=== PATIENT | male | born 1945 | race Caucasian/White ===

== ENCOUNTER 2018-11-26 12:03 | Emergency (ER) | payer MEDICARE, OTHER ==
[2018-11-26] MEDS ORDERED: Albuterol 0.083% 2.5 MG/3 ML Neb Soln NEB ONE (12:12)
[2018-11-26] MEDS ORDERED: Lactated Ringers 1,000 ML IV ONE (12:12)
[2018-11-26] MEDS ORDERED: Sodium Chloride 0.9% 10 ML Syringe FLUSH PRN (12:19)
--- NOTE | 2018-11-26 12:23 | EDM.PDOC ---
ED HPI GENERAL MEDICAL PROBLEM - General Chief Complaint: Fever Stated Complaint: AMBULANCE Time Seen by Provider: 11/26/18 12:05 Source of Information: Reports: Patient History Limitations: Reports: No Limitations - History of Present Illness INITIAL COMMENTS - FREE TEXT/NARRATIVE: 72-year-old male is brought in from [place] by EMS for evaluation treatment of hypoxia and shortness of breath. EMS reports upon arrival he was found to be in the upper 80s on room air and slightly tachycardic with heart rate in the low 100s. Reportedly was incontinent of stool and urine during ambulance transport. Patient is currently combining shortness of breath and is appreciated this for the last few days. Also reporting generalized weakness. No chest pain, abdominal pain, nausea or vomiting. Patient was discharged from [facility] in [place] end of September. He was admitted September 17 to the for cellulitis of the right leg. He had an extensive workup done. Discharge to [facility], unclear exactly when he left the care home and return to his own home. legs Pain Score (Numeric/FACES): 5 - Related Data Allergies Allergy/AdvReac Type Severity Reaction Status Date / Time No Known Allergies Allergy Verified 11/26/18 12:25 Home Meds: Home Meds Aspirin 1 tab PO DAILY 11/26/18 [History] Furosemide [Lasix] 40 mg PO DAILY 11/26/18 [History] Losartan [Cozaar] 100 mg PO DAILY 11/26/18 [History] Metoprolol Tartrate [Lopressor] 12.5 mg PO Q12HR 11/26/18 [History] Potassium Chloride 20 meq PO DAILY 11/26/18 [History] Terbinafine [LamISIL] 250 mg PO DAILY 11/26/18 [History] Triamcinolone Acetonide [Triamcinolone Acetonide 0.1% Crm] 1 applic TOP ASDIRECTED 11/26/18 [History] amLODIPine Besylate [Norvasc] 10 mg PO DAILY 11/26/18 [History] hydroCHLOROthiazide [Hydrochlorothiazide] 25 mg PO DAILY 11/26/18 [History] ED ROS GENERAL - Review of Systems Review Of Systems: See Below Constitutional: Reports: Weakness Respiratory: Reports: Shortness of Breath. Denies: Cough Cardiovascular: Denies: Chest Pain GI/Abdominal: Reports: Stool Incontinence. Denies: Abdominal Pain, Nausea, Vomiting : Reports: Incontinence Musculoskeletal: Reports: Leg Pain (bilateral lower legs) Skin: Reports: Erythema ED EXAM, GENERAL - Physical Exam Exam: See Below Exam Limited By: No Limitations General Appearance: Alert, WD/WN, Mild Distress, Obese Nose: Normal Inspection Throat/Mouth: Normal Inspection, Normal Voice, No Airway Compromise Respiratory/Chest: Respiratory Distress (tachypnea), Decreased Breath Sounds Cardiovascular: Normal Peripheral Pulses, No Murmur, Tachycardia Peripheral Pulses: 2+: Radial (L), Radial (R), Dorsalis Pedis (L), Dorsalis Pedis (R) GI/Abdominal: Normal Bowel Sounds, Soft, Non-Tender Extremities: Other (4+ pitting edema to the bilateral lower legs with erythema ulcerative weeping lesions to the right lower leg) Neurological: Alert, Oriented, Confused Skin Exam: Erythema (bilateral lower legs), Increased Warmth (bilateral lower legs) EKG INTERPRETATION EKG Date: 11/26/18 Time: 12:22 Rhythm: NSR Rate (Beats/Min): 96 Randolph: Normal P-Wave: Present QRS: Normal ST-T: Depressed (minimal in the anteriorlateral leads) EKG Interpretation Comments: NSR at [address] depression in the anteriolateral leads. QTc 421. Reviewed by myself and Dr. Galvin. Course - Vital Signs Last Recorded V/S: Last Vital Signs Temp 99.1 F 11/26/18 12:51 Pulse 100 11/26/18 12:51 Resp 33 H 11/26/18 12:51 BP 138/82 11/26/18 12:51 Pulse Ox 94 L 11/26/18 12:51 - Orders/Labs/Meds Orders: Active Orders 24 hr Category Date Time Status Cardiac Monitoring [RC] . DIRECTED Care 11/26/18 12:12 Active EKG Documentation Completion [RC] ASDIRECTED Care 11/26/18 12:13 Active Oxygen Therapy [RC] ASDIRECTED Care 11/26/18 12:12 Active Peripheral IV Care [RC] . DIRECTED Care 11/26/18 12:19 Active RT Aerosol Therapy [RC] ASDIRECTED Care 11/26/18 12:13 Active Chest 1V Frontal [CR] Stat Exams 11/26/18 12:12 Taken CULTURE BLOOD [BC] Stat Lab 11/26/18 13:00 Received CULTURE BLOOD [BC] Stat Lab 11/26/18 13:21 Received CULTURE URINE [RM] Stat Lab 11/26/18 12:15 Ordered CULTURE WOUND [RM] Stat Lab 11/26/18 13:05 Received INR,PT,PROTHROMBIN TIME [COAG] Stat Lab 11/26/18 13:52 Ordered METH-RESIST S.AUR,MRSA BY PCR [MOLEC] Stat Lab 11/26/18 13:05 Received PTT,PARTIAL THROMBOPLSTIN TIME [COAG] Stat Lab 11/26/18 13:52 Ordered Heparin Sodium/D5W [Heparin 25,000 Units in D5W 500 ML] Med 11/26/18 14:15 Ordered 25,000 units in 500 ml IV TITRATE Lactated Ringers @ 150 MLS/HR(1000ml Bag) Med 11/26/18 15:00 Ordered Lactated Ringers [Ringers, Lactated] 1,000 ml IV ASDIRECTED Sodium Chloride 0.9% [Saline Flush] Med 11/26/18 12:19 Active 10 ml FLUSH ASDIRECTED PRN Vancomycin [Vancocin] 1 gm Med 11/26/18 14:44 Ordered Sodium Chloride 0.9% [Normal Saline] 250 ml IV ONETIME Vancomycin [Vancocin] 1 gm Med 11/26/18 14:44 Ordered Sodium Chloride 0.9% [Normal Saline] 250 ml IV ONETIME Blood Culture x2 Reflex Set [OM.PC] Stat Oth 11/26/18 12:12 Ordered Peripheral IV Insertion Adult [OM.PC] Routine Oth 11/26/18 12:19 Ordered EKG 12 Lead [EK] Stat Ther 11/26/18 12:12 Ordered Medication Orders Heparin Sodium/Dextrose (Heparin 25,000 Units In D5w 500 Ml) 25,000 units in 500 mls @ 20 mls/hr IV TITRATE GLENN; Protocol Vancomycin HCl 1 gm/ Sodium (Chloride) 250 mls @ 250 mls/hr IV ONETIME ONE Stop: 11/26/18 15:43 Vancomycin HCl 1 gm/ Sodium (Chloride) 250 mls @ 250 mls/hr IV ONETIME ONE Stop: 11/26/18 15:43 Lactated Ringer's (Ringers, Lactated) 1,000 mls @ 150 mls/hr IV ASDIRECTED GLENN Sodium Chloride (Saline Flush) 10 ml FLUSH ASDIRECTED PRN PRN Reason: Keep Vein Open Last Admin: 11/26/18 13:06 Dose: 10 ml Labs: Laboratory Tests 11/26/18 11/26/18 11/26/18 Range/Units 13:00 13:00 13:00 WBC (4.23-9.07) K/mm3 RBC (4.63-6.08) M/mm3 Hgb (13.7-17.5) gm/L Hct (40.1-51.0) % MCV (79.0-92.2) fl MCH (25.7-32.2) pg MCHC (32.2-35.5) g/dl RDW Std Deviation (35.1-43.9) fL Plt Count (163-337) K/mm3 MPV (9.4-12.3) fl Neutrophils % (Manual) (40-60) % Band Neutrophils % (0-10) % Lymphocytes % (Manual) (20-40) % Atypical Lymphs % % Monocytes % (Manual) (2-10) % Eosinophils % (Manual) (0.8-7.0) % Basophils % (Manual) (0.2-1.2) Platelet Estimate Anisocytosis Macrocytosis RBC Morph Comment Sodium 141 (136-145) mEq/L Potassium 3.3 L (3.5-5.1) mEq/L Chloride 102 (98-107) mEq/L Carbon Dioxide 27 (21-32) mEq/L Anion Gap 15.3 H (5-15) BUN 23 H (7-18) mg/dL Creatinine 1.1 (0.7-1.3) mg/dL Est Cr Clr Drug Dosing 75.62 mL/min Estimated GFR (MDRD) > 60 (>60) mL/min BUN/Creatinine Ratio 20.9 H (14-18) Glucose 113 (83-115) mg/dL Lactic Acid 3.5 H (0.4-2.0) mmol/L Calcium 8.5 (8.5-10.1) mg/dL Magnesium (1.8-2.4) mg/dl Total Bilirubin 0.5 (0.2-1.0) mg/dL AST 104 H (15-37) U/L ALT 25 (16-63) U/L Alkaline Phosphatase 98 (46-116) U/L CK-MB (CK-2) (0-3.6) ng/ml Troponin I 20.658 H* (0.00-0.056) ng/mL C-Reactive Protein 9.7 H* (<1.0) mg/dL Total Protein 8.4 H (6.4-8.2) g/dl Albumin 3.2 L (3.4-5.0) g/dl Globulin 5.2 gm/dL Albumin/Globulin Ratio 0.6 L (1-2) Urine Color (Yellow) Urine Appearance (Clear) Urine pH (5.0-8.0) Ur Specific Himrod (1.005-1.030) Urine Protein (Negative) Urine Glucose (UA) (Negative) Urine Ketones (Negative) Urine Occult Blood (Negative) Urine Nitrite (Negative) Urine Bilirubin (Negative) Urine Urobilinogen (0.2-1.0) Ur Leukocyte Esterase (Negative) Urine RBC (0-5) /hpf Urine WBC (0-5) /hpf Ur Epithelial Cells (0-5) /hpf Urine Bacteria (FEW) /hpf Urine Mucus (FEW) /hpf Mycoplasma pneumon IgM Negative (NEGATIVE) 11/26/18 11/26/18 11/26/18 Range/Units 13:00 13:00 13:15 WBC 22.64 H (4.23-9.07) K/mm3 RBC 3.96 L (4.63-6.08) M/mm3 Hgb 13.1 L (13.7-17.5) gm/L Hct 40.9 (40.1-51.0) % MCV 103.3 H (79.0-92.2) fl MCH 33.1 H (25.7-32.2) pg MCHC 32.0 L (32.2-35.5) g/dl RDW Std Deviation 59.1 H (35.1-43.9) fL Plt Count 249 (163-337) K/mm3 MPV 9.0 L (9.4-12.3) fl Neutrophils % (Manual) 87 H (40-60) % Band Neutrophils % 5 (0-10) % Lymphocytes % (Manual) 6 L (20-40) % Atypical Lymphs % 0 % Monocytes % (Manual) 2 (2-10) % Eosinophils % (Manual) 0 L (0.8-7.0) % Basophils % (Manual) 0 L (0.2-1.2) Platelet Estimate Adequate Anisocytosis 1+ slight Macrocytosis 1+ slight RBC Morph Comment Not Reportable Sodium (136-145) mEq/L Potassium (3.5-5.1) mEq/L Chloride (98-107) mEq/L Carbon Dioxide (21-32) mEq/L Anion Gap (5-15) BUN (7-18) mg/dL Creatinine (0.7-1.3) mg/dL Est Cr Clr Drug Dosing mL/min Estimated GFR (MDRD) (>60) mL/min BUN/Creatinine Ratio (14-18) Glucose (83-115) mg/dL Lactic Acid (0.4-2.0) mmol/L Calcium (8.5-10.1) mg/dL Magnesium 2.0 (1.8-2.4) mg/dl Total Bilirubin (0.2-1.0) mg/dL AST (15-37) U/L ALT (16-63) U/L Alkaline Phosphatase (46-116) U/L CK-MB (CK-2) 97.6 H (0-3.6) ng/ml Troponin I (0.00-0.056) ng/mL C-Reactive Protein (<1.0) mg/dL Total Protein (6.4-8.2) g/dl Albumin (3.4-5.0) g/dl Globulin gm/dL Albumin/Globulin Ratio (1-2) Urine Color (Yellow) Urine Appearance (Clear) Urine pH (5.0-8.0) Ur Specific Himrod (1.005-1.030) Urine Protein (Negative) Urine Glucose (UA) (Negative) Urine Ketones (Negative) Urine Occult Blood (Negative) Urine Nitrite (Negative) Urine Bilirubin (Negative) Urine Urobilinogen (0.2-1.0) Ur Leukocyte Esterase (Negative) Urine RBC (0-5) /hpf Urine WBC (0-5) /hpf Ur Epithelial Cells (0-5) /hpf Urine Bacteria (FEW) /hpf Urine Mucus (FEW) /hpf Mycoplasma pneumon IgM (NEGATIVE) 11/26/18 Range/Units 13:55 WBC (4.23-9.07) K/mm3 RBC (4.63-6.08) M/mm3 Hgb (13.7-17.5) gm/L Hct (40.1-51.0) % MCV (79.0-92.2) fl MCH (25.7-32.2) pg MCHC (32.2-35.5) g/dl RDW Std Deviation (35.1-43.9) fL Plt Count (163-337) K/mm3 MPV (9.4-12.3) fl Neutrophils % (Manual) (40-60) % Band Neutrophils % (0-10) % Lymphocytes % (Manual) (20-40) % Atypical Lymphs % % Monocytes % (Manual) (2-10) % Eosinophils % (Manual) (0.8-7.0) % Basophils % (Manual) (0.2-1.2) Platelet Estimate Anisocytosis Macrocytosis RBC Morph Comment Sodium (136-145) mEq/L Potassium (3.5-5.1) mEq/L Chloride (98-107) mEq/L Carbon Dioxide (21-32) mEq/L Anion Gap (5-15) BUN (7-18) mg/dL Creatinine (0.7-1.3) mg/dL Est Cr Clr Drug Dosing mL/min Estimated GFR (MDRD) (>60) mL/min BUN/Creatinine Ratio (14-18) Glucose (83-115) mg/dL Lactic Acid (0.4-2.0) mmol/L Calcium (8.5-10.1) mg/dL Magnesium (1.8-2.4) mg/dl Total Bilirubin (0.2-1.0) mg/dL AST (15-37) U/L ALT (16-63) U/L Alkaline Phosphatase (46-116) U/L CK-MB (CK-2) (0-3.6) ng/ml Troponin I (0.00-0.056) ng/mL C-Reactive Protein (<1.0) mg/dL Total Protein (6.4-8.2) g/dl Albumin (3.4-5.0) g/dl Globulin gm/dL Albumin/Globulin Ratio (1-2) Urine Color Yellow (Yellow) Urine Appearance Slt cloudy H (Clear) Urine pH 6.0 (5.0-8.0) Ur Specific Himrod 1.025 (1.005-1.030) Urine Protein 2+ H (Negative) Urine Glucose (UA) Negative (Negative) Urine Ketones Trace H (Negative) Urine Occult Blood Trace-lysed H (Negative) Urine Nitrite Negative (Negative) Urine Bilirubin 1+ H (Negative) Urine Urobilinogen 0.2 (0.2-1.0) Ur Leukocyte Esterase Negative (Negative) Urine RBC 0-5 (0-5) /hpf Urine WBC 0-5 (0-5) /hpf Ur Epithelial Cells 0-5 (0-5) /hpf Urine Bacteria Moderate H (FEW) /hpf Urine Mucus Many H (FEW) /hpf Mycoplasma pneumon IgM (NEGATIVE) Meds: Medications Generic Name Dose Route Start Last Admin Trade Name Billy PRN Reason Stop Dose Admin Heparin Sodium/Dextrose 25,000 units in 500 mls @ 20 mls/hr 11/26/18 14:15 Heparin 25,000 Units In D5w 500 Ml IV TITRATE GLENN Protocol 1,000 UNITS/HR Vancomycin HCl 1 gm/ Sodium 250 mls @ 250 mls/hr 11/26/18 14:44 Chloride IV 11/26/18 15:43 ONETIME ONE Vancomycin HCl 1 gm/ Sodium 250 mls @ 250 mls/hr 11/26/18 14:44 Chloride IV 11/26/18 15:43 ONETIME ONE Lactated Ringer's 1,000 mls @ 150 mls/hr 11/26/18 15:00 Ringers, Lactated IV ASDIRECTED GLENN Sodium Chloride 10 ml 11/26/18 12:19 11/26/18 13:06 Saline Flush FLUSH 10 ml ASDIRECTED PRN Administration Keep Vein Open Discontinued Medications Generic Name Dose Route Start Last Admin Trade Name Billy PRN Reason Stop Dose Admin Albuterol 2.5 mg 11/26/18 12:12 Proventil Neb Soln NEB 11/26/18 12:13 ONETIME ONE Aspirin 325 mg 11/26/18 13:52 Ecotrin PO 11/26/18 13:53 ONETIME ONE Heparin Sodium (Porcine) 4,000 units 11/26/18 14:02 Heparin Sodium IVPUSH 11/26/18 14:03 ONETIME ONE Lactated Ringer's 1,000 mls @ 999 mls/hr 11/26/18 12:12 11/26/18 13:03 Ringers, Lactated IV 11/26/18 13:12 999 mls/hr .BOLUS ONE Administration Piperacillin Sod/Tazobactam 100 mls @ 200 mls/hr 11/26/18 12:52 11/26/18 13: 04 Sod 4.5 gm/ Sodium Chloride IV 11/26/18 13:21 200 mls/hr ONETIME ONE Administration - Radiology Interpretation Free Text/Narrative:: 1 view chest xray shows congestion, no obvious infiltrate. Formal radiology read pending. Chest: Portable view of the chest was obtained. Comparison: No previous chest x-ray. Heart size is slightly enlarged. Tortuous thoracic aorta is noted. Incidental note of azygous lobe. Pulmonary vessels are congested. Lungs otherwise are clear. Bony structures are grossly intact. Impression: 1. Findings suspicious for CHF. - Re-Assessments/Exams Free Text/Narrative Re-Assessment/Exam: 11/26/18 15:05 Patient requires admission for likely sepsis as well as an elevated troponin. Patient was like to go to [facility] in [place]. Aspirin and heparin ordered. He has received IV Zosyn. Will add on IV vancomycin. He has received a liter of LR. Chest x-ray does show congestion and his BP is maintained will continue to hydrate but at a lower rate than the recommended 30 mils per kilo. Discussed with Dr. Steiner hostel manager in [place]. Recommended treating with heparin and aspirin but felt this was more likely from sepsis. Case discussed with Dr. Lawson, hospitalist who agreed to the admission. He will be transferred by ground ambulance to [facility] in [place]. Departure - Departure Time of Disposition: 15:14 Disposition: DC/Tfer to Acute Hospital 02 Condition: Serious Clinical Impression: Sepsis, Elevated troponin, Hypoxia, Cellulitis - Discharge Information *PRESCRIPTION DRUG MONITORING PROGRAM REVIEWED*: No *COPY OF PRESCRIPTION DRUG MONITORING REPORT IN PATIENT AMARILIS: No Forms: ED Department Discharge Additional Instructions: Patient to go by ground ambulance to [facility] in [place]. Direct admission to Dr. Lawson. - My Orders Last 24 Hours: My Active Orders 11/26/18 12:12 Cardiac Monitoring [RC] . DIRECTED Oxygen Therapy [RC] ASDIRECTED Chest 1V Frontal [CR] Stat Blood Culture x2 Reflex Set [OM.PC] Stat EKG 12 Lead [EK] Stat 11/26/18 12:13 EKG Documentation Completion [RC] ASDIRECTED RT Aerosol Therapy [RC] ASDIRECTED 11/26/18 12:15 CULTURE URINE [RM] Stat 11/26/18 12:19 Peripheral IV Care [RC] . DIRECTED Sodium Chloride 0.9% [Saline Flush] 10 ml FLUSH ASDIRECTED PRN Peripheral IV Insertion Adult [OM.PC] Routine 11/26/18 13:00 CULTURE BLOOD [BC] Stat 11/26/18 13:05 CULTURE WOUND [RM] Stat METH-RESIST S.AUR,MRSA BY PCR [MOLEC] Stat 11/26/18 13:21 CULTURE BLOOD [BC] Stat 11/26/18 13:52 INR,PT,PROTHROMBIN TIME [COAG] Stat PTT,PARTIAL THROMBOPLSTIN TIME [COAG] Stat 11/26/18 14:15 Heparin Sodium/D5W [Heparin 25,000 Units in D5W 500 ML] 25,000 units in 500 ml IV TITRATE 11/26/18 14:44 Vancomycin [Vancocin] 1 gm Sodium Chloride 0.9% [Normal Saline] 250 ml IV ONETIME Vancomycin [Vancocin] 1 gm Sodium Chloride 0.9% [Normal Saline] 250 ml IV ONETIME 11/26/18 15:00 Lactated Ringers @ 150 MLS/HR(1000ml Bag) Lactated Ringers [Ringers, Lactated] 1 ,000 ml IV ASDIRECTED - Assessment/Plan Last 24 Hours: My Active Orders 11/26/18 12:12 Cardiac Monitoring [RC] . DIRECTED Oxygen Therapy [RC] ASDIRECTED Chest 1V Frontal [CR] Stat Blood Culture x2 Reflex Set [OM.PC] Stat EKG 12 Lead [EK] Stat 11/26/18 12:13 EKG Documentation Completion [RC] ASDIRECTED RT Aerosol Therapy [RC] ASDIRECTED 11/26/18 12:15 CULTURE URINE [RM] Stat 11/26/18 12:19 Peripheral IV Care [RC] . DIRECTED Sodium Chloride 0.9% [Saline Flush] 10 ml FLUSH ASDIRECTED PRN Peripheral IV Insertion Adult [OM.PC] Routine 11/26/18 13:00 CULTURE BLOOD [BC] Stat 11/26/18 13:05 CULTURE WOUND [RM] Stat METH-RESIST S.AUR,MRSA BY PCR [MOLEC] Stat 11/26/18 13:21 CULTURE BLOOD [BC] Stat 11/26/18 13:52 INR,PT,PROTHROMBIN TIME [COAG] Stat PTT,PARTIAL THROMBOPLSTIN TIME [COAG] Stat 11/26/18 14:15 Heparin Sodium/D5W [Heparin 25,000 Units in D5W 500 ML] 25,000 units in 500 ml IV TITRATE 11/26/18 14:44 Vancomycin [Vancocin] 1 gm Sodium Chloride 0.9% [Normal Saline] 250 ml IV ONETIME Vancomycin [Vancocin] 1 gm Sodium Chloride 0.9% [Normal Saline] 250 ml IV ONETIME 11/26/18 15:00 Lactated Ringers @ 150 MLS/HR(1000ml Bag) Lactated Ringers [Ringers, Lactated] 1 ,000 ml IV ASDIRECTED
[2018-11-26] MEDS ORDERED: Piperacillin/Tazobactam 4.5 GM in Sodium Chloride 0.9% 100 ML IV ONE (12:52)
[2018-11-26] MEDS ORDERED: Aspirin 325 MG Tab.EC PO ONE (13:52)
[2018-11-26] MEDS ORDERED: Heparin Sodium 5,000 Units/ML Vial IVPUSH ONE (14:02)
[2018-11-26] MEDS ORDERED: Heparin Sodium/D5W 25,000 UNITS/500 ML BAG IV SCH (14:15)
[2018-11-26] MEDS ORDERED: Lactated Ringers 1,000 ML IV SCH (15:00)
--- NOTE | 2018-11-26 16:59 | CR ---
Chest: Portable view of the chest was obtained. Comparison: No previous chest x-ray. Heart size is slightly enlarged. Tortuous thoracic aorta is noted. Incidental note of azygous lobe. Pulmonary vessels are congested. Lungs otherwise are clear. Bony structures are grossly intact. Impression: 1. Findings suspicious for CHF. Diagnostic code #3
== END 2018-11-26 18:25 ==
LOC: JD.ED 12:03
DX: A41.89 Other specified sepsis (principal); R09.02 Hypoxemia; L03.116 Cellulitis of left lower limb; L03.115 Cellulitis of right lower limb; R79.89 Other specified abnormal findings of blood chemistry; Z79.82 Long term (current) use of aspirin; Z79.899 Other long term (current) drug therapy
CPT/HCPCS: 36415; 71045; 80053; 81001; 82553; 83605; 83735; 84484; 85007; 85027; 86140; 86738; 87040; 87070; 87077; 87086; 87184; 87186; 87641; 87804; 93005; 94640; 96361; 96365; 96366; 96367; 96368; 96376; 99285; A9270; J1644; J2543; J3370; J7030; J7050; J7120; 93010; 99284

== ENCOUNTER 2020-04-24 11:50 | Emergency (ER) | payer MEDICARE, OTHER ==
[2020-04-24] MEDS ORDERED: Sodium Chloride 0.9% 10 ML Syringe FLUSH PRN (12:03)
--- NOTE | 2020-04-24 12:24 | CR ---
Chest: Portable view of the chest was obtained. Comparison: Prior chest x-ray of 11/26/18. Heart is mildly enlarged. Incidental azygos lobe is noted. Slight scarring is noted within the left base. Lungs otherwise are clear with no acute parenchymal change. Degenerative change is noted within both acromioclavicular joints. No acute osseous finding is appreciated. Impression: 1. Findings as noted above. 2. Nothing acute is appreciated. Diagnostic code #2 This report was dictated in [facility]
--- NOTE | 2020-04-24 12:56 | EDM.PDOC ---
ED HPI GENERAL MEDICAL PROBLEM - General Chief Complaint: General Stated Complaint: [facility] Time Seen by Provider: 04/24/20 11:56 Source of Information: Reports: Patient, EMS, Correction Records History Limitations: Reports: No Limitations - History of Present Illness INITIAL COMMENTS - FREE TEXT/NARRATIVE: The patient presents by [facility] from [facility] for low oxygen saturations and possible infection. The patient said he has chills and a cough. He did not know if he had a fever. His oxygen saturations were low in [place] but EMS says on the way here they were good. He has no chest pain, shortness of breath, abdominal pain, nausea or vomiting. He has chronic edema in his legs with weeping at times and they think this may be the source. He has no dysuria. They also thought he was in a new onset A-fib. His heart rate has been in the low 100s. Onset: Gradual Duration: Day(s): Severity: Moderate Improves with: Reports: None Worsens with: Reports: None Associated Symptoms: Reports: Cough, Fever/Chills. Denies: Chest Pain, Headaches, Nausea/Vomiting, Shortness of Breath - Related Data Allergies Allergy/AdvReac Type Severity Reaction Status Date / Time No Known Allergies Allergy Verified 04/24/20 12:00 Home Meds: Home Meds Aspirin 1 tab PO DAILY 11/26/18 [History] Losartan [Cozaar] 100 mg PO DAILY 11/26/18 [History] Potassium Chloride 20 meq PO DAILY 11/26/18 [History] Acetaminophen 650 mg PO TID PRN 04/24/20 [History] Alum Hydrox/Mag Hydrox/Simeth [Maalox Advanced] 30 ml PO DAILY PRN 04/24/20 [ History] Bumetanide 3 mg PO DAILY 04/24/20 [History] Calcium Carbonate [Tums] 200 mg PO QID 04/24/20 [History] Clopidogrel [Plavix] 75 mg PO DAILY 04/24/20 [History] Diclofenac Sodium [Voltaren 1% Gel] 2 gm TOP QID PRN 04/24/20 [History] Docusate Sodium [Colace] 100 mg PO DAILY PRN 04/24/20 [History] Loperamide [Imodium] 4 mg PO ASDIRECTED PRN 04/24/20 [History] Metoprolol Succinate 50 mg PO DAILY 04/24/20 [History] Mirtazapine 15 mg PO BEDTIME 04/24/20 [History] Nitroglycerin [Nitrostat] 0.4 mg SL ASDIRECTED PRN 04/24/20 [History] Sennosides/Docusate Sodium [Senna Plus Tablet] 1 each PO DAILY PRN 04/24/20 [ History] hydrALAZINE [Apresoline] 25 mg PO Q12HR 04/24/20 [History] polyethylene glycoL 3350 [MiraLAX] 17 gm PO DAILY 04/24/20 [History] Past Medical History HEENT History: Reports: Impaired Vision Cardiovascular History: Reports: Hypertension, SD, PVD, SOB on Exertion Respiratory History: Reports: SOB Gastrointestinal History: Reports: GI Bleed, Other (See Below) Other Gastrointestinal History: incontinence Genitourinary History: Reports: Urinary Incontinence Musculoskeletal History: Reports: Arthritis, Osteoarthritis Other Musculoskeletal History: uses walker Neurological History: Reports: None Psychiatric History: Reports: Other (See Below) Other Psychiatric History: Insomnia Endocrine/Metabolic History: Reports: Diabetes, Type II, Hypokalemia, Obesity/ BMI 30+ Hematologic History: Reports: Anemia Other Hematologic History: sees oncologist for "possible cancer in blood" Immunologic History: Reports: None Oncologic (Cancer) History: Reports: Other (See Below) Other Oncologic History: "blood cancer," multiple myeloma Dermatologic History: Reports: Cellulitis, Other (See Below) Other Dermatologic History: 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 - Infectious Disease History Infectious Disease History: Reports: None - Past Surgical History GI Surgical History: Reports: Appendectomy Social & Family History - Family History Family Medical History: Noncontributory - Tobacco Use Smoking Status *Q: Never Smoker - Caffeine Use Caffeine Use: Reports: None - Recreational Drug Use Recreational Drug Use: No ED ROS GENERAL - Review of Systems Review Of Systems: See Below Constitutional: Reports: Chills HEENT: Reports: No Symptoms Respiratory: Reports: No Symptoms Cardiovascular: Reports: No Symptoms Endocrine: Reports: No Symptoms GI/Abdominal: Reports: No Symptoms : Reports: No Symptoms Musculoskeletal: Reports: No Symptoms ED EXAM, GENERAL - Physical Exam Exam: See Below Exam Limited By: No Limitations General Appearance: Alert, No Apparent Distress Ears: Normal External Exam Nose: Normal Inspection Head: Atraumatic, Normocephalic Neck: Normal Inspection Respiratory/Chest: No Respiratory Distress, Lungs Clear, Normal Breath Sounds Cardiovascular: Regular Rate, Rhythm, No Murmur, Other (Edema in both legs) GI/Abdominal: Soft, Non-Tender, No Organomegaly, No Mass Back Exam: Normal Inspection Extremities: Other (Edema to both legs withe erythema) EKG INTERPRETATION EKG Date: 04/24/20 Time: 12:48 Rhythm: Other (Junctional tachycardia) Rate (Beats/Min): 107 Dema: Normal P-Wave: Absent QRS: Normal ST-T: Normal QT: Normal Course - Vital Signs Last Recorded V/S: Last Vital Signs Temp 97.3 F 04/24/20 11:53 Pulse 100 04/24/20 11:53 Resp 18 04/24/20 11:53 BP 120/74 04/24/20 11:53 Pulse Ox 100 04/24/20 11:53 - Orders/Labs/Meds Orders: Active Orders 24 hr Category Date Time Status EKG Documentation Completion [RC] ASDIRECTED Care 04/24/20 12:31 Active Peripheral IV Care [RC] . DIRECTED Care 04/24/20 12:04 Active CORONAVIRUS COVID-19 PCR PHL Stat Lab 04/24/20 12:06 Ordered CULTURE BLOOD [BC] Stat Lab 04/24/20 12:20 Received CULTURE BLOOD [BC] Stat Lab 04/24/20 12:35 Received LACTIC ACID [CHEM] Stat Lab 04/24/20 15:30 Ordered Lactated Ringers [Ringers, Lactated] 1,000 ml Med 04/24/20 14:30 Active IV ASDIRECTED Sodium Chloride 0.9% [Saline Flush] Med 04/24/20 12:03 Active 10 ml FLUSH ASDIRECTED PRN Vancomycin 2 gm Med 04/24/20 14:15 Active Sodium Chloride 0.9% [Normal Saline] 500 ml IV ONETIME Blood Culture x2 Reflex Set [OM.PC] Stat Oth 04/24/20 12:05 Ordered Peripheral IV Insertion Adult [OM.PC] Stat Oth 04/24/20 12:03 Ordered EKG 12 Lead [EK] Stat Ther 04/24/20 12:31 Ordered Medication Orders Vancomycin HCl 2 gm/ Sodium (Chloride) 500 mls @ 250 mls/hr IV ONETIME ONE Stop: 04/24/20 16:14 Lactated Ringer's (Ringers, Lactated) 1,000 mls @ 999 mls/hr IV ASDIRECTED GLENN Stop: 04/26/20 15:31 Sodium Chloride (Saline Flush) 10 ml FLUSH ASDIRECTED PRN PRN Reason: Keep Vein Open Labs: Laboratory Tests 04/24/20 04/24/20 04/24/20 Range/Units 12:05 12:20 12:35 WBC 17.49 H (4.23-9.07) K/mm3 RBC 2.66 L (4.63-6.08) M/mm3 Hgb 9.0 L D (13.7-17.5) gm/dl Hct 28.8 L (40.1-51.0) % MCV 108.3 H D (79.0-92.2) fl MCH 33.8 H (25.7-32.2) pg MCHC 31.3 L (32.2-35.5) g/dl RDW Std Deviation 56.2 H (35.1-43.9) fL Plt Count 296 (163-337) K/mm3 MPV 8.4 L (9.4-12.3) fl Neut % (Auto) 68.3 H (34.0-67.9) % Lymph % (Auto) 26.8 (21.8-53.1) % Cowley % (Auto) 4.4 L (5.3-12.2) % Eos % (Auto) 0.2 L (0.8-7.0) Baso % (Auto) 0.1 (0.1-1.2) % Neut # (Auto) 11.97 H (1.78-5.38) K/mm3 Lymph # (Auto) 4.68 H (1.32-3.57) K/mm3 Cowley # (Auto) 0.77 (0.30-0.82) K/mm3 Eos # (Auto) 0.03 L (0.04-0.54) K/mm3 Baso # (Auto) 0.01 (0.01-0.08) K/mm3 Manual Slide Review Abnormal smear PT (9.7-12.0) SECONDS INR APTT (22-31) SECONDS Sodium (136-145) mEq/L Potassium (3.5-5.1) mEq/L Chloride (98-107) mEq/L Carbon Dioxide (21-32) mEq/L Anion Gap (5-15) BUN (7-18) mg/dL Creatinine (0.7-1.3) mg/dL Est Cr Clr Drug Dosing mL/min Estimated GFR (MDRD) (>60) mL/min BUN/Creatinine Ratio (14-18) Glucose (83-115) mg/dL Lactic Acid 2.0 (0.4-2.0) mmol/L Calcium (8.5-10.1) mg/dL Total Bilirubin (0.2-1.0) mg/dL AST (15-37) U/L ALT (16-63) U/L Alkaline Phosphatase (46-116) U/L Total Protein (6.4-8.2) g/dl Albumin (3.4-5.0) g/dl Globulin gm/dL Albumin/Globulin Ratio (1-2) Urine Color Yellow (Yellow) Urine Appearance Clear (Clear) Urine pH 5.5 (5.0-8.0) Ur Specific Lowell 1.020 (1.005-1.030) Urine Protein 2+ H (Negative) Urine Glucose (UA) Negative (Negative) Urine Ketones Negative (Negative) Urine Occult Blood Negative (Negative) Urine Nitrite Negative (Negative) Urine Bilirubin Negative (Negative) Urine Urobilinogen 0.2 (0.2-1.0) Ur Leukocyte Esterase Trace H (Negative) U Hyaline Cast (Auto) 0-5 (0-5) /lpf Urine RBC Not seen (0-5) /hpf Urine WBC 0-5 (0-5) /hpf Ur Squamous Epith Cells Not seen (0-5) /hpf Urine Bacteria Not seen (FEW) /hpf Urine Mucus Few (FEW) /hpf 04/24/20 04/24/20 04/24/20 Range/Units 12:35 12:35 12:35 WBC (4.23-9.07) K/mm3 RBC (4.63-6.08) M/mm3 Hgb (13.7-17.5) gm/dl Hct (40.1-51.0) % MCV (79.0-92.2) fl MCH (25.7-32.2) pg MCHC (32.2-35.5) g/dl RDW Std Deviation (35.1-43.9) fL Plt Count (163-337) K/mm3 MPV (9.4-12.3) fl Neut % (Auto) (34.0-67.9) % Lymph % (Auto) (21.8-53.1) % Cowley % (Auto) (5.3-12.2) % Eos % (Auto) (0.8-7.0) Baso % (Auto) (0.1-1.2) % Neut # (Auto) (1.78-5.38) K/mm3 Lymph # (Auto) (1.32-3.57) K/mm3 Cowley # (Auto) (0.30-0.82) K/mm3 Eos # (Auto) (0.04-0.54) K/mm3 Baso # (Auto) (0.01-0.08) K/mm3 Manual Slide Review PT 11.4 (9.7-12.0) SECONDS INR 1.05 APTT 26 (22-31) SECONDS Sodium 137 (136-145) mEq/L Potassium 3.9 (3.5-5.1) mEq/L Chloride 99 (98-107) mEq/L Carbon Dioxide 25 (21-32) mEq/L Anion Gap 16.9 H (5-15) BUN 43 H (7-18) mg/dL Creatinine 2.2 H (0.7-1.3) mg/dL Est Cr Clr Drug Dosing 35.74 mL/min Estimated GFR (MDRD) 29 (>60) mL/min BUN/Creatinine Ratio 19.5 H (14-18) Glucose 97 (83-115) mg/dL Lactic Acid (0.4-2.0) mmol/L Calcium 9.3 (8.5-10.1) mg/dL Total Bilirubin 0.4 (0.2-1.0) mg/dL AST 11 L (15-37) U/L ALT 14 L (16-63) U/L Alkaline Phosphatase 117 H (46-116) U/L Total Protein 9.2 H (6.4-8.2) g/dl Albumin 2.8 L (3.4-5.0) g/dl Globulin 6.4 gm/dL Albumin/Globulin Ratio 0.4 L (1-2) Urine Color (Yellow) Urine Appearance (Clear) Urine pH (5.0-8.0) Ur Specific Lowell (1.005-1.030) Urine Protein (Negative) Urine Glucose (UA) (Negative) Urine Ketones (Negative) Urine Occult Blood (Negative) Urine Nitrite (Negative) Urine Bilirubin (Negative) Urine Urobilinogen (0.2-1.0) Ur Leukocyte Esterase (Negative) U Hyaline Cast (Auto) (0-5) /lpf Urine RBC (0-5) /hpf Urine WBC (0-5) /hpf Ur Squamous Epith Cells (0-5) /hpf Urine Bacteria (FEW) /hpf Urine Mucus (FEW) /hpf Meds: Medications Generic Name Dose Route Start Last Admin Trade Name Freq PRN Reason Stop Dose Admin Vancomycin HCl 2 gm/ Sodium 500 mls @ 250 mls/hr 04/24/20 14:15 Chloride IV 04/24/20 16:14 ONETIME ONE Lactated Ringer's 1,000 mls @ 999 mls/hr 04/24/20 14:30 Ringers, Lactated IV 04/26/20 15:31 ASDIRECTED GLENN Sodium Chloride 10 ml 04/24/20 12:03 Saline Flush FLUSH ASDIRECTED PRN Keep Vein Open Discontinued Medications Generic Name Dose Route Start Last Admin Trade Name Freq PRN Reason Stop Dose Admin Vancomycin HCl 2 gm/ Sodium 250 mls @ 250 mls/hr 04/24/20 13:10 04/24/20 14: 30 Chloride IV 04/24/20 14:09 Not Given ONETIME ONE Lidocaine HCl Confirm 04/24/20 13:39 Xylocaine-Mpf 1% Administered 04/24/20 13:40 Dose 2 mls @ as directed .ROUTE .STK-MED ONE - Re-Assessments/Exams Free Text/Narrative Re-Assessment/Exam: 04/24/20 12:59 I ordered an IV saline lock, EKG, CXR, labs, lactic acid and blood cultures. 04/24/20 14:35 His CXR shows cardiomegaly but no acute changes. His WBC was elevated at 17.49. his Hgb was low at 9. His platelets were normal. His PT and PTT were normal. His creatinine was elevated at 2.2. He has no history of renal disease that I know of. His UA shows no UTI. It appears he is septic. A septic alert was called. His lactic acid is 2. I called Dr Hargrove and she agreed to the admission. She wanted him to have a 30ml/kg bolus. I also gave him vancomycin IV. Departure - Departure Time of Disposition: 14:45 Disposition: Admitted As Inpatient 67 Clinical Impression: Cellulitis of right leg, Renal insufficiency Sepsis Qualifiers: Sepsis type: sepsis due to unspecified organism Sepsis acute organ dysfunction status: unspecified Qualified Code(s): A41.9 - Sepsis, unspecified organism - Discharge Information Referrals: Yanick Plunkett MD [Primary Care Provider] - Forms: ED Department Discharge Sepsis Event Note (ED) - Evaluation Sepsis Screening Result: No Definite Risk - Focused Exam Vital Signs: Vital Signs Temp Pulse Resp BP Pulse Ox 04/24/20 11:53 97.3 F 100 18 120/74 100 - My Orders Last 24 Hours: My Active Orders 04/24/20 12:03 Sodium Chloride 0.9% [Saline Flush] 10 ml FLUSH ASDIRECTED PRN Peripheral IV Insertion Adult [OM.PC] Stat 04/24/20 12:04 Peripheral IV Care [RC] . DIRECTED 04/24/20 12:05 Blood Culture x2 Reflex Set [OM.PC] Stat 04/24/20 12:06 CORONAVIRUS COVID-19 PCR PHL Stat 04/24/20 12:20 CULTURE BLOOD [BC] Stat 04/24/20 12:31 EKG Documentation Completion [RC] ASDIRECTED EKG 12 Lead [EK] Stat 04/24/20 12:35 CULTURE BLOOD [BC] Stat 04/24/20 14:15 Vancomycin 2 gm Sodium Chloride 0.9% [Normal Saline] 500 ml IV ONETIME 04/24/20 14:30 Lactated Ringers [Ringers, Lactated] 1,000 ml IV ASDIRECTED 04/24/20 15:30 LACTIC ACID [CHEM] Stat - Assessment/Plan Last 24 Hours: My Active Orders 04/24/20 12:03 Sodium Chloride 0.9% [Saline Flush] 10 ml FLUSH ASDIRECTED PRN Peripheral IV Insertion Adult [OM.PC] Stat 04/24/20 12:04 Peripheral IV Care [RC] . DIRECTED 04/24/20 12:05 Blood Culture x2 Reflex Set [OM.PC] Stat 04/24/20 12:06 CORONAVIRUS COVID-19 PCR PHL Stat 04/24/20 12:20 CULTURE BLOOD [BC] Stat 04/24/20 12:31 EKG Documentation Completion [RC] ASDIRECTED EKG 12 Lead [EK] Stat 04/24/20 12:35 CULTURE BLOOD [BC] Stat 04/24/20 14:15 Vancomycin 2 gm Sodium Chloride 0.9% [Normal Saline] 500 ml IV ONETIME 04/24/20 14:30 Lactated Ringers [Ringers, Lactated] 1,000 ml IV ASDIRECTED 04/24/20 15:30 LACTIC ACID [CHEM] Stat
[2020-04-24] MEDS ORDERED: Lidocaine 1% 2 ML ONE (13:39)
--- NOTE | 2020-04-24 14:03 | PCM.SN.2 ---
- Free Text/Narrative Note: 04/24/20 [id number] IV started 22 g right upper arm. Secured and flushed. Jeimy
[2020-04-24] MEDS ORDERED: Vancomycin 2 GM in Sodium Chloride 0.9% 500 ML IV ONE (14:15)
[2020-04-24] MEDS ORDERED: Lactated Ringers 1,000 ML IV SCH (14:30)
[2020-04-24] MEDS ORDERED: Piperacillin/Tazobactam 4.5 GM in Sodium Chloride 0.9% 100 ML IV ONE (14:40)
--- NOTE | 2020-04-25 11:40 | MR ---
MRI right foot (without contrast) Technique: T1 and fat suppressed inversion recovery sagittal; T2 fat suppressed , T2 weighted and proton weighted coronal; T2 fat suppressed and T1 weighted axial Comparison: No previous foot imaging is available. Findings: Motion artifact is noted which diminishes some details. Tendons along the medial and lateral ankle show no discrete abnormality. Diffuse soft tissue edema is noted within the foot. Scattered joint space narrowing is noted within the midfoot and tarsometatarsal joints as well as within the 1st MTP joint. Focal edema noted within the skin and subcutaneous tissues within the lateral aspect of the heel. There is minimal edema within the adjacent calcaneus at this level and difficult to exclude very early and minimal osteomyelitis. No other areas of bone marrow edema are seen. Impression: 1. Findings compatible with cellulitis. 2. Probable soft tissue ulceration within the lateral heel. 3. Possible minimal osteomyelitis in the area of soft tissue ulceration within the lateral calcaneus. 4. Study is very suboptimal due to motion as well as inability to give contrast. Diagnostic code #3 This report was dictated in MDT I agree with preliminary report from López, finalized on 04/24/20, 6:30 PM Central Daylight Time [facility]
== END 2020-04-24 20:39 ==
LOC: JD.ED 11:50
DX: A41.9 Sepsis, unspecified organism (principal); L03.115 Cellulitis of right lower limb; I10 Essential (primary) hypertension; I25.2 Old myocardial infarction; N28.9 Disorder of kidney and ureter, unspecified; M19.90 Unspecified osteoarthritis, unspecified site; E11.9 Type 2 diabetes mellitus without complications; E66.9 Obesity, unspecified; Z68.42 Body mass index [BMI] 45.0-49.9, adult; Z79.82 Long term (current) use of aspirin; Z79.02 Long term (current) use of antithrombotics/antiplatelets; Z79.899 Other long term (current) drug therapy; Z20.828 Contact with and (suspected) exposure to other viral communicable diseases
CPT/HCPCS: 36415; 71045; 73718; 80053; 81001; 83605; 85025; 85610; 85652; 85730; 87040; 96365; 96366; 96367; 99285; J2001; J2543; J3370; J7040; J7050; J7120; U0002; 93010

== ENCOUNTER 2020-07-15 17:05 | Inpatient (IN) | payer MEDICARE, OTHER ==
[2020-07-15] MEDS ORDERED: Sodium Chloride 0.9% 10 ML Syringe FLUSH PRN (18:02)
--- NOTE | 2020-07-15 18:43 | CR ---
Chest: Portable view of the chest was obtained. Comparison: Prior chest x-ray of 04/24/20 and 11/26/18. Heart is slightly enlarged. Upper mediastinum is normal. Lungs are clear with no acute parenchymal change. Azygous lobe is incidentally noted. Bony structures are grossly intact. Impression: 1. Findings as noted above. 2. Nothing acute is appreciated. Diagnostic code #2 Study was dictated in MDT
[2020-07-15] MEDS ORDERED: Acetaminophen 325 MG Tab PO ONE (18:59)
[2020-07-15] MEDS ORDERED: cefTRIAXone 2 GM in Sodium Chloride 0.9% 100 ML IV ONE ×2 (19:26→19:44)
[2020-07-15] MEDS ORDERED: Sodium Chloride 0.9% 1,000 ML IV SCH (19:30)
--- NOTE | 2020-07-15 19:43 | EDM.PDOC ---
ED HPI GENERAL MEDICAL PROBLEM - General Chief Complaint: Fever Stated Complaint: [facility] Time Seen by Provider: 07/15/20 18:02 Source of Information: Reports: Patient History Limitations: Reports: No Limitations - History of Present Illness INITIAL COMMENTS - FREE TEXT/NARRATIVE: Patient is a 74-year-old male presents to the emergency department from [facility] with complaints of fever, cough, shortness of breath, sore throat and weakness. Patient states he has had this cough for over 2 weeks, however the fever, shortness of breath, and weakness are new onset last evening. He denies any nausea, vomiting, or diarrhea. Report from the [facility] is that he was checked for COVID 2 weeks ago during the routine testing and was found to be negative. COVID swab was collected today, however no test results are available thus far. Patient did leave the facility to go to a auction on Tuesday and it is unknown who he would have been in contact with. Patient does have some redness to his bilateral lower extremities which she states has been there "for years ". He does not feel that this has worsened in any way. Vital signs on triage were stable, however he did have a temporal temperature of 100.7, pulse was 103, and oxygen saturation was 94 to 98% on room air. - Related Data Allergies Allergy/AdvReac Type Severity Reaction Status Date / Time No Known Allergies Allergy Verified 07/15/20 17:17 Home Meds: Home Meds Aspirin 1 tab PO DAILY 11/26/18 [History] Potassium Chloride 20 meq PO DAILY 11/26/18 [History] Acetaminophen 650 mg PO TID PRN 04/24/20 [History] Alum Hydrox/Mag Hydrox/Simeth [Maalox Advanced] 30 ml PO DAILY PRN 04/24/20 [His tory] Bumetanide 3 mg PO DAILY 04/24/20 [History] Calcium Carbonate [Tums] 200 mg PO QID 04/24/20 [History] Clopidogrel [Plavix] 75 mg PO DAILY 04/24/20 [History] Diclofenac Sodium [Voltaren 1% Gel] 2 gm TOP QID PRN 04/24/20 [History] Docusate Sodium [Colace] 100 mg PO DAILY PRN 04/24/20 [History] Loperamide [Imodium] 4 mg PO ASDIRECTED PRN 04/24/20 [History] Metoprolol Succinate 50 mg PO DAILY 04/24/20 [History] Mirtazapine 15 mg PO BEDTIME 04/24/20 [History] Nitroglycerin [Nitrostat] 0.4 mg SL ASDIRECTED PRN 04/24/20 [History] Sennosides/Docusate Sodium [Senna Plus Tablet] 1 each PO DAILY PRN 04/24/20 [History] polyethylene glycoL 3350 [MiraLAX] 17 gm PO DAILY 04/24/20 [History] Cholecalciferol (Vitamin D3) [Vitamin D3] 1 cap PO DAILY 07/15/20 [History] Cyanocobalamin (Vitamin B-12) [Vitamin B-12] 1 cap PO DAILY 07/15/20 [History] Emollient Combination No.114 [Eucerin Advanced Repair] 1 dose TOP DAILY 07/15/20 [History] Losartan [Cozaar] 25 mg PO DAILY 07/15/20 [History] Past Medical History HEENT History: Reports: Impaired Vision Cardiovascular History: Reports: Hypertension, SC, PVD, SOB on Exertion Respiratory History: Reports: SOB Gastrointestinal History: Reports: GI Bleed, Other (See Below) Other Gastrointestinal History: incontinence Genitourinary History: Reports: Urinary Incontinence Musculoskeletal History: Reports: Arthritis, Osteoarthritis Other Musculoskeletal History: uses walker Neurological History: Reports: None Psychiatric History: Reports: Other (See Below) Other Psychiatric History: Insomnia Endocrine/Metabolic History: Reports: Diabetes, Type II, Hypokalemia, Obesity/BMI 30+ Hematologic History: Reports: Anemia Other Hematologic History: sees oncologist for "possible cancer in blood" Immunologic History: Reports: None Oncologic (Cancer) History: Reports: Other (See Below) Other Oncologic History: "blood cancer," multiple myeloma Dermatologic History: Reports: Cellulitis, Other (See Below) Other Dermatologic History: 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 - Infectious Disease History Infectious Disease History: Reports: None - Past Surgical History GI Surgical History: Reports: Appendectomy Social & Family History - Family History Family Medical History: Noncontributory - Tobacco Use Smoking Status *Q: Never Smoker - Caffeine Use Caffeine Use: Reports: None - Recreational Drug Use Recreational Drug Use: No ED ROS GENERAL - Review of Systems Review Of Systems: See Below Constitutional: Reports: Fever, Chills, Weakness, Fatigue HEENT: Reports: No Symptoms Respiratory: Reports: Shortness of Breath, Cough (Present for the last 2 weeks) Cardiovascular: Reports: No Symptoms Endocrine: Reports: No Symptoms GI/Abdominal: Reports: No Symptoms. Denies: Abdominal Pain, Diarrhea, Nausea, Vomiting : Reports: No Symptoms. Denies: Dysuria, Flank Pain, Frequency Musculoskeletal: Reports: No Symptoms Skin: Reports: No Symptoms Neurological: Reports: No Symptoms Psychiatric: Reports: No Symptoms Hematologic/Lymphatic: Reports: No Symptoms Immunologic: Reports: No Symptoms ED EXAM, SEPSIS - Physical Exam Exam: See Below General Appearance: Alert, WD/WN, No Apparent Distress Respiratory/Chest: No Respiratory Distress, Lungs Clear, Normal Breath Sounds, No Accessory Muscle Use, Chest Non-Tender Cardiovascular: Normal Peripheral Pulses, Regular Rate, Rhythm, No Edema, No Gallop, No JVD, No Murmur, No Rub GI/Abdominal Exam: Normal Bowel Sounds, Soft, Non-Tender, No Organomegaly, No Distention, No Abnormal Bruit, No Mass, Pelvis Stable Extremities: Other (Redness and warmth to the bilateral lower extremities to the level of the ankle to mid calf. No open areas noted.) Neurological: Alert, Oriented, CN II-XII Intact, Normal Cognition, Normal Gait, Normal Reflexes, No Motor/Sensory Deficits Psychiatric: Normal Affect, Normal Mood Course - Vital Signs Last Recorded V/S: Last Vital Signs Temp 99.4 F 07/15/20 19:55 Pulse 100 07/15/20 19:55 Resp 22 H 07/15/20 19:55 BP 169/101 H 07/15/20 19:55 Pulse Ox 90 L 07/15/20 19:55 - Orders/Labs/Meds Orders: Active Orders 24 hr Category Date Time Status Patient Status [ADT] Routine ADT 07/15/20 20:15 Active Peripheral IV Care [RC] . DIRECTED Care 07/15/20 18:02 Active Urinary Catheter Assessment [RC] ASDIRECTED Care 07/15/20 19:17 Active Urinary Catheter Insertion [Insert Urinary Catheter] [ Care 07/15/20 18:30 Ordered OM.PC] Stat CULTURE BLOOD [BC] Stat Lab 07/15/20 19:10 Received CULTURE BLOOD [BC] Stat Lab 07/15/20 19:15 Received CULTURE URINE [RM] Stat Lab 07/15/20 19:37 Ordered Sodium Chloride 0.9% [Normal Saline] 1,000 ml Med 07/15/20 19:30 Active IV ASDIRECTED Sodium Chloride 0.9% [Saline Flush] Med 07/15/20 18:02 Active 10 ml FLUSH ASDIRECTED PRN Blood Culture x2 Reflex Set [OM.PC] Stat Ot 07/15/20 18:45 Ordered Peripheral IV Insertion Adult [OM.PC] Stat Ot 07/15/20 18:02 Ordered Medication Orders Sodium Chloride (Normal Saline) 1,000 mls @ 100 mls/hr IV ASDIRECTED GLENN Last Admin: 07/15/20 19:56 Dose: 100 mls/hr Documented by: [email or web address] Sodium Chloride (Saline Flush) 10 ml FLUSH ASDIRECTED PRN PRN Reason: Keep Vein Open Last Admin: 07/15/20 19:03 Dose: 10 ml Documented by: [id number] Labs: Laboratory Tests 07/15/20 07/15/20 07/15/20 Range/Units 18:02 18:29 18:29 WBC 16.50 H (4.23-9.07) K/mm3 RBC 3.23 L (4.63-6.08) M/mm3 Hgb 10.9 L D (13.7-17.5) gm/dl Hct 35.5 L (40.1-51.0) % MCV 109.9 H (79.0-92.2) fl MCH 33.7 H (25.7-32.2) pg MCHC 30.7 L (32.2-35.5) g/dl RDW Std Deviation 64.1 H (35.1-43.9) fL Plt Count 269 (163-337) K/mm3 MPV 8.7 L (9.4-12.3) fl Neut % (Auto) 72.9 H (34.0-67.9) % Lymph % (Auto) 22.5 (21.8-53.1) % [place] % (Auto) 4.1 L (5.3-12.2) % Eos % (Auto) 0.1 L (0.8-7.0) Baso % (Auto) 0.1 (0.1-1.2) % Neut # (Auto) 12.04 H (1.78-5.38) K/mm3 Lymph # (Auto) 3.71 H (1.32-3.57) K/mm3 [place] # (Auto) 0.68 (0.30-0.82) K/mm3 Eos # (Auto) 0.01 L (0.04-0.54) K/mm3 Baso # (Auto) 0.01 (0.01-0.08) K/mm3 Manual Slide Review Abnormal smear Puncture Site ABG pH (7.35-7.45) ABG pCO2 (35.0-45.0) mmHg ABG pO2 (80.0-100.0) mmHg ABG HCO3 (22.0-26.0) meq/L ABG O2 Saturation (96.0-97.0) % ABG Base Excess (-2-2.0) Donovan Test A-a Gradient mmHg O2 Delivery Device FiO2 (21.00-100.00) % Sodium 135 L (136-145) mEq/L Potassium 4.2 (3.5-5.1) mEq/L Chloride 98 (98-107) mEq/L Carbon Dioxide 31 (21-32) mEq/L Anion Gap 10.2 (5-15) BUN 24 H (7-18) mg/dL Creatinine 1.6 H (0.7-1.3) mg/dL Est Cr Clr Drug Dosing 43.79 mL/min Estimated GFR (MDRD) 43 (>60) mL/min BUN/Creatinine Ratio 15.0 (14-18) Glucose 131 H (83-115) mg/dL Lactic Acid (0.4-2.0) mmol/L Calcium 9.0 (8.5-10.1) mg/dL Total Bilirubin 0.3 (0.2-1.0) mg/dL AST 25 (15-37) U/L ALT 16 (16-63) U/L Alkaline Phosphatase 84 (46-116) U/L C-Reactive Protein 15.2 H* (<1.0) mg/dL Total Protein 8.8 H (6.4-8.2) g/dl Albumin 3.0 L (3.4-5.0) g/dl Globulin 5.8 gm/dL Albumin/Globulin Ratio 0.5 L (1-2) Urine Color Yellow (Yellow) Urine Appearance Cloudy H (Clear) Urine pH 6.5 (5.0-8.0) Ur Specific [place] 1.020 (1.005-1.030) Urine Protein 2+ H (Negative) Urine Glucose (UA) Negative (Negative) Urine Ketones Negative (Negative) Urine Occult Blood 3+ H (Negative) Urine Nitrite Positive H (Negative) Urine Bilirubin Negative (Negative) Urine Urobilinogen 1.0 (0.2-1.0) Ur Leukocyte Esterase 2+ H (Negative) Urine RBC 0-5 (0-5) /hpf Urine WBC Too numerous to cnt H (0-5) /hpf Ur Squamous Epith Cells 0-5 (0-5) /hpf Urine Bacteria Few (FEW) /hpf Urine Mucus Not seen (FEW) /hpf SARS Virus RNA (PCR) (NEGATIVE) 07/15/20 07/15/20 07/15/20 Range/Units 18:40 19:10 20:05 WBC (4.23-9.07) K/mm3 RBC (4.63-6.08) M/mm3 Hgb (13.7-17.5) gm/dl Hct (40.1-51.0) % MCV (79.0-92.2) fl MCH (25.7-32.2) pg MCHC (32.2-35.5) g/dl RDW Std Deviation (35.1-43.9) fL Plt Count (163-337) K/mm3 MPV (9.4-12.3) fl Neut % (Auto) (34.0-67.9) % Lymph % (Auto) (21.8-53.1) % [place] % (Auto) (5.3-12.2) % Eos % (Auto) (0.8-7.0) Baso % (Auto) (0.1-1.2) % Neut # (Auto) (1.78-5.38) K/mm3 Lymph # (Auto) (1.32-3.57) K/mm3 [place] # (Auto) (0.30-0.82) K/mm3 Eos # (Auto) (0.04-0.54) K/mm3 Baso # (Auto) (0.01-0.08) K/mm3 Manual Slide Review Puncture Site Rt radial ABG pH 7.46 H (7.35-7.45) ABG pCO2 41.0 (35.0-45.0) mmHg ABG pO2 64.0 L (80.0-100.0) mmHg ABG HCO3 28.7 H (22.0-26.0) meq/L ABG O2 Saturation 91.1 L (96.0-97.0) % ABG Base Excess 4.9 H (-2-2.0) Donovan Test Positive A-a Gradient 34 mmHg O2 Delivery Device Room air FiO2 21.00 (21.00-100.00) % Sodium (136-145) mEq/L Potassium (3.5-5.1) mEq/L Chloride (98-107) mEq/L Carbon Dioxide (21-32) mEq/L Anion Gap (5-15) BUN (7-18) mg/dL Creatinine (0.7-1.3) mg/dL Est Cr Clr Drug Dosing mL/min Estimated GFR (MDRD) (>60) mL/min BUN/Creatinine Ratio (14-18) Glucose (83-115) mg/dL Lactic Acid 1.8 (0.4-2.0) mmol/L Calcium (8.5-10.1) mg/dL Total Bilirubin (0.2-1.0) mg/dL AST (15-37) U/L ALT (16-63) U/L Alkaline Phosphatase (46-116) U/L C-Reactive Protein (<1.0) mg/dL Total Protein (6.4-8.2) g/dl Albumin (3.4-5.0) g/dl Globulin gm/dL Albumin/Globulin Ratio (1-2) Urine Color (Yellow) Urine Appearance (Clear) Urine pH (5.0-8.0) Ur Specific [place] (1.005-1.030) Urine Protein (Negative) Urine Glucose (UA) (Negative) Urine Ketones (Negative) Urine Occult Blood (Negative) Urine Nitrite (Negative) Urine Bilirubin (Negative) Urine Urobilinogen (0.2-1.0) Ur Leukocyte Esterase (Negative) Urine RBC (0-5) /hpf Urine WBC (0-5) /hpf Ur Squamous Epith Cells (0-5) /hpf Urine Bacteria (FEW) /hpf Urine Mucus (FEW) /hpf SARS Virus RNA (PCR) Negative (NEGATIVE) Meds: Medications Generic Name Dose Route Start Last Admin Trade Name Freq PRN Reason Stop Dose Admin Sodium Chloride 1,000 mls @ 100 mls/hr 07/15/20 19:30 07/15/20 19:56 Normal Saline IV 100 mls/hr ASDIRECTED GLENN Administration Sodium Chloride 10 ml 07/15/20 18:02 07/15/20 19:03 Saline Flush FLUSH 10 ml ASDIRECTED PRN Administration Keep Vein Open Discontinued Medications Generic Name Dose Route Start Last Admin Trade Name Billy PRN Reason Stop Dose Admin Acetaminophen 975 mg 07/15/20 18:59 07/15/20 19:03 Tylenol PO 07/15/20 19:00 975 mg NOW ONE Administration Ceftriaxone Sodium 2 gm/ 100 mls @ 200 mls/hr 07/15/20 19:26 07/15/20 20:32 Sodium Chloride IV 07/15/20 19:55 Not Given ONETIME ONE Ceftriaxone Sodium 2 gm/ 100 mls @ 200 mls/hr 07/15/20 19:44 07/15/20 19:56 Sodium Chloride IV 07/15/20 20:13 200 mls/hr ONETIME ONE Administration - Re-Assessments/Exams Free Text/Narrative Re-Assessment/Exam: Patient is a 74-year-old male presenting to the emergency department from [facility] with comfort with complaints of fever, weakness, shortness of breath, and cough. Patient dates that the cough has been present for a number of weeks. I have ordered CBC, CMP, CRP, 1 hour COVID test, chest x-ray, lactic acid, and blood cultures. 07/15/20 19:43 Hematology was significant for WBC elevated at 16.5, hemoglobin 10.9, sodium 135, BUN 24, creatinine 1.6, CRP 15.2. Lactic acid is still pending. Urinalysis was significant for 3+ occult blood, positive nitrates, 2+ leukocyte esterase, and WBCs too numerous to count. 1 hour COVID test was negative. I have ordered Rocephin grams 2G IV as well as NS at 100 mils per hour. 07/15/20 20:13 Lactic acid was normal at 1.8. Pt SpO2 88-91% on RA while sleeping. Case discussed with Dr. Hargrove. She accepted the pt for inpatient admission. Bridge orders have been written. She requested an ABG prior to O2 being applied. Departure - Departure Time of Disposition: 20:13 Disposition: Admitted As Inpatient 67 Clinical Impression: Urinary tract infection Qualifiers: Urinary tract infection type: site unspecified Hematuria presence: with hematuria Qualified Code(s): N39.0 - Urinary tract infection, site not specified; R31.9 - Hematuria, unspecified - Discharge Information Sepsis Event Note (ED) - Evaluation Sepsis Screening Result: Possible Sepsis Risk - Focused Exam Vital Signs: Vital Signs Temp Pulse Resp BP Pulse Ox 07/15/20 19:55 99.4 F 100 22 H 169/101 H 90 L 07/15/20 17:13 100.7 F H 103 H 19 157/85 H 94 L - My Orders Last 24 Hours: My Active Orders 07/15/20 18:02 Peripheral IV Care [RC] . DIRECTED Sodium Chloride 0.9% [Saline Flush] 10 ml FLUSH ASDIRECTED PRN Peripheral IV Insertion Adult [OM.PC] Stat 07/15/20 18:30 Urinary Catheter Insertion [Insert Urinary Catheter] [OM.PC] Stat 07/15/20 18:45 Blood Culture x2 Reflex Set [OM.PC] Stat 07/15/20 19:10 CULTURE BLOOD [BC] Stat 07/15/20 19:15 CULTURE BLOOD [BC] Stat 07/15/20 19:17 Urinary Catheter Assessment [RC] ASDIRECTED 07/15/20 19:30 Sodium Chloride 0.9% [Normal Saline] 1,000 ml IV ASDIRECTED 07/15/20 19:37 CULTURE URINE [RM] Stat 07/15/20 20:15 Patient Status [ADT] Routine - Assessment/Plan Last 24 Hours: My Active Orders 07/15/20 18:02 Peripheral IV Care [RC] . DIRECTED Sodium Chloride 0.9% [Saline Flush] 10 ml FLUSH ASDIRECTED PRN Peripheral IV Insertion Adult [OM.PC] Stat 07/15/20 18:30 Urinary Catheter Insertion [Insert Urinary Catheter] [OM.PC] Stat 07/15/20 18:45 Blood Culture x2 Reflex Set [OM.PC] Stat 07/15/20 19:10 CULTURE BLOOD [BC] Stat 07/15/20 19:15 CULTURE BLOOD [BC] Stat 07/15/20 19:17 Urinary Catheter Assessment [RC] ASDIRECTED 07/15/20 19:30 Sodium Chloride 0.9% [Normal Saline] 1,000 ml IV ASDIRECTED 07/15/20 19:37 CULTURE URINE [RM] Stat 07/15/20 20:15 Patient Status [ADT] Routine
[2020-07-16] MEDS: Acetaminophen 325 MG Tab PO PRN ×2 (01:24→12:04)
[2020-07-16] MEDS ORDERED: Piperacillin/Tazobactam 4.5 GM in Sodium Chloride 0.9% 100 ML IV ONE (08:00)
[2020-07-16] MEDS: Enoxaparin 40 MG/0.4 ML Syringe SUBCUT SCH ×2 (12:08→22:06)
--- NOTE | 2020-07-16 12:31 | PCM.HP.2 ---
H&P History of Present Illness - General Date of Service: 07/16/20 Admit Problem/Dx: Admission Diagnosis/Problem Admission Diagnosis/Problem Urinary tract infection - History of Present Illness Initial Comments - Free Text/Narative: Patient is a 74-year-old male presents to the emergency department from [facility] with complaints of fever, cough, shortness of breath, sore throat and weakness. Patient states he has had this cough for over 2 weeks, however the fever, shortness of breath, and weakness are new onset last evening. He denies any nausea, vomiting, or diarrhea. Report from the [facility] is that he was checked for COVID 2 weeks ago during the routine testing and was found to be negative. Patient has an exposure on Tuesday and hasn't been tested since. - Related Data Allergies/Adverse Reactions: Allergies Allergy/AdvReac Type Severity Reaction Status Date / Time No Known Allergies Allergy Verified 07/15/20 17:17 Home Medications: Home Meds Aspirin 81 mg PO DAILY 11/26/18 [History] Potassium Chloride 20 meq PO DAILY 11/26/18 [History] Acetaminophen 650 mg PO BID 04/24/20 [History] Alum Hydrox/Mag Hydrox/Simeth [Maalox Advanced] 30 ml PO Q2HR PRN 04/24/20 [History] Bumetanide 3 mg PO DAILY 04/24/20 [History] Calcium Carbonate [Tums] 1,000 mg PO QID PRN 04/24/20 [History] Clopidogrel [Plavix] 75 mg PO DAILY 04/24/20 [History] Diclofenac Sodium [Voltaren 1% Gel] 2 gm TOP BID 04/24/20 [History] Docusate Sodium [Colace] 100 mg PO BEDTIME PRN 04/24/20 [History] Loperamide [Imodium] 4 mg PO ASDIRECTED PRN 04/24/20 [History] Metoprolol Succinate 50 mg PO DAILY 04/24/20 [History] Mirtazapine 30 mg PO BEDTIME 04/24/20 [History] Nitroglycerin [Nitrostat] 0.4 mg SL ASDIRECTED PRN 04/24/20 [History] Sennosides/Docusate Sodium [Senna Plus Tablet] 2 tab PO BEDTIME PRN 04/24/20 [History] polyethylene glycoL 3350 [MiraLAX] 17 gm PO BEDTIME PRN 04/24/20 [History] Cholecalciferol (Vitamin D3) [Vitamin D3] 1,000 units PO DAILY 07/15/20 [History] Cyanocobalamin (Vitamin B-12) [Vitamin B-12] 1,000 mcg PO DAILY 07/15/20 [History] Emollient Combination No.114 [Eucerin Advanced Repair] 1 dose TOP DAILY 07/15/20 [History] Losartan [Cozaar] 25 mg PO DAILY 07/15/20 [History] Multivitamin 1 tab PO DAILY 07/16/20 [History] Past Medical History HEENT History: Reports: Impaired Vision Cardiovascular History: Reports: Hypertension, [place], PVD, SOB on Exertion Respiratory History: Reports: SOB Gastrointestinal History: Reports: GI Bleed, Other (See Below) Other Gastrointestinal History: incontinence Genitourinary History: Reports: Urinary Incontinence Musculoskeletal History: Reports: Arthritis, Osteoarthritis Other Musculoskeletal History: uses walker Neurological History: Reports: None Psychiatric History: Reports: Other (See Below) Other Psychiatric History: Insomnia Endocrine/Metabolic History: Reports: Diabetes, Type II, Hypokalemia, Obesity/BMI 30+ Hematologic History: Reports: Anemia Other Hematologic History: sees oncologist for "possible cancer in blood" Immunologic History: Reports: None Oncologic (Cancer) History: Reports: Other (See Below) Other Oncologic History: "blood cancer," multiple myeloma Dermatologic History: Reports: Cellulitis, Other (See Below) Other Dermatologic History: 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 - Infectious Disease History Infectious Disease History: Reports: None - Past Surgical History GI Surgical History: Reports: Appendectomy Social & Family History - Family History Family Medical History: Noncontributory - Tobacco Use Smoking Status *Q: Never Smoker Second Hand Smoke Exposure: No - Caffeine Use Caffeine Use: Reports: None - Recreational Drug Use Recreational Drug Use: No H&P Review of Systems - Review of Systems: Review Of Systems: See Below General: Reports: Fever, Chills, Malaise, Weakness, Diaphoresis. Denies: Fatigue, Night Sweats, Decreased Appetite HEENT: Reports: Sore Throat. Denies: Post Nasal Drip, Sinus Congestion, Vertigo, Visual Changes Pulmonary: Reports: Shortness of Breath, Cough. Denies: Wheezing, Pleuritic Chest Pain, Sputum, Hemoptysis Cardiovascular: Denies: Chest Pain, Palpitations, Dyspnea on Exertion, Orthopnea, PND, Edema, Lightheadedness, Syncope Gastrointestinal: Reports: Abdominal Pain. Denies: Anorexia, Constipation, Diarrhea, Decreased Appetite, Difficulty Swallowing, Nausea, Vomiting Genitourinary: Reports: Frequency. Denies: Dysuria, Burning, Pain, Urgency Musculoskeletal: Denies: Joint Pain, Joint Swelling, Muscle Pain, Muscle Stiffness Skin: Reports: Diaphoresis. Denies: Jaundice, Mottled, Pallor Psychiatric: Denies: Depression, Mood Lability, Anxiety Neurological: Denies: Dizziness, Headache, Numbness Exam - Exam Exam: See Below - Vital Signs Vital Signs: Last Vital Signs Temp 100.1 F 07/16/20 12:04 Pulse 95 07/16/20 11:52 Resp 24 H 07/16/20 11:52 BP 137/82 07/16/20 11:52 Pulse Ox 91 L 07/16/20 11:52 Weight: 173 kg - Exam Quality Assessment: Supplemental Oxygen General: Moderate Distress, Lethargic HEENT: Conjunctiva Clear, Mucosa Moist & [place] (without lesions), Pupils Equal, Pupils Reactive Neck: Supple. No: Lymphadenopathy Lungs: Decreased Breath Sounds, Crackles. No: Rales, Rhonchi, Rub, Stridor, Wheezing Cardiovascular: Regular Rate, Regular Rhythm. No: Systolic Murmur, Diastolic Murmur, Rubs, Gallop/S3, Gallop/S4 GI/Abdominal Exam: Distended, Guarding, Rigid, Tender, Abnormal Bowel Sounds. N o: Rebound Extremities: Pedal Edema, Slow Capillary Refill Peripheral Pulses: 2+: Radial (L), Radial (R) Skin: Dry, Intact, Cool - Patient Data Result Diagrams: 07/17/20 09:53 07/17/20 09:53 Devaughn Results Last 24 hrs: Microbiology 07/15/20 19:37 Urine Culture - Preliminary Urine, Catheterized Gram Negative Rods Sepsis Event Note - Evaluation Sepsis Screening Result: Sepsis Risk - Focused Exam Vital Signs: Vital Signs Temp Pulse Resp BP Pulse Ox Pulse Ox 07/16/20 12:04 100.1 F 07/16/20 11:52 100.0 F 95 24 H 137/82 91 L 07/16/20 08:14 97.5 F 93 20 127/59 L 93 L 07/16/20 07:37 95 09/02/20 06:18 99.7 F 94 20 130/67 96 07/16/20 03:34 100.0 F 101 H 20 109/58 L 93 L 07/16/20 01:30 102 H 93 L 07/16/20 01:28 98.2 F 107 H 20 137/67 89 L - Problem List (1) Urinary tract infection SNOMED Code(s): 50137817 ICD Code: N39.0 - URINARY TRACT INFECTION, SITE NOT SPECIFIED Status: Acute Current Visit: Yes Qualifiers: Urinary tract infection type: site unspecified Hematuria presence: with hematuria Qualified Code(s): N39.0 - Urinary tract infection, site not specified; R31.9 - Hematuria, unspecified (2) Hypertension SNOMED Code(s): 52594399 ICD Code: I10 - ESSENTIAL (PRIMARY) HYPERTENSION Status: Acute Current Visit: Yes (3) Coronary artery disease SNOMED Code(s): 93713674 ICD Code: I25.10 - ATHSCL HEART DISEASE OF [place] CORONARY ARTERY W/O ANG PCTRS Status: Acute Current Visit: Yes (4) Morbid obesity SNOMED Code(s): 043298747 ICD Code: E66.01 - MORBID (SEVERE) OBESITY DUE TO EXCESS CALORIES Status: Acute Current Visit: Yes (5) Urinary incontinence SNOMED Code(s): 216883305 ICD Code: R32 - UNSPECIFIED URINARY INCONTINENCE Status: Acute Current Visit: Yes (6) Diabetes mellitus SNOMED Code(s): 87462409 ICD Code: E11.9 - TYPE 2 DIABETES MELLITUS WITHOUT COMPLICATIONS Status: Acute Current Visit: Yes (7) Vitamin D deficiency SNOMED Code(s): 74161937 ICD Code: E55.9 - VITAMIN D DEFICIENCY, UNSPECIFIED Status: Acute Current Visit: Yes (8) Leukocytosis SNOMED Code(s): 379605313, 696527298 ICD Code: D72.829 - ELEVATED WHITE BLOOD CELL COUNT, UNSPECIFIED Status: Acute Current Visit: Yes (9) Macrocytosis SNOMED Code(s): 447199665 ICD Code: D75.89 - OTHER SPECIFIED DISEASES OF BLOOD AND BLOOD-FORMING ORGANS Status: Acute Current Visit: Yes (10) Metabolic alkalosis SNOMED Code(s): 3457707 ICD Code: E87.3 - ALKALOSIS Status: Acute Current Visit: Yes (11) Respiratory alkalosis SNOMED Code(s): 268490343 ICD Code: E87.3 - ALKALOSIS Status: Acute Current Visit: Yes (12) Hematuria SNOMED Code(s): 56782501 ICD Code: R31.9 - HEMATURIA, UNSPECIFIED Status: Acute Current Visit: Yes (13) Cellulitis of right leg SNOMED Code(s): 118897987 ICD Code: L03.115 - CELLULITIS OF RIGHT LOWER LIMB Status: Acute Current Visit: No (14) Elevated troponin SNOMED Code(s): 639360612, 662819319, 917609298 ICD Code: R74.8 - ABNORMAL LEVELS OF OTHER SERUM ENZYMES Status: Acute Current Visit: No (15) Acute hypoxemic respiratory failure SNOMED Code(s): 609085754 ICD Code: J96.01 - ACUTE RESPIRATORY FAILURE WITH HYPOXIA Status: Acute Current Visit: Yes (16) Macrocytic anemia SNOMED Code(s): 27486885 ICD Code: D53.9 - NUTRITIONAL ANEMIA, UNSPECIFIED Status: Acute Current Visit: Yes Problem List Initiated/Reviewed/Updated: Yes Assessment/Plan Comment:: ASSESSMENT - Comes to the ED complaining of fever, cough, shortness of breath, sore throat and weakness. - Patient states he has had this cough for over 2 weeks, however the fever, shortness of breath, and weakness are new onset last evening. - He denies any nausea, vomiting, or diarrhea. - Checked for COVID 2 weeks ago, negative - Recent exposure on Tuesday --> Rapid COVID negative in ED - Redness to his bilateral lower extremities which she states has been there "for years ". He does not feel that this has worsened in any way. - VS on admission: BP 157/85, HR 103x', Temp 100.7, SatO2 94% on RA - Lab results - CBC: WBC 16.5 (N-72.9%), Hb 10.9, Hct 35.5, Plt 269 - Chemistry: Na 135, K 4.2, Cl 98, CO2 31, BUN 24, Cr 1.6, GFR (43), glucose 131, Ca 9.0 - LFTs: T bili 0.3, AP 84, AST 25, ALT 16, T prot 8.8, Alb 3.0 - Given Rocephin in ED, pancultured PLAN Urinary tract infection Urinary incontinence Cellulitis of right leg Urinary incontinence Acute kidney injury - Start on Zosyn - F/U urine culture from admission - Repeat labs in AM - Trend temperature and panculture if fever - Monitor urine output - Renally dosed medications - Repeat labs in AM Hypertension - PRN Hydralazine - Continue Losartan and metoprolol Diabetes mellitus, unknown HbA1c - Scheduled accuchecks before meals and 2h after meals - Hypoglycemia protocol - New HbA1c Chronic BL LE edema - Continue Bumex Macrocytic anemia Coronary artery disease - Vitamin levels and work up - Goal Hb is > 8 - Continue Plavix and aspirin Acute hypoxemic respiratory failure Metabolic alkalosis Respiratory alkalosis - Continue O2 supplementation - Taper down as tolerated Vitamin D deficiency - Repeat vitamin D level - Continue supplementation Morbid obesity - Dietary evaluation PROPHYLAXIS DVT- Lovenox GI- not indicated CODE STATUS: DNR/DNI DISPOSITION: Patient will be admitted for IV antibiotics, VS monitorization and stabilization. - Mortality Measure Prognosis:: Poor
--- NOTE | 2020-07-16 13:47 | CR ---
Chest: 2 views of the chest are obtained. Comparison: Prior chest x-ray of 07/15/20. Heart size is normal. Tortuous thoracic aorta is seen. Lungs are clear with no acute parenchymal change. Bony structures are grossly intact. Azygos lobe is seen. Impression: 1. Findings as noted above. 2. Nothing acute is appreciated. Diagnostic code #2. This report was dictated in MDT.
--- NOTE | 2020-07-16 13:47 | CT ---
CT abdomen and pelvis Technique: Multiple axial sections were obtained from above the dome of the diaphragm inferiorly through the pubic symphysis. Intravenous and oral contrast not utilized. Comparison: No prior abdominal imaging is available. Findings: Visualized lung bases shows mild left basilar atelectasis. Mild coronary artery calcification is seen. Liver shows no focal abnormality. Spleen shows no discrete abnormality. Adrenal glands show no nodule. Pancreas appears within normal limits. Gallbladder contains no calcified gallstones. Kidneys show no abnormal calcifications. No hydronephrosis is seen. No ureteral calculi are seen. Aorta shows atherosclerotic calcification which continues into the iliac vessels. No aneurysm is seen. Fat-containing umbilical hernia is noted as well as fat-containing hernia to the right of the umbilicus. Mildly dilated loop of sigmoid colon is seen. This is most likely due to ileus or possibly slight obstipation as stool is noted within the distal sigmoid colon and rectum. This does not appear to be a cecal volvulus. Appendix not definitely visualized. No free fluid or inflammatory change is appreciated. Bone window settings were reviewed. Diffuse degenerative change is noted throughout the spine. Impression: 1. Mildly dilated loop of sigmoid colon which may be due to ileus or obstipation. This does not appear to represent a sigmoid volvulus. 2. Other findings as noted above which are nonacute. Diagnostic code #3 This report was dictated in MDT
[2020-07-16] MEDS: Piperacillin/Tazobactam 4.5 GM in Sodium Chloride 0.9% 100 ML IV SCH (16:15)
[2020-07-16] MEDS ORDERED: Sodium Chloride 0.9% 1,000 ML ONE (21:59)
[2020-07-16] MEDS: Potassium Chloride 10 MEQ in Premix Bag 1 BAG IV SCH ×2 (22:06→23:32)
[2020-07-17] MEDS: Potassium Chloride 10 MEQ in Premix Bag 1 BAG IV SCH ×5 (01:11→16:36)
[2020-07-17] MEDS: Piperacillin/Tazobactam 4.5 GM in Sodium Chloride 0.9% 100 ML IV SCH ×2 (01:11→07:21)
[2020-07-17] MEDS: Acetaminophen 325 MG Tab PO PRN (03:46)
[2020-07-17] MEDS: Enoxaparin 40 MG/0.4 ML Syringe SUBCUT SCH ×2 (09:04→21:10)
--- NOTE | 2020-07-17 09:39 | PCM.PN ---
- General Info Date of Service: 07/17/20 - Patient Data Vitals - Most Recent: Last Vital Signs Temp 97.7 F 07/17/20 07:56 Pulse 85 07/17/20 07:56 Resp 24 H 07/17/20 07:56 BP 132/64 07/17/20 07:56 Pulse Ox 96 07/17/20 07:56 Weight - Most Recent: 173.227 kg I&O - Last 24 Hours: Intake & Output 07/16/20 07/17/20 07/17/20 22:59 06:59 14:59 Intake Total 920 800 Balance 920 800 Lab Results Last 24 Hours: Laboratory Results - last 24 hr 07/16/20 07/16/20 07/16/20 Range/Units 12:01 13:12 13:35 WBC (4.23-9.07) K/mm3 RBC (4.63-6.08) M/mm3 Hgb (13.7-17.5) gm/dl Hct (40.1-51.0) % MCV (79.0-92.2) fl MCH (25.7-32.2) pg MCHC (32.2-35.5) g/dl RDW Std Deviation (35.1-43.9) fL Plt Count (163-337) K/mm3 MPV (9.4-12.3) fl Neut % (Auto) (34.0-67.9) % Lymph % (Auto) (21.8-53.1) % [place] % (Auto) (5.3-12.2) % Eos % (Auto) (0.8-7.0) Baso % (Auto) (0.1-1.2) % Neut # (Auto) (1.78-5.38) K/mm3 Lymph # (Auto) (1.32-3.57) K/mm3 [place] # (Auto) (0.30-0.82) K/mm3 Eos # (Auto) (0.04-0.54) K/mm3 Baso # (Auto) (0.01-0.08) K/mm3 Manual Slide Review Puncture Site Rt radial ABG pH 7.45 (7.35-7.45) ABG pCO2 42.4 (35.0-45.0) mmHg ABG pO2 75.0 L (80.0-100.0) mmHg ABG HCO3 29.0 H (22.0-26.0) meq/L ABG O2 Saturation 94.6 L (96.0-97.0) % ABG Base Excess 4.9 H (-2-2.0) Donovan Test Positive A-a Gradient 36 mmHg O2 Delivery Device Nasal cannula Oxygen Flow Rate 0.5 FiO2 23.00 (21.00-100.00) % Sodium (136-145) mEq/L Potassium (3.5-5.1) mEq/L Chloride (98-107) mEq/L Carbon Dioxide (21-32) mEq/L Anion Gap (5-15) BUN (7-18) mg/dL Creatinine (0.7-1.3) mg/dL Est Cr Clr Drug Dosing mL/min Estimated GFR (MDRD) (>60) mL/min BUN/Creatinine Ratio (14-18) Glucose (83-115) mg/dL POC Glucose 114 H (83-110) mg/dL Lactic Acid 1.4 (0.4-2.0) mmol/L Calcium (8.5-10.1) mg/dL Phosphorus (2.6-4.7) mg/dL Magnesium (1.8-2.4) mg/dl Total Bilirubin (0.2-1.0) mg/dL AST (15-37) U/L ALT (16-63) U/L Alkaline Phosphatase (46-116) U/L Total Protein (6.4-8.2) g/dl Albumin (3.4-5.0) g/dl Globulin gm/dL Albumin/Globulin Ratio (1-2) C.difficile 027-NAP1-B1 C. difficile Tox (PCR) 07/16/20 07/16/20 07/16/20 Range/Units 13:35 13:35 16:15 WBC 16.91 H (4.23-9.07) K/mm3 RBC 2.99 L (4.63-6.08) M/mm3 Hgb 10.1 L (13.7-17.5) gm/dl Hct 33.2 L (40.1-51.0) % MCV 111.0 H (79.0-92.2) fl MCH 33.8 H (25.7-32.2) pg MCHC 30.4 L (32.2-35.5) g/dl RDW Std Deviation 64.5 H (35.1-43.9) fL Plt Count 234 (163-337) K/mm3 MPV 8.5 L (9.4-12.3) fl Neut % (Auto) 77.5 H (34.0-67.9) % Lymph % (Auto) 18.7 L (21.8-53.1) % [place] % (Auto) 3.4 L (5.3-12.2) % Eos % (Auto) 0 L (0.8-7.0) Baso % (Auto) 0.1 (0.1-1.2) % Neut # (Auto) 13.10 H (1.78-5.38) K/mm3 Lymph # (Auto) 3.17 (1.32-3.57) K/mm3 [place] # (Auto) 0.58 (0.30-0.82) K/mm3 Eos # (Auto) 0.00 L (0.04-0.54) K/mm3 Baso # (Auto) 0.01 (0.01-0.08) K/mm3 Manual Slide Review Abnormal smear Puncture Site ABG pH (7.35-7.45) ABG pCO2 (35.0-45.0) mmHg ABG pO2 (80.0-100.0) mmHg ABG HCO3 (22.0-26.0) meq/L ABG O2 Saturation (96.0-97.0) % ABG Base Excess (-2-2.0) Donovan Test A-a Gradient mmHg O2 Delivery Device Oxygen Flow Rate FiO2 (21.00-100.00) % Sodium 138 (136-145) mEq/L Potassium 3.2 L (3.5-5.1) mEq/L Chloride 100 (98-107) mEq/L Carbon Dioxide 28 (21-32) mEq/L Anion Gap 13.2 (5-15) BUN 24 H (7-18) mg/dL Creatinine 1.4 H (0.7-1.3) mg/dL Est Cr Clr Drug Dosing 57.69 mL/min Estimated GFR (MDRD) 50 (>60) mL/min BUN/Creatinine Ratio 17.1 (14-18) Glucose 123 H (83-115) mg/dL POC Glucose (83-110) mg/dL Lactic Acid (0.4-2.0) mmol/L Calcium 8.2 L (8.5-10.1) mg/dL Phosphorus 2.1 L (2.6-4.7) mg/dL Magnesium 2.2 (1.8-2.4) mg/dl Total Bilirubin 0.4 (0.2-1.0) mg/dL AST 14 L (15-37) U/L ALT 14 L (16-63) U/L Alkaline Phosphatase 71 (46-116) U/L Total Protein 8.1 (6.4-8.2) g/dl Albumin 2.5 L (3.4-5.0) g/dl Globulin 5.6 gm/dL Albumin/Globulin Ratio 0.5 L (1-2) C.difficile 027-NAP1-B1 Presumptive negative C. difficile Tox (PCR) Negative 07/16/20 07/17/20 07/17/20 Range/Units 20:45 05:03 05:03 WBC (4.23-9.07) K/mm3 RBC (4.63-6.08) M/mm3 Hgb (13.7-17.5) gm/dl Hct (40.1-51.0) % MCV (79.0-92.2) fl MCH (25.7-32.2) pg MCHC (32.2-35.5) g/dl RDW Std Deviation (35.1-43.9) fL Plt Count (163-337) K/mm3 MPV (9.4-12.3) fl Neut % (Auto) (34.0-67.9) % Lymph % (Auto) (21.8-53.1) % [place] % (Auto) (5.3-12.2) % Eos % (Auto) (0.8-7.0) Baso % (Auto) (0.1-1.2) % Neut # (Auto) (1.78-5.38) K/mm3 Lymph # (Auto) (1.32-3.57) K/mm3 [place] # (Auto) (0.30-0.82) K/mm3 Eos # (Auto) (0.04-0.54) K/mm3 Baso # (Auto) (0.01-0.08) K/mm3 Manual Slide Review Puncture Site ABG pH (7.35-7.45) ABG pCO2 (35.0-45.0) mmHg ABG pO2 (80.0-100.0) mmHg ABG HCO3 (22.0-26.0) meq/L ABG O2 Saturation (96.0-97.0) % ABG Base Excess (-2-2.0) Donovan Test A-a Gradient mmHg O2 Delivery Device Oxygen Flow Rate FiO2 (21.00-100.00) % Sodium (136-145) mEq/L Potassium 2.8 L (3.5-5.1) mEq/L Chloride (98-107) mEq/L Carbon Dioxide (21-32) mEq/L Anion Gap (5-15) BUN (7-18) mg/dL Creatinine (0.7-1.3) mg/dL Est Cr Clr Drug Dosing mL/min Estimated GFR (MDRD) (>60) mL/min BUN/Creatinine Ratio (14-18) Glucose (83-115) mg/dL POC Glucose 123 H (83-110) mg/dL Lactic Acid (0.4-2.0) mmol/L Calcium (8.5-10.1) mg/dL Phosphorus 2.8 (2.6-4.7) mg/dL Magnesium 2.3 (1.8-2.4) mg/dl Total Bilirubin (0.2-1.0) mg/dL AST (15-37) U/L ALT (16-63) U/L Alkaline Phosphatase (46-116) U/L Total Protein (6.4-8.2) g/dl Albumin (3.4-5.0) g/dl Globulin gm/dL Albumin/Globulin Ratio (1-2) C.difficile 027-NAP1-B1 C. difficile Tox (PCR) 07/17/20 07/17/20 07/17/20 Range/Units 06:15 07:28 09:14 WBC (4.23-9.07) K/mm3 RBC (4.63-6.08) M/mm3 Hgb (13.7-17.5) gm/dl Hct (40.1-51.0) % MCV (79.0-92.2) fl MCH (25.7-32.2) pg MCHC (32.2-35.5) g/dl RDW Std Deviation (35.1-43.9) fL Plt Count (163-337) K/mm3 MPV (9.4-12.3) fl Neut % (Auto) (34.0-67.9) % Lymph % (Auto) (21.8-53.1) % [place] % (Auto) (5.3-12.2) % Eos % (Auto) (0.8-7.0) Baso % (Auto) (0.1-1.2) % Neut # (Auto) (1.78-5.38) K/mm3 Lymph # (Auto) (1.32-3.57) K/mm3 [place] # (Auto) (0.30-0.82) K/mm3 Eos # (Auto) (0.04-0.54) K/mm3 Baso # (Auto) (0.01-0.08) K/mm3 Manual Slide Review Puncture Site ABG pH (7.35-7.45) ABG pCO2 (35.0-45.0) mmHg ABG pO2 (80.0-100.0) mmHg ABG HCO3 (22.0-26.0) meq/L ABG O2 Saturation (96.0-97.0) % ABG Base Excess (-2-2.0) Donovan Test A-a Gradient mmHg O2 Delivery Device Oxygen Flow Rate FiO2 (21.00-100.00) % Sodium (136-145) mEq/L Potassium (3.5-5.1) mEq/L Chloride (98-107) mEq/L Carbon Dioxide (21-32) mEq/L Anion Gap (5-15) BUN (7-18) mg/dL Creatinine (0.7-1.3) mg/dL Est Cr Clr Drug Dosing mL/min Estimated GFR (MDRD) (>60) mL/min BUN/Creatinine Ratio (14-18) Glucose (83-115) mg/dL POC Glucose 100 92 126 H (83-110) mg/dL Lactic Acid (0.4-2.0) mmol/L Calcium (8.5-10.1) mg/dL Phosphorus (2.6-4.7) mg/dL Magnesium (1.8-2.4) mg/dl Total Bilirubin (0.2-1.0) mg/dL AST (15-37) U/L ALT (16-63) U/L Alkaline Phosphatase (46-116) U/L Total Protein (6.4-8.2) g/dl Albumin (3.4-5.0) g/dl Globulin gm/dL Albumin/Globulin Ratio (1-2) C.difficile 027-NAP1-B1 C. difficile Tox (PCR) Devaughn Results Last 24 Hours: Microbiology 07/15/20 19:10 Aerobic Blood Culture - Preliminary Blood - Venous NO GROWTH AFTER 1 DAY Anaerobic Blood Culture - Preliminary NO GROWTH AFTER 1 DAY 07/15/20 19:15 Aerobic Blood Culture - Preliminary Blood - Venous - Lab Draw NO GROWTH AFTER 1 DAY Anaerobic Blood Culture - Preliminary NO GROWTH AFTER 1 DAY 07/15/20 19:37 Urine Culture - Preliminary Urine, Catheterized Gram Negative Rods Med Orders - Current: Current Medications Acetaminophen (Tylenol) 650 mg PO Q6H PRN PRN Reason: Pain/Fever Last Admin: 07/17/20 03:46 Dose: 650 mg Documented by: Enoxaparin Sodium (Lovenox) 40 mg SUBCUT BID [facility] Last Admin: 07/17/20 09:04 Dose: 40 mg Documented by: Piperacillin Sod/Tazobactam (Sod 4.5 gm/ Sodium Chloride) 100 mls @ 25 mls/hr IV Q8H [facility] Last Admin: 07/17/20 07:21 Dose: 25 mls/hr Documented by: Potassium Chloride 10 meq/ (Premix) 100 mls @ 100 mls/hr IV Q1H [facility] Stop: 07/17/20 12:14 Last Admin: 07/17/20 09:04 Dose: 100 mls/hr Documented by: Sodium Chloride (Saline Flush) 10 ml FLUSH ASDIRECTED PRN PRN Reason: Keep Vein Open Last Admin: 07/15/20 19:03 Dose: 10 ml Documented by: Discontinued Medications Acetaminophen (Tylenol) 975 mg PO NOW ONE Stop: 07/15/20 19:00 Last Admin: 07/15/20 19:03 Dose: 975 mg Documented by: Sodium Chloride (Normal Saline) 1,000 mls @ 100 mls/hr IV ASDIRECTED [facility] Last Admin: 07/15/20 19:56 Dose: 100 mls/hr Documented by: Ceftriaxone Sodium 2 gm/ (Sodium Chloride) 100 mls @ 200 mls/hr IV ONETIME ONE Stop: 07/15/20 19:55 Last Admin: 07/15/20 20:32 Dose: Not Given Documented by: Ceftriaxone Sodium 2 gm/ (Sodium Chloride) 100 mls @ 200 mls/hr IV ONETIME ONE Stop: 07/15/20 20:13 Last Admin: 07/15/20 19:56 Dose: 200 mls/hr Documented by: Piperacillin Sod/Tazobactam (Sod 4.5 gm/ Sodium Chloride) 100 mls @ 200 mls/hr IV ONETIME ONE Stop: 07/16/20 08:29 Last Admin: 07/16/20 08:10 Dose: 200 mls/hr Documented by: Potassium Chloride 10 meq/ (Premix) 100 mls @ 100 mls/hr IV Q1H [facility] Stop: 07/17/20 01:44 Last Admin: 07/17/20 03:00 Dose: 100 mls/hr Documented by: Sodium Chloride (Normal Saline) Confirm Administered Dose 1,000 mls @ as directed .ROUTE .STK-MED ONE Stop: 07/16/20 22:00 Last Admin: 07/16/20 22:07 Dose: 75 mls/hr Documented by: Sepsis Event Note - Evaluation Sepsis Screening Result: Sepsis Risk - Focused Exam Vital Signs: Vital Signs Temp Pulse Resp BP Pulse Ox Pulse Ox Pulse Ox 07/17/20 07:56 97.7 F 85 24 H 132/64 96 07/17/20 07:50 80 L 07/17/20 07:40 95 07/17/20 04:44 97.9 F 07/17/20 03:46 100.7 F H 07/17/20 03:04 100.8 F H 95 22 H 143/98 H 94 L - My Orders Last 24 Hours: My Active Orders 07/16/20 Lunch Consistent Carbohydrate Diet [DIET] Enoxaparin [Lovenox] 40 mg SUBCUT BID 07/16/20 11:24 Consult to Occupational Therapy [OT Evaluation and Treatment] [CONS] Routine PT Evaluation and Treatment [CONS] Routine 07/16/20 16:00 Piperacillin/Tazobactam [Piperacil-Tazobact] 4.5 gm Sodium Chloride 0.9% [Normal Saline] 100 ml IV Q8H 07/16/20 19:05 Glucose [Blood Glucose Check, Bedside] [RC] QIDACANDBED 07/16/20 19:07 Blood Glucose Check, Bedside [] ,13,19
--- NOTE | 2020-07-17 10:42 | PCM.PN ---
- General Info Date of Service: 07/17/20 Admission Dx/Problem (Free Text): Admission Diagnosis/Problem Admission Diagnosis/Problem Urinary tract infection Functional Status: Reports: Pain Controlled, Tolerating Diet, Ambulating, Urinating. Denies: New Symptoms - Review of Systems General: Reports: Weakness, Fatigue, Malaise. Denies: Fever (overnight but none today ), Chills HEENT: Reports: No Symptoms. Denies: Headaches, Sore Throat Pulmonary: Reports: No Symptoms. Denies: Shortness of Breath, Cough, Sputum, Wheezing Cardiovascular: Reports: No Symptoms. Denies: Chest Pain, Palpitations, Edema Gastrointestinal: Reports: Abdominal Pain (generalized ), Flatus, Nausea (single episode today ), Other (Multiple BMs overnight and today - soft). Denies: Constipation, Decreased Appetite, Diarrhea, Difficulty Swallowing, Hematochezia, Melena, Vomiting Genitourinary: Reports: No Symptoms. Denies: Pain Musculoskeletal: Reports: No Symptoms Skin: Reports: No Symptoms. Denies: Cyanosis Neurological: Reports: No Symptoms, Difficulty Walking, Weakness, Gait Disturbance. Denies: Confusion Psychiatric: Reports: No Symptoms - Patient Data Vitals - Most Recent: Last Vital Signs Temp 97.7 F 07/17/20 07:56 Pulse 85 07/17/20 07:56 Resp 24 H 07/17/20 07:56 BP 132/64 07/17/20 07:56 Pulse Ox 96 07/17/20 07:56 Weight - Most Recent: 381 lb 14.4 oz I&O - Last 24 Hours: Intake & Output 07/16/20 07/17/20 07/17/20 22:59 06:59 14:59 Intake Total 920 800 Balance 920 800 Lab Results Last 24 Hours: Laboratory Results - last 24 hr 07/16/20 07/16/20 07/16/20 Range/Units 12:01 13:12 13:35 WBC (4.23-9.07) K/mm3 RBC (4.63-6.08) M/mm3 Hgb (13.7-17.5) gm/dl Hct (40.1-51.0) % MCV (79.0-92.2) fl MCH (25.7-32.2) pg MCHC (32.2-35.5) g/dl RDW Std Deviation (35.1-43.9) fL Plt Count (163-337) K/mm3 MPV (9.4-12.3) fl Neut % (Auto) (34.0-67.9) % Lymph % (Auto) (21.8-53.1) % [place] % (Auto) (5.3-12.2) % Eos % (Auto) (0.8-7.0) Baso % (Auto) (0.1-1.2) % Neut # (Auto) (1.78-5.38) K/mm3 Lymph # (Auto) (1.32-3.57) K/mm3 [place] # (Auto) (0.30-0.82) K/mm3 Eos # (Auto) (0.04-0.54) K/mm3 Baso # (Auto) (0.01-0.08) K/mm3 Manual Slide Review Puncture Site Rt radial ABG pH 7.45 (7.35-7.45) ABG pCO2 42.4 (35.0-45.0) mmHg ABG pO2 75.0 L (80.0-100.0) mmHg ABG HCO3 29.0 H (22.0-26.0) meq/L ABG O2 Saturation 94.6 L (96.0-97.0) % ABG Base Excess 4.9 H (-2-2.0) Donovan Test Positive A-a Gradient 36 mmHg O2 Delivery Device Nasal cannula Oxygen Flow Rate 0.5 FiO2 23.00 (21.00-100.00) % Sodium (136-145) mEq/L Potassium (3.5-5.1) mEq/L Chloride (98-107) mEq/L Carbon Dioxide (21-32) mEq/L Anion Gap (5-15) BUN (7-18) mg/dL Creatinine (0.7-1.3) mg/dL Est Cr Clr Drug Dosing mL/min Estimated GFR (MDRD) (>60) mL/min BUN/Creatinine Ratio (14-18) Glucose (83-115) mg/dL POC Glucose 114 H (83-110) mg/dL Lactic Acid 1.4 (0.4-2.0) mmol/L Calcium (8.5-10.1) mg/dL Phosphorus (2.6-4.7) mg/dL Magnesium (1.8-2.4) mg/dl Total Bilirubin (0.2-1.0) mg/dL AST (15-37) U/L ALT (16-63) U/L Alkaline Phosphatase (46-116) U/L Total Protein (6.4-8.2) g/dl Albumin (3.4-5.0) g/dl Globulin gm/dL Albumin/Globulin Ratio (1-2) C.difficile 027-NAP1-B1 C. difficile Tox (PCR) 07/16/20 07/16/20 07/16/20 Range/Units 13:35 13:35 16:15 WBC 16.91 H (4.23-9.07) K/mm3 RBC 2.99 L (4.63-6.08) M/mm3 Hgb 10.1 L (13.7-17.5) gm/dl Hct 33.2 L (40.1-51.0) % MCV 111.0 H (79.0-92.2) fl MCH 33.8 H (25.7-32.2) pg MCHC 30.4 L (32.2-35.5) g/dl RDW Std Deviation 64.5 H (35.1-43.9) fL Plt Count 234 (163-337) K/mm3 MPV 8.5 L (9.4-12.3) fl Neut % (Auto) 77.5 H (34.0-67.9) % Lymph % (Auto) 18.7 L (21.8-53.1) % [place] % (Auto) 3.4 L (5.3-12.2) % Eos % (Auto) 0 L (0.8-7.0) Baso % (Auto) 0.1 (0.1-1.2) % Neut # (Auto) 13.10 H (1.78-5.38) K/mm3 Lymph # (Auto) 3.17 (1.32-3.57) K/mm3 [place] # (Auto) 0.58 (0.30-0.82) K/mm3 Eos # (Auto) 0.00 L (0.04-0.54) K/mm3 Baso # (Auto) 0.01 (0.01-0.08) K/mm3 Manual Slide Review Abnormal smear Puncture Site ABG pH (7.35-7.45) ABG pCO2 (35.0-45.0) mmHg ABG pO2 (80.0-100.0) mmHg ABG HCO3 (22.0-26.0) meq/L ABG O2 Saturation (96.0-97.0) % ABG Base Excess (-2-2.0) Donovan Test A-a Gradient mmHg O2 Delivery Device Oxygen Flow Rate FiO2 (21.00-100.00) % Sodium 138 (136-145) mEq/L Potassium 3.2 L (3.5-5.1) mEq/L Chloride 100 (98-107) mEq/L Carbon Dioxide 28 (21-32) mEq/L Anion Gap 13.2 (5-15) BUN 24 H (7-18) mg/dL Creatinine 1.4 H (0.7-1.3) mg/dL Est Cr Clr Drug Dosing 57.69 mL/min Estimated GFR (MDRD) 50 (>60) mL/min BUN/Creatinine Ratio 17.1 (14-18) Glucose 123 H (83-115) mg/dL POC Glucose (83-110) mg/dL Lactic Acid (0.4-2.0) mmol/L Calcium 8.2 L (8.5-10.1) mg/dL Phosphorus 2.1 L (2.6-4.7) mg/dL Magnesium 2.2 (1.8-2.4) mg/dl Total Bilirubin 0.4 (0.2-1.0) mg/dL AST 14 L (15-37) U/L ALT 14 L (16-63) U/L Alkaline Phosphatase 71 (46-116) U/L Total Protein 8.1 (6.4-8.2) g/dl Albumin 2.5 L (3.4-5.0) g/dl Globulin 5.6 gm/dL Albumin/Globulin Ratio 0.5 L (1-2) C.difficile 027-NAP1-B1 Presumptive negative C. difficile Tox (PCR) Negative 07/16/20 07/17/20 07/17/20 Range/Units 20:45 05:03 05:03 WBC (4.23-9.07) K/mm3 RBC (4.63-6.08) M/mm3 Hgb (13.7-17.5) gm/dl Hct (40.1-51.0) % MCV (79.0-92.2) fl MCH (25.7-32.2) pg MCHC (32.2-35.5) g/dl RDW Std Deviation (35.1-43.9) fL Plt Count (163-337) K/mm3 MPV (9.4-12.3) fl Neut % (Auto) (34.0-67.9) % Lymph % (Auto) (21.8-53.1) % [place] % (Auto) (5.3-12.2) % Eos % (Auto) (0.8-7.0) Baso % (Auto) (0.1-1.2) % Neut # (Auto) (1.78-5.38) K/mm3 Lymph # (Auto) (1.32-3.57) K/mm3 [place] # (Auto) (0.30-0.82) K/mm3 Eos # (Auto) (0.04-0.54) K/mm3 Baso # (Auto) (0.01-0.08) K/mm3 Manual Slide Review Puncture Site ABG pH (7.35-7.45) ABG pCO2 (35.0-45.0) mmHg ABG pO2 (80.0-100.0) mmHg ABG HCO3 (22.0-26.0) meq/L ABG O2 Saturation (96.0-97.0) % ABG Base Excess (-2-2.0) Donovan Test A-a Gradient mmHg O2 Delivery Device Oxygen Flow Rate FiO2 (21.00-100.00) % Sodium (136-145) mEq/L Potassium 2.8 L (3.5-5.1) mEq/L Chloride (98-107) mEq/L Carbon Dioxide (21-32) mEq/L Anion Gap (5-15) BUN (7-18) mg/dL Creatinine (0.7-1.3) mg/dL Est Cr Clr Drug Dosing mL/min Estimated GFR (MDRD) (>60) mL/min BUN/Creatinine Ratio (14-18) Glucose (83-115) mg/dL POC Glucose 123 H (83-110) mg/dL Lactic Acid (0.4-2.0) mmol/L Calcium (8.5-10.1) mg/dL Phosphorus 2.8 (2.6-4.7) mg/dL Magnesium 2.3 (1.8-2.4) mg/dl Total Bilirubin (0.2-1.0) mg/dL AST (15-37) U/L ALT (16-63) U/L Alkaline Phosphatase (46-116) U/L Total Protein (6.4-8.2) g/dl Albumin (3.4-5.0) g/dl Globulin gm/dL Albumin/Globulin Ratio (1-2) C.difficile 027-NAP1-B1 C. difficile Tox (PCR) 07/17/20 07/17/20 07/17/20 Range/Units 06:15 07:28 09:14 WBC (4.23-9.07) K/mm3 RBC (4.63-6.08) M/mm3 Hgb (13.7-17.5) gm/dl Hct (40.1-51.0) % MCV (79.0-92.2) fl MCH (25.7-32.2) pg MCHC (32.2-35.5) g/dl RDW Std Deviation (35.1-43.9) fL Plt Count (163-337) K/mm3 MPV (9.4-12.3) fl Neut % (Auto) (34.0-67.9) % Lymph % (Auto) (21.8-53.1) % [place] % (Auto) (5.3-12.2) % Eos % (Auto) (0.8-7.0) Baso % (Auto) (0.1-1.2) % Neut # (Auto) (1.78-5.38) K/mm3 Lymph # (Auto) (1.32-3.57) K/mm3 [place] # (Auto) (0.30-0.82) K/mm3 Eos # (Auto) (0.04-0.54) K/mm3 Baso # (Auto) (0.01-0.08) K/mm3 Manual Slide Review Puncture Site ABG pH (7.35-7.45) ABG pCO2 (35.0-45.0) mmHg ABG pO2 (80.0-100.0) mmHg ABG HCO3 (22.0-26.0) meq/L ABG O2 Saturation (96.0-97.0) % ABG Base Excess (-2-2.0) Donovan Test A-a Gradient mmHg O2 Delivery Device Oxygen Flow Rate FiO2 (21.00-100.00) % Sodium (136-145) mEq/L Potassium (3.5-5.1) mEq/L Chloride (98-107) mEq/L Carbon Dioxide (21-32) mEq/L Anion Gap (5-15) BUN (7-18) mg/dL Creatinine (0.7-1.3) mg/dL Est Cr Clr Drug Dosing mL/min Estimated GFR (MDRD) (>60) mL/min BUN/Creatinine Ratio (14-18) Glucose (83-115) mg/dL POC Glucose 100 92 126 H (83-110) mg/dL Lactic Acid (0.4-2.0) mmol/L Calcium (8.5-10.1) mg/dL Phosphorus (2.6-4.7) mg/dL Magnesium (1.8-2.4) mg/dl Total Bilirubin (0.2-1.0) mg/dL AST (15-37) U/L ALT (16-63) U/L Alkaline Phosphatase (46-116) U/L Total Protein (6.4-8.2) g/dl Albumin (3.4-5.0) g/dl Globulin gm/dL Albumin/Globulin Ratio (1-2) C.difficile 027-NAP1-B1 C. difficile Tox (PCR) 07/17/20 07/17/20 Range/Units 09:53 09:53 WBC 12.44 H (4.23-9.07) K/mm3 RBC 3.09 L (4.63-6.08) M/mm3 Hgb 10.4 L (13.7-17.5) gm/dl Hct 34.5 L (40.1-51.0) % MCV 111.7 H (79.0-92.2) fl MCH 33.7 H (25.7-32.2) pg MCHC 30.1 L (32.2-35.5) g/dl RDW Std Deviation 63.7 H (35.1-43.9) fL Plt Count 234 (163-337) K/mm3 MPV 8.5 L (9.4-12.3) fl Neut % (Auto) 72.0 H (34.0-67.9) % Lymph % (Auto) 24.4 (21.8-53.1) % [place] % (Auto) 2.8 L (5.3-12.2) % Eos % (Auto) 0.5 L (0.8-7.0) Baso % (Auto) 0.1 (0.1-1.2) % Neut # (Auto) 8.97 H (1.78-5.38) K/mm3 Lymph # (Auto) 3.03 (1.32-3.57) K/mm3 [place] # (Auto) 0.35 (0.30-0.82) K/mm3 Eos # (Auto) 0.06 (0.04-0.54) K/mm3 Baso # (Auto) 0.01 (0.01-0.08) K/mm3 Manual Slide Review Abnormal smear Puncture Site ABG pH (7.35-7.45) ABG pCO2 (35.0-45.0) mmHg ABG pO2 (80.0-100.0) mmHg ABG HCO3 (22.0-26.0) meq/L ABG O2 Saturation (96.0-97.0) % ABG Base Excess (-2-2.0) Donovan Test A-a Gradient mmHg O2 Delivery Device Oxygen Flow Rate FiO2 (21.00-100.00) % Sodium 138 (136-145) mEq/L Potassium 2.8 L (3.5-5.1) mEq/L Chloride 99 (98-107) mEq/L Carbon Dioxide 28 (21-32) mEq/L Anion Gap 13.8 (5-15) BUN 27 H (7-18) mg/dL Creatinine 1.6 H (0.7-1.3) mg/dL Est Cr Clr Drug Dosing 50.48 mL/min Estimated GFR (MDRD) 43 (>60) mL/min BUN/Creatinine Ratio 16.9 (14-18) Glucose 120 H (83-115) mg/dL POC Glucose (83-110) mg/dL Lactic Acid (0.4-2.0) mmol/L Calcium 8.2 L (8.5-10.1) mg/dL Phosphorus (2.6-4.7) mg/dL Magnesium (1.8-2.4) mg/dl Total Bilirubin (0.2-1.0) mg/dL AST (15-37) U/L ALT (16-63) U/L Alkaline Phosphatase (46-116) U/L Total Protein (6.4-8.2) g/dl Albumin (3.4-5.0) g/dl Globulin gm/dL Albumin/Globulin Ratio (1-2) C.difficile 027-NAP1-B1 C. difficile Tox (PCR) [place] Results Last 24 Hours: Microbiology 07/15/20 19:10 Aerobic Blood Culture - Preliminary Blood - Venous NO GROWTH AFTER 1 DAY Anaerobic Blood Culture - Preliminary NO GROWTH AFTER 1 DAY 07/15/20 19:15 Aerobic Blood Culture - Preliminary Blood - Venous - Lab Draw NO GROWTH AFTER 1 DAY Anaerobic Blood Culture - Preliminary NO GROWTH AFTER 1 DAY 07/15/20 19:37 Urine Culture - Preliminary Urine, Catheterized Gram Negative Rods Med Orders - Current: Current Medications Acetaminophen (Tylenol) 650 mg PO Q6H PRN PRN Reason: Pain/Fever Last Admin: 07/17/20 03:46 Dose: 650 mg Documented by: Enoxaparin Sodium (Lovenox) 40 mg SUBCUT BID [facility] Last Admin: 07/17/20 09:04 Dose: 40 mg Documented by: Piperacillin Sod/Tazobactam (Sod 4.5 gm/ Sodium Chloride) 100 mls @ 25 mls/hr IV Q8H [facility] Last Admin: 07/17/20 07:21 Dose: 25 mls/hr Documented by: Potassium Chloride 10 meq/ (Premix) 100 mls @ 100 mls/hr IV Q1H [facility] Stop: 07/17/20 12:14 Last Admin: 07/17/20 09:04 Dose: 100 mls/hr Documented by: Sodium Chloride (Saline Flush) 10 ml FLUSH ASDIRECTED PRN PRN Reason: Keep Vein Open Last Admin: 07/15/20 19:03 Dose: 10 ml Documented by: Discontinued Medications Acetaminophen (Tylenol) 975 mg PO NOW ONE Stop: 07/15/20 19:00 Last Admin: 07/15/20 19:03 Dose: 975 mg Documented by: Sodium Chloride (Normal Saline) 1,000 mls @ 100 mls/hr IV ASDIRECTED [facility] Last Admin: 07/15/20 19:56 Dose: 100 mls/hr Documented by: Ceftriaxone Sodium 2 gm/ (Sodium Chloride) 100 mls @ 200 mls/hr IV ONETIME ONE Stop: 07/15/20 19:55 Last Admin: 07/15/20 20:32 Dose: Not Given Documented by: Ceftriaxone Sodium 2 gm/ (Sodium Chloride) 100 mls @ 200 mls/hr IV ONETIME ONE Stop: 07/15/20 20:13 Last Admin: 07/15/20 19:56 Dose: 200 mls/hr Documented by: Piperacillin Sod/Tazobactam (Sod 4.5 gm/ Sodium Chloride) 100 mls @ 200 mls/hr IV ONETIME ONE Stop: 07/16/20 08:29 Last Admin: 07/16/20 08:10 Dose: 200 mls/hr Documented by: Potassium Chloride 10 meq/ (Premix) 100 mls @ 100 mls/hr IV Q1H [facility] Stop: 07/17/20 01:44 Last Admin: 07/17/20 03:00 Dose: 100 mls/hr Documented by: Sodium Chloride (Normal Saline) Confirm Administered Dose 1,000 mls @ as directed .ROUTE .STK-MED ONE Stop: 07/16/20 22:00 Last Admin: 07/16/20 22:07 Dose: 75 mls/hr Documented by: - Exam Quality Assessment: Supplemental Oxygen (1L ), DVT Prophylaxis General: Alert, Oriented, Cooperative, No Acute Distress HEENT: Pupils Equal, Pupils Reactive Neck: Supple, Trachea Midline Lungs: Clear to Auscultation, Normal Respiratory Effort Cardiovascular: Regular Rate, Regular Rhythm GI/Abdominal Exam: Normal Bowel Sounds, Distended, Tender (diffuse ), Other. No: Guarding, Rebound (Male) Exam: Deferred Back Exam: Normal Inspection, Decreased Range of Motion Extremities: Non-Tender, Pedal Edema, Slow Capillary Refill Skin: Warm, Dry, Intact Neurological: No New Focal Deficit Psy/Mental Status: Alert Sepsis Event Note - Evaluation Sepsis Screening Result: Sepsis Risk - Focused Exam Vital Signs: Vital Signs Temp Pulse Resp BP Pulse Ox Pulse Ox Pulse Ox 07/17/20 07:56 97.7 F 85 24 H 132/64 96 07/17/20 07:50 80 L 07/17/20 07:40 95 07/17/20 04:44 97.9 F 07/17/20 03:46 100.7 F H 07/17/20 03:04 100.8 F H 95 22 H 143/98 H 94 L - Problem List & Annotations (1) Acute hypoxemic respiratory failure SNOMED Code(s): 766482192 Code(s): J96.01 - ACUTE RESPIRATORY FAILURE WITH HYPOXIA Status: Acute Priority: High Current Visit: Yes (2) Coronary artery disease SNOMED Code(s): 11579655 Code(s): I25.10 - ATHSCL HEART DISEASE OF [place] CORONARY ARTERY W/O ANG PCTRS Status: Chronic Priority: Medium Current Visit: Yes Qualifiers: Coronary Disease-Associated Artery/Lesion type: unspecified vessel or lesion type [place] vs. transplanted heart: unspecified whether [place] or transplanted heart Associated angina: angina presence unspecified Qualified Code(s): I25.10 - Atherosclerotic heart disease of [place] coronary artery without angina pectoris (3) Diabetes mellitus SNOMED Code(s): 37036728 Code(s): E11.9 - TYPE 2 DIABETES MELLITUS WITHOUT COMPLICATIONS Status: Chronic Priority: Medium Current Visit: Yes Qualifiers: Diabetes mellitus type: type 2 Diabetes mellitus group home insulin use: without exterminator helper use Diabetes mellitus complication status: with other specified complication Qualified Code(s): E11.69 - Type 2 diabetes mellitus with other specified complication (4) Hematuria SNOMED Code(s): 13979211 Code(s): R31.9 - HEMATURIA, UNSPECIFIED Status: Resolved Priority: High Current Visit: Yes Qualifiers: Hematuria type: unspecified type Qualified Code(s): R31.9 - Hematuria, unspecified (5) Hypertension SNOMED Code(s): 72516075 Code(s): I10 - ESSENTIAL (PRIMARY) HYPERTENSION Status: Chronic Priority: Medium Current Visit: No Qualifiers: Hypertension type: unspecified Qualified Code(s): I10 - Essential (primary) hypertension (6) Leukocytosis SNOMED Code(s): 524152260, 147858859 Code(s): D72.829 - ELEVATED WHITE BLOOD CELL COUNT, UNSPECIFIED Status: Acute Priority: High Current Visit: Yes Qualifiers: Leukocytosis type: unspecified Qualified Code(s): D72.829 - Elevated white blood cell count, unspecified (7) Macrocytic anemia SNOMED Code(s): 52454010 Code(s): D53.9 - NUTRITIONAL ANEMIA, UNSPECIFIED Status: Acute Priority: High Current Visit: Yes (8) Macrocytosis SNOMED Code(s): 690709703 Code(s): D75.89 - OTHER SPECIFIED DISEASES OF BLOOD AND BLOOD-FORMING ORGANS Status: Acute Priority: High Current Visit: Yes (9) Metabolic alkalosis SNOMED Code(s): 8598016 Code(s): E87.3 - ALKALOSIS Status: Acute Priority: High Current Visit: Yes (10) Morbid obesity SNOMED Code(s): 719067585 Code(s): E66.01 - MORBID (SEVERE) OBESITY DUE TO EXCESS CALORIES Status: Chronic Priority: Medium Current Visit: Yes (11) Respiratory alkalosis SNOMED Code(s): 357171016 Code(s): E87.3 - ALKALOSIS Status: Acute Priority: High Current Visit: Yes (12) Urinary incontinence SNOMED Code(s): 227215761 Code(s): R32 - UNSPECIFIED URINARY INCONTINENCE Status: Chronic Priority: Medium Current Visit: No Qualifiers: Urinary Incontinence type: unspecified incontinence Qualified Code(s): R32 - Unspecified urinary incontinence (13) Urinary tract infection SNOMED Code(s): 39223709 Code(s): N39.0 - URINARY TRACT INFECTION, SITE NOT SPECIFIED Status: Acute Priority: High Current Visit: Yes Qualifiers: Urinary tract infection type: acute cystitis Hematuria presence: with hematuria Qualified Code(s): N30.01 - Acute cystitis with hematuria (14) Vitamin D deficiency SNOMED Code(s): 34455181 Code(s): E55.9 - VITAMIN D DEFICIENCY, UNSPECIFIED Status: Chronic Priority: Low Current Visit: Yes (15) Cellulitis of right leg SNOMED Code(s): 752029088 Code(s): L03.115 - CELLULITIS OF RIGHT LOWER LIMB Status: Acute Priority: Medium Current Visit: Yes (16) Abdominal pain SNOMED Code(s): 36892610 Code(s): R10.9 - UNSPECIFIED ABDOMINAL PAIN Status: Acute Priority: High Current Visit: Yes Qualifiers: Abdominal location: generalized Qualified Code(s): R10.84 - Generalized abdominal pain (17) Abdominal distension SNOMED Code(s): 09062900 Code(s): R14.0 - ABDOMINAL DISTENSION (GASEOUS) Status: Acute Priority: High Current Visit: Yes - Problem List Review Problem List Initiated/Reviewed/Updated: Yes - My Orders Last 24 Hours: My Active Orders 07/17/20 08:15 Potassium Chloride [KCl 10 MEQ in Water 100 ML] 10 meq Premix Bag 1 bag IV Q1H 07/18/20 05:11 BASIC METABOLIC PANEL,BMP [CHEM] AM CBC WITH AUTO DIFF [HEME] AM - Assessment Assessment:: Admission assessment - 07/16/20 - Comes to the ED complaining of fever, cough, shortness of breath, sore throat and weakness. - Patient states he has had this cough for over 2 weeks, however the fever, shortness of breath, and weakness are new onset last evening. - He denies any nausea, vomiting, or diarrhea. - Checked for COVID 2 weeks ago, negative - Recent exposure on Tuesday --> Rapid COVID negative in ED - Redness to his bilateral lower extremities which she states has been there "for years ". He does not feel that this has worsened in any way. - VS on admission: BP 157/85, HR 103x', Temp 100.7, SatO2 94% on RA - Lab results - CBC: WBC 16.5 (N-72.9%), Hb 10.9, Hct 35.5, Plt 269 - Chemistry: Na 135, K 4.2, Cl 98, CO2 31, BUN 24, Cr 1.6, GFR (43), glucose 131, Ca 9.0 - LFTs: T bili 0.3, AP 84, AST 25, ALT 16, T prot 8.8, Alb 3.0 - Given Rocephin in ED, pancultured 07/17/20 -Reports abdominal pain has improved but is still present -Nursing reports multiple soft BMs overnight and this AM -Started on zosyn on floor- continue -VS: Tmax 100.8 overnight, 127-144/59-98; HR 85-98; SpO2 95-96 on 1L -Requiring 1L of oxygen -IS added -Urine culture growing out E. Coli -Blood cultures negative -Labs: * WBC 12.44 * Hgb 10.4 * MCV 111.7 * PLT 234 * Neutrophils 72% * Potassium 2.8 * Creatinine 1.6 * GFR 43 C. * DIff negative -Start scheduled Colace -Potassium supplemented -Last BM this AM -Home medications reconciled -IV infiltrated and initially refused repeat. Patient later agrees to another IV so long as no more IV potassium - Plan Plan:: Urinary tract infection Urinary incontinence Cellulitis of right leg Urinary incontinence Acute kidney injury - Start on Zosyn - F/U urine culture from admission - Repeat labs in AM - Trend temperature and panculture if fever - Monitor urine output - Renally dosed medications Abdominal pain Abdominal distention - Monitor bowel sounds/distention - Monitor BMs - Repeat Abdominal x-ray tomorrow - Consider NG tube if vomiting, stops having BMs Hypertension - PRN Hydralazine - Continue Losartan and metoprolol Diabetes mellitus, unknown HbA1c - Scheduled accuchecks before meals and 2h after meals - Hypoglycemia protocol - New HbA1c Chronic BL LE edema - Continue Bumex Macrocytic anemia Coronary artery disease - Vitamin levels and work up - Goal Hb is > 8 - Continue Plavix and aspirin Acute hypoxemic respiratory failure Metabolic alkalosis Respiratory alkalosis - Continue O2 supplementation - Taper down as tolerated - IS Vitamin D deficiency - Repeat vitamin D level - Continue supplementation Morbid obesity - Dietary evaluation PROPHYLAXIS DVT- Lovenox GI- not indicated CODE STATUS: DNR/DNI DISPOSITION: Patient will be admitted for IV antibiotics, VS monitorization and stabilization.
[2020-07-17] MEDS ORDERED: Docusate Sodium 100 MG Cap PO PRN (11:59)
[2020-07-17] MEDS ORDERED: Lactated Ringers 1,000 ML IV SCH (12:00)
[2020-07-17] MEDS: Lactated Ringers 1,000 ML IV SCH (12:11)
[2020-07-17 13:34] LABS: HEMOGLOBIN A1C 6.1 % (4.50-6.20)
[2020-07-17] MEDS: Metoprolol Succinate 50 MG Tab.ER PO SCH (14:11)
[2020-07-17] MEDS: Potassium Chloride 20 MEQ Tab.ER PO SCH ×2 (15:49→21:11)
[2020-07-17] MEDS: cefTRIAXone 2 GM in Sodium Chloride 0.9% 100 ML IV SCH (15:52)
[2020-07-17] MEDS: Diclofenac Sodium 1% Gel 100 GM Tube TOP SCH (21:09)
[2020-07-17] MEDS: Mirtazapine 15 MG Tab PO SCH (21:12)
[2020-07-18] MEDS: Lactated Ringers 1,000 ML IV SCH (06:11)
[2020-07-18] MEDS: Bumetanide 1 MG Tab PO SCH (08:40)
[2020-07-18] MEDS: Metoprolol Succinate 50 MG Tab.ER PO SCH (08:41)
[2020-07-18] MEDS: Aspirin 81 MG Tab.EC PO SCH (08:41)
[2020-07-18] MEDS: Clopidogrel 75 MG Tab PO SCH (08:42)
[2020-07-18] MEDS: Enoxaparin 40 MG/0.4 ML Syringe SUBCUT SCH ×2 (08:43→20:09)
[2020-07-18] MEDS: Potassium Chloride 20 MEQ Tab.ER PO SCH (08:43)
[2020-07-18] MEDS: Diclofenac Sodium 1% Gel 100 GM Tube TOP SCH ×2 (08:44→20:10)
--- NOTE | 2020-07-18 10:18 | PCM.PN ---
- General Info Date of Service: 07/18/20 Admission Dx/Problem (Free Text): Admission Diagnosis/Problem Admission Diagnosis/Problem Urinary tract infection Functional Status: Reports: Pain Controlled, Tolerating Diet (clear liquids ), Ambulating, Urinating, Incentive Spirometry. Denies: New Symptoms - Review of Systems General: Reports: No Symptoms, Weakness (improving ). Denies: Fever, Fatigue, Malaise, Chills HEENT: Reports: No Symptoms. Denies: Headaches, Sore Throat Pulmonary: Reports: No Symptoms. Denies: Shortness of Breath, Cough, Sputum, Wheezing Cardiovascular: Reports: No Symptoms. Denies: Chest Pain, Palpitations, Edema Gastrointestinal: Reports: No Symptoms. Denies: Abdominal Pain, Constipation, Diarrhea, Nausea, Vomiting Genitourinary: Denies: Pain Musculoskeletal: Reports: No Symptoms Skin: Reports: No Symptoms. Denies: Cyanosis Neurological: Reports: No Symptoms, Difficulty Walking (baseline ). Denies: Confusion, Headache, Numbness, Tingling Psychiatric: Reports: No Symptoms - Patient Data Vitals - Most Recent: Last Vital Signs Temp 98.2 F 07/18/20 08:18 Pulse 80 07/18/20 08:41 Resp 20 07/18/20 08:18 BP 155/77 H 07/18/20 08:41 Pulse Ox 96 07/18/20 08:18 Weight - Most Recent: 384 lb 9.6 oz I&O - Last 24 Hours: Intake & Output 07/17/20 07/18/20 07/18/20 22:59 06:59 14:59 Intake Total 860 1398 Output Total 500 Balance 860 898 Lab Results Last 24 Hours: Laboratory Results - last 24 hr 07/17/20 07/17/20 07/17/20 Range/Units 09:53 09:53 09:53 WBC (4.23-9.07) K/mm3 RBC (4.63-6.08) M/mm3 Hgb (13.7-17.5) gm/dl Hct (40.1-51.0) % MCV (79.0-92.2) fl MCH (25.7-32.2) pg MCHC (32.2-35.5) g/dl RDW Std Deviation (35.1-43.9) fL Plt Count (163-337) K/mm3 MPV (9.4-12.3) fl Neutrophils % (Manual) (40-60) % Band Neutrophils % (0-10) % Lymphocytes % (Manual) (20-40) % Atypical Lymphs % % Monocytes % (Manual) (2-10) % Eosinophils % (Manual) (0.8-7.0) % Basophils % (Manual) (0.2-1.2) Manual Slide Review Abnormal smear Platelet Estimate Anisocytosis Macrocytosis RBC Morph Comment Percent Retic (0.51-1.81) % Sodium 138 (136-145) mEq/L Potassium 2.8 L (3.5-5.1) mEq/L Chloride 99 (98-107) mEq/L Carbon Dioxide 28 (21-32) mEq/L Anion Gap 13.8 (5-15) BUN 27 H (7-18) mg/dL Creatinine 1.6 H (0.7-1.3) mg/dL Est Cr Clr Drug Dosing 50.48 mL/min Estimated GFR (MDRD) 43 (>60) mL/min BUN/Creatinine Ratio 16.9 (14-18) Glucose 120 H (83-115) mg/dL POC Glucose (83-110) mg/dL Hemoglobin A1c 6.10 (4.50-6.20) % Calcium 8.2 L (8.5-10.1) mg/dL Vitamin B12 (193-986) pg/ml Folate (8.6-58.9) ng/mL TSH 3rd Generation (0.358-3.74) uIU/mL 07/17/20 07/17/20 07/17/20 Range/Units 11:12 16:59 18:53 WBC (4.23-9.07) K/mm3 RBC (4.63-6.08) M/mm3 Hgb (13.7-17.5) gm/dl Hct (40.1-51.0) % MCV (79.0-92.2) fl MCH (25.7-32.2) pg MCHC (32.2-35.5) g/dl RDW Std Deviation (35.1-43.9) fL Plt Count (163-337) K/mm3 MPV (9.4-12.3) fl Neutrophils % (Manual) (40-60) % Band Neutrophils % (0-10) % Lymphocytes % (Manual) (20-40) % Atypical Lymphs % % Monocytes % (Manual) (2-10) % Eosinophils % (Manual) (0.8-7.0) % Basophils % (Manual) (0.2-1.2) Manual Slide Review Platelet Estimate Anisocytosis Macrocytosis RBC Morph Comment Percent Retic (0.51-1.81) % Sodium (136-145) mEq/L Potassium (3.5-5.1) mEq/L Chloride (98-107) mEq/L Carbon Dioxide (21-32) mEq/L Anion Gap (5-15) BUN (7-18) mg/dL Creatinine (0.7-1.3) mg/dL Est Cr Clr Drug Dosing mL/min Estimated GFR (MDRD) (>60) mL/min BUN/Creatinine Ratio (14-18) Glucose (83-115) mg/dL POC Glucose 113 H 89 163 H (83-110) mg/dL Hemoglobin A1c (4.50-6.20) % Calcium (8.5-10.1) mg/dL Vitamin B12 (193-986) pg/ml Folate (8.6-58.9) ng/mL TSH 3rd Generation (0.358-3.74) uIU/mL 07/18/20 07/18/20 07/18/20 Range/Units 05:38 05:38 05:38 WBC 8.17 (4.23-9.07) K/mm3 RBC 2.90 L (4.63-6.08) M/mm3 Hgb 9.6 L (13.7-17.5) gm/dl Hct 32.0 L (40.1-51.0) % MCV 110.3 H (79.0-92.2) fl MCH 33.1 H (25.7-32.2) pg MCHC 30.0 L (32.2-35.5) g/dl RDW Std Deviation 61.2 H (35.1-43.9) fL Plt Count 219 (163-337) K/mm3 MPV 8.8 L (9.4-12.3) fl Neutrophils % (Manual) 62 H (40-60) % Band Neutrophils % 0 (0-10) % Lymphocytes % (Manual) 29 (20-40) % Atypical Lymphs % 0 % Monocytes % (Manual) 8 (2-10) % Eosinophils % (Manual) 1 (0.8-7.0) % Basophils % (Manual) 0 L (0.2-1.2) Manual Slide Review Platelet Estimate Adequate Anisocytosis 1+ slight Macrocytosis 2+ moderate RBC Morph Comment Abnormal Percent Retic 1.95 H (0.51-1.81) % Sodium 137 (136-145) mEq/L Potassium 3.7 (3.5-5.1) mEq/L Chloride 101 (98-107) mEq/L Carbon Dioxide 26 (21-32) mEq/L Anion Gap 13.7 (5-15) BUN 23 H (7-18) mg/dL Creatinine 1.2 (0.7-1.3) mg/dL Est Cr Clr Drug Dosing 67.31 mL/min Estimated GFR (MDRD) 59 (>60) mL/min BUN/Creatinine Ratio 19.2 H (14-18) Glucose 104 (83-115) mg/dL POC Glucose (83-110) mg/dL Hemoglobin A1c (4.50-6.20) % Calcium 8.0 L (8.5-10.1) mg/dL Vitamin B12 293 (193-986) pg/ml Folate 17.5 (8.6-58.9) ng/mL TSH 3rd Generation 1.041 (0.358-3.74) uIU/mL 07/18/20 Range/Units 06:33 WBC (4.23-9.07) K/mm3 RBC (4.63-6.08) M/mm3 Hgb (13.7-17.5) gm/dl Hct (40.1-51.0) % MCV (79.0-92.2) fl MCH (25.7-32.2) pg MCHC (32.2-35.5) g/dl RDW Std Deviation (35.1-43.9) fL Plt Count (163-337) K/mm3 MPV (9.4-12.3) fl Neutrophils % (Manual) (40-60) % Band Neutrophils % (0-10) % Lymphocytes % (Manual) (20-40) % Atypical Lymphs % % Monocytes % (Manual) (2-10) % Eosinophils % (Manual) (0.8-7.0) % Basophils % (Manual) (0.2-1.2) Manual Slide Review Platelet Estimate Anisocytosis Macrocytosis RBC Morph Comment Percent Retic (0.51-1.81) % Sodium (136-145) mEq/L Potassium (3.5-5.1) mEq/L Chloride (98-107) mEq/L Carbon Dioxide (21-32) mEq/L Anion Gap (5-15) BUN (7-18) mg/dL Creatinine (0.7-1.3) mg/dL Est Cr Clr Drug Dosing mL/min Estimated GFR (MDRD) (>60) mL/min BUN/Creatinine Ratio (14-18) Glucose (83-115) mg/dL POC Glucose 94 (83-110) mg/dL Hemoglobin A1c (4.50-6.20) % Calcium (8.5-10.1) mg/dL Vitamin B12 (193-986) pg/ml Folate (8.6-58.9) ng/mL TSH 3rd Generation (0.358-3.74) uIU/mL [place] Results Last 24 Hours: Microbiology 07/15/20 19:10 Aerobic Blood Culture - Preliminary Blood - Venous NO GROWTH AFTER 2 DAYS Anaerobic Blood Culture - Preliminary NO GROWTH AFTER 2 DAYS 07/15/20 19:15 Aerobic Blood Culture - Preliminary Blood - Venous - Lab Draw NO GROWTH AFTER 2 DAYS Anaerobic Blood Culture - Preliminary NO GROWTH AFTER 2 DAYS 07/15/20 19:37 Urine Culture - Final Urine, Catheterized Escherichia Coli Med Orders - Current: Current Medications Acetaminophen (Tylenol) 650 mg PO Q6H PRN PRN Reason: Pain/Fever Last Admin: 07/17/20 03:46 Dose: 650 mg Documented by: Aspirin (Halfprin) 81 mg PO DAILY [facility] Last Admin: 07/18/20 08:41 Dose: 81 mg Documented by: Bumetanide (Bumex) 3 mg PO DAILY [facility] Last Admin: 07/18/20 08:40 Dose: 3 mg Documented by: Clopidogrel Bisulfate (Plavix) 75 mg PO DAILY [facility] Last Admin: 07/18/20 08:42 Dose: 75 mg Documented by: Diclofenac Sodium (Voltaren 1% Gel) 2 gm TOP BID [facility] Last Admin: 07/18/20 08:44 Dose: 1 applic Documented by: Docusate Sodium (Colace) 100 mg PO BEDTIME PRN PRN Reason: Constipation Enoxaparin Sodium (Lovenox) 40 mg SUBCUT BID [facility] Last Admin: 07/18/20 08:43 Dose: 40 mg Documented by: Lactated Ringer's (Ringers, Lactated) 1,000 mls @ 75 mls/hr IV ASDIRECTED [facility] Stop: 07/19/20 01:19 Last Admin: 07/18/20 06:11 Dose: 75 mls/hr Documented by: Ceftriaxone Sodium 2 gm/ (Sodium Chloride) 100 mls @ 200 mls/hr IV Q24H [facility] Stop: 07/20/20 16:29 Last Admin: 07/17/20 15:52 Dose: 200 mls/hr Documented by: Losartan Potassium (Cozaar) 25 mg PO DAILY [facility] Metoprolol Succinate (Toprol Xl) 50 mg PO DAILY [facility] Last Admin: 07/18/20 08:41 Dose: 50 mg Documented by: Mirtazapine (Remeron) 30 mg PO BEDTIME [facility] Last Admin: 07/17/20 21:12 Dose: 30 mg Documented by: Senna/Docusate Sodium (Senna Plus) 2 tab PO BID [facility] Last Admin: 07/18/20 08:41 Dose: 2 tab Documented by: Sodium Chloride (Saline Flush) 10 ml FLUSH ASDIRECTED PRN PRN Reason: Keep Vein Open Last Admin: 07/15/20 19:03 Dose: 10 ml Documented by: Discontinued Medications Acetaminophen (Tylenol) 975 mg PO NOW ONE Stop: 07/15/20 19:00 Last Admin: 07/15/20 19:03 Dose: 975 mg Documented by: Sodium Chloride (Normal Saline) 1,000 mls @ 100 mls/hr IV ASDIRECTED [facility] Last Admin: 07/15/20 19:56 Dose: 100 mls/hr Documented by: Ceftriaxone Sodium 2 gm/ (Sodium Chloride) 100 mls @ 200 mls/hr IV ONETIME ONE Stop: 07/15/20 19:55 Last Admin: 07/15/20 20:32 Dose: Not Given Documented by: Ceftriaxone Sodium 2 gm/ (Sodium Chloride) 100 mls @ 200 mls/hr IV ONETIME ONE Stop: 07/15/20 20:13 Last Admin: 07/15/20 19:56 Dose: 200 mls/hr Documented by: Piperacillin Sod/Tazobactam (Sod 4.5 gm/ Sodium Chloride) 100 mls @ 200 mls/hr IV ONETIME ONE Stop: 07/16/20 08:29 Last Admin: 07/16/20 08:10 Dose: 200 mls/hr Documented by: Piperacillin Sod/Tazobactam (Sod 4.5 gm/ Sodium Chloride) 100 mls @ 25 mls/hr IV Q8H [facility] Last Admin: 07/17/20 07:21 Dose: 25 mls/hr Documented by: Potassium Chloride 10 meq/ (Premix) 100 mls @ 100 mls/hr IV Q1H [facility] Stop: 07/17/20 01:44 Last Admin: 07/17/20 03:00 Dose: 100 mls/hr Documented by: Sodium Chloride (Normal Saline) Confirm Administered Dose 1,000 mls @ as directed .ROUTE .STK-MED ONE Stop: 07/16/20 22:00 Last Admin: 07/16/20 22:07 Dose: 75 mls/hr Documented by: Potassium Chloride 10 meq/ (Premix) 100 mls @ 100 mls/hr IV Q1H [facility] Stop: 07/17/20 12:14 Last Admin: 07/17/20 16:36 Dose: Not Given Documented by: Lactated Ringer's (Ringers, Lactated) 1,000 mls @ 50 mls/hr IV ASDIRECTED [facility] Potassium Chloride (Klor-Con M20) 40 meq PO BID [facility] Stop: 07/18/20 09:01 Last Admin: 07/18/20 08:43 Dose: 40 meq Documented by: - Exam Quality Assessment: DVT Prophylaxis. No: Supplemental Oxygen, Urine Catheter General: Alert, Oriented, Cooperative, No Acute Distress HEENT: Pupils Equal, Pupils Reactive, Mucous Membr. Moist/[place] Neck: Supple, Trachea Midline Lungs: Normal Respiratory Effort, Wheezing (left lower lobe ) Cardiovascular: Regular Rate, Regular Rhythm GI/Abdominal Exam: Normal Bowel Sounds, Soft, Non-Tender, No Distention (Male) Exam: Deferred Back Exam: Normal Inspection, Decreased Range of Motion Extremities: Normal Range of Motion, Non-Tender, Pedal Edema, Slow Capillary Refill, Other (Bilateral leg discolorations consistent with chronic PVD) Skin: Warm, Dry, Intact Neurological: No New Focal Deficit Psy/Mental Status: Alert, Normal Affect, Normal Mood Sepsis Event Note - Evaluation Sepsis Screening Result: No Definite Risk - Focused Exam Vital Signs: Vital Signs Temp Temp Pulse Resp BP BP Pulse Ox 07/18/20 08:41 80 155/77 H 07/18/20 08:18 98.2 F 80 20 155/77 H 96 07/18/20 04:00 98.8 F 18 132/68 96 07/18/20 00:27 88 95 07/18/20 00:25 98.6 F 86 21 H 133/58 L 97 - Problem List & Annotations (1) Acute hypoxemic respiratory failure SNOMED Code(s): 341752007 Code(s): J96.01 - ACUTE RESPIRATORY FAILURE WITH HYPOXIA Status: Acute Priority: High Current Visit: Yes (2) Coronary artery disease SNOMED Code(s): 65745105 Code(s): I25.10 - ATHSCL HEART DISEASE OF [place] CORONARY ARTERY W/O ANG PCTRS Status: Chronic Priority: Medium Current Visit: Yes Qualifiers: Coronary Disease-Associated Artery/Lesion type: unspecified vessel or lesion type [place] vs. transplanted heart: unspecified whether [place] or transplanted heart Associated angina: angina presence unspecified Qualified Code(s): I25.10 - Atherosclerotic heart disease of [place] coronary artery without angina pectoris (3) Diabetes mellitus SNOMED Code(s): 10472184 Code(s): E11.9 - TYPE 2 DIABETES MELLITUS WITHOUT COMPLICATIONS Status: Chronic Priority: Medium Current Visit: Yes Qualifiers: Diabetes mellitus type: type 2 Diabetes mellitus manager intermediate insulin use: without fci use Diabetes mellitus complication status: with other specified complication Qualified Code(s): E11.69 - Type 2 diabetes mellitus with other specified complication (4) Hematuria SNOMED Code(s): 31392643 Code(s): R31.9 - HEMATURIA, UNSPECIFIED Status: Resolved Priority: High Current Visit: Yes Qualifiers: Hematuria type: unspecified type Qualified Code(s): R31.9 - Hematuria, unspecified (5) Hypertension SNOMED Code(s): 95735477 Code(s): I10 - ESSENTIAL (PRIMARY) HYPERTENSION Status: Chronic Priority: Medium Current Visit: No Qualifiers: Hypertension type: unspecified Qualified Code(s): I10 - Essential (primary) hypertension (6) Leukocytosis SNOMED Code(s): 352959117, 791432397 Code(s): D72.829 - ELEVATED WHITE BLOOD CELL COUNT, UNSPECIFIED Status: Acute Priority: High Current Visit: Yes Qualifiers: Leukocytosis type: unspecified Qualified Code(s): D72.829 - Elevated white blood cell count, unspecified (7) Macrocytic anemia SNOMED Code(s): 46147137 Code(s): D53.9 - NUTRITIONAL ANEMIA, UNSPECIFIED Status: Acute Priority: High Current Visit: Yes (8) Macrocytosis SNOMED Code(s): 511453780 Code(s): D75.89 - OTHER SPECIFIED DISEASES OF BLOOD AND BLOOD-FORMING ORGANS Status: Acute Priority: High Current Visit: Yes (9) Metabolic alkalosis SNOMED Code(s): 4131104 Code(s): E87.3 - ALKALOSIS Status: Acute Priority: High Current Visit: Yes (10) Morbid obesity SNOMED Code(s): 423537517 Code(s): E66.01 - MORBID (SEVERE) OBESITY DUE TO EXCESS CALORIES Status: Chronic Priority: Medium Current Visit: Yes (11) Respiratory alkalosis SNOMED Code(s): 537391145 Code(s): E87.3 - ALKALOSIS Status: Acute Priority: High Current Visit: Yes (12) Urinary incontinence SNOMED Code(s): 813464051 Code(s): R32 - UNSPECIFIED URINARY INCONTINENCE Status: Chronic Priority: Medium Current Visit: No Qualifiers: Urinary Incontinence type: unspecified incontinence Qualified Code(s): R32 - Unspecified urinary incontinence (13) Urinary tract infection SNOMED Code(s): 46976939 Code(s): N39.0 - URINARY TRACT INFECTION, SITE NOT SPECIFIED Status: Acute Priority: High Current Visit: Yes Qualifiers: Urinary tract infection type: acute cystitis Hematuria presence: with hematuria Qualified Code(s): N30.01 - Acute cystitis with hematuria (14) Vitamin D deficiency SNOMED Code(s): 87060110 Code(s): E55.9 - VITAMIN D DEFICIENCY, UNSPECIFIED Status: Chronic Priority: Low Current Visit: Yes (15) Cellulitis of right leg SNOMED Code(s): 949139599 Code(s): L03.115 - CELLULITIS OF RIGHT LOWER LIMB Status: Acute Priority: Medium Current Visit: Yes (16) Abdominal pain SNOMED Code(s): 96247267 Code(s): R10.9 - UNSPECIFIED ABDOMINAL PAIN Status: Resolved Priority: High Current Visit: Yes Qualifiers: Abdominal location: generalized Qualified Code(s): R10.84 - Generalized abdominal pain (17) Abdominal distension SNOMED Code(s): 95798193 Code(s): R14.0 - ABDOMINAL DISTENSION (GASEOUS) Status: Resolved Priority: High Current Visit: Yes - Problem List Review Problem List Initiated/Reviewed/Updated: Yes - My Orders Last 24 Hours: My Active Orders 07/17/20 11:59 Docusate Sodium [Colace] 100 mg PO BEDTIME PRN 07/17/20 12:00 Lactated Ringers [Ringers, Lactated] 1,000 ml IV ASDIRECTED Metoprolol Succinate [Toprol XL] 50 mg PO DAILY 07/17/20 13:23 RT Incentive Spirometry [RC] ASDIRECTED 07/17/20 21:00 Diclofenac Sodium [Voltaren 1% Gel] 2 gm TOP BID D[facility] Sodium/Sennosides [Senna Plus] 2 tab PO BID Mirtazapine [Remeron] 30 mg PO BEDTIME 07/18/20 05:38 BASIC METABOLIC PANEL,BMP [CHEM] AM TSH [CHEM] AM 07/18/20 08:00 Abdomen 1V Flat [CR] Routine 07/18/20 09:00 Aspirin [Halfprin] 81 mg PO DAILY Bumetanide [Bumex] 3 mg PO DAILY Clopidogrel [Plavix] 75 mg PO DAILY 07/18/20 10:15 Losartan [Cozaar] 25 mg PO DAILY 07/18/20 Lunch Full Liquid Diet [DIET] 07/18/20 Dinner ADA Diabetic [[place] [employer] Diet] [DIET] - Assessment Assessment:: Admission assessment - 07/16/20 - Comes to the ED complaining of fever, cough, shortness of breath, sore throat and weakness. - Patient states he has had this cough for over 2 weeks, however the fever, shortness of breath, and weakness are new onset last evening. - He denies any nausea, vomiting, or diarrhea. - Checked for COVID 2 weeks ago, negative - Recent exposure on Tuesday --> Rapid COVID negative in ED - Redness to his bilateral lower extremities which she states has been there "for years ". He does not feel that this has worsened in any way. - VS on admission: BP 157/85, HR 103x', Temp 100.7, SatO2 94% on RA - Lab results - CBC: WBC 16.5 (N-72.9%), Hb 10.9, Hct 35.5, Plt 269 - Chemistry: Na 135, K 4.2, Cl 98, CO2 31, BUN 24, Cr 1.6, GFR (43), glucose 131, Ca 9.0 - LFTs: T bili 0.3, AP 84, AST 25, ALT 16, T prot 8.8, Alb 3.0 - Given Rocephin in ED, pancultured 07/17/20 -Reports abdominal pain has improved but is still present -Nursing reports multiple soft BMs overnight and this AM -Started on zosyn on floor- continue -VS: Tmax 100.8 overnight, 127-144/59-98; HR 85-98; SpO2 95-96 on 1L -Requiring 1L of oxygen -IS added -Urine culture growing out E. Coli -Blood cultures negative -Labs: * WBC 12.44 * Hgb 10.4 * MCV 111.7 * PLT 234 * Neutrophils 72% * Potassium 2.8 * Creatinine 1.6 * GFR 43 C. * DIff negative -Start scheduled Colace -Potassium supplemented -Last BM this AM -Home medications reconciled -IV infiltrated and initially refused repeat. Patient later agrees to another IV so long as no more IV potassium 07/18/2020 -Reports he feels much better today -Abdomen soft -Tolerating clear liquids - advance to full liquid for lunch and ADA for supper -Multiple BMs overnight 2/2 bowel regime -Off of oxygen -Continue IS -VS: Tmax 98.8, BP 133-155/58-77; HR 80-88; SpO2 96-97 on room air -ABX changed to Rocephin -Continue to supplement potassium -Last BM today -Labs: * WBC 8.17 * Hgb 9.6 * Neutrophils 62% * Retic 1.95% * Potassium 3.7 * BUN 23 * Creatinine 1.2 * GFR 59 * B12 293 * Folate 17.5 * TSH 1.041 -Likely discharge tomorrow -PT/OT recommending SNF with PT - Plan Plan:: Urinary tract infection Urinary incontinence Cellulitis of right leg Acute kidney injury - ABX changed to Rocephin based on C/S - F/U urine culture from admission - Repeat labs in AM - Trend temperature and panculture if fever Hypertension - PRN Hydralazine - Continue Losartan and metoprolol Diabetes mellitus, HbA1c 6.1% - Discontinue blood glucose checks - "Pre-diabetic" Chronic BL LE edema - Continue Bumex Macrocytic anemia Coronary artery disease - Vitamin levels and work up - Goal Hb is > 8 - Continue Plavix and aspirin Vitamin D deficiency - Repeat vitamin D level pending - Continue supplementation Morbid obesity - Dietary evaluation S/P Abdominal pain S/P Abdominal distention - Bowel regime s/p Acute hypoxemic respiratory failure s/p Metabolic alkalosis s/p Respiratory alkalosis - Monitor need for O2 - IS PCP: Dr. Plunkett PROPHYLAXIS DVT- Lovenox GI- not indicated CODE STATUS: DNR/DNI DISPOSITION: Patient will be admitted for IV antibiotics, VS monitorization and stab ilization. Likely discharge 07/19/20 pending continued improvement. Patient resides in [place].
--- NOTE | 2020-07-18 11:02 | CR ---
Abdomen: Supine view of the abdomen was obtained. Comparison: Prior CT abdomen and pelvis exam of 07/16/20 is available. Slightly gas dilated loop of sigmoid colon is seen felt to be within normal limits. Small amount of small bowel gas is seen felt to be within normal limits. Bony structures shows degenerative endplate spurring within the spine. No discrete soft tissue abnormality is seen. Phleboliths are seen within the pelvis. Previous CT study shows a calculus within the distal left ureter. This was not mentioned on previous report. This stone appears to be nonobstructing and measures 6 mm. No proximal ureteral dilatation is seen. Impression: 1. Nonobstructing distal left ureteral stone as described above. 2. Nothing acute is otherwise seen. Diagnostic code #3 This report was dictated in MDT
[2020-07-18] MEDS: Losartan 25 MG Tab PO SCH (11:30)
[2020-07-18 11:48] LABS: VITAMIN D,25-HYDROXY 17.5 ng/ml (30.0-100.0)
[2020-07-18] MEDS: cefTRIAXone 2 GM in Sodium Chloride 0.9% 100 ML IV SCH (17:10)
[2020-07-18] MEDS: Mirtazapine 15 MG Tab PO SCH (20:09)
[2020-07-19] MEDS: Enoxaparin 40 MG/0.4 ML Syringe SUBCUT SCH (08:13)
[2020-07-19] MEDS: Aspirin 81 MG Tab.EC PO SCH (08:16)
[2020-07-19] MEDS: Metoprolol Succinate 50 MG Tab.ER PO SCH (08:17)
[2020-07-19] MEDS: Losartan 25 MG Tab PO SCH (08:17)
[2020-07-19] MEDS: Clopidogrel 75 MG Tab PO SCH (08:17)
[2020-07-19] MEDS: Bumetanide 1 MG Tab PO SCH (08:18)
[2020-07-19] MEDS: Diclofenac Sodium 1% Gel 100 GM Tube TOP SCH (08:20)
[2020-07-19] MEDS ORDERED: Cholecalciferol (Vitamin D3) 25 MCG Tab PO SCH (09:00)
--- NOTE | 2020-07-19 10:22 | PCM.DCSUM1 ---
Discharge Summary - Hospital Course HPI Initial Comments: Patient is a 74-year-old male presents to the emergency department from [facility] with complaints of fever, cough, shortness of breath, sore throat and weakness. Patient states he has had this cough for over 2 weeks, however the fever, shortness of breath, and weakness are new onset last evening. He denies any nausea, vomiting, or diarrhea. Report from the care home [facility] is that he was checked for COVID 2 weeks ago during the routine testing and was found to be negative. Patient has an exposure on Tuesday and hasn't been tested since. Diagnosis: Stroke: No - Discharge Data Discharge Date: 07/19/20 Discharge Disposition: DC/Tfer to 03 Condition: Good - Referral to Home Health Primary Care Physician: Yanick Plunkett MD - Discharge Diagnosis/Problem(s) (1) Urinary tract infection SNOMED Code(s): 00988250 ICD Code: N39.0 - URINARY TRACT INFECTION, SITE NOT SPECIFIED Status: Acute Priority: High Current Visit: Yes Qualifiers: Urinary tract infection type: acute cystitis Hematuria presence: with hematuria Qualified Code(s): N30.01 - Acute cystitis with hematuria (2) Hypertension SNOMED Code(s): 84240144 ICD Code: I10 - ESSENTIAL (PRIMARY) HYPERTENSION Status: Chronic Priority: Medium Current Visit: No Qualifiers: Hypertension type: unspecified Qualified Code(s): I10 - Essential (primary) hypertension (3) Coronary artery disease SNOMED Code(s): 59988933 ICD Code: I25.10 - ATHSCL HEART DISEASE OF [place] CORONARY ARTERY W/O ANG PCTRS Status: Chronic Priority: Medium Current Visit: Yes Qualifiers: Coronary Disease-Associated Artery/Lesion type: unspecified vessel or lesion type [place] vs. transplanted heart: unspecified whether [place] or transplanted heart Associated angina: angina presence unspecified Qualified Code(s): I25.10 - Atherosclerotic heart disease of [place] coronary artery without angina pectoris (4) Morbid obesity SNOMED Code(s): 005589639 ICD Code: E66.01 - MORBID (SEVERE) OBESITY DUE TO EXCESS CALORIES Status: Chronic Priority: Medium Current Visit: Yes (5) Urinary incontinence SNOMED Code(s): 857611596 ICD Code: R32 - UNSPECIFIED URINARY INCONTINENCE Status: Chronic Priority: Medium Current Visit: No Qualifiers: Urinary Incontinence type: unspecified incontinence Qualified Code(s): R32 - Unspecified urinary incontinence (6) Diabetes mellitus SNOMED Code(s): 10004325 ICD Code: E11.9 - TYPE 2 DIABETES MELLITUS WITHOUT COMPLICATIONS Status: Chronic Priority: Medium Current Visit: Yes Qualifiers: Diabetes mellitus type: type 2 Diabetes mellitus fdc insulin use: without long term care social worker use Diabetes mellitus complication status: with other specified complication Qualified Code(s): E11.69 - Type 2 diabetes mellitus with other specified complication (7) Vitamin D deficiency SNOMED Code(s): 83005196 ICD Code: E55.9 - VITAMIN D DEFICIENCY, UNSPECIFIED Status: Chronic Priority: Low Current Visit: Yes (8) Leukocytosis SNOMED Code(s): 303850907, 181226925 ICD Code: D72.829 - ELEVATED WHITE BLOOD CELL COUNT, UNSPECIFIED Status: Acute Priority: High Current Visit: Yes Qualifiers: Leukocytosis type: unspecified Qualified Code(s): D72.829 - Elevated white blood cell count, unspecified (9) Macrocytosis SNOMED Code(s): 754099884 ICD Code: D75.89 - OTHER SPECIFIED DISEASES OF BLOOD AND BLOOD-FORMING ORGANS Status: Acute Priority: High Current Visit: Yes (10) Metabolic alkalosis SNOMED Code(s): 4736271 ICD Code: E87.3 - ALKALOSIS Status: Acute Priority: High Current Visit: Yes (11) Respiratory alkalosis SNOMED Code(s): 434451759 ICD Code: E87.3 - [place] Status: Acute Priority: High Current Visit: Yes (12) Hematuria SNOMED Code(s): 79631456 ICD Code: R31.9 - HEMATURIA, UNSPECIFIED Status: Resolved Priority: High Current Visit: Yes Qualifiers: Hematuria type: unspecified type Qualified Code(s): R31.9 - Hematuria, unspecified (13) Cellulitis of right leg SNOMED Code(s): 928313289 ICD Code: L03.115 - CELLULITIS OF RIGHT LOWER LIMB Status: Acute Priority: Medium Current Visit: Yes (14) Elevated troponin SNOMED Code(s): 577047477, 043907729, 202231996 ICD Code: R74.8 - ABNORMAL LEVELS OF OTHER SERUM ENZYMES Status: Acute Priority: High Current Visit: Yes (15) Acute hypoxemic respiratory failure SNOMED Code(s): 311518793 ICD Code: J96.01 - ACUTE RESPIRATORY FAILURE WITH HYPOXIA Status: Acute Priority: High Current Visit: Yes (16) Macrocytic anemia SNOMED Code(s): 59807963 ICD Code: D53.9 - NUTRITIONAL ANEMIA, UNSPECIFIED Status: Acute Priority: High Current Visit: Yes - Patient Summary/Data Hospital Course: Admission assessment - 07/16/20 - Comes to the ED complaining of fever, cough, shortness of breath, sore throat and weakness. - Patient states he has had this cough for over 2 weeks, however the fever, shortness of breath, and weakness are new onset last evening. - He denies any nausea, vomiting, or diarrhea. - Checked for COVID 2 weeks ago, negative - Recent exposure on Tuesday --> Rapid COVID negative in ED - Redness to his bilateral lower extremities which she states has been there "for years ". He does not feel that this has worsened in any way. - VS on admission: BP 157/85, HR 103x', Temp 100.7, SatO2 94% on RA - Lab results - CBC: WBC 16.5 (N-72.9%), Hb 10.9, Hct 35.5, Plt 269 - Chemistry: Na 135, K 4.2, Cl 98, CO2 31, BUN 24, Cr 1.6, GFR (43), glucose 131, Ca 9.0 - LFTs: T bili 0.3, AP 84, AST 25, ALT 16, T prot 8.8, Alb 3.0 - Given Rocephin in ED, pancultured 07/17/20 -Reports abdominal pain has improved but is still present -Nursing reports multiple soft BMs overnight and this AM -Started on zosyn on floor- continue -VS: Tmax 100.8 overnight, 127-144/59-98; HR 85-98; SpO2 95-96 on 1L -Requiring 1L of oxygen -IS added -Urine culture growing out E. Coli -Blood cultures negative -Labs: * WBC 12.44 * Hgb 10.4 * MCV 111.7 * PLT 234 * Neutrophils 72% * Potassium 2.8 * Creatinine 1.6 * GFR 43 C. * DIff negative PLAN -Start scheduled Colace -Potassium supplemented -Last BM this AM -Home medications reconciled -IV infiltrated and initially refused repeat. Patient later agrees to another IV so long as no more IV potassium 07/18/2020 -Reports he feels much better today -Abdomen soft -Tolerating clear liquids - advance to full liquid for lunch and ADA for supper -Multiple BMs overnight 2/2 bowel regimen -No longer on O2 supplementation -Continue IS -VS: Tmax 98.8, BP 133-155/58-77; HR 80-88; SpO2 96-97 on room air -Last BM today -Labs: * WBC 8.17 * Hgb 9.6 * Neutrophils 62% * Retic 1.95% * Potassium 3.7 * BUN 23 * Creatinine 1.2 * GFR 59 * B12 293 * Folate 17.5 * TSH 1.041 -Likely discharge tomorrow -PT/OT recommending back to SNF with PT PLAN - Antibiotic changed to Rocephin - F/U urine culture from admission - Repeat labs in AM - Trend temperature and panculture if fever - Discontinue bowel regimen - PRN Hydralazine - Continue Losartan and metoprolol - Discontinue blood glucose checks - "Pre-diabetic" - Continue Bumex - Vitamin levels and work up - Goal Hb is > 8 - Continue Plavix and aspirin - Repeat vitamin D level pending - Continue supplementation - Dietary evaluation - Bowel regime - Monitor need for O2 - IS 07/19/20 - Moderate vitamin D deficiency - New COVID test negative - Stable and afebrile - Completed 4 days of antibiotics--> transition to PO to complete 5 days - OK to discharge back to [facility] - Blood cultures negative x 3 days VS trend - BP: 133-155/58-97 - Tmax 98.8 - HR: 66-89 - SatO2 > 95% - Patient Instructions Diet: Usual Diet as Tolerated Activity: As Tolerated - Discharge Plan *PRESCRIPTION DRUG MONITORING PROGRAM REVIEWED*: Not Applicable *COPY OF PRESCRIPTION DRUG MONITORING REPORT IN PATIENT AMARILIS: Not Applicable Prescriptions/Med Rec: cephALEXin [Keflex] 500 mg PO Q8H #9 cap Home Medications: Home Meds Aspirin 81 mg PO DAILY 11/26/18 [History] Potassium Chloride 20 meq PO DAILY 11/26/18 [History] Acetaminophen 650 mg PO BID 04/24/20 [History] Alum Hydrox/Mag Hydrox/Simeth [Maalox Advanced] 30 ml PO Q2HR PRN 04/24/20 [History] Bumetanide 3 mg PO DAILY 04/24/20 [History] Calcium Carbonate [Tums] 1,000 mg PO QID PRN 04/24/20 [History] Clopidogrel [Plavix] 75 mg PO DAILY 04/24/20 [History] Diclofenac Sodium [Voltaren 1% Gel] 2 gm TOP BID 04/24/20 [History] Docusate Sodium [Colace] 100 mg PO BEDTIME PRN 04/24/20 [History] Loperamide [Imodium] 4 mg PO ASDIRECTED PRN 04/24/20 [History] Metoprolol Succinate 50 mg PO DAILY 04/24/20 [History] Mirtazapine 30 mg PO BEDTIME 04/24/20 [History] Nitroglycerin [Nitrostat] 0.4 mg SL ASDIRECTED PRN 04/24/20 [History] Sennosides/Docusate Sodium [Senna Plus Tablet] 2 tab PO BEDTIME PRN 04/24/20 [History] polyethylene glycoL 3350 [MiraLAX] 17 gm PO BEDTIME PRN 04/24/20 [History] Cholecalciferol (Vitamin D3) [Vitamin D3] 1,000 units PO DAILY 07/15/20 [History] Cyanocobalamin (Vitamin B-12) [Vitamin B-12] 1,000 mcg PO DAILY 07/15/20 [History] Emollient Combination No.114 [Eucerin Advanced Repair] 1 dose TOP DAILY 07/15/20 [History] Losartan [Cozaar] 25 mg PO DAILY 07/15/20 [History] Multivitamin 1 tab PO DAILY 07/16/20 [History] cephALEXin [Keflex] 500 mg PO Q8H #9 cap 07/19/20 [Rx] Oxygen Therapy Mode: Room Air Patient Handouts: Type 2 Diabetes Mellitus, Diagnosis, Adult, Urinary Tract Infection, Adult Referrals: Yanick Plunkett MD [Primary Care Provider] - (please call primary care provider to schedule a hospital follow up one week from today.) - Discharge Summary/Plan Comment DC Time >30 min.: Yes (coordinating transfer back to [facility]) - General Info Date of Service: 07/19/20 Subjective Update: Feeling OK BM yesterday, loose Eating OK No new complaints - Patient Data Vitals - Most Recent: Last Vital Signs Temp 97.7 F 07/19/20 08:15 Pulse 73 07/19/20 08:17 Resp 20 07/19/20 08:15 BP 137/84 07/19/20 08:17 Pulse Ox 98 07/19/20 08:15 Weight - Most Recent: 175.268 kg Comments:: PHYSICAL EXAM CONFOUNDED BY BODY HABITUS - Exam General: Reports: Alert, Oriented, Cooperative, No Acute Distress HEENT: Reports: EOMI. Denies: Mucous Membr. Moist/[place] (dry without lesions) Neck: Reports: Supple Lungs: Reports: Decreased Breath Sounds Cardiovascular: Reports: Regular Rate, Regular Rhythm. Denies: Murmurs, Gallops , Rubs GI/Abdominal Exam: Distended. No: Guarding, Rigid, Rebound, Tender Extremities: Slow Capillary Refill, Other (BL edema up to knees) Neurological: Reports: No New Focal Deficit Psy/Mental Status: Reports: Depressed (mood and affect)
== END 2020-07-19 15:30 | DRG 682 ==
LOC: JD.ED 17:05 → JD.MS 20:30
PROVIDERS: ADMIT Internal Medicine; ATTEND Internal Medicine
DX: N39.0 Urinary tract infection, site not specified (principal); N17.9 Acute kidney failure, unspecified; J96.01 Acute respiratory failure with hypoxia; N30.01 Acute cystitis with hematuria; E87.3 Alkalosis; L03.115 Cellulitis of right lower limb; Z20.828 Contact with and (suspected) exposure to other viral communicable diseases; H54.7 Unspecified visual loss; I25.2 Old myocardial infarction; I73.9 Peripheral vascular disease, unspecified; R32 Unspecified urinary incontinence; M19.90 Unspecified osteoarthritis, unspecified site; G47.00 Insomnia, unspecified; E11.9 Type 2 diabetes mellitus without complications; D64.9 Anemia, unspecified; Z85.79 Personal history of other malignant neoplasms of lymphoid, hematopoietic and related tissues; Z98.890 Other specified postprocedural states; Z79.02 Long term (current) use of antithrombotics/antiplatelets; Z79.82 Long term (current) use of aspirin; Z79.899 Other long term (current) drug therapy; I10 Essential (primary) hypertension; E55.9 Vitamin D deficiency, unspecified; D75.89 Other specified diseases of blood and blood-forming organs; R31.9 Hematuria, unspecified; R74.8 Abnormal levels of other serum enzymes; D53.9 Nutritional anemia, unspecified; B96.20 Unspecified Escherichia coli [E. coli] as the cause of diseases classified elsewhere; E87.6 Hypokalemia; Z90.49 Acquired absence of other specified parts of digestive tract; I25.10 Atherosclerotic heart disease of native coronary artery without angina pectoris; Z66 Do not resuscitate; E66.01 Morbid (severe) obesity due to excess calories
CPT/HCPCS: 36415; 36600; 51702; 71045; 80053; 81001; 82803; 83605; 85025; 86140; 87040 ×2; 87086; 87088; 87186; 96365; 99285; A9270; J0696; J7030; J7050; U0002; 71046; 71046-26; 74018; 74018-26; 74176; 74176-26; 80048; 82306; 82607; 82746; 82962; 83036; 83735; 84100; 84132; 84443; 85007; 85027; 85045; 87493; 87641; 94761; 97110-GP; 97162-GP; 97165-GO; 97530-GP; 99222; 99232; 99239; 99284; J1650; J2543; J3480; J7120

== ENCOUNTER 2020-12-18 15:58 | Emergency (ER) | payer MEDICARE, OTHER ==
[2020-12-18] MEDS ORDERED: Lidocaine 1% 10 ML MDV INJECT ONE (16:18)
--- NOTE | 2020-12-18 17:05 | EDM.PDOC ---
ED HPI GENERAL MEDICAL PROBLEM - General Chief Complaint: Lower Extremity Injury/Pain Stated Complaint: LAC TO TOE Time Seen by Provider: 12/18/20 16:10 Source of Information: Reports: Patient History Limitations: Reports: No Limitations - History of Present Illness INITIAL COMMENTS - FREE TEXT/NARRATIVE: The patient presents with a right 4th toe laceration. He is not sure how this happened. He lives at [facility] in [place] and he uses a wheelchair. He may have caught it on the wheelchair foot rests. He is not sure. His tetanus is up to date. He has some peripheral neuropathy so he does not feel much. Onset: Sudden Duration: Hour(s): Location: Reports: Lower Extremity, Right (4th toe) Improves with: Reports: None Worsens with: Reports: None Associated Symptoms: Reports: No Other Symptoms - Related Data Allergies Allergy/AdvReac Type Severity Reaction Status Date / Time No Known Allergies Allergy Verified 12/18/20 16:21 Home Meds: Home Meds Aspirin 81 mg PO DAILY 11/26/18 [History] Potassium Chloride 20 meq PO DAILY 11/26/18 [History] Acetaminophen 650 mg PO BID 04/24/20 [History] Alum Hydrox/Mag Hydrox/Simeth [Maalox Advanced] 30 ml PO Q2HR PRN 04/24/20 [History] Bumetanide 3 mg PO DAILY 04/24/20 [History] Calcium Carbonate [Tums] 1,000 mg PO QID PRN 04/24/20 [History] Clopidogrel [Plavix] 75 mg PO DAILY 04/24/20 [History] Diclofenac Sodium [Voltaren 1% Gel] 2 gm TOP BID 04/24/20 [History] Docusate Sodium [Colace] 100 mg PO BEDTIME PRN 04/24/20 [History] Loperamide [Imodium] 4 mg PO ASDIRECTED PRN 04/24/20 [History] Metoprolol Succinate 50 mg PO DAILY 04/24/20 [History] Mirtazapine 30 mg PO BEDTIME 04/24/20 [History] Nitroglycerin [Nitrostat] 0.4 mg SL ASDIRECTED PRN 04/24/20 [History] Sennosides/Docusate Sodium [Senna Plus Tablet] 2 tab PO BEDTIME PRN 04/24/20 [History] polyethylene glycoL 3350 [MiraLAX] 17 gm PO BEDTIME PRN 04/24/20 [History] Cholecalciferol (Vitamin D3) [Vitamin D3] 1,000 units PO DAILY 07/15/20 [History] Cyanocobalamin (Vitamin B-12) [Vitamin B-12] 1,000 mcg PO DAILY 07/15/20 [History] Emollient Combination No.114 [Eucerin Advanced Repair] 1 dose TOP DAILY 07/15/20 [History] Losartan [Cozaar] 25 mg PO DAILY 07/15/20 [History] Multivitamin 1 tab PO DAILY 07/16/20 [History] cephALEXin [Keflex] 500 mg PO Q8H #9 cap 07/19/20 [Rx] cephALEXin [Keflex] 500 mg PO Q6H #28 cap 12/18/20 [Rx] Past Medical History HEENT History: Reports: Impaired Vision Cardiovascular History: Reports: Hypertension, [place], PVD, SOB on Exertion Respiratory History: Reports: SOB Gastrointestinal History: Reports: GI Bleed, Other (See Below) Other Gastrointestinal History: incontinence Genitourinary History: Reports: Urinary Incontinence Musculoskeletal History: Reports: Arthritis, Osteoarthritis Other Musculoskeletal History: uses walker Neurological History: Reports: None Psychiatric History: Reports: Other (See Below) Other Psychiatric History: Insomnia Endocrine/Metabolic History: Reports: Diabetes, Type II, Hypokalemia, Obesity/BMI 30+ Hematologic History: Reports: Anemia Other Hematologic History: sees oncologist for "possible cancer in blood" Immunologic History: Reports: None Oncologic (Cancer) History: Reports: Other (See Below) Other Oncologic History: "blood cancer," multiple myeloma Dermatologic History: Reports: Cellulitis, Other (See Below) Other Dermatologic History: 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 - Infectious Disease History Infectious Disease History: Reports: None - Past Surgical History GI Surgical History: Reports: Appendectomy Social & Family History - Family History Family Medical History: No Pertinent Family History - Tobacco Use Tobacco Use Status *Q: Never Tobacco User - Caffeine Use Caffeine Use: Reports: None - Recreational Drug Use Recreational Drug Use: No Review of Systems - Review of Systems Review Of Systems: See Below Constitutional: Reports: No Symptoms Eyes: Reports: No Symptoms Ears: Reports: No Symptoms Nose: Reports: No Symptoms Mouth/Throat: Reports: No Symptoms Respiratory: Reports: No Symptoms Cardiovascular: Reports: No Symptoms GI/Abdominal: Reports: No Symptoms Genitourinary: Reports: No Symptoms Musculoskeletal: Reports: Other (right 4th toe laceration) ED EXAM, GENERAL - Physical Exam Exam: See Below Exam Limited By: No Limitations General Appearance: Alert, No Apparent Distress Ears: Normal External Exam Nose: Normal Inspection Head: Atraumatic, Normocephalic Neck: Normal Inspection Respiratory/Chest: No Respiratory Distress Extremities: Other (right 4th toe has a 2cm laceration to the base of the toe on the plantar aspect. He has decreased sensation due to peripheral neuropathy.) ED TRAUMA EXTREMITY PROCEDURES - Laceration/Wound Repair Right Toe - Fourth Lac/Wound Length In cm: 2 Appearance: Subcutaneous, Irregular Distal NVT: Other (decreased sensation to the distal toe) Anesthetic Type: Local Local Anesthesia - Lidocaine (Xylocaine): 1% Plain Skin Prep: Saline Exploration/Debridement/Repair: Wound Explored, In a Bloodless Field, Explored to Base Closed With: Sutures Suture Size: 3-0 # of Sutures: 5 Suture Type: Nylon, Interrupted, Simple Tetanus Status Addressed: Yes Complications: No Course - Vital Signs Last Recorded V/S: Last Vital Signs Temp 97.7 F 12/18/20 16:12 Pulse 86 12/18/20 16:12 Resp 16 12/18/20 16:12 BP 185/88 H 12/18/20 16:12 Pulse Ox 96 12/18/20 16:12 - Orders/Labs/Meds Orders: Active Orders 24 hr Category Date Time Status Foot 2V Rt [CR] Stat Exams 12/18/20 16:18 Taken Meds: Medications Discontinued Medications Generic Name Dose Route Start Last Admin Trade Name Billy PRN Reason Stop Dose Admin Lidocaine HCl 10 ml 12/18/20 16:18 Xylocaine 1% INJECT 12/18/20 16:19 ONETIME ONE - Re-Assessments/Exams Free Text/Narrative Re-Assessment/Exam: 12/18/20 17:05 I did an x-ray because he is not sure how this happened. There is lots of degenerative changes on his x-ray but nothing acute. I was able to put 5 sutures in and control the bleeding. I will discharge him home. Departure - Departure Time of Disposition: 17:10 Disposition: Home, Self-Care 01 Condition: Good Clinical Impression: Laceration of fourth toe, right Qualifiers: Encounter type: initial encounter Qualified Code(s): S91.114A - Laceration without foreign body of right lesser toe(s) without damage to nail, initial encounter - Discharge Information *PRESCRIPTION DRUG MONITORING PROGRAM REVIEWED*: Not Applicable *COPY OF PRESCRIPTION DRUG MONITORING REPORT IN PATIENT AMARILIS: Not Applicable Prescriptions: cephALEXin [Keflex] 500 mg PO Q6H #28 cap Referrals: Yanick Plunkett MD [Primary Care Provider] - 1 Week Additional Instructions: Take the keflex 4 times per day for 7 days to prevent infection. Soak your toe in warm soapy water 2 times per day and apply antibiotic ointment after. Have the sutures removed within 7 to 10 days. Look for any sign of infection such as redness, swelling, pain, or drainage. If you see any of those signs, follow up with Dr Plunkett or back to the ER. Sepsis Event Note (ED) - Evaluation Sepsis Screening Result: No Definite Risk - Focused Exam Vital Signs: Vital Signs Temp Pulse Resp BP Pulse Ox 12/18/20 16:12 97.7 F 86 16 185/88 H 96 - My Orders Last 24 Hours: My Active Orders 12/18/20 16:18 Foot 2V Rt [CR] Stat - Assessment/Plan Last 24 Hours: My Active Orders 12/18/20 16:18 Foot 2V Rt [CR] Stat
--- NOTE | 2020-12-18 19:27 | CR ---
Right foot: 2 views of the right foot were obtained. Comparison: Prior MRI right foot study of 04/24/20. Findings: Distal phalanxes are difficult to see due to technique. No definite fracture or erosion is seen. Small plantar spur is noted. No additional finding is definitely seen. Impression: 1. Distal phalanxes are difficult to see due to technique. 2. Nothing acute is definitely seen. Diagnostic code #2
== END 2020-12-18 17:40 | disposition home or self-care (01) ==
LOC: JD.ED 15:58
DX: S91.114A Laceration without foreign body of right lesser toe(s) without damage to nail, initial encounter (principal); I10 Essential (primary) hypertension; I25.2 Old myocardial infarction; E11.51 Type 2 diabetes mellitus with diabetic peripheral angiopathy without gangrene; M19.90 Unspecified osteoarthritis, unspecified site; E66.9 Obesity, unspecified; Z79.02 Long term (current) use of antithrombotics/antiplatelets; Z79.82 Long term (current) use of aspirin; Z79.899 Other long term (current) drug therapy; X58.XXXA Exposure to other specified factors, initial encounter
CPT/HCPCS: 12001; 73620-26-RT; 73620-RT; 99283; 99283-25

== ENCOUNTER 2020-12-29 12:09 | Inpatient (IN) | payer MEDICARE, OTHER ==
[2020-12-29] MEDS ORDERED: Sodium Chloride 0.9% 10 ML Syringe FLUSH PRN (12:40)
--- NOTE | 2020-12-29 12:47 | EDM.PDOC ---
ED HPI GENERAL MEDICAL PROBLEM - General Chief Complaint: Fever Stated Complaint: ELEVATED TEMP,WEAKNESS Time Seen by Provider: 12/29/20 12:16 Source of Information: Reports: Patient History Limitations: Reports: No Limitations, Other (ED vital signs reveal a temp of 98.9, pulse 92, respiratory rate of 24, blood pressure 134/52, pulse ox 95% on room air.) - History of Present Illness INITIAL COMMENTS - FREE TEXT/NARRATIVE: 75-year-old female presents to the emergency department today from [facility] in [place]. Patient states last evening at about 11:00 he started to feel chilled and feverish. Denied any complaints of nausea, vomiting, diarrhea or cough. Of note, he did have a laceration on his right foot on November 17 which was sutured. There are still 3 sutures noted however the wound is gaping in the middle under the crease of the right fourth toe. Does not appear to be any drainage. Patient does have a history of diabetes. States he was given Tylenol last evening however this morning nursing staff at [place] reported that his temp was 100.0. - Related Data Allergies Allergy/AdvReac Type Severity Reaction Status Date / Time No Known Allergies Allergy Verified 12/29/20 12:17 Home Meds: Home Meds Aspirin 81 mg PO DAILY 11/26/18 [History] Potassium Chloride 20 meq PO DAILY 11/26/18 [History] Acetaminophen 650 mg PO BID 04/24/20 [History] Alum Hydrox/Mag Hydrox/Simeth [Maalox Advanced] 30 ml PO Q2HR PRN 04/24/20 [History] Bumetanide 3 mg PO DAILY 04/24/20 [History] Calcium Carbonate [Tums] 1,000 mg PO QID PRN 04/24/20 [History] Clopidogrel [Plavix] 75 mg PO DAILY 04/24/20 [History] Diclofenac Sodium [Voltaren 1% Gel] 2 gm TOP BID 04/24/20 [History] Docusate Sodium [Colace] 100 mg PO BEDTIME PRN 04/24/20 [History] Loperamide [Imodium] 4 mg PO ASDIRECTED PRN 04/24/20 [History] Metoprolol Succinate 50 mg PO DAILY 04/24/20 [History] Mirtazapine 30 mg PO BEDTIME 04/24/20 [History] Nitroglycerin [Nitrostat] 0.4 mg SL ASDIRECTED PRN 04/24/20 [History] Sennosides/Docusate Sodium [Senna Plus Tablet] 2 tab PO BEDTIME PRN 04/24/20 [History] polyethylene glycoL 3350 [MiraLAX] 17 gm PO BEDTIME PRN 04/24/20 [History] Cholecalciferol (Vitamin D3) [Vitamin D3] 1,000 units PO DAILY 07/15/20 [History] Cyanocobalamin (Vitamin B-12) [Vitamin B-12] 1,000 mcg PO DAILY 07/15/20 [History] Emollient Combination No.114 [Eucerin Advanced Repair] 1 dose TOP DAILY 07/15/20 [History] Losartan [Cozaar] 25 mg PO DAILY 07/15/20 [History] Multivitamin 1 tab PO DAILY 07/16/20 [History] cephALEXin [Keflex] 500 mg PO Q8H #9 cap 07/19/20 [Rx] cephALEXin [Keflex] 500 mg PO Q6H #28 cap 12/18/20 [Rx] cephALEXin [Keflex] 500 mg PO Q6H #28 cap 12/18/20 [Rx] Past Medical History HEENT History: Reports: Cataract, Impaired Vision Other HEENT History: wears eyeglasses Cardiovascular History: Reports: Hypertension, [place], PVD, SOB on Exertion Respiratory History: Reports: SOB Gastrointestinal History: Reports: GI Bleed Other Gastrointestinal History: incontinence Genitourinary History: Reports: Urinary Incontinence, UTI, Recurrent Musculoskeletal History: Reports: Arthritis, Osteoarthritis Other Musculoskeletal History: uses walker Neurological History: Reports: None Psychiatric History: Reports: Other (See Below) Other Psychiatric History: Insomnia Endocrine/Metabolic History: Reports: Diabetes, Type II, Hypokalemia, Obesity/BMI 30+ Hematologic History: Reports: Anemia Other Hematologic History: sees oncologist for "possible cancer in blood" Immunologic History: Reports: None Oncologic (Cancer) History: Reports: Other (See Below) Other Oncologic History: "blood cancer," multiple myeloma Dermatologic History: Reports: Cellulitis, Other (See Below) Other Dermatologic History: 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 Denies: Diaphoresis HEENT: Reports: No Symptoms Respiratory: Reports: No Symptoms. Denies: Shortness of Breath, Cough, Sputum Cardiovascular: Reports: Edema (Bilateral lower extremities) Endocrine: Reports: No Symptoms GI/Abdominal: Reports: No Symptoms : Reports: No Symptoms Musculoskeletal: Reports: No Symptoms Skin: Reports: Wound (Ventral aspect of right fourth toe. Gaping wound noted with 3 sutures intact on the medial aspect of the wound.) Neurological: Reports: No Symptoms Psychiatric: Reports: No Symptoms Hematologic/Lymphatic: Reports: No Symptoms Immunologic: Reports: No Symptoms ED EXAM, SEPSIS - Physical Exam Exam: See Below Exam Limited By: No Limitations General Appearance: Alert, WD/WN, No Apparent Distress Eye Exam: Bilateral Eye: PERRL Ears: Normal External Exam, Hearing Grossly Normal Nose: Normal Inspection Throat/Mouth: Normal Inspection, Normal Voice, No Airway Compromise Head: Atraumatic, Normocephalic Neck: Normal Inspection, Supple, Non-Tender, Full Range of Motion Respiratory/Chest: No Respiratory Distress, Lungs Clear, No Accessory Muscle Use, Decreased Breath Sounds (Due to obesity and body habitus.) Cardiovascular: Normal Peripheral Pulses, Regular Rate, Rhythm. No: No Edema (3+ edema noted to bilateral lower extremities) GI/Abdominal Exam: Normal Bowel Sounds, Soft, Non-Tender, No Distention, Other (Obese) (Male) Exam: Deferred Rectal (Males) Exam: Deferred Back: Normal Inspection, Full Range of Motion Extremities: Normal Range of Motion, Normal Capillary Refill, Pedal Edema (Bilateral lower extremities), Other (Gaping wound noted at the crease of fourth toe on the right foot ventral aspect.) Neurological: Alert, Oriented, Normal Cognition Psychiatric: Normal Affect, Normal Mood Skin: Warm, Dry, Normal Color, No Rash, Other (Gaping wound noted at the crease of fourth toe on the right foot ventral aspect.) #1 Interpretation EKG Date: 12/29/20 Time: 13:14 Rhythm: NSR Rate (Beats/Min): 101 [place]: Normal P-Wave: Present QRS: Normal ST-T: Normal QT: Normal Comparison: NA - No Prior EKG EKG Interpretation Comments: Per Dr. Perez interpretation: Sinus tachycardia, LAD, consider left anterior fascicular block, repolarization abnormality suggest ischemia, in diffuse leads Course - Vital Signs Text/Narrative:: 75-year-old male presenting to the emergency department with complaints of fever and weakness. Patient developed a fever and chills last evening about 11:00. He does have a laceration noted to the fourth toe on the right foot on the palmar aspect in the crease. Sutures are intact on the medial and lateral side however the wound is gaping in the middle without drainage. Full septic work-up has been ordered on this patient. Wound culture has been ordered. Last Recorded V/S: Last Vital Signs Temp 98.9 F 12/29/20 12:15 Pulse 92 12/29/20 12:15 Resp 24 H 12/29/20 12:15 BP 134/52 L 12/29/20 12:15 Pulse Ox 95 12/29/20 12:15 - Orders/Labs/Meds Orders: Active Orders 24 hr Category Date Time Status EKG Documentation Completion [RC] ASDIRECTED Care 12/29/20 12:42 Active CULTURE ANAEROBIC + SMEAR [RM] Stat Lab 12/29/20 13:50 Received CULTURE BLOOD [BC] Stat Lab 12/29/20 13:18 Received CULTURE BLOOD [BC] Stat Lab 12/29/20 13:33 Received REFLEX LACTIC ACID YES OR NO [CHEM] Routine Lab 12/29/20 14:14 Received Sodium Chloride 0.9% [Saline Flush] Med 12/29/20 12:40 Active 10 ml FLUSH ASDIRECTED PRN Blood Culture x2 Reflex Set [OM.PC] Stat Oth 12/29/20 12:41 Ordered Saline Lock Insert [OM.PC] Stat Oth 12/29/20 12:41 Ordered EKG 12 Lead [EK] Stat Ther 12/29/20 12:40 Ordered Medication Orders Sodium Chloride (Saline Flush) 10 ml FLUSH ASDIRECTED PRN PRN Reason: Keep Vein Open Last Admin: 12/29/20 13:00 Dose: 10 ml Documented by: BHARATHI Labs: Laboratory Tests 12/29/20 12/29/20 12/29/20 Range/Units 13:18 13:18 13:18 WBC 17.59 H (4.23-9.07) K/mm3 RBC 3.35 L (4.63-6.08) M/mm3 Hgb 11.2 L D (13.7-17.5) gm/dl Hct 36.7 L (40.1-51.0) % MCV 109.6 H (79.0-92.2) fl MCH 33.4 H (25.7-32.2) pg MCHC 30.5 L (32.2-35.5) g/dl RDW Std Deviation 60.6 H (35.1-43.9) fL Plt Count 258 (163-337) K/mm3 MPV 8.9 L (9.4-12.3) fl Neutrophils % (Manual) 74 H (40-60) % Band Neutrophils % 3 (0-10) % Lymphocytes % (Manual) 17 L (20-40) % Atypical Lymphs % 0 % Monocytes % (Manual) 6 (2-10) % Eosinophils % (Manual) 0 L (0.8-7.0) % Basophils % (Manual) 0 L (0.2-1.2) Platelet Estimate Adequate Polychromasia 1+ slight Anisocytosis Sl Macrocytosis Moderate RBC Morph Comment Abn PT 11.9 (9.7-12.0) SECONDS INR 1.11 Sodium 135 L (136-145) mEq/L Potassium 4.3 (3.5-5.1) mEq/L Chloride 98 (98-107) mEq/L Carbon Dioxide 29 (21-32) mEq/L Anion Gap 12.3 (5-15) BUN 22 H (7-18) mg/dL Creatinine 1.6 H (0.7-1.3) mg/dL Est Cr Clr Drug Dosing 49.73 mL/min Estimated GFR (MDRD) 42 (>60) mL/min BUN/Creatinine Ratio 13.8 L (14-18) Glucose 114 (83-115) mg/dL Lactic Acid (0.4-2.0) mmol/L Calcium 9.2 (8.5-10.1) mg/dL Total Bilirubin 0.5 (0.2-1.0) mg/dL AST 22 (15-37) U/L ALT 22 (16-63) U/L Alkaline Phosphatase 90 (46-116) U/L C-Reactive Protein 9.3 H* (<1.0) mg/dL Total Protein 10.3 H (6.4-8.2) g/dl Albumin 3.1 L (3.4-5.0) g/dl Globulin 7.2 gm/dL Albumin/Globulin Ratio 0.4 L (1-2) Urine Color (Yellow) Urine Appearance (Clear) Urine pH (5.0-8.0) Ur Specific [place] (1.005-1.030) Urine Protein (Negative) Urine Glucose (UA) (Negative) Urine Ketones (Negative) Urine Occult Blood (Negative) Urine Nitrite (Negative) Urine Bilirubin (Negative) Urine Urobilinogen (0.2-1.0) Ur Leukocyte Esterase (Negative) U Hyaline Cast (Auto) (0-5) /lpf Urine RBC (0-5) /hpf Urine WBC (0-5) /hpf Ur Epithelial Cells (0-5) /hpf Urine Bacteria (FEW) /hpf Urine Mucus (FEW) /hpf SARS-CoV-2 RNA (ROCHELLE) (NEGATIVE) 12/29/20 12/29/20 12/29/20 Range/Units 13:18 13:33 13:40 WBC (4.23-9.07) K/mm3 RBC (4.63-6.08) M/mm3 Hgb (13.7-17.5) gm/dl Hct (40.1-51.0) % MCV (79.0-92.2) fl MCH (25.7-32.2) pg MCHC (32.2-35.5) g/dl RDW Std Deviation (35.1-43.9) fL Plt Count (163-337) K/mm3 MPV (9.4-12.3) fl Neutrophils % (Manual) (40-60) % Band Neutrophils % (0-10) % Lymphocytes % (Manual) (20-40) % Atypical Lymphs % % Monocytes % (Manual) (2-10) % Eosinophils % (Manual) (0.8-7.0) % Basophils % (Manual) (0.2-1.2) Platelet Estimate Polychromasia Anisocytosis Macrocytosis RBC Morph Comment PT (9.7-12.0) SECONDS INR Sodium (136-145) mEq/L Potassium (3.5-5.1) mEq/L Chloride (98-107) mEq/L Carbon Dioxide (21-32) mEq/L Anion Gap (5-15) BUN (7-18) mg/dL Creatinine (0.7-1.3) mg/dL Est Cr Clr Drug Dosing mL/min Estimated GFR (MDRD) (>60) mL/min BUN/Creatinine Ratio (14-18) Glucose (83-115) mg/dL Lactic Acid 2.5 H* (0.4-2.0) mmol/L Calcium (8.5-10.1) mg/dL Total Bilirubin (0.2-1.0) mg/dL AST (15-37) U/L ALT (16-63) U/L Alkaline Phosphatase (46-116) U/L C-Reactive Protein (<1.0) mg/dL Total Protein (6.4-8.2) g/dl Albumin (3.4-5.0) g/dl Globulin gm/dL Albumin/Globulin Ratio (1-2) Urine Color Yellow (Yellow) Urine Appearance Clear (Clear) Urine pH 5.5 (5.0-8.0) Ur Specific [place] 1.020 (1.005-1.030) Urine Protein Negative (Negative) Urine Glucose (UA) Negative (Negative) Urine Ketones Negative (Negative) Urine Occult Blood Trace-intact H (Negative) Urine Nitrite Negative (Negative) Urine Bilirubin Negative (Negative) Urine Urobilinogen 0.2 (0.2-1.0) Ur Leukocyte Esterase Negative (Negative) U Hyaline Cast (Auto) 0-5 (0-5) /lpf Urine RBC Not seen (0-5) /hpf Urine WBC 0-5 (0-5) /hpf Ur Epithelial Cells 0-5 (0-5) /hpf Urine Bacteria Not seen (FEW) /hpf Urine Mucus Not seen (FEW) /hpf SARS-CoV-2 RNA (ROCHELLE) Negative (NEGATIVE) Meds: Medications Generic Name Dose Route Start Last Admin Trade Name Freq PRN Reason Stop Dose Admin Sodium Chloride 10 ml 12/29/20 12:40 12/29/20 13:00 Saline Flush FLUSH 10 ml ASDIRECTED PRN Administration Keep Vein Open Discontinued Medications Generic Name Dose Route Start Last Admin Trade Name Freq PRN Reason Stop Dose Admin Ceftriaxone Sodium 2 gm/ 100 mls @ 200 mls/hr 12/29/20 14:12 12/29/20 14:20 Sodium Chloride IV 12/29/20 14:41 200 mls/hr ONETIME ONE Administration Metoclopramide HCl 5 mg 12/29/20 13:17 12/29/20 13:25 Reglan IVPUSH 12/29/20 13:18 5 mg ONETIME ONE Administration - Radiology Interpretation Free Text/Narrative:: Portable view of the chest radiology impression:. 1. Heart size is slightly enlarged. 2. Nothing acute is otherwise appreciated on portable chest x-ray. - Re-Assessments/Exams Free Text/Narrative Re-Assessment/Exam: 12/29/20 14:18 Labs reveal a WBC of 17.59, hemoglobin 11.2, hematocrit 36.7, MCV 109.6, platelet count 258, sodium 135, potassium 4.3, anion gap 12.3, BUN 22, creatinine 1.6, C-reactive protein 9.3, lactic acid is 2.5 I have ordered for the patient to receive Rocephin 2 g IV x1 dose now. urinalysis reveals trace of intact blood, nitrite negative, leuk esterase negative 12/29/20 14:49 Neutrophil percentage 74 with 3% bands, PT 11.9, INR 1.11, and the patient is Covid negative I will phone Dr. Hernandez the hospitalist as I believe the patient needs to be admitted. Did not start IV fluids on this patient as I believe he may become fluid overloaded. 12/29/20 15:38 Dr. Kauffman has accepted care of this patient. He will be admitted to [facility]. Departure - Departure Time of Disposition: 15:41 Disposition: DC/Tfer to [facility] Condition: Fair Clinical Impression: Sepsis Qualifiers: Sepsis type: sepsis due to unspecified organism Sepsis acute organ dysfunction status: unspecified Qualified Code(s): A41.9 - Sepsis, unspecified organism - Discharge Information Referrals: Yanick Plunkett MD [Primary Care Provider] - Forms: ED Department Discharge Sepsis Event Note (ED) - Evaluation Sepsis Screening Result: Possible Sepsis Risk - Focused Exam Vital Signs: Vital Signs Temp Pulse Resp BP Pulse Ox 12/29/20 12:15 98.9 F 92 24 H 134/52 L 95 - My Orders Last 24 Hours: My Active Orders 12/29/20 12:40 Sodium Chloride 0.9% [Saline Flush] 10 ml FLUSH ASDIRECTED PRN EKG 12 Lead [EK] Stat 12/29/20 12:41 Blood Culture x2 Reflex Set [OM.PC] Stat Saline Lock Insert [OM.PC] Stat 12/29/20 12:42 EKG Documentation Completion [RC] ASDIRECTED 12/29/20 13:18 CULTURE BLOOD [BC] Stat 12/29/20 13:33 CULTURE BLOOD [BC] Stat 12/29/20 13:50 CULTURE ANAEROBIC + SMEAR [RM] Stat 12/29/20 14:14 REFLEX LACTIC ACID YES OR NO [CHEM] Routine - Assessment/Plan Last 24 Hours: My Active Orders 12/29/20 12:40 Sodium Chloride 0.9% [Saline Flush] 10 ml FLUSH ASDIRECTED PRN EKG 12 Lead [EK] Stat 12/29/20 12:41 Blood Culture x2 Reflex Set [OM.PC] Stat Saline Lock Insert [OM.PC] Stat 12/29/20 12:42 EKG Documentation Completion [RC] ASDIRECTED 12/29/20 13:18 CULTURE BLOOD [BC] Stat 12/29/20 13:33 CULTURE BLOOD [BC] Stat 12/29/20 13:50 CULTURE ANAEROBIC + SMEAR [RM] Stat 12/29/20 14:14 REFLEX LACTIC ACID YES OR NO [CHEM] Routine
[2020-12-29] MEDS ORDERED: Metoclopramide 10 MG/2 ML SDV IVPUSH ONE (13:17)
--- NOTE | 2020-12-29 14:02 | CR ---
Chest: Portable view of the chest was obtained. Comparison: Prior chest x-ray of 07/16/20. Heart size is believed to be slightly enlarged. Mild tortuosity of the thoracic aorta is seen. Lungs are clear with no acute parenchymal change. No acute osseous finding is appreciated. Impression: 1. Heart size is slightly enlarged. 2. Nothing acute is otherwise appreciated on portable chest x-ray. Diagnostic code #2 MTDD
[2020-12-29] MEDS ORDERED: cefTRIAXone 2 GM in Sodium Chloride 0.9% 100 ML IV ONE (14:12)
[2020-12-29] MEDS ORDERED: HYDROmorphone 0.5 MG/0.5 ML Syringe IVPUSH PRN (15:36)
[2020-12-29] MEDS ORDERED: Ondansetron 4 MG/2 ML SDV IV PRN (15:36)
[2020-12-29] MEDS ORDERED: Albuterol/Ipratropium 3.0-0.5 MG/3 ML Neb Soln NEB PRN (15:36)
[2020-12-29] MEDS ORDERED: Acetaminophen 650 MG Supp RECTAL PRN (15:36)
[2020-12-29] MEDS ORDERED: Docusate Sodium 100 MG Cap PO PRN (15:36)
[2020-12-29] MEDS ORDERED: Acetaminophen/HYDROcodone 325-5 MG Tab PO PRN (15:36)
[2020-12-29] MEDS ORDERED: Promethazine 12.5 MG in Sodium Chloride 0.9% 50 ML IV PRN (15:36)
[2020-12-29] MEDS ORDERED: Polyethylene Glycol 3350 Powder 17 GM Packet PO PRN ×2 (15:36→21:00)
[2020-12-29] MEDS ORDERED: Sodium Chloride 0.9% 1,000 ML IV SCH (15:45)
[2020-12-29] MEDS ORDERED: Nitroglycerin 0.4 MG Tab.SL SL PRN (15:49)
[2020-12-29] MEDS ORDERED: Aluminum Hydroxide/Magnesium Hydroxide/Simethicone Susp 30 ML Cup PO PRN (15:49)
[2020-12-29] MEDS ORDERED: Calcium Carbonate 500 MG Tab.Chew PO PRN (15:49)
[2020-12-29] MEDS ORDERED: Loperamide 2 MG Cap PO PRN (15:49)
[2020-12-29] MEDS: Vancomycin 2 GM in Sodium Chloride 0.9% 500 ML IV SCH (18:19)
--- NOTE | 2020-12-29 19:50 | PCM.HP.2 ---
H&P History of Present Illness - General Date of Service: 12/29/20 Admit Problem/Dx: Admission Diagnosis/Problem Admission Diagnosis/Problem Foot infection Source of Information: Patient, Old Records, Provider, RN Notes Reviewed History Limitations: Reports: Altered Mental Status, Physical Impairment - History of Present Illness Initial Comments - Free Text/Narative: This is a 75 yo elderly white male with past medical hx/o Impaired vision, HTN, HLD, DM2, Hx/o GA, PVD, CKD Stage 2-3, Chronic SOB on Exertion, Hx/o GI Bleed, Urinary Incontinence, Recurrent UTI, OA, Gait Instability, Anemia, MM/Blood Disorder, and Morbid Obesity who was brought in from [facility] in [place] for evaluation of fever associated with chills. His reported temp was as high as 100.0 F this morning. He did receive Tylenol last night for initial treatment. However he denies any other symptoms except he chronically has lower leg edema with cellulitis. He was recently seen ED and received some sutures to a minor laceration on the base of his right 4th digit on 11/17/2020. Upon arrival in ED, he was afebrile, hypoxic, tachypneic, and tachycardic but with elevated blood pressure. His initial work up shows a CBC remarkable for WBC of 17.59, Hgb of 11.2, Hct of 36.7, MCV of 109.6, and Neutrophils of 74%. His PT/INR is wnl. His chemistry is significant for Na of 135, BUN of 22, Cr of 1.6, LA of 2.5, CRP of 9.3, and Albumin of 3.1. His UA, MRSA and rapid Covid-19 tests are all negative. His chest x-ray report re3d as nothing acute is appreciated. Patient received initial treatment in ED prior to coming in to the floor for further treatment of early developing sepsis due to lower extremity cellulitis/right 4th digit wound. - Related Data Allergies/Adverse Reactions: Allergies Allergy/AdvReac Type Severity Reaction Status Date / Time No Known Allergies Allergy Verified 12/29/20 20:38 Home Medications: Home Meds Aspirin 81 mg PO DAILY 11/26/18 [History] Potassium Chloride 20 meq PO DAILY 11/26/18 [History] Acetaminophen 650 mg PO BID 04/24/20 [History] Alum Hydrox/Mag Hydrox/Simeth [Maalox Advanced] 30 ml PO Q2HR PRN 04/24/20 [History] Bumetanide 3 mg PO DAILY 04/24/20 [History] Calcium Carbonate [Tums] 1,000 mg PO QID PRN 04/24/20 [History] Clopidogrel [Plavix] 75 mg PO DAILY 04/24/20 [History] Diclofenac Sodium [Voltaren 1% Gel] 2 gm TOP BID 04/24/20 [History] Loperamide [Imodium] 4 mg PO ASDIRECTED PRN 04/24/20 [History] Metoprolol Succinate 50 mg PO DAILY 04/24/20 [History] Mirtazapine 30 mg PO BEDTIME 04/24/20 [History] Nitroglycerin [Nitrostat] 0.4 mg SL ASDIRECTED PRN 04/24/20 [History] polyethylene glycoL 3350 [MiraLAX] 17 gm PO BEDTIME PRN 04/24/20 [History] Cholecalciferol (Vitamin D3) [Vitamin D3] 1,000 units PO DAILY 07/15/20 [History] Cyanocobalamin (Vitamin B-12) [Vitamin B-12] 1,000 mcg PO DAILY 07/15/20 [History] Emollient Combination No.114 [Eucerin Advanced Repair] 1 dose TOP DAILY 07/15/20 [History] Losartan [Cozaar] 25 mg PO DAILY 07/15/20 [History] Multivitamin 1 tab PO DAILY 07/16/20 [History] Past Medical History HEENT History: Reports: Cataract, Impaired Vision Other HEENT History: wears eyeglasses Cardiovascular History: Reports: Hypertension, GA, PVD, SOB on Exertion Respiratory History: Reports: SOB Gastrointestinal History: Reports: GI Bleed Other Gastrointestinal History: incontinence Genitourinary History: Reports: Urinary Incontinence, UTI, Recurrent Musculoskeletal History: Reports: Arthritis, Osteoarthritis Other Musculoskeletal History: uses walker Neurological History: Reports: None Psychiatric History: Reports: Other (See Below) Other Psychiatric History: Insomnia Endocrine/Metabolic History: Reports: Diabetes, Type II, Hypokalemia, Obesity/BMI 30+ Hematologic History: Reports: Anemia Other Hematologic History: sees oncologist for "possible cancer in blood" Immunologic History: Reports: None Oncologic (Cancer) History: Reports: Other (See Below) Other Oncologic History: "blood cancer," multiple myeloma Dermatologic History: Reports: Cellulitis, Other (See Below) Other Dermatologic History: 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 - Infectious Disease History Infectious Disease History: Reports: Chicken Pox, Influenza, Measles, Mumps - Past Surgical History HEENT Surgical History: Reports: Cataract Surgery GI Surgical History: Reports: Appendectomy Social & Family History - Family History Family Medical History: No Pertinent Family History - Tobacco Use Tobacco Use Status *Q: Never Tobacco User Second Hand Smoke Exposure: No - Caffeine Use Caffeine Use: Reports: None - Recreational Drug Use Recreational Drug Use: No H&P Review of Systems - Review of Systems: Review Of Systems: See Below General: Reports: Fever, Chills, Malaise, Fatigue. Denies: Decreased Appetite HEENT: Denies: Dysphasia Pulmonary: Reports: Shortness of Breath (chronically). Denies: Cough Cardiovascular: Reports: Chest Pain, Dyspnea on Exertion, Edema Gastrointestinal: Denies: Abdominal Pain, Nausea, Vomiting Genitourinary: Reports: Frequency Musculoskeletal: Reports: Joint Pain Skin: Reports: Rash, Erythema, Wound, Other (wound on left 4th digit). Denies: Bruising, Pruritis Psychiatric: Denies: Confusion, Anxiety Neurological: Reports: Difficulty Walking, Weakness, Gait Disturbance Hematologic/Lymphatic: Denies: Anemia, Easy Bleeding Immunologic: Reports: No Symptoms Exam - Exam Exam: See Below - Vital Signs Vital Signs: Last Vital Signs Temp 36.7 C 12/29/20 18:48 Pulse 97 12/29/20 18:48 Resp 20 12/29/20 18:48 BP 142/63 H 12/29/20 18:48 Pulse Ox 95 12/29/20 18:48 Weight: 185.61 kg - Exam Quality Assessment: Supplemental Oxygen, Other (Sedated/Somnolent: HPI was minimal) General: Alert, Cooperative, Sedated, Other (Morbidly Obese) HEENT: Conjunctiva Clear, Hearing Intact, Nares Patent, Normal Nasal Septum, Posterior Pharynx Clear, Pupils Equal, Pupils Reactive. No: Mucosa Moist & [place] Neck: Supple, Trachea Midline Lungs: Normal Respiratory Effort, Decreased Breath Sounds Cardiovascular: Regular Rate, Regular Rhythm GI/Abdominal Exam: Normal Bowel Sounds, Soft, Non-Tender, No Organomegaly, No Distention, No Abnormal Bruit, Other (Super Obese) (Male) Exam: Other (chronic indwelling catheter) Back Exam: Normal Inspection, Decreased Range of Motion Extremities: Normal Range of Motion, Pedal Edema, Limited Range of Motion, Increased Warmth, Redness, Other (2+pitting edema on both legs). No: Normal Inspection, Leg Pain - Patient Data Lab Results Last 24 hrs: Laboratory Results - last 24 hr 12/29/20 12/29/20 12/29/20 Range/Units 13:18 13:18 13:18 WBC 17.59 H (4.23-9.07) K/mm3 RBC 3.35 L (4.63-6.08) M/mm3 Hgb 11.2 L D (13.7-17.5) gm/dl Hct 36.7 L (40.1-51.0) % MCV 109.6 H (79.0-92.2) fl MCH 33.4 H (25.7-32.2) pg MCHC 30.5 L (32.2-35.5) g/dl RDW Std Deviation 60.6 H (35.1-43.9) fL Plt Count 258 (163-337) K/mm3 MPV 8.9 L (9.4-12.3) fl Neutrophils % (Manual) 74 H (40-60) % Band Neutrophils % 3 (0-10) % Lymphocytes % (Manual) 17 L (20-40) % Atypical Lymphs % 0 % Monocytes % (Manual) 6 (2-10) % Eosinophils % (Manual) 0 L (0.8-7.0) % Basophils % (Manual) 0 L (0.2-1.2) Platelet Estimate Adequate Polychromasia 1+ slight Anisocytosis Sl Macrocytosis Moderate RBC Morph Comment Abn PT 11.9 (9.7-12.0) SECONDS INR 1.11 Sodium 135 L (136-145) mEq/L Potassium 4.3 (3.5-5.1) mEq/L Chloride 98 (98-107) mEq/L Carbon Dioxide 29 (21-32) mEq/L Anion Gap 12.3 (5-15) BUN 22 H (7-18) mg/dL Creatinine 1.6 H (0.7-1.3) mg/dL Est Cr Clr Drug Dosing 49.73 mL/min Estimated GFR (MDRD) 42 (>60) mL/min BUN/Creatinine Ratio 13.8 L (14-18) Glucose 114 (83-115) mg/dL POC Glucose (83-110) mg/dL Lactic Acid (0.4-2.0) mmol/L Calcium 9.2 (8.5-10.1) mg/dL Total Bilirubin 0.5 (0.2-1.0) mg/dL AST 22 (15-37) U/L ALT 22 (16-63) U/L Alkaline Phosphatase 90 (46-116) U/L C-Reactive Protein 9.3 H* (<1.0) mg/dL Total Protein 10.3 H (6.4-8.2) g/dl Albumin 3.1 L (3.4-5.0) g/dl Globulin 7.2 gm/dL Albumin/Globulin Ratio 0.4 L (1-2) Urine Color (Yellow) Urine Appearance (Clear) Urine pH (5.0-8.0) Ur Specific [place] (1.005-1.030) Urine Protein (Negative) Urine Glucose (UA) (Negative) Urine Ketones (Negative) Urine Occult Blood (Negative) Urine Nitrite (Negative) Urine Bilirubin (Negative) Urine Urobilinogen (0.2-1.0) Ur Leukocyte Esterase (Negative) U Hyaline Cast (Auto) (0-5) /lpf Urine RBC (0-5) /hpf Urine WBC (0-5) /hpf Ur Epithelial Cells (0-5) /hpf Urine Bacteria (FEW) /hpf Urine Mucus (FEW) /hpf SARS-CoV-2 RNA (ROCHELLE) (NEGATIVE) MRSA (PCR) 12/29/20 12/29/20 12/29/20 Range/Units 13:18 13:33 13:40 WBC (4.23-9.07) K/mm3 RBC (4.63-6.08) M/mm3 Hgb (13.7-17.5) gm/dl Hct (40.1-51.0) % MCV (79.0-92.2) fl MCH (25.7-32.2) pg MCHC (32.2-35.5) g/dl RDW Std Deviation (35.1-43.9) fL Plt Count (163-337) K/mm3 MPV (9.4-12.3) fl Neutrophils % (Manual) (40-60) % Band Neutrophils % (0-10) % Lymphocytes % (Manual) (20-40) % Atypical Lymphs % % Monocytes % (Manual) (2-10) % Eosinophils % (Manual) (0.8-7.0) % Basophils % (Manual) (0.2-1.2) Platelet Estimate Polychromasia Anisocytosis Macrocytosis RBC Morph Comment PT (9.7-12.0) SECONDS INR Sodium (136-145) mEq/L Potassium (3.5-5.1) mEq/L Chloride (98-107) mEq/L Carbon Dioxide (21-32) mEq/L Anion Gap (5-15) BUN (7-18) mg/dL Creatinine (0.7-1.3) mg/dL Est Cr Clr Drug Dosing mL/min Estimated GFR (MDRD) (>60) mL/min BUN/Creatinine Ratio (14-18) Glucose (83-115) mg/dL POC Glucose (83-110) mg/dL Lactic Acid 2.5 H* (0.4-2.0) mmol/L Calcium (8.5-10.1) mg/dL Total Bilirubin (0.2-1.0) mg/dL AST (15-37) U/L ALT (16-63) U/L Alkaline Phosphatase (46-116) U/L C-Reactive Protein (<1.0) mg/dL Total Protein (6.4-8.2) g/dl Albumin (3.4-5.0) g/dl Globulin gm/dL Albumin/Globulin Ratio (1-2) Urine Color Yellow (Yellow) Urine Appearance Clear (Clear) Urine pH 5.5 (5.0-8.0) Ur Specific [place] 1.020 (1.005-1.030) Urine Protein Negative (Negative) Urine Glucose (UA) Negative (Negative) Urine Ketones Negative (Negative) Urine Occult Blood Trace-intact H (Negative) Urine Nitrite Negative (Negative) Urine Bilirubin Negative (Negative) Urine Urobilinogen 0.2 (0.2-1.0) Ur Leukocyte Esterase Negative (Negative) U Hyaline Cast (Auto) 0-5 (0-5) /lpf Urine RBC Not seen (0-5) /hpf Urine WBC 0-5 (0-5) /hpf Ur Epithelial Cells 0-5 (0-5) /hpf Urine Bacteria Not seen (FEW) /hpf Urine Mucus Not seen (FEW) /hpf SARS-CoV-2 RNA (ROCHELLE) Negative (NEGATIVE) MRSA (PCR) 12/29/20 12/29/20 12/29/20 Range/Units 16:09 16:52 17:03 WBC (4.23-9.07) K/mm3 RBC (4.63-6.08) M/mm3 Hgb (13.7-17.5) gm/dl Hct (40.1-51.0) % MCV (79.0-92.2) fl MCH (25.7-32.2) pg MCHC (32.2-35.5) g/dl RDW Std Deviation (35.1-43.9) fL Plt Count (163-337) K/mm3 MPV (9.4-12.3) fl Neutrophils % (Manual) (40-60) % Band Neutrophils % (0-10) % Lymphocytes % (Manual) (20-40) % Atypical Lymphs % % Monocytes % (Manual) (2-10) % Eosinophils % (Manual) (0.8-7.0) % Basophils % (Manual) (0.2-1.2) Platelet Estimate Polychromasia Anisocytosis Macrocytosis RBC Morph Comment PT (9.7-12.0) SECONDS INR Sodium (136-145) mEq/L Potassium (3.5-5.1) mEq/L Chloride (98-107) mEq/L Carbon Dioxide (21-32) mEq/L Anion Gap (5-15) BUN (7-18) mg/dL Creatinine (0.7-1.3) mg/dL Est Cr Clr Drug Dosing mL/min Estimated GFR (MDRD) (>60) mL/min BUN/Creatinine Ratio (14-18) Glucose (83-115) mg/dL POC Glucose 122 H (83-110) mg/dL Lactic Acid 2.1 H* (0.4-2.0) mmol/L Calcium (8.5-10.1) mg/dL Total Bilirubin (0.2-1.0) mg/dL AST (15-37) U/L ALT (16-63) U/L Alkaline Phosphatase (46-116) U/L C-Reactive Protein (<1.0) mg/dL Total Protein (6.4-8.2) g/dl Albumin (3.4-5.0) g/dl Globulin gm/dL Albumin/Globulin Ratio (1-2) Urine Color (Yellow) Urine Appearance (Clear) Urine pH (5.0-8.0) Ur Specific [place] (1.005-1.030) Urine Protein (Negative) Urine Glucose (UA) (Negative) Urine Ketones (Negative) Urine Occult Blood (Negative) Urine Nitrite (Negative) Urine Bilirubin (Negative) Urine Urobilinogen (0.2-1.0) Ur Leukocyte Esterase (Negative) U Hyaline Cast (Auto) (0-5) /lpf Urine RBC (0-5) /hpf Urine WBC (0-5) /hpf Ur Epithelial Cells (0-5) /hpf Urine Bacteria (FEW) /hpf Urine Mucus (FEW) /hpf SARS-CoV-2 RNA (ROCHELLE) (NEGATIVE) MRSA (PCR) Negative Result Diagrams: 12/29/20 13:18 12/29/20 13:18 Sepsis Event Note - Evaluation Sepsis Screening Result: Severe Sepsis Risk - Focused Exam Vital Signs: Vital Signs Temp Pulse Resp BP Pulse Ox Pulse Ox 12/29/20 18:48 36.7 C 97 20 142/63 H 95 12/29/20 16:50 96 12/29/20 16:35 37.1 C 88 24 H 144/66 H 99 12/29/20 12:15 37.2 C 92 24 H 134/52 L 95 Problem List Initiated/Reviewed/Updated: Yes Orders Last 24hrs: Active Orders 24 hr Category Date Time Status Admission Status [Patient Status] [ADT] Routine ADT 12/29/20 15:39 Active Patient Status [ADT] Routine ADT 12/29/20 15:36 Active Accu Check [Blood Glucose Check, Bedside] [RC] TIDAC Care 12/29/20 15:47 Active EKG Documentation Completion [RC] ASDIRECTED Care 12/29/20 12:42 Active Height and Weight [RC] UPON Care 12/29/20 15:36 Active Insert Rodriguez Catheter [Insert Urinary Catheter] [OM.PC] Care 12/29/20 13:40 Ordered Stat Intake and Output [RC] QSHIFT Care 12/29/20 15:37 Active Oxygen Therapy [RC] PRN Care 12/29/20 15:36 Active RT Aerosol Therapy [RC] ASDIRECTED Care 12/29/20 15:41 Active Up With Assistance [RC] ASDIRECTED Care 12/29/20 15:36 Active Urinary Catheter Assessment [RC] ASDIRECTED Care 12/29/20 13:40 Active VTE/DVT Education [RC] PER UNIT ROUTINE Care 12/29/20 15:36 Active Vital Signs [RC] Q4H Care 12/29/20 15:36 Active Consult to Case Management/Photogrammetric Surveyor [CONS] Cons 12/29/20 15:36 Active Routine Consult to Petroleum Transport Driver [CONS] Routine Cons 12/29/20 15:36 Active Consistent Carbohydrate Diet [DIET] Diet 12/29/20 Dinner Active Heart Healthy Diet [DIET] Diet 12/29/20 Dinner Active BASIC METABOLIC PANEL,BMP [CHEM] AM Lab 12/30/20 05:11 Ordered BASIC METABOLIC PANEL,BMP [CHEM] AM Lab 12/31/20 05:11 Ordered BASIC METABOLIC PANEL,BMP [CHEM] AM Lab 01/01/21 05:11 Ordered BASIC METABOLIC PANEL,BMP [CHEM] AM Lab 01/02/21 05:11 Ordered BASIC METABOLIC PANEL,BMP [CHEM] AM Lab 01/03/21 05:11 Ordered BASIC METABOLIC PANEL,BMP [CHEM] AM Lab 01/04/21 05:11 Ordered BASIC METABOLIC PANEL,BMP [CHEM] AM Lab 01/05/21 05:11 Ordered C-REACTIVE PROTEIN [CHEM] AM Lab 12/30/20 05:11 Ordered C-REACTIVE PROTEIN [CHEM] AM Lab 12/31/20 05:11 Ordered C-REACTIVE PROTEIN [CHEM] AM Lab 01/01/21 05:11 Ordered C-REACTIVE PROTEIN [CHEM] AM Lab 01/02/21 05:11 Ordered C-REACTIVE PROTEIN [CHEM] AM Lab 01/03/21 05:11 Ordered C-REACTIVE PROTEIN [CHEM] AM Lab 01/04/21 05:11 Ordered C-REACTIVE PROTEIN [CHEM] AM Lab 01/05/21 05:11 Ordered CBC WITH AUTO DIFF [HEME] AM Lab 12/30/20 05:11 Ordered CBC WITH AUTO DIFF [HEME] AM Lab 12/31/20 05:11 Ordered CBC WITH AUTO DIFF [HEME] AM Lab 01/01/21 05:11 Ordered CBC WITH AUTO DIFF [HEME] AM Lab 01/02/21 05:11 Ordered CBC WITH AUTO DIFF [HEME] AM Lab 01/03/21 05:11 Ordered CBC WITH AUTO DIFF [HEME] AM Lab 01/04/21 05:11 Ordered CBC WITH AUTO DIFF [HEME] AM Lab 01/05/21 05:11 Ordered CULTURE ANAEROBIC + SMEAR [RM] Stat Lab 12/29/20 13:50 Received CULTURE BLOOD [BC] Stat Lab 12/29/20 13:18 Received CULTURE BLOOD [BC] Stat Lab 12/29/20 13:33 Received LACTIC ACID W/ REFLEX [LACTATE SEPSIS W/ REFLEX] [CHEM] Lab 12/29/20 19:45 Ordered Q4H LACTIC ACID W/ REFLEX [LACTATE SEPSIS W/ REFLEX] [CHEM] Lab 12/29/20 23:45 Ordered Q4H LACTIC ACID [CHEM] Routine Lab 12/29/20 18:58 Ordered LIPID PANEL [CHEM] AM Lab 12/30/20 05:11 Ordered MAGNESIUM [CHEM] AM Lab 12/30/20 05:11 Ordered MAGNESIUM [CHEM] AM Lab 12/31/20 05:11 Ordered MAGNESIUM [CHEM] AM Lab 01/01/21 05:11 Ordered MAGNESIUM [CHEM] AM Lab 01/02/21 05:11 Ordered MAGNESIUM [CHEM] AM Lab 01/03/21 05:11 Ordered MAGNESIUM [CHEM] AM Lab 01/04/21 05:11 Ordered MAGNESIUM [CHEM] AM Lab 01/05/21 05:11 Ordered PROCALCITONIN [REF] Routine Lab 12/29/20 16:09 Received T4 FREE [CHEM] AM Lab 12/30/20 05:11 Ordered TSH [CHEM] AM Lab 12/30/20 05:11 Ordered VANCOMYCIN TROUGH [CHEM] Timed Lab 12/31/20 05:00 Ordered VITAMIN D,25-HYDROXY [CHEM] AM Lab 12/30/20 05:11 Ordered Acetaminophen [TylenoL] Med 12/29/20 21:00 Active 650 mg PO BID Acetaminophen [Tylenol] Med 12/29/20 15:36 Active 650 mg RECTAL Q4H PRN Acetaminophen/HYDROcodone [[place] 325-5 MG] Med 12/29/20 15:36 Active 1 tab PO Q4H PRN Albuterol/Ipratropium [DuoNeb 3.0-0.5 MG/3 ML] Med 12/29/20 15:36 Active 3 ml NEB Q4H PRN Alum Hydrox/Mag Hydrox/Simeth [Mag-Al Plus] Med 12/29/20 15:49 Active 30 ml PO Q2H PRN Bumetanide [Bumex] Med 12/30/20 09:00 Active 3 mg PO DAILY Calcium Carbonate [Tums] Med 12/29/20 15:49 Active 1,000 mg PO QID PRN Cholecalciferol (Vitamin D3) [Vitamin D3] Med 12/30/20 09:00 Active 25 mcg PO DAILY Clopidogrel [Plavix] Med 12/30/20 09:00 Active 75 mg PO DAILY Cyanocobalamin (Vitamin B12) [Vitamin B12] Med 12/30/20 09:00 Active 1,000 mcg PO DAILY Diclofenac Sodium [Voltaren 1% Gel] Med 12/29/20 21:00 Active 2 gm TOP BID Docusate Sodium [Colace] Med 12/29/20 15:36 Active 100 mg PO BID PRN Docusate Sodium/Sennosides [Senna Plus] Med 12/29/20 15:36 Active 1 tab PO BID PRN HYDROmorphone [Dilaudid] Med 12/29/20 15:36 Active 0.5 mg IVPUSH Q2H PRN Insulin Lispro [HumaLOG] Med 12/29/20 17:00 Active See Protocol SUBCUT TIDAC Loperamide [Imodium] Med 12/29/20 15:49 Active 2 mg PO ASDIRECTED PRN Metoprolol Succinate [Toprol XL] Med 12/30/20 09:00 Active 50 mg PO DAILY Mineral Oil/Petrolatum,White [Hydrocerin Crm] Med 12/30/20 09:00 Active 0 gm TOP DAILY Multivitamins,Therapeutic [Thera] Med 12/30/20 09:00 Active 1 each PO DAILY Nitroglycerin [Nitrostat] Med 12/29/20 15:49 Active 0.4 mg SL ASDIRECTED PRN Ondansetron [Zofran] Med 12/29/20 15:36 Active 4 mg IV Q6H PRN Pharmacy to Dose - Vancomycin Med 12/29/20 15:46 Active 0 dose .XX ASDIRECTED Potassium Chloride [Klor-Con M20] Med 12/30/20 09:00 Active 20 meq PO DAILY Promethazine [Phenergan] 12.5 mg Med 12/29/20 15:36 Active Sodium Chloride 0.9% [Normal Saline] 50 ml IV Q6H Sodium Chloride 0.9% [Normal Saline] 1,000 ml Med 12/29/20 15:45 Active IV ASDIRECTED Sodium Chloride 0.9% [Saline Flush] Med 12/29/20 12:40 Active 10 ml FLUSH ASDIRECTED PRN Vancomycin 2 gm Med 12/29/20 18:00 Active Sodium Chloride 0.9% [Normal Saline] 500 ml IV Q12H Zolpidem [Ambien] Med 12/29/20 21:00 Active 5 mg PO BEDTIME PRN cefTRIAXone [Rocephin] 1 gm Med 12/30/20 14:00 Active Sodium Chloride 0.9% [Normal Saline] 100 ml IV Q24H polyethylene glycoL 3350 [MiraLAX] Med 12/29/20 21:00 Active 17 gm PO BEDTIME PRN Blood Culture x2 Reflex Set [OM.PC] Stat Oth 12/29/20 12:41 Ordered Saline Lock Insert [OM.PC] Stat Oth 12/29/20 12:41 Ordered Resuscitation Status Routine Resus Stat 12/29/20 15:36 Ordered EKG 12 Lead [EK] Stat Ther 12/29/20 12:40 Ordered Medication Orders Acetaminophen (Tylenol) 650 mg RECTAL Q4H PRN PRN Reason: Pain (mild 1-3) Acetaminophen (Tylenol) 650 mg PO BID GLENN Hydrocodone Bitart/Acetaminophen ([place] 325-5 Mg) 1 tab PO Q4H PRN PRN Reason: Pain (moderate 4-6) Al Hydroxide/Mg Hydroxide (Mag-Al Plus) 30 ml PO Q2H PRN PRN Reason: Heartburn Albuterol/Ipratropium (Duoneb 3.0-0.5 Mg/3 Ml) 3 ml NEB Q4H PRN PRN Reason: Shortness Of Breath/wheezing Last Admin: 12/29/20 16:49 Dose: 3 ml Documented by: KELLI Bumetanide (Bumex) 3 mg PO DAILY GLENN Calcium Carbonate/Glycine (Tums) 1,000 mg PO QID PRN PRN Reason: Heartburn Cholecalciferol (Vitamin D3) 25 mcg PO DAILY [facility]ENN Clopidogrel Bisulfate (Plavix) 75 mg PO DAILY [facility]ENN Cyanocobalamin (Vitamin B12) 1,000 mcg PO DAILY [facility] Diclofenac Sodium (Voltaren 1% Gel) 2 gm TOP BID GLENN Docusate Sodium (Colace) 100 mg PO BID PRN PRN Reason: Constipation Hydromorphone HCl (Dilaudid) 0.5 mg IVPUSH Q2H PRN PRN Reason: Pain (severe 7-10) Sodium Chloride (Normal Saline) 1,000 mls @ 100 mls/hr IV ASDIRECTED [facility] Stop: 12/30/20 01:44 Last Admin: 12/29/20 17:04 Dose: 100 mls/hr Documented by: ZAK Promethazine HCl 12.5 mg/ (Sodium Chloride) 50.5 mls @ 100 mls/hr IV Q6H PRN PRN Reason: Nausea/Vomiting Vancomycin HCl 2 gm/ Sodium (Chloride) 500 mls @ 250 mls/hr IV Q12H [facility] Last Admin: 12/29/20 18:19 Dose: 250 mls/hr Documented by: ZAK Ceftriaxone Sodium 1 gm/ (Sodium Chloride) 100 mls @ 200 mls/hr IV Q24H [facility] Insulin Human Lis[facility]alog) [facility] Protocol Last Admin: 12/29/20 17:30 Dose: Not Given Documented by: ZAK Loperamide HCl (Imodium) 2 mg PO ASDIRECTED PRN PRN Reason: Diarrhea Metoprolol Succinate (Toprol Xl) 50 mg PO DAILY [facility] Mineral Oil/White Petrolatum (Hydrocerin Crm) 0 gm TOP DAILY [facility] Multivitamins (Thera) 1 each PO DAILY [facility] Nitroglycerin (Nitrostat) 0.4 mg SL ASDIRECTED PRN PRN Reason: Chest Pain Ondansetron HCl (Zofran) 4 mg IV Q6H PRN PRN Reason: Nausea/Vomiting Polyethylene Glycol (Miralax) 17 gm PO BEDTIME PRN PRN Reason: Constipation Potassium Chloride (Klor-Con M20) 20 meq PO DAILY [facility] Senna/Docusate Sodium (Senna Plus) 1 tab PO BID PRN PRN Reason: Constipation Sodium Chloride (Saline Flush) 10 ml FLUSH ASDIRECTED PRN PRN Reason: Keep Vein Open Last Admin: 12/29/20 13:00 Dose: 10 ml Documented by: BHARATHI Vancomycin HCl (Pharmacy To Dose - Vancomycin) 0 dose .XX ASDIRECTED [facility] Zolpidem Tartrate (Ambien) 5 mg PO BEDTIME PRN PRN Reason: Sleep Assessment/Plan Comment:: This is a 75 yo elderly white male with past medical hx/o Impaired vision, HTN, HLD, DM2, Hx/o GA, PVD, CKD Stage 2-3, Chronic SOB on Exertion, Hx/o GI Bleed, Urinary Incontinence, Recurrent UTI, OA, Gait Instability, Chronic Anemia, MM/Blood Disorder, and Morbid Obesity who was brought in from [facility] in [place] for evaluation of fever associated with chills. Assessment: Acute: Toxic/Metabolic Encephalopathy likely from underlying infection Early Developing Sepsis 2/2 Lower Extremity Cellulitis/Right 4th Digit Wound, Covid-19, MRSA, UA, and Chest x-ray were all negative Acute on chronic Lower Extremity Cellulitis/Right 4th Digit Wound, grew Staph aureus and Beta Strep Group C in the past Fever with a Temp as high 100.0 F Leukocytosis with WBC of 17.59 Macrocytic Hypochromic Anemia/Anemia of Chronic Disease, Hgb of 11.2 grams Mild Hyponatremia with Na of 135 Hypoxia requiring 2L NC Hyperglycemia with DM2 Lactic Acidosis of 2.5-->now 1.7 Hypoalbuminemia with Albumin of 3.1 Elevated CRP of 9.3 Debility Super Obese Chronic: Impaired vision, HTN, HLD, DM2, Hx/o GA, PVD, CKD Stage 2-3, Chronic SOB on Exertion, Hx/o GI Bleed, Urinary Incontinence, Recurrent UTI, OA, Gait Instability, Chronic Anemia, MM/Blood Disorder, Chronic Leg Edema, and Morbid Obesity Plan: Admit to [facility]. Sepsis work up. Monitor Inflammatory markers. Serial LA and Procal. Received 2 grams of Rocephin in ED, will continue Rocephin and start IV Vancomycin 1 gram BID for pharmacy to dose. Resume home meds once verified. ADA/AHA diet. Accu-check TIDAC with ISS. Dietary consult for weight management and low protein state. Routine AM labs. Vit D and Thyroid Panel. Fall Precautions. Hold parameters for narcotics and sleep medication. Wound consult. PT/OT for debility. Code status is DNR/DNI. Prognosis is guarded-good.
[2020-12-29] MEDS: Diclofenac Sodium 1% Gel 100 GM Tube TOP SCH (20:44)
[2020-12-29] MEDS: Acetaminophen 325 MG Tab PO SCH (20:44)
[2020-12-29] MEDS ORDERED: Zolpidem 5 MG Tab PO PRN (21:00)
[2020-12-30] MEDS: Vancomycin 2 GM in Sodium Chloride 0.9% 500 ML IV SCH (05:06)
--- NOTE | 2020-12-30 05:50 | PCM.PN ---
- General Info Date of Service: 12/30/20 Admission Dx/Problem (Free Text): Admission Diagnosis/Problem Admission Diagnosis/Problem Foot infection Functional Status: Reports: Pain Controlled, Tolerating Diet, Urinating, Incentive Spirometry. Denies: Ambulating - Patient Data Vitals - Most Recent: Last Vital Signs Temp 36.2 C 12/30/20 05:40 Pulse 75 12/30/20 05:40 Resp 20 12/30/20 05:40 BP 129/55 L 12/30/20 05:40 Pulse Ox 90 L 12/30/20 05:40 Weight - Most Recent: 186.744 kg I&O - Last 24 Hours: Intake & Output 12/29/20 12/29/20 12/30/20 14:59 22:59 06:59 Intake Total 2825 Output Total 350 Balance -350 2825 Lab Results Last 24 Hours: Laboratory Results - last 24 hr 12/29/20 12/29/20 12/29/20 Range/Units 13:18 13:18 13:18 WBC 17.59 H (4.23-9.07) K/mm3 RBC 3.35 L (4.63-6.08) M/mm3 Hgb 11.2 L D (13.7-17.5) gm/dl Hct 36.7 L (40.1-51.0) % MCV 109.6 H (79.0-92.2) fl MCH 33.4 H (25.7-32.2) pg MCHC 30.5 L (32.2-35.5) g/dl RDW Std Deviation 60.6 H (35.1-43.9) fL Plt Count 258 (163-337) K/mm3 MPV 8.9 L (9.4-12.3) fl Neutrophils % (Manual) 74 H (40-60) % Band Neutrophils % 3 (0-10) % Lymphocytes % (Manual) 17 L (20-40) % Atypical Lymphs % 0 % Monocytes % (Manual) 6 (2-10) % Eosinophils % (Manual) 0 L (0.8-7.0) % Basophils % (Manual) 0 L (0.2-1.2) Platelet Estimate Adequate Polychromasia 1+ slight Anisocytosis Sl Macrocytosis Moderate RBC Morph Comment Abn PT 11.9 (9.7-12.0) SECONDS INR 1.11 Sodium 135 L (136-145) mEq/L Potassium 4.3 (3.5-5.1) mEq/L Chloride 98 (98-107) mEq/L Carbon Dioxide 29 (21-32) mEq/L Anion Gap 12.3 (5-15) BUN 22 H (7-18) mg/dL Creatinine 1.6 H (0.7-1.3) mg/dL Est Cr Clr Drug Dosing 49.73 mL/min Estimated GFR (MDRD) 42 (>60) mL/min BUN/Creatinine Ratio 13.8 L (14-18) Glucose 114 (83-115) mg/dL POC Glucose (83-110) mg/dL Lactic Acid (0.4-2.0) mmol/L Calcium 9.2 (8.5-10.1) mg/dL Total Bilirubin 0.5 (0.2-1.0) mg/dL AST 22 (15-37) U/L ALT 22 (16-63) U/L Alkaline Phosphatase 90 (46-116) U/L C-Reactive Protein 9.3 H* (<1.0) mg/dL Total Protein 10.3 H (6.4-8.2) g/dl Albumin 3.1 L (3.4-5.0) g/dl Globulin 7.2 gm/dL Albumin/Globulin Ratio 0.4 L (1-2) Urine Color (Yellow) Urine Appearance (Clear) Urine pH (5.0-8.0) Ur Specific [place] (1.005-1.030) Urine Protein (Negative) Urine Glucose (UA) (Negative) Urine Ketones (Negative) Urine Occult Blood (Negative) Urine Nitrite (Negative) Urine Bilirubin (Negative) Urine Urobilinogen (0.2-1.0) Ur Leukocyte Esterase (Negative) U Hyaline Cast (Auto) (0-5) /lpf Urine RBC (0-5) /hpf Urine WBC (0-5) /hpf Ur Epithelial Cells (0-5) /hpf Urine Bacteria (FEW) /hpf Urine Mucus (FEW) /hpf SARS-CoV-2 RNA (ROCHELLE) (NEGATIVE) MRSA (PCR) 12/29/20 12/29/20 12/29/20 Range/Units 13:18 13:33 13:40 WBC (4.23-9.07) K/mm3 RBC (4.63-6.08) M/mm3 Hgb (13.7-17.5) gm/dl Hct (40.1-51.0) % MCV (79.0-92.2) fl MCH (25.7-32.2) pg MCHC (32.2-35.5) g/dl RDW Std Deviation (35.1-43.9) fL Plt Count (163-337) K/mm3 MPV (9.4-12.3) fl Neutrophils % (Manual) (40-60) % Band Neutrophils % (0-10) % Lymphocytes % (Manual) (20-40) % Atypical Lymphs % % Monocytes % (Manual) (2-10) % Eosinophils % (Manual) (0.8-7.0) % Basophils % (Manual) (0.2-1.2) Platelet Estimate Polychromasia Anisocytosis Macrocytosis RBC Morph Comment PT (9.7-12.0) SECONDS INR Sodium (136-145) mEq/L Potassium (3.5-5.1) mEq/L Chloride (98-107) mEq/L Carbon Dioxide (21-32) mEq/L Anion Gap (5-15) BUN (7-18) mg/dL Creatinine (0.7-1.3) mg/dL Est Cr Clr Drug Dosing mL/min Estimated GFR (MDRD) (>60) mL/min BUN/Creatinine Ratio (14-18) Glucose (83-115) mg/dL POC Glucose (83-110) mg/dL Lactic Acid 2.5 H* (0.4-2.0) mmol/L Calcium (8.5-10.1) mg/dL Total Bilirubin (0.2-1.0) mg/dL AST (15-37) U/L ALT (16-63) U/L Alkaline Phosphatase (46-116) U/L C-Reactive Protein (<1.0) mg/dL Total Protein (6.4-8.2) g/dl Albumin (3.4-5.0) g/dl Globulin gm/dL Albumin/Globulin Ratio (1-2) Urine Color Yellow (Yellow) Urine Appearance Clear (Clear) Urine pH 5.5 (5.0-8.0) Ur Specific [place] 1.020 (1.005-1.030) Urine Protein Negative (Negative) Urine Glucose (UA) Negative (Negative) Urine Ketones Negative (Negative) Urine Occult Blood Trace-intact H (Negative) Urine Nitrite Negative (Negative) Urine Bilirubin Negative (Negative) Urine Urobilinogen 0.2 (0.2-1.0) Ur Leukocyte Esterase Negative (Negative) U Hyaline Cast (Auto) 0-5 (0-5) /lpf Urine RBC Not seen (0-5) /hpf Urine WBC 0-5 (0-5) /hpf Ur Epithelial Cells 0-5 (0-5) /hpf Urine Bacteria Not seen (FEW) /hpf Urine Mucus Not seen (FEW) /hpf SARS-CoV-2 RNA (ROCHELLE) Negative (NEGATIVE) MRSA (PCR) 12/29/20 12/29/20 12/29/20 Range/Units 16:09 16:52 17:03 WBC (4.23-9.07) K/mm3 RBC (4.63-6.08) M/mm3 Hgb (13.7-17.5) gm/dl Hct (40.1-51.0) % MCV (79.0-92.2) fl MCH (25.7-32.2) pg MCHC (32.2-35.5) g/dl RDW Std Deviation (35.1-43.9) fL Plt Count (163-337) K/mm3 MPV (9.4-12.3) fl Neutrophils % (Manual) (40-60) % Band Neutrophils % (0-10) % Lymphocytes % (Manual) (20-40) % Atypical Lymphs % % Monocytes % (Manual) (2-10) % Eosinophils % (Manual) (0.8-7.0) % Basophils % (Manual) (0.2-1.2) Platelet Estimate Polychromasia Anisocytosis Macrocytosis RBC Morph Comment PT (9.7-12.0) SECONDS INR Sodium (136-145) mEq/L Potassium (3.5-5.1) mEq/L Chloride (98-107) mEq/L Carbon Dioxide (21-32) mEq/L Anion Gap (5-15) BUN (7-18) mg/dL Creatinine (0.7-1.3) mg/dL Est Cr Clr Drug Dosing mL/min Estimated GFR (MDRD) (>60) mL/min BUN/Creatinine Ratio (14-18) Glucose (83-115) mg/dL POC Glucose 122 H (83-110) mg/dL Lactic Acid 2.1 H* (0.4-2.0) mmol/L Calcium (8.5-10.1) mg/dL Total Bilirubin (0.2-1.0) mg/dL AST (15-37) U/L ALT (16-63) U/L Alkaline Phosphatase (46-116) U/L C-Reactive Protein (<1.0) mg/dL Total Protein (6.4-8.2) g/dl Albumin (3.4-5.0) g/dl Globulin gm/dL Albumin/Globulin Ratio (1-2) Urine Color (Yellow) Urine Appearance (Clear) Urine pH (5.0-8.0) Ur Specific [place] (1.005-1.030) Urine Protein (Negative) Urine Glucose (UA) (Negative) Urine Ketones (Negative) Urine Occult Blood (Negative) Urine Nitrite (Negative) Urine Bilirubin (Negative) Urine Urobilinogen (0.2-1.0) Ur Leukocyte Esterase (Negative) U Hyaline Cast (Auto) (0-5) /lpf Urine RBC (0-5) /hpf Urine WBC (0-5) /hpf Ur Epithelial Cells (0-5) /hpf Urine Bacteria (FEW) /hpf Urine Mucus (FEW) /hpf SARS-CoV-2 RNA (ROCHELLE) (NEGATIVE) MRSA (PCR) Negative 12/29/20 12/29/20 Range/Units 19:35 23:57 WBC (4.23-9.07) K/mm3 RBC (4.63-6.08) M/mm3 Hgb (13.7-17.5) gm/dl Hct (40.1-51.0) % MCV (79.0-92.2) fl MCH (25.7-32.2) pg MCHC (32.2-35.5) g/dl RDW Std Deviation (35.1-43.9) fL Plt Count (163-337) K/mm3 MPV (9.4-12.3) fl Neutrophils % (Manual) (40-60) % Band Neutrophils % (0-10) % Lymphocytes % (Manual) (20-40) % Atypical Lymphs % % Monocytes % (Manual) (2-10) % Eosinophils % (Manual) (0.8-7.0) % Basophils % (Manual) (0.2-1.2) Platelet Estimate Polychromasia Anisocytosis Macrocytosis RBC Morph Comment PT (9.7-12.0) SECONDS INR Sodium (136-145) mEq/L Potassium (3.5-5.1) mEq/L Chloride (98-107) mEq/L Carbon Dioxide (21-32) mEq/L Anion Gap (5-15) BUN (7-18) mg/dL Creatinine (0.7-1.3) mg/dL Est Cr Clr Drug Dosing mL/min Estimated GFR (MDRD) (>60) mL/min BUN/Creatinine Ratio (14-18) Glucose (83-115) mg/dL POC Glucose (83-110) mg/dL Lactic Acid 1.7 1.3 (0.4-2.0) mmol/L Calcium (8.5-10.1) mg/dL Total Bilirubin (0.2-1.0) mg/dL AST (15-37) U/L ALT (16-63) U/L Alkaline Phosphatase (46-116) U/L C-Reactive Protein (<1.0) mg/dL Total Protein (6.4-8.2) g/dl Albumin (3.4-5.0) g/dl Globulin gm/dL Albumin/Globulin Ratio (1-2) Urine Color (Yellow) Urine Appearance (Clear) Urine pH (5.0-8.0) Ur Specific [place] (1.005-1.030) Urine Protein (Negative) Urine Glucose (UA) (Negative) Urine Ketones (Negative) Urine Occult Blood (Negative) Urine Nitrite (Negative) Urine Bilirubin (Negative) Urine Urobilinogen (0.2-1.0) Ur Leukocyte Esterase (Negative) U Hyaline Cast (Auto) (0-5) /lpf Urine RBC (0-5) /hpf Urine WBC (0-5) /hpf Ur Epithelial Cells (0-5) /hpf Urine Bacteria (FEW) /hpf Urine Mucus (FEW) /hpf SARS-CoV-2 RNA (ROCHELLE) (NEGATIVE) MRSA (PCR) Med Orders - Current: Current Medications Acetaminophen (Tylenol) 650 mg RECTAL Q4H PRN PRN Reason: Pain (mild 1-3) Acetaminophen (Tylenol) 650 mg PO BID GLENN Last Admin: 12/29/20 20:44 Dose: 650 mg Documented by: Hydrocodone Bitart/Acetaminophen ([place] 325-5 Mg) 1 tab PO Q4H PRN PRN Reason: Pain (moderate 4-6) Al Hydroxide/Mg Hydroxide (Mag-Al Plus) 30 ml PO Q2H PRN PRN Reason: Heartburn Albuterol/Ipratropium (Duoneb 3.0-0.5 Mg/3 Ml) 3 ml NEB Q4H PRN PRN Reason: Shortness Of Breath/wheezing Last Admin: 12/29/20 16:49 Dose: 3 ml Documented by: Bumetanide (Bumex) 3 mg PO DAILY [facility] Calcium Carbonate/Glycine (Tums) 1,000 mg PO QID PRN PRN Reason: Heartburn Cholecalciferol (Vitamin D3) 25 mcg PO DAILY [facility] Clopidogrel Bisulfate (Plavix) 75 mg PO DAILY [facility] Cyanocobalamin (Vitamin B12) 1,000 mcg PO DAILY [facility] Diclofenac Sodium (Voltaren 1% Gel) 2 gm TOP BID [facility] Last Admin: 12/29/20 20:44 Dose: 1 applic Documented by: Docusate Sodium (Colace) 100 mg PO BID PRN PRN Reason: Constipation Hydromorphone HCl (Dilaudid) 0.5 mg IVPUSH Q2H PRN PRN Reason: Pain (severe 7-10) Promethazine HCl 12.5 mg/ (Sodium Chloride) 50.5 mls @ 100 mls/hr IV Q6H PRN PRN Reason: Nausea/Vomiting Vancomycin HCl 2 gm/ Sodium (Chloride) 500 mls @ 250 mls/hr IV Q12H [facility] Last Admin: 12/30/20 05:06 Dose: 250 mls/hr Documented by: Ceftriaxone Sodium 1 gm/ (Sodium Chloride) 100 mls @ 200 mls/hr IV Q24H [facility] Insulin Human Lispro (Humalog) 0 unit SUBCUT TIDAC [facility]; Protocol Last Admin: 12/29/20 17:30 Dose: Not Given Documented by: Loperamide HCl (Imodium) 2 mg PO ASDIRECTED PRN PRN Reason: Diarrhea Metoprolol Succinate (Toprol Xl) 50 mg PO DAILY [facility] Mineral Oil/White Petrolatum (Hydrocerin Crm) 0 gm TOP DAILY [facility] Multivitamins (Thera) 1 each PO DAILY [facility] Nitroglycerin (Nitrostat) 0.4 mg SL ASDIRECTED PRN PRN Reason: Chest Pain Ondansetron HCl (Zofran) 4 mg IV Q6H PRN PRN Reason: Nausea/Vomiting Polyethylene Glycol (Miralax) 17 gm PO BEDTIME PRN PRN Reason: Constipation Potassium Chloride (Klor-Con M20) 20 meq PO DAILY [facility] Senna/Docusate Sodium (Senna Plus) 1 tab PO BID PRN PRN Reason: Constipation Sodium Chloride (Saline Flush) 10 ml FLUSH ASDIRECTED PRN PRN Reason: Keep Vein Open Last Admin: 12/29/20 13:00 Dose: 10 ml Documented by: Vancomycin HCl (Pharmacy To Dose - Vancomycin) 0 dose .XX ASDIRECTED [facility] Zolpidem Tartrate (Ambien) 5 mg PO BEDTIME PRN PRN Reason: Sleep Discontinued Medications Ceftriaxone Sodium 2 gm/ (Sodium Chloride) 100 mls @ 200 mls/hr IV ONETIME ONE Stop: 12/29/20 14:41 Last Admin: 12/29/20 14:20 Dose: 200 mls/hr Documented by: Sodium Chloride (Normal Saline) 1,000 mls @ 100 mls/hr IV ASDIRECTED GLENN Stop: 12/30/20 01:44 Last Admin: 12/29/20 17:04 Dose: 100 mls/hr Documented by: Metoclopramide HCl (Reglan) 5 mg IVPUSH ONETIME ONE Stop: 12/29/20 13:18 Last Admin: 12/29/20 13:25 Dose: 5 mg Documented by: Sepsis Event Note - Evaluation Sepsis Screening Result: No Definite Risk - Focused Exam Vital Signs: Vital Signs Temp Temp Pulse Pulse Resp BP BP 12/30/20 05:40 36.2 C 75 20 129/55 L 12/30/20 00:00 36.5 C 87 20 108/47 L 12/29/20 20:34 12/29/20 19:21 37.4 C 94 20 139/53 L 12/29/20 18:48 36.7 C 97 20 142/63 H 12/29/20 18:45 36.7 C 97 20 142/63 H Pulse Ox Pulse Ox 12/30/20 05:40 90 L 12/30/20 00:00 94 L 12/29/20 20:34 94 L 02/15/21 19:21 94 L 12/29/20 18:48 95 12/29/20 18:45 95 - My Orders Last 24 Hours: My Active Orders 12/29/20 15:36 Patient Status [ADT] Routine Height and Weight [RC] 06 Oxygen Therapy [RC] PRN Up With Assistance [RC] ASDIRECTED VTE/DVT Education [RC] PER UNIT ROUTINE Vital Signs [RC] Q4H Consult to Case Management/[place] Regulator [CONS] Routine Consult to Finishing Room Supervisor [CONS] Routine Acetaminophen [Tylenol] 650 mg RECTAL Q4H PRN Acetaminophen/HYDROcodone [[place] 325-5 MG] 1 tab PO Q4H PRN Albuterol/Ipratropium [DuoNeb 3.0-0.5 MG/3 ML] 3 ml NEB Q4H PRN Docusate Sodium [Colace] 100 mg PO BID PRN Docusate Sodium/Sennosides [Senna Plus] 1 tab PO BID PRN HYDROmorphone [Dilaudid] 0.5 mg IVPUSH Q2H PRN Ondansetron [Zofran] 4 mg IV Q6H PRN Promethazine [Phenergan] 12.5 mg Sodium Chloride 0.9% [Normal Saline] 50 ml IV Q6H 12/29/20 15:37 Intake and Output [RC] 04,16 12/29/20 15:41 RT Aerosol Therapy [RC] ASDIRECTED 12/29/20 15:46 Pharmacy to Dose - Vancomycin 0 dose .XX ASDIRECTED 12/29/20 15:47 Accu Check [Blood Glucose Check, Bedside] [RC] TIDAC 12/29/20 15:49 Alum Hydrox/Mag Hydrox/Simeth [Mag-Al Plus] 30 ml PO Q2H PRN Calcium Carbonate [Tums] 1,000 mg PO QID PRN Loperamide [Imodium] 2 mg PO ASDIRECTED PRN Nitroglycerin [Nitrostat] 0.4 mg SL ASDIRECTED PRN 12/29/20 16:09 PROCALCITONIN [REF] Routine 12/29/20 Dinner Consistent Carbohydrate Diet [DIET] Heart Healthy Diet [DIET] Insulin Lispro [HumaLOG] See Protocol SUBCUT TIDAC 12/29/20 18:00 Vancomycin 2 gm Sodium Chloride 0.9% [Normal Saline] 500 ml IV Q12H 12/29/20 20:11 Resuscitation Status Routine 12/29/20 21:00 Acetaminophen [TylenoL] 650 mg PO BID Diclofenac Sodium [Voltaren 1% Gel] 2 gm TOP BID Zolpidem [Ambien] 5 mg PO BEDTIME PRN polyethylene glycoL 3350 [MiraLAX] 17 gm PO BEDTIME PRN 12/29/20 22:41 Consult to Physical Therapy [PT Evaluation and Treatment] [CONS] Routine 12/30/20 05:11 BASIC METABOLIC PANEL,BMP [CHEM] AM C-REACTIVE PROTEIN [CHEM] AM CBC WITH AUTO DIFF [HEME] AM LIPID PANEL [CHEM] AM MAGNESIUM [CHEM] AM T4 FREE [CHEM] AM TSH [CHEM] AM VITAMIN D,25-HYDROXY [CHEM] AM 12/30/20 09:00 Bumetanide [Bumex] 3 mg PO DAILY Cholecalciferol (Vitamin D3) [Vitamin D3] 25 mcg PO DAILY Clopidogrel [Plavix] 75 mg PO DAILY Cyanocobalamin (Vitamin B12) [Vitamin B12] 1,000 mcg PO DAILY Metoprolol Succinate [Toprol XL] 50 mg PO DAILY Mineral Oil/Petrolatum,White [Hydrocerin Crm] 0 gm TOP DAILY Multivitamins,Therapeutic [Thera] 1 each PO DAILY Potassium Chloride [Klor-Con M20] 20 meq PO DAILY 12/30/20 14:00 cefTRIAXone [Rocephin] 1 gm Sodium Chloride 0.9% [Normal Saline] 100 ml IV Q24H 12/31/20 05:00 VANCOMYCIN TROUGH [CHEM] Timed 12/31/20 05:11 BASIC METABOLIC PANEL,BMP [CHEM] AM C-REACTIVE PROTEIN [CHEM] AM CBC WITH AUTO DIFF [HEME] AM MAGNESIUM [CHEM] AM 01/01/21 05:11 BASIC METABOLIC PANEL,BMP [CHEM] AM C-REACTIVE PROTEIN [CHEM] AM CBC WITH AUTO DIFF [HEME] AM MAGNESIUM [CHEM] AM 01/02/21 05:11 BASIC METABOLIC PANEL,BMP [CHEM] AM C-REACTIVE PROTEIN [CHEM] AM CBC WITH AUTO DIFF [HEME] AM MAGNESIUM [CHEM] AM 01/03/21 05:11 BASIC METABOLIC PANEL,BMP [CHEM] AM C-REACTIVE PROTEIN [CHEM] AM CBC WITH AUTO DIFF [HEME] AM MAGNESIUM [CHEM] AM 01/04/21 05:11 BASIC METABOLIC PANEL,BMP [CHEM] AM C-REACTIVE PROTEIN [CHEM] AM CBC WITH AUTO DIFF [HEME] AM MAGNESIUM [CHEM] AM 01/05/21 05:11 BASIC METABOLIC PANEL,BMP [CHEM] AM C-REACTIVE PROTEIN [CHEM] AM CBC WITH AUTO DIFF [HEME] AM MAGNESIUM [CHEM] AM - Plan Plan:: This is a 75 yo elderly white male with past medical hx/o Impaired vision, HTN, HLD, DM2, Hx/o PA, PVD, CKD Stage 2-3, Chronic SOB on Exertion, Hx/o GI Bleed, Urinary Incontinence, Recurrent UTI, OA, Gait Instability, Chronic Anemia, MM/Blood Disorder, and Morbid Obesity who was brought in from [place] in [place] for evaluation of fever associated with chills. Assessment: Acute: Toxic/Metabolic Encephalopathy likely from underlying infection Early Developing Sepsis 2/2 Lower Extremity Cellulitis/Right 4th Digit Wound, Covid-19, MRSA, UA, and Chest x-ray were all negative Acute on chronic Lower Extremity Cellulitis/Right 4th Digit Wound, grew Staph aureus and Beta Strep Group C in the past Fever with a Temp as high 100.0 F Leukocytosis with WBC of 17.59 Macrocytic Hypochromic Anemia/Anemia of Chronic Disease, Hgb of 11.2 grams Mild Hyponatremia with Na of 135 Hypoxia requiring 2L NC Hyperglycemia with DM2 Lactic Acidosis of 2.5-->now 1.7 Hypoalbuminemia with Albumin of 3.1 Elevated CRP of 9.3 Debility Super Obese Chronic: Impaired vision, HTN, HLD, DM2, Hx/o PA, PVD, CKD Stage 2-3, Chronic SOB on Exertion, Hx/o GI Bleed, Urinary Incontinence, Recurrent UTI, OA, Gait Instability, Chronic Anemia, MM/Blood Disorder, Chronic Leg Edema, and Morbid Obesity Plan: Admit to [facility]. Sepsis work up. Monitor Inflammatory markers. Serial LA and Procal. Received 2 grams of Rocephin in ED, will continue Rocephin and start IV Vancomycin 1 gram BID for pharmacy to dose. Resume home meds once verified. ADA/AHA diet. Accu-check TIDAC with ISS. Dietary consult for weight management and low protein state. Routine AM labs. Vit D and Thyroid Panel. Fall Precautions. Hold parameters for narcotics and sleep medication. Wound consult. PT/OT for debility. Code status is DNR/DNI. Prognosis is guarded-good.
[2020-12-30] MEDS: Heparin Sodium 5,000 Units/ML Vial SUBCUT SCH ×3 (06:48→21:09)
--- NOTE | 2020-12-30 07:34 | PCM.PN ---
- General Info Date of Service: 12/30/20 Subjective Update: In to see Buster. He is lying in bed and although apparently somewhat sedated still he does respond to his name and answers questions appropriately before going back to sleep. WBC has improved today. CRP is up. Both foot and blood cultures are growing a gram-negative richard so we will discontinue vancomycin. Continue current treatment plan with Rocephin. Awaiting sensitivities for all cultures. Functional Status: Reports: Pain Controlled, Tolerating Diet, Urinating, Incentive Spirometry. Denies: Ambulating (Baseline ), New Symptoms - Review of Systems General: Reports: No Symptoms, Weakness, Fatigue, Malaise. Denies: Fever, Chills HEENT: Reports: No Symptoms. Denies: Headaches, Sore Throat Pulmonary: Reports: No Symptoms. Denies: Shortness of Breath, Cough, Sputum, Wheezing Cardiovascular: Reports: No Symptoms. Denies: Chest Pain, Palpitations, Dyspnea on Exertion Gastrointestinal: Reports: No Symptoms. Denies: Abdominal Pain, Constipation, Diarrhea, Nausea, Vomiting Genitourinary: Reports: No Symptoms. Denies: Pain Musculoskeletal: Reports: No Symptoms Skin: Reports: No Symptoms. Denies: Cyanosis Neurological: Reports: Pre-Existing Deficit (Baseline jon lift ), Difficulty Walking, Weakness, Gait Disturbance. Denies: Confusion Psychiatric: Reports: No Symptoms - Patient Data Vitals - Most Recent: Last Vital Signs Temp 97.2 F 12/30/20 05:40 Pulse 75 12/30/20 05:40 Resp 20 12/30/20 05:40 BP 129/55 L 12/30/20 05:40 Pulse Ox 92 L 12/30/20 06:13 Weight - Most Recent: 411 lb 11.2 oz I&O - Last 24 Hours: Intake & Output 12/29/20 12/30/20 12/30/20 22:59 06:59 14:59 Intake Total 0 2825 Balance 0 2825 Lab Results Last 24 Hours: Laboratory Results - last 24 hr 12/29/20 12/29/20 12/29/20 Range/Units 13:18 13:18 13:18 WBC 17.59 H (4.23-9.07) K/mm3 RBC 3.35 L (4.63-6.08) M/mm3 Hgb 11.2 L D (13.7-17.5) gm/dl Hct 36.7 L (40.1-51.0) % MCV 109.6 H (79.0-92.2) fl MCH 33.4 H (25.7-32.2) pg MCHC 30.5 L (32.2-35.5) g/dl RDW Std Deviation 60.6 H (35.1-43.9) fL Plt Count 258 (163-337) K/mm3 MPV 8.9 L (9.4-12.3) fl Neut % (Auto) (34.0-67.9) % Lymph % (Auto) (21.8-53.1) % [place] % (Auto) (5.3-12.2) % Eos % (Auto) (0.8-7.0) Baso % (Auto) (0.1-1.2) % Neut # (Auto) (1.78-5.38) K/mm3 Lymph # (Auto) (1.32-3.57) K/mm3 [place] # (Auto) (0.30-0.82) K/mm3 Eos # (Auto) (0.04-0.54) K/mm3 Baso # (Auto) (0.01-0.08) K/mm3 Neutrophils % (Manual) 74 H (40-60) % Band Neutrophils % 3 (0-10) % Lymphocytes % (Manual) 17 L (20-40) % Atypical Lymphs % 0 % Monocytes % (Manual) 6 (2-10) % Eosinophils % (Manual) 0 L (0.8-7.0) % Basophils % (Manual) 0 L (0.2-1.2) Platelet Estimate Adequate Polychromasia 1+ slight Anisocytosis Sl Macrocytosis Moderate RBC Morph Comment Abn PT 11.9 (9.7-12.0) SECONDS INR 1.11 Sodium 135 L (136-145) mEq/L Potassium 4.3 (3.5-5.1) mEq/L Chloride 98 (98-107) mEq/L Carbon Dioxide 29 (21-32) mEq/L Anion Gap 12.3 (5-15) BUN 22 H (7-18) mg/dL Creatinine 1.6 H (0.7-1.3) mg/dL Est Cr Clr Drug Dosing 49.73 mL/min Estimated GFR (MDRD) 42 (>60) mL/min BUN/Creatinine Ratio 13.8 L (14-18) Glucose 114 (83-115) mg/dL POC Glucose (83-110) mg/dL Lactic Acid (0.4-2.0) mmol/L Calcium 9.2 (8.5-10.1) mg/dL Total Bilirubin 0.5 (0.2-1.0) mg/dL AST 22 (15-37) U/L ALT 22 (16-63) U/L Alkaline Phosphatase 90 (46-116) U/L C-Reactive Protein 9.3 H* (<1.0) mg/dL Total Protein 10.3 H (6.4-8.2) g/dl Albumin 3.1 L (3.4-5.0) g/dl Globulin 7.2 gm/dL Albumin/Globulin Ratio 0.4 L (1-2) Urine Color (Yellow) Urine Appearance (Clear) Urine pH (5.0-8.0) Ur Specific [place] (1.005-1.030) Urine Protein (Negative) Urine Glucose (UA) (Negative) Urine Ketones (Negative) Urine Occult Blood (Negative) Urine Nitrite (Negative) Urine Bilirubin (Negative) Urine Urobilinogen (0.2-1.0) Ur Leukocyte Esterase (Negative) U Hyaline Cast (Auto) (0-5) /lpf Urine RBC (0-5) /hpf Urine WBC (0-5) /hpf Ur Epithelial Cells (0-5) /hpf Urine Bacteria (FEW) /hpf Urine Mucus (FEW) /hpf SARS-CoV-2 RNA (ROCHELLE) (NEGATIVE) MRSA (PCR) 12/29/20 12/29/20 12/29/20 Range/Units 13:18 13:33 13:40 WBC (4.23-9.07) K/mm3 RBC (4.63-6.08) M/mm3 Hgb (13.7-17.5) gm/dl Hct (40.1-51.0) % MCV (79.0-92.2) fl MCH (25.7-32.2) pg MCHC (32.2-35.5) g/dl RDW Std Deviation (35.1-43.9) fL Plt Count (163-337) K/mm3 MPV (9.4-12.3) fl Neut % (Auto) (34.0-67.9) % Lymph % (Auto) (21.8-53.1) % [place] % (Auto) (5.3-12.2) % Eos % (Auto) (0.8-7.0) Baso % (Auto) (0.1-1.2) % Neut # (Auto) (1.78-5.38) K/mm3 Lymph # (Auto) (1.32-3.57) K/mm3 [place] # (Auto) (0.30-0.82) K/mm3 Eos # (Auto) (0.04-0.54) K/mm3 Baso # (Auto) (0.01-0.08) K/mm3 Neutrophils % (Manual) (40-60) % Band Neutrophils % (0-10) % Lymphocytes % (Manual) (20-40) % Atypical Lymphs % % Monocytes % (Manual) (2-10) % Eosinophils % (Manual) (0.8-7.0) % Basophils % (Manual) (0.2-1.2) Platelet Estimate Polychromasia Anisocytosis Macrocytosis RBC Morph Comment PT (9.7-12.0) SECONDS INR Sodium (136-145) mEq/L Potassium (3.5-5.1) mEq/L Chloride (98-107) mEq/L Carbon Dioxide (21-32) mEq/L Anion Gap (5-15) BUN (7-18) mg/dL Creatinine (0.7-1.3) mg/dL Est Cr Clr Drug Dosing mL/min Estimated GFR (MDRD) (>60) mL/min BUN/Creatinine Ratio (14-18) Glucose (83-115) mg/dL POC Glucose (83-110) mg/dL Lactic Acid 2.5 H* (0.4-2.0) mmol/L Calcium (8.5-10.1) mg/dL Total Bilirubin (0.2-1.0) mg/dL AST (15-37) U/L ALT (16-63) U/L Alkaline Phosphatase (46-116) U/L C-Reactive Protein (<1.0) mg/dL Total Protein (6.4-8.2) g/dl Albumin (3.4-5.0) g/dl Globulin gm/dL Albumin/Globulin Ratio (1-2) Urine Color Yellow (Yellow) Urine Appearance Clear (Clear) Urine pH 5.5 (5.0-8.0) Ur Specific [place] 1.020 (1.005-1.030) Urine Protein Negative (Negative) Urine Glucose (UA) Negative (Negative) Urine Ketones Negative (Negative) Urine Occult Blood Trace-intact H (Negative) Urine Nitrite Negative (Negative) Urine Bilirubin Negative (Negative) Urine Urobilinogen 0.2 (0.2-1.0) Ur Leukocyte Esterase Negative (Negative) U Hyaline Cast (Auto) 0-5 (0-5) /lpf Urine RBC Not seen (0-5) /hpf Urine WBC 0-5 (0-5) /hpf Ur Epithelial Cells 0-5 (0-5) /hpf Urine Bacteria Not seen (FEW) /hpf Urine Mucus Not seen (FEW) /hpf SARS-CoV-2 RNA (ROCHELLE) Negative (NEGATIVE) MRSA (PCR) 12/29/20 12/29/20 12/29/20 Range/Units 16:09 16:52 17:03 WBC (4.23-9.07) K/mm3 RBC (4.63-6.08) M/mm3 Hgb (13.7-17.5) gm/dl Hct (40.1-51.0) % MCV (79.0-92.2) fl MCH (25.7-32.2) pg MCHC (32.2-35.5) g/dl RDW Std Deviation (35.1-43.9) fL Plt Count (163-337) K/mm3 MPV (9.4-12.3) fl Neut % (Auto) (34.0-67.9) % Lymph % (Auto) (21.8-53.1) % [place] % (Auto) (5.3-12.2) % Eos % (Auto) (0.8-7.0) Baso % (Auto) (0.1-1.2) % Neut # (Auto) (1.78-5.38) K/mm3 Lymph # (Auto) (1.32-3.57) K/mm3 [place] # (Auto) (0.30-0.82) K/mm3 Eos # (Auto) (0.04-0.54) K/mm3 Baso # (Auto) (0.01-0.08) K/mm3 Neutrophils % (Manual) (40-60) % Band Neutrophils % (0-10) % Lymphocytes % (Manual) (20-40) % Atypical Lymphs % % Monocytes % (Manual) (2-10) % Eosinophils % (Manual) (0.8-7.0) % Basophils % (Manual) (0.2-1.2) Platelet Estimate Polychromasia Anisocytosis Macrocytosis RBC Morph Comment PT (9.7-12.0) SECONDS INR Sodium (136-145) mEq/L Potassium (3.5-5.1) mEq/L Chloride (98-107) mEq/L Carbon Dioxide (21-32) mEq/L Anion Gap (5-15) BUN (7-18) mg/dL Creatinine (0.7-1.3) mg/dL Est Cr Clr Drug Dosing mL/min Estimated GFR (MDRD) (>60) mL/min BUN/Creatinine Ratio (14-18) Glucose (83-115) mg/dL POC Glucose 122 H (83-110) mg/dL Lactic Acid 2.1 H* (0.4-2.0) mmol/L Calcium (8.5-10.1) mg/dL Total Bilirubin (0.2-1.0) mg/dL AST (15-37) U/L ALT (16-63) U/L Alkaline Phosphatase (46-116) U/L C-Reactive Protein (<1.0) mg/dL Total Protein (6.4-8.2) g/dl Albumin (3.4-5.0) g/dl Globulin gm/dL Albumin/Globulin Ratio (1-2) Urine Color (Yellow) Urine Appearance (Clear) Urine pH (5.0-8.0) Ur Specific [place] (1.005-1.030) Urine Protein (Negative) Urine Glucose (UA) (Negative) Urine Ketones (Negative) Urine Occult Blood (Negative) Urine Nitrite (Negative) Urine Bilirubin (Negative) Urine Urobilinogen (0.2-1.0) Ur Leukocyte Esterase (Negative) U Hyaline Cast (Auto) (0-5) /lpf Urine RBC (0-5) /hpf Urine WBC (0-5) /hpf Ur Epithelial Cells (0-5) /hpf Urine Bacteria (FEW) /hpf Urine Mucus (FEW) /hpf SARS-CoV-2 RNA (ROCHELLE) (NEGATIVE) MRSA (PCR) Negative 12/29/20 12/29/20 12/30/20 Range/Units 19:35 23:57 07:03 WBC 6.23 (4.23-9.07) K/mm3 RBC 2.66 L (4.63-6.08) M/mm3 Hgb 8.9 L D (13.7-17.5) gm/dl Hct 29.4 L (40.1-51.0) % MCV 110.5 H (79.0-92.2) fl MCH 33.5 H (25.7-32.2) pg MCHC 30.3 L (32.2-35.5) g/dl RDW Std Deviation 62.6 H (35.1-43.9) fL Plt Count 211 (163-337) K/mm3 MPV 8.7 L (9.4-12.3) fl Neut % (Auto) 69.7 H (34.0-67.9) % Lymph % (Auto) 25.2 (21.8-53.1) % [place] % (Auto) 4.7 L (5.3-12.2) % Eos % (Auto) 0.2 L (0.8-7.0) Baso % (Auto) 0.0 L (0.1-1.2) % Neut # (Auto) 4.35 (1.78-5.38) K/mm3 Lymph # (Auto) 1.57 (1.32-3.57) K/mm3 [place] # (Auto) 0.29 L (0.30-0.82) K/mm3 Eos # (Auto) 0.01 L (0.04-0.54) K/mm3 Baso # (Auto) 0.00 L (0.01-0.08) K/mm3 Neutrophils % (Manual) (40-60) % Band Neutrophils % (0-10) % Lymphocytes % (Manual) (20-40) % Atypical Lymphs % % Monocytes % (Manual) (2-10) % Eosinophils % (Manual) (0.8-7.0) % Basophils % (Manual) (0.2-1.2) Platelet Estimate Polychromasia Anisocytosis Macrocytosis RBC Morph Comment PT (9.7-12.0) SECONDS INR Sodium (136-145) mEq/L Potassium (3.5-5.1) mEq/L Chloride (98-107) mEq/L Carbon Dioxide (21-32) mEq/L Anion Gap (5-15) BUN (7-18) mg/dL Creatinine (0.7-1.3) mg/dL Est Cr Clr Drug Dosing mL/min Estimated GFR (MDRD) (>60) mL/min BUN/Creatinine Ratio (14-18) Glucose (83-115) mg/dL POC Glucose (83-110) mg/dL Lactic Acid 1.7 1.3 (0.4-2.0) mmol/L Calcium (8.5-10.1) mg/dL Total Bilirubin (0.2-1.0) mg/dL AST (15-37) U/L ALT (16-63) U/L Alkaline Phosphatase (46-116) U/L C-Reactive Protein (<1.0) mg/dL Total Protein (6.4-8.2) g/dl Albumin (3.4-5.0) g/dl Globulin gm/dL Albumin/Globulin Ratio (1-2) Urine Color (Yellow) Urine Appearance (Clear) Urine pH (5.0-8.0) Ur Specific [place] (1.005-1.030) Urine Protein (Negative) Urine Glucose (UA) (Negative) Urine Ketones (Negative) Urine Occult Blood (Negative) Urine Nitrite (Negative) Urine Bilirubin (Negative) Urine Urobilinogen (0.2-1.0) Ur Leukocyte Esterase (Negative) U Hyaline Cast (Auto) (0-5) /lpf Urine RBC (0-5) /hpf Urine WBC (0-5) /hpf Ur Epithelial Cells (0-5) /hpf Urine Bacteria (FEW) /hpf Urine Mucus (FEW) /hpf SARS-CoV-2 RNA (ROCHELLE) (NEGATIVE) MRSA (PCR) Med Orders - Current: Current Medications Acetaminophen (Tylenol) 650 mg RECTAL Q4H PRN PRN Reason: Pain (mild 1-3) Acetaminophen (Tylenol) 650 mg PO BID GLENN Last Admin: 12/29/20 20:44 Dose: 650 mg Documented by: Hydrocodone Bitart/Acetaminophen ([place] 325-5 Mg) 1 tab PO Q4H PRN PRN Reason: Pain (moderate 4-6) Al Hydroxide/Mg Hydroxide (Mag-Al Plus) 30 ml PO Q2H PRN PRN Reason: Heartburn Albuterol/Ipratropium (Duoneb 3.0-0.5 Mg/3 Ml) 3 ml NEB Q4H PRN PRN Reason: Shortness Of Breath/wheezing Last Admin: 12/29/20 16:49 Dose: 3 ml Documented by: Bumetanide (Bumex) 3 mg PO DAILY [facility] Calcium Carbonate/Glycine (Tums) 1,000 mg PO QID PRN PRN Reason: Heartburn Cholecalciferol (Vitamin D3) 25 mcg PO DAILY [facility] Clopidogrel Bisulfate (Plavix) 75 mg PO DAILY [facility] Cyanocobalamin (Vitamin B12) 1,000 mcg PO DAILY [facility] Diclofenac Sodium (Voltaren 1% Gel) 2 gm TOP BID [facility] Last Admin: 12/29/20 20:44 Dose: 1 applic Documented by: Docusate Sodium (Colace) 100 mg PO BID PRN PRN Reason: Constipation Heparin Sodium (Porcine) (Heparin Sodium) 5,000 units SUBCUT Q8H [facility] Last Admin: 12/30/20 06:48 Dose: 5,000 units Documented by: Hydromorphone HCl (Dilaudid) 0.5 mg IVPUSH Q2H PRN PRN Reason: Pain (severe 7-10) Promethazine HCl 12.5 mg/ (Sodium Chloride) 50.5 mls @ 100 mls/hr IV Q6H PRN PRN Reason: Nausea/Vomiting Vancomycin HCl 2 gm/ Sodium (Chloride) 500 mls @ 250 mls/hr IV Q12H [facility] Last Admin: 12/30/20 05:06 Dose: 250 mls/hr Documented by: Ceftriaxone Sodium 1 gm/ (Sodium Chloride) 100 mls @ 200 mls/hr IV Q24H [facility] Insulin Human Lispro (Humalog) 0 unit SUBCUT TIDAC [facility]; Protocol Last Admin: 12/30/20 06:51 Dose: Not Given Documented by: Loperamide HCl (Imodium) 2 mg PO ASDIRECTED PRN PRN Reason: Diarrhea Losartan Potassium (Cozaar) 25 mg PO DAILY [facility] Metoprolol Succinate (Toprol Xl) 50 mg PO DAILY [facility] Mineral Oil/White Petrolatum (Hydrocerin Crm) 0 gm TOP DAILY [facility] Multivitamins (Thera) 1 each PO DAILY [facility] Nitroglycerin (Nitrostat) 0.4 mg SL ASDIRECTED PRN PRN Reason: Chest Pain Ondansetron HCl (Zofran) 4 mg IV Q6H PRN PRN Reason: Nausea/Vomiting Polyethylene Glycol (Miralax) 17 gm PO BEDTIME PRN PRN Reason: Constipation Potassium Chloride (Klor-Con M20) 20 meq PO DAILY [facility] Senna/Docusate Sodium (Senna Plus) 1 tab PO BID PRN PRN Reason: Constipation Sodium Chloride (Saline Flush) 10 ml FLUSH ASDIRECTED PRN PRN Reason: Keep Vein Open Last Admin: 12/29/20 13:00 Dose: 10 ml Documented by: Vancomycin HCl (Pharmacy To Dose - Vancomycin) 0 dose .XX ASDIRECTED [facility] Zolpidem Tartrate (Ambien) 5 mg PO BEDTIME PRN PRN Reason: Sleep Discontinued Medications Ceftriaxone Sodium 2 gm/ (Sodium Chloride) 100 mls @ 200 mls/hr IV ONETIME ONE Stop: 12/29/20 14:41 Last Admin: 12/29/20 14:20 Dose: 200 mls/hr Documented by: Sodium Chloride (Normal Saline) 1,000 mls @ 100 mls/hr IV ASDIRECTED [facility] Stop: 12/30/20 01:44 Last Admin: 12/29/20 17:04 Dose: 100 mls/hr Documented by: Metoclopramide HCl (Reglan) 5 mg IVPUSH ONETIME ONE Stop: 12/29/20 13:18 Last Admin: 12/29/20 13:25 Dose: 5 mg Documented by: - Exam Quality Assessment: Supplemental Oxygen, DVT Prophylaxis General: Oriented, Cooperative, Sedated (Quite sleepy. Awakes to voice and answers questions appropriatley ) HEENT: Pupils Reactive, Mucous Membr. Moist/Bandana Neck: Supple, Trachea Midline Lungs: Normal Respiratory Effort, Decreased Breath Sounds Cardiovascular: Regular Rate, Regular Rhythm GI/Abdominal Exam: Normal Bowel Sounds, No Distention (Male) Exam: Deferred Extremities: Pedal Edema, Other (Bilateral bandages in place. Bilateral cellulitis with R>L ) Skin: Warm, Dry, Intact Wound/Incisions: No Drainage, Erythema Improving Neurological: No New Focal Deficit Sepsis Event Note - Evaluation Sepsis Screening Result: No Definite Risk - Focused Exam Vital Signs: Vital Signs Temp Pulse Resp BP Pulse Ox Pulse Ox 12/30/20 06:13 92 L 12/30/20 05:40 97.2 F 75 20 129/55 L 90 L 12/30/20 00:00 97.7 F 87 20 108/47 L 94 L 12/29/20 20:34 94 L - Problem List & Annotations (1) Metabolic encephalopathy SNOMED Code(s): 12176527 Code(s): G93.41 - METABOLIC ENCEPHALOPATHY Status: Acute Priority: High Current Visit: Yes (2) Hyponatremia SNOMED Code(s): 09041769 Code(s): E87.1 - HYPO-OSMOLALITY AND HYPONATREMIA Status: Resolved Current Visit: Yes (3) Lactic acidosis SNOMED Code(s): 43376769 Code(s): E87.2 - ACIDOSIS Status: Resolved Current Visit: Yes (4) jail resident SNOMED Code(s): 270884754 Code(s): Z59.3 - PROBLEMS RELATED TO LIVING IN RESIDENTIAL INSTITUTION Status: Chronic Priority: Low Current Visit: No (5) Bedridden SNOMED Code(s): 493737282 Code(s): Z74.01 - BED CONFINEMENT STATUS Status: Chronic Priority: Low Current Visit: No (6) Cellulitis of right leg SNOMED Code(s): 153886366 Code(s): L03.115 - CELLULITIS OF RIGHT LOWER LIMB Status: Acute Priority: High Current Visit: Yes (7) Hypoxia SNOMED Code(s): 341533334 Code(s): R09.02 - HYPOXEMIA Status: Acute Priority: High Current Visit: Yes (8) Laceration of fourth toe, right SNOMED Code(s): 99617944951571578 Code(s): S91.114A - LAC W/O FB OF RIGHT LESSER TOE(S) W/O DAMAGE TO NAIL, INIT Status: Chronic Priority: High Current Visit: Yes Qualifiers: Encounter type: sequela Qualified Code(s): S91.114S - Laceration without foreign body of right lesser toe(s) without damage to nail, sequela (9) Leukocytosis SNOMED Code(s): 833192254, 404224445 Code(s): D72.829 - ELEVATED WHITE BLOOD CELL COUNT, UNSPECIFIED Status: Acute Priority: High Current Visit: Yes Qualifiers: Leukocytosis type: unspecified Qualified Code(s): D72.829 - Elevated white blood cell count, unspecified (10) Coronary artery disease SNOMED Code(s): 94037247 Code(s): I25.10 - ATHSCL HEART DISEASE OF [place] CORONARY ARTERY W/O ANG PC TRS Status: Chronic Priority: Medium Current Visit: No Qualifiers: Coronary Disease-Associated Artery/Lesion type: unspecified vessel or lesion type [place] vs. transplanted heart: unspecified whether [place] or transplanted heart Associated angina: angina presence unspecified Qualified Code(s): I25.10 - Atherosclerotic heart disease of [place] coronary artery without angina pectoris (11) Diabetes mellitus SNOMED Code(s): 01291051 Code(s): E11.9 - TYPE 2 DIABETES MELLITUS WITHOUT COMPLICATIONS Status: Chronic Priority: Medium Current Visit: No Qualifiers: Diabetes mellitus type: type 2 Diabetes mellitus terminal make up operator insulin use: without terminal make up operator use Diabetes mellitus complication status: with other specified complication Qualified Code(s): E11.69 - Type 2 diabetes mellitus with other specified complication (12) Morbid obesity SNOMED Code(s): 366278533 Code(s): E66.01 - MORBID (SEVERE) OBESITY DUE TO EXCESS CALORIES Status: Chronic Priority: Medium Current Visit: No (13) Vitamin D deficiency SNOMED Code(s): 05078672 Code(s): E55.9 - VITAMIN D DEFICIENCY, UNSPECIFIED Status: Chronic Priority: Low Current Visit: No (14) Fever SNOMED Code(s): 012897338 Code(s): R50.9 - FEVER, UNSPECIFIED Status: Resolved Priority: High Current Visit: Yes Qualifiers: Fever type: unspecified Qualified Code(s): R50.9 - Fever, unspecified (15) Bacteremia SNOMED Code(s): 2434132 Code(s): R78.81 - BACTEREMIA Status: Acute Priority: High Current Visit: Yes - Problem List Review Problem List Initiated/Reviewed/Updated: Yes - Plan Plan:: This is a 75 yo elderly white male with past medical hx/o Impaired vision, HTN, HLD, DM2, Hx/o NV, PVD, CKD Stage 2-3, Chronic SOB on Exertion, Hx/o GI Bleed, Urinary Incontinence, Recurrent UTI, OA, Gait Instability, Chronic Anemia, MM/Blood Disorder, and Morbid Obesity who was brought in from [facility] in [place] for evaluation of fever associated with chills. Assessment: Acute: Bacteremia with 4/4 bottles positive for gram negative rods Toxic/Metabolic Encephalopathy likely from underlying infection Acute on chronic Lower Extremity Cellulitis/Right 4th Digit Wound, grew Staph aureus and Beta Strep Group C in the past - gram negative rods thus far Macrocytic Hypochromic Anemia/Anemia of Chronic Disease, Hgb of 11.2-->8.9 grams Hypokalemia with potassium of 3.4 Hypoxia requiring 2L NC Hyperglycemia with DM2 Hypoalbuminemia with Albumin of 3.1 Elevated CRP of 9.3-->15.0 Debility - Baseline jon lift Morbidly Obese jail resident Vitamin D deficiency with vitamin D of 20.8 Resolved: Early Developing Sepsis 2/2 Lower Extremity Cellulitis/Right 4th Digit Wound, Covid-19, MRSA, UA, and Chest x-ray were all negative Fever with a Temp as high 100.0 F Leukocytosis with WBC of 17.59 Mild Hyponatremia with Na of 135 Lactic Acidosis of 2.5-->now 1.7 Chronic: Impaired vision, HTN, HLD, DM2, Hx/o NV, PVD, CKD Stage 2-3, Chronic SOB on Exertion, Hx/o GI Bleed, Urinary Incontinence, Recurrent UTI, OA, Gait Instability, Chronic Anemia, MM/Blood Disorder, Chronic Leg Edema, and Morbid Obesity Plan: Admit to [facility]. Monitor Inflammatory markers. Procalcitonin pending. Received 2 grams of Rocephin in ED, will continue Rocephin. Discontinue vancomyc in due to gram negative rods in blood and foot cultures. Review home meds. ADA/AHA diet. Accu-check TIDAC with ISS. Dietary consult for weight management and low protein state. Routine AM labs. Vit D and Thyroid Panel. Fall Precautions. Hold parameters for narcotics and sleep medication. Wound consult. Code status is DNR/DNI. Prognosis is guarded-good.
[2020-12-30] MEDS: Metoprolol Succinate 50 MG Tab.ER PO SCH (08:16)
[2020-12-30] MEDS: Clopidogrel 75 MG Tab PO SCH (08:16)
[2020-12-30] MEDS: Multivitamins,Therapeutic Tab PO SCH (08:16)
[2020-12-30] MEDS: Cyanocobalamin (Vitamin B12) 1,000 MCG Tab PO SCH (08:16)
[2020-12-30] MEDS: Bumetanide 1 MG Tab PO SCH (08:16)
[2020-12-30] MEDS: Acetaminophen 325 MG Tab PO SCH ×2 (08:17→20:52)
[2020-12-30] MEDS: Losartan 25 MG Tab PO SCH (08:17)
[2020-12-30] MEDS: Mineral Oil/White Petrolatum Crm 113 GM Jar TOP SCH (08:18)
[2020-12-30] MEDS: Diclofenac Sodium 1% Gel 100 GM Tube TOP SCH ×2 (08:19→21:08)
[2020-12-30 08:58] LABS: VITAMIN D,25-HYDROXY 20.8 ng/ml (30.0-100.0)
[2020-12-30] MEDS ORDERED: Cholecalciferol (Vitamin D3) 25 MCG Tab PO SCH (09:00)
[2020-12-30] MEDS ORDERED: Potassium Chloride 20 MEQ Tab.ER PO SCH (09:00)
[2020-12-30] MEDS: Cholecalciferol (Vitamin D3) 5,000 UNIT Cap PO SCH (11:28)
[2020-12-30] MEDS: cefTRIAXone 1 GM in Sodium Chloride 0.9% 100 ML IV SCH (13:35)
[2020-12-30] MEDS: Potassium Chloride 20 MEQ Tab.ER PO SCH (20:55)
[2020-12-31] MEDS: Heparin Sodium 5,000 Units/ML Vial SUBCUT SCH ×3 (06:56→21:49)
--- NOTE | 2020-12-31 06:56 | PCM.PN ---
- General Info Date of Service: 12/31/20 Subjective Update: In to see Buster. He reports he is having no leg pain although he does state that he has peripheral neuropathy and normally does not feel much pain. He is much more alert today. He feels better he says. Blood cultures and foot wound culture are still growing gram-negative rods. We will repeat blood cultures today. No nursing or patient concerns. Continue current treatment plan. Functional Status: Reports: Pain Controlled, Tolerating Diet, Urinating, Incentive Spirometry. Denies: Ambulating, New Symptoms - Review of Systems General: Reports: No Symptoms, Weakness, Fatigue, Malaise. Denies: Fever, Chills HEENT: Reports: No Symptoms. Denies: Headaches, Sore Throat Pulmonary: Reports: No Symptoms. Denies: Shortness of Breath, Cough, Sputum, Hemoptysis, Wheezing Cardiovascular: Reports: Edema. Denies: Chest Pain, Palpitations, Dyspnea on Exertion Gastrointestinal: Reports: Diarrhea. Denies: Abdominal Pain, Constipation, Nausea, Vomiting Genitourinary: Reports: No Symptoms. Denies: Pain Musculoskeletal: Reports: No Symptoms Skin: Reports: No Symptoms. Denies: Cyanosis Neurological: Reports: Pre-Existing Deficit (Baseline jon lift ), Difficulty Walking, Weakness, Gait Disturbance. Denies: Confusion Psychiatric: Reports: No Symptoms - Patient Data Vitals - Most Recent: Last Vital Signs Temp 98.1 F 12/31/20 01:30 Pulse 74 12/31/20 01:30 Resp 18 12/31/20 01:30 BP 120/64 12/31/20 01:30 Pulse Ox 95 12/31/20 06:23 Weight - Most Recent: 411 lb I&O - Last 24 Hours: Intake & Output 12/30/20 12/30/20 12/31/20 14:59 22:59 06:59 Intake Total 360 1680 600 Output Total 375 Balance 360 1680 225 Lab Results Last 24 Hours: Laboratory Results - last 24 hr 12/29/20 12/30/20 12/30/20 Range/Units 16:09 06:51 07:03 WBC 6.23 (4.23-9.07) K/mm3 RBC 2.66 L (4.63-6.08) M/mm3 Hgb 8.9 L D (13.7-17.5) gm/dl Hct 29.4 L (40.1-51.0) % MCV 110.5 H (79.0-92.2) fl MCH 33.5 H (25.7-32.2) pg MCHC 30.3 L (32.2-35.5) g/dl RDW Std Deviation 62.6 H (35.1-43.9) fL Plt Count 211 (163-337) K/mm3 MPV 8.7 L (9.4-12.3) fl Neut % (Auto) 69.7 H (34.0-67.9) % Lymph % (Auto) 25.2 (21.8-53.1) % [place] % (Auto) 4.7 L (5.3-12.2) % Eos % (Auto) 0.2 L (0.8-7.0) Baso % (Auto) 0.0 L (0.1-1.2) % Neut # (Auto) 4.35 (1.78-5.38) K/mm3 Lymph # (Auto) 1.57 (1.32-3.57) K/mm3 [place] # (Auto) 0.29 L (0.30-0.82) K/mm3 Eos # (Auto) 0.01 L (0.04-0.54) K/mm3 Baso # (Auto) 0.00 L (0.01-0.08) K/mm3 Manual Slide Review Abnormal smear Sodium (136-145) mEq/L Potassium (3.5-5.1) mEq/L Chloride (98-107) mEq/L Carbon Dioxide (21-32) mEq/L Anion Gap (5-15) BUN (7-18) mg/dL Creatinine (0.7-1.3) mg/dL Est Cr Clr Drug Dosing mL/min Estimated GFR (MDRD) (>60) mL/min BUN/Creatinine Ratio (14-18) Glucose (83-115) mg/dL POC Glucose 120 H (83-110) mg/dL Calcium (8.5-10.1) mg/dL Magnesium (1.8-2.4) mg/dl C-Reactive Protein (<1.0) mg/dL Triglycerides (<150) mg/dL Cholesterol (<200) mg/dL LDL Cholesterol Direct (<100) mg/dL HDL Cholesterol (40-59) mg/dL Vitamin D 25-Hydroxy (30.0-100.0) ng/ml Procalcitonin 0.61 H ng/mL Free T4 (0.76-1.46) ng/dL TSH 3rd Generation (0.358-3.74) uIU/mL C.difficile 027-NAP1-B1 C. difficile Tox (PCR) 12/30/20 12/30/20 12/30/20 Range/Units 07:03 11:10 17:01 WBC (4.23-9.07) K/mm3 RBC (4.63-6.08) M/mm3 Hgb (13.7-17.5) gm/dl Hct (40.1-51.0) % MCV (79.0-92.2) fl MCH (25.7-32.2) pg MCHC (32.2-35.5) g/dl RDW Std Deviation (35.1-43.9) fL Plt Count (163-337) K/mm3 MPV (9.4-12.3) fl Neut % (Auto) (34.0-67.9) % Lymph % (Auto) (21.8-53.1) % [place] % (Auto) (5.3-12.2) % Eos % (Auto) (0.8-7.0) Baso % (Auto) (0.1-1.2) % Neut # (Auto) (1.78-5.38) K/mm3 Lymph # (Auto) (1.32-3.57) K/mm3 [place] # (Auto) (0.30-0.82) K/mm3 Eos # (Auto) (0.04-0.54) K/mm3 Baso # (Auto) (0.01-0.08) K/mm3 Manual Slide Review Sodium 139 (136-145) mEq/L Potassium 3.4 L (3.5-5.1) mEq/L Chloride 103 (98-107) mEq/L Carbon Dioxide 28 (21-32) mEq/L Anion Gap 11.4 (5-15) BUN 24 H (7-18) mg/dL Creatinine 1.5 H (0.7-1.3) mg/dL Est Cr Clr Drug Dosing 50.23 mL/min Estimated GFR (MDRD) 46 (>60) mL/min BUN/Creatinine Ratio 16.0 (14-18) Glucose 112 (83-115) mg/dL POC Glucose 140 H 118 H (83-110) mg/dL Calcium 8.0 L (8.5-10.1) mg/dL Magnesium 2.1 (1.8-2.4) mg/dl C-Reactive Protein 15.0 H* (<1.0) mg/dL Triglycerides 162 H (<150) mg/dL Cholesterol 152 (<200) mg/dL LDL Cholesterol Direct 85 (<100) mg/dL HDL Cholesterol 36.0 L (40-59) mg/dL Vitamin D 25-Hydroxy 20.8 L (30.0-100.0) ng/ml Procalcitonin ng/mL Free T4 1.07 (0.76-1.46) ng/dL TSH 3rd Generation 0.552 (0.358-3.74) uIU/mL C.difficile 027-NAP1-B1 C. difficile Tox (PCR) 12/30/20 12/31/20 Range/Units 17:10 06:05 WBC 4.54 (4.23-9.07) K/mm3 RBC 2.69 L (4.63-6.08) M/mm3 Hgb 8.9 L (13.7-17.5) gm/dl Hct 30.3 L (40.1-51.0) % MCV 112.6 H (79.0-92.2) fl MCH 33.1 H (25.7-32.2) pg MCHC 29.4 L (32.2-35.5) g/dl RDW Std Deviation 62.2 H (35.1-43.9) fL Plt Count 193 (163-337) K/mm3 MPV 8.9 L (9.4-12.3) fl Neut % (Auto) 46.2 (34.0-67.9) % Lymph % (Auto) 45.2 (21.8-53.1) % [place] % (Auto) 5.5 (5.3-12.2) % Eos % (Auto) 3.1 (0.8-7.0) Baso % (Auto) 0.0 L (0.1-1.2) % Neut # (Auto) 2.10 (1.78-5.38) K/mm3 Lymph # (Auto) 2.05 (1.32-3.57) K/mm3 [place] # (Auto) 0.25 L (0.30-0.82) K/mm3 Eos # (Auto) 0.14 (0.04-0.54) K/mm3 Baso # (Auto) 0.00 L (0.01-0.08) K/mm3 Manual Slide Review Sodium (136-145) mEq/L Potassium (3.5-5.1) mEq/L Chloride (98-107) mEq/L Carbon Dioxide (21-32) mEq/L Anion Gap (5-15) BUN (7-18) mg/dL Creatinine (0.7-1.3) mg/dL Est Cr Clr Drug Dosing mL/min Estimated GFR (MDRD) (>60) mL/min BUN/Creatinine Ratio (14-18) Glucose (83-115) mg/dL POC Glucose (83-110) mg/dL Calcium (8.5-10.1) mg/dL Magnesium (1.8-2.4) mg/dl C-Reactive Protein (<1.0) mg/dL Triglycerides (<150) mg/dL Cholesterol (<200) mg/dL LDL Cholesterol Direct (<100) mg/dL HDL Cholesterol (40-59) mg/dL Vitamin D 25-Hydroxy (30.0-100.0) ng/ml Procalcitonin ng/mL Free T4 (0.76-1.46) ng/dL TSH 3rd Generation (0.358-3.74) uIU/mL C.difficile 027-NAP1-B1 Presumptive negative C. difficile Tox (PCR) Negative [place] Results Last 24 Hours: Microbiology 12/29/20 13:18 Aerobic Blood Culture - Preliminary Blood - Venous Gram Negative Rods Anaerobic Blood Culture - Preliminary Gram Negative Rods 12/29/20 13:50 Gram Stain - Final Toe, Right - Right Fourth Anaerobic Culture - Preliminary Gram Negative Rods 12/29/20 13:33 Aerobic Blood Culture - Preliminary Blood - Venous - Lab Draw Gram Negative Rods Anaerobic Blood Culture - Preliminary Gram Negative Rods Med Orders - Current: Current Medications Acetaminophen (Tylenol) 650 mg RECTAL Q4H PRN PRN Reason: Pain (mild 1-3) Acetaminophen (Tylenol) 650 mg PO BID GLENN Last Admin: 12/30/20 20:52 Dose: 650 mg Documented by: Hydrocodone Bitart/Acetaminophen ([place] 325-5 Mg) 1 tab PO Q4H PRN PRN Reason: Pain (moderate 4-6) Al Hydroxide/Mg Hydroxide (Mag-Al Plus) 30 ml PO Q2H PRN PRN Reason: Heartburn Albuterol/Ipratropium (Duoneb 3.0-0.5 Mg/3 Ml) 3 ml NEB Q4H PRN PRN Reason: Shortness Of Breath/wheezing Last Admin: 12/29/20 16:49 Dose: 3 ml Documented by: Bumetanide (Bumex) 3 mg PO DAILY [facility] Last Admin: 12/30/20 08:16 Dose: 3 mg Documented by: Calcium Carbonate/Glycine (Tums) 1,000 mg PO QID PRN PRN Reason: Heartburn Cholecalciferol (Vitamin D3) 5,000 unit PO DAILY [facility] Last Admin: 12/30/20 11:28 Dose: 5,000 unit Documented by: Clopidogrel Bisulfate (Plavix) 75 mg PO DAILY [facility] Last Admin: 12/30/20 08:16 Dose: 75 mg Documented by: Cyanocobalamin (Vitamin B12) 1,000 mcg PO DAILY [facility] Last Admin: 12/30/20 08:16 Dose: 1,000 mcg Documented by: Diclofenac Sodium (Voltaren 1% Gel) 2 gm TOP BID [facility] Last Admin: 12/30/20 21:08 Dose: 1 applic Documented by: Docusate Sodium (Colace) 100 mg PO BID PRN PRN Reason: Constipation Heparin Sodium (Porcine) (Heparin Sodium) 5,000 units SUBCUT Q8H [facility] Last Admin: 12/30/20 21:09 Dose: 5,000 units Documented by: Hydromorphone HCl (Dilaudid) 0.5 mg IVPUSH Q2H PRN PRN Reason: Pain (severe 7-10) Promethazine HCl 12.5 mg/ (Sodium Chloride) 50.5 mls @ 100 mls/hr IV Q6H PRN PRN Reason: Nausea/Vomiting Ceftriaxone Sodium 1 gm/ (Sodium Chloride) 100 mls @ 200 mls/hr IV Q24H [facility] Last Admin: 12/30/20 13:35 Dose: 200 mls/hr Documented by: Insulin Human Lispro (Humalog) 0 unit SUBCUT TIDAC [facility]; Protocol Last Admin: 12/30/20 19:24 Dose: Not Given Documented by: Loperamide HCl (Imodium) 2 mg PO ASDIRECTED PRN PRN Reason: Diarrhea Last Admin: 12/30/20 20:54 Dose: 2 mg Documented by: Losartan Potassium (Cozaar) 25 mg PO DAILY [facility] Last Admin: 12/30/20 08:17 Dose: 25 mg Documented by: Metoprolol Succinate (Toprol Xl) 50 mg PO DAILY [facility] Last Admin: 12/30/20 08:16 Dose: 50 mg Documented by: Mineral Oil/White Petrolatum (Hydrocerin Crm) 0 gm TOP DAILY [facility] Last Admin: 12/30/20 08:18 Dose: 1 gram Documented by: Multivitamins (Thera) 1 each PO DAILY [facility] Last Admin: 12/30/20 08:16 Dose: 1 each Documented by: Nitroglycerin (Nitrostat) 0.4 mg SL ASDIRECTED PRN PRN Reason: Chest Pain Ondansetron HCl (Zofran) 4 mg IV Q6H PRN PRN Reason: Nausea/Vomiting Polyethylene Glycol (Miralax) 17 gm PO BEDTIME PRN PRN Reason: Constipation Potassium Chloride (Klor-Con M20) 40 meq PO BID [facility] Last Admin: 12/30/20 20:55 Dose: 40 meq Documented by: Senna/Docusate Sodium (Senna Plus) 1 tab PO BID PRN PRN Reason: Constipation Sodium Chloride (Saline Flush) 10 ml FLUSH ASDIRECTED PRN PRN Reason: Keep Vein Open Last Admin: 12/29/20 13:00 Dose: 10 ml Documented by: Zolpidem Tartrate (Ambien) 5 mg PO BEDTIME PRN PRN Reason: Sleep Discontinued Medications Cholecalciferol (Vitamin D3) 25 mcg PO DAILY [facility] Last Admin: 12/30/20 08:16 Dose: 25 mcg Documented by: Ceftriaxone Sodium 2 gm/ (Sodium Chloride) 100 mls @ 200 mls/hr IV ONETIME ONE Stop: 12/29/20 14:41 Last Admin: 12/29/20 14:20 Dose: 200 mls/hr Documented by: Sodium Chloride (Normal Saline) 1,000 mls @ 100 mls/hr IV ASDIRECTED [facility] Stop: 12/30/20 01:44 Last Admin: 12/29/20 17:04 Dose: 100 mls/hr Documented by: Vancomycin HCl 2 gm/ Sodium (Chloride) 500 mls @ 250 mls/hr IV Q12H [facility] Last Admin: 12/30/20 05:06 Dose: 250 mls/hr Documented by: Metoclopramide HCl (Reglan) 5 mg IVPUSH ONETIME ONE Stop: 12/29/20 13:18 Last Admin: 12/29/20 13:25 Dose: 5 mg Documented by: Potassium Chloride (Klor-Con M20) 20 meq PO DAILY [facility] Last Admin: 12/30/20 08:17 Dose: 20 meq Documented by: Vancomycin HCl (Pharmacy To Dose - Vancomycin) 0 dose .XX ASDIRECTED GLENN - Exam Quality Assessment: Supplemental Oxygen (1L), DVT Prophylaxis. No: Urine Catheter General: Alert, Oriented, Cooperative, No Acute Distress HEENT: Pupils Equal, Pupils Reactive, Mucous Membr. Moist/[place] Neck: Supple, Trachea Midline Lungs: Clear to Auscultation, Normal Respiratory Effort Cardiovascular: Regular Rate, Regular Rhythm GI/Abdominal Exam: Normal Bowel Sounds, Soft, Non-Tender, No Distention (Male) Exam: Deferred Extremities: Normal Inspection, Normal Range of Motion, Non-Tender, Normal Capillary Refill, Pedal Edema (2-3+) Skin: Warm, Dry, Intact Wound/Incisions: Dressing Dry and Intact Neurological: No New Focal Deficit Psy/Mental Status: Alert Sepsis Event Note - Evaluation Sepsis Screening Result: No Definite Risk - Focused Exam Vital Signs: Vital Signs Temp Pulse Resp BP Pulse Ox Pulse Ox 12/31/20 06:23 95 12/31/20 01:30 98.1 F 74 18 120/64 94 L 12/30/20 21:05 94 L 12/30/20 19:27 98.1 F 74 141/66 H 95 - Problem List & Annotations (1) Metabolic encephalopathy SNOMED Code(s): 31758842 Code(s): G93.41 - METABOLIC ENCEPHALOPATHY Status: Resolved Priority: High Current Visit: Yes (2) Hyponatremia SNOMED Code(s): 24389900 Code(s): E87.1 - HYPO-OSMOLALITY AND HYPONATREMIA Status: Resolved Current Visit: Yes (3) Lactic acidosis SNOMED Code(s): 89663257 Code(s): E87.2 - ACIDOSIS Status: Resolved Current Visit: Yes (4) half-way resident SNOMED Code(s): 328831528 Code(s): Z59.3 - PROBLEMS RELATED TO LIVING IN RESIDENTIAL INSTITUTION Status: Chronic Priority: Low Current Visit: No (5) Bedridden SNOMED Code(s): 374386056 Code(s): Z74.01 - BED CONFINEMENT STATUS Status: Chronic Priority: Low Current Visit: No (6) Cellulitis of right leg SNOMED Code(s): 010993709 Code(s): L03.115 - CELLULITIS OF RIGHT LOWER LIMB Status: Acute Priority: High Current Visit: Yes (7) Hypoxia SNOMED Code(s): 949805903 Code(s): R09.02 - HYPOXEMIA Status: Acute Priority: High Current Visit: Yes (8) Laceration of fourth toe, right SNOMED Code(s): 17752141309140896 Code(s): S91.114A - LAC W/O FB OF RIGHT LESSER TOE(S) W/O DAMAGE TO NAIL, INIT Status: Chronic Priority: High Current Visit: Yes Qualifiers: Encounter type: sequela Qualified Code(s): S91.114S - Laceration without foreign body of right lesser toe(s) without damage to nail, sequela (9) Leukocytosis SNOMED Code(s): 985811383, 558598187 Code(s): D72.829 - ELEVATED WHITE BLOOD CELL COUNT, UNSPECIFIED Status: Acute Priority: High Current Visit: Yes Qualifiers: Leukocytosis type: unspecified Qualified Code(s): D72.829 - Elevated white blood cell count, unspecified (10) Coronary artery disease SNOMED Code(s): 36591882 Code(s): I25.10 - ATHSCL HEART DISEASE OF [place] CORONARY ARTERY W/O ANG PCTRS Status: Chronic Priority: Medium Current Visit: No Qualifiers: Coronary Disease-Associated Artery/Lesion type: unspecified vessel or lesion type [place] vs. transplanted heart: unspecified whether [place] or transplanted heart Associated angina: angina presence unspecified Qualified Code(s): I25.10 - Atherosclerotic heart disease of [place] coronary artery without angina pectoris (11) Diabetes mellitus SNOMED Code(s): 04589251 Code(s): E11.9 - TYPE 2 DIABETES MELLITUS WITHOUT COMPLICATIONS Status: Chronic Priority: Medium Current Visit: No Qualifiers: Diabetes mellitus type: type 2 Diabetes mellitus superintendent container terminal insulin use: without superintendent container terminal use Diabetes mellitus complication status: with other specified complication Qualified Code(s): E11.69 - Type 2 diabetes mellitus with other specified complication (12) Morbid obesity SNOMED Code(s): 288369893 Code(s): E66.01 - MORBID (SEVERE) OBESITY DUE TO EXCESS CALORIES Status: Chronic Priority: Medium Current Visit: No (13) Vitamin D deficiency SNOMED Code(s): 07207367 Code(s): E55.9 - VITAMIN D DEFICIENCY, UNSPECIFIED Status: Chronic Priority: Low Current Visit: No (14) Fever SNOMED Code(s): 421961621 Code(s): R50.9 - FEVER, UNSPECIFIED Status: Resolved Priority: High Current Visit: Yes Qualifiers: Fever type: unspecified Qualified Code(s): R50.9 - Fever, unspecified (15) Bacteremia SNOMED Code(s): 9933132 Code(s): R78.81 - BACTEREMIA Status: Acute Priority: High Current Visit : Yes (16) Hypokalemia SNOMED Code(s): 68406967 Code(s): E87.6 - HYPOKALEMIA Status: Acute Priority: High Current Visit: Yes - Problem List Review Problem List Initiated/Reviewed/Updated: Yes - My Orders Last 24 Hours: My Active Orders 12/30/20 11:15 Cholecalciferol (Vitamin D3) [Vitamin D3] 5,000 unit PO DAILY 12/30/20 11:16 RT Incentive Spirometry [RC] ASDIRECTED 12/30/20 21:00 Potassium Chloride [Klor-Con M20] 40 meq PO BID - Plan Plan:: This is a 75 yo elderly white male with past medical hx/o Impaired vision, HTN, HLD, DM2, Hx/o VA, PVD, CKD Stage 2-3, Chronic SOB on Exertion, Hx/o GI Bleed, Urinary Incontinence, Recurrent UTI, OA, Gait Instability, Chronic Anemia, MM/Blood Disorder, and Morbid Obesity who was brought in from [facility] in [place] for evaluation of fever associated with chills. Assessment: Acute: Bacteremia with 4/4 bottles positive for gram negative rods Acute on chronic Lower Extremity Cellulitis/Right 4th Digit Wound, grew Staph aureus and Beta Strep Group C in the past - gram negative rods thus far Macrocytic Hypochromic Anemia/Anemia of Chronic Disease, Hgb of 11.2-->8.9-->8.9 grams Hypokalemia with potassium of 3.4-->3.8 Hypoxia requiring 1L NC Hyperglycemia with DM2 Hypoalbuminemia with Albumin of 3.1 Elevated CRP of 9.3-->15.0-->14.3 Debility - Baseline jon lift Morbidly Obese half-way resident Vitamin D deficiency with vitamin D of 20.8 Resolved: Early Developing Sepsis 2/2 Lower Extremity Cellulitis/Right 4th Digit Wound, Covid-19, MRSA, UA, and Chest x-ray were all negative Fever with a Temp as high 100.0 F Leukocytosis with WBC of 17.59 Mild Hyponatremia with Na of 135 Lactic Acidosis of 2.5-->now 1.7 Toxic/Metabolic Encephalopathy likely from underlying infection Chronic: Impaired vision, HTN, HLD, DM2, Hx/o VA, PVD, CKD Stage 2-3, Chronic SOB on Exertion, Hx/o GI Bleed, Urinary Incontinence, Recurrent UTI, OA, Gait Instability, Chronic Anemia, MM/Blood Disorder, Chronic Leg Edema, and Morbid Obesity Plan: Admit to [facility]. Repeat blood cultures today. Monitor Inflammatory markers. Received 2 grams of Rocephin in ED, will continue Rocephin. Discontinue vancomycin due to gram negative rods in blood and foot cultures. Review home meds. ADA/AHA diet. Accu-check TIDAC with ISS. Supplement potassium. Dietary consult for weight management and low protein state. Routine AM labs. Fall Precautions. Hold parameters for narcotics and sleep medication. Wound consult. Code status is DNR/DNI. Prognosis is guarded-good.
[2020-12-31] MEDS: Clopidogrel 75 MG Tab PO SCH (09:46)
[2020-12-31] MEDS: Bumetanide 1 MG Tab PO SCH (09:46)
[2020-12-31] MEDS: Cholecalciferol (Vitamin D3) 5,000 UNIT Cap PO SCH (09:46)
[2020-12-31] MEDS: Acetaminophen 325 MG Tab PO SCH ×2 (09:46→21:49)
[2020-12-31] MEDS: Losartan 25 MG Tab PO SCH (09:47)
[2020-12-31] MEDS: Cyanocobalamin (Vitamin B12) 1,000 MCG Tab PO SCH (09:47)
[2020-12-31] MEDS: Metoprolol Succinate 50 MG Tab.ER PO SCH (09:47)
[2020-12-31] MEDS: Multivitamins,Therapeutic Tab PO SCH (09:47)
[2020-12-31] MEDS: Diclofenac Sodium 1% Gel 100 GM Tube TOP SCH ×2 (09:56→21:50)
[2020-12-31] MEDS: Mineral Oil/White Petrolatum Crm 113 GM Jar TOP SCH (09:56)
[2020-12-31] MEDS: Potassium Chloride 20 MEQ Tab.ER PO SCH ×2 (09:57→21:49)
[2020-12-31] MEDS: cefTRIAXone 1 GM in Sodium Chloride 0.9% 100 ML IV SCH (15:20)
[2021-01-01] MEDS: Heparin Sodium 5,000 Units/ML Vial SUBCUT SCH ×3 (05:32→21:07)
--- NOTE | 2021-01-01 07:12 | PCM.PN ---
- General Info Date of Service: 01/01/21 Subjective Update: In to see Buster. He is laying in bed. He reports he was up to the chair for 4 hours yesterday without any issues. Blood and foot culture growing Serratia Marcescens intermediate to Rocephin. Discussed this with pharmacy and we will start IV cefepime today. Repeat blood cultures negative thus far. Hopeful for discharge in next 24 to 48 hours pending continued improvement. Functional Status: Reports: Pain Controlled, Tolerating Diet, Urinating, Incentive Spirometry. Denies: Ambulating (Baseline ), New Symptoms - Review of Systems General: Reports: No Symptoms. Denies: Fever, Weakness, Fatigue, Malaise, Chills HEENT: Reports: No Symptoms. Denies: Headaches, Sore Throat Pulmonary: Reports: No Symptoms. Denies: Shortness of Breath, Pleuritic Chest Pain, Cough, Sputum, Wheezing Cardiovascular: Reports: No Symptoms. Denies: Chest Pain, Palpitations, Dyspnea on Exertion, Edema Gastrointestinal: Reports: No Symptoms. Denies: Abdominal Pain, Constipation, Diarrhea, Nausea, Vomiting Genitourinary: Reports: No Symptoms. Denies: Pain Musculoskeletal: Reports: No Symptoms Skin: Reports: No Symptoms. Denies: Cyanosis Neurological: Reports: Pre-Existing Deficit (Jon lift at baseline ). Denies: Confusion, Difficulty Walking, Weakness, Gait Disturbance Psychiatric: Reports: No Symptoms - Patient Data Vitals - Most Recent: Last Vital Signs Temp 97.9 F 12/31/20 19:14 Pulse 82 12/31/20 19:14 Resp 18 12/31/20 19:14 BP 158/95 H 12/31/20 19:14 Pulse Ox 91 L 01/01/21 06:14 Weight - Most Recent: 412 lb 3.2 oz I&O - Last 24 Hours: Intake & Output 12/31/20 01/01/21 01/01/21 22:59 06:59 14:59 Intake Total 1400 800 Output Total 175 800 Balance 1225 0 Lab Results Last 24 Hours: Laboratory Results - last 24 hr 12/31/20 12/31/20 12/31/20 Range/Units 07:19 11:07 16:46 WBC (4.23-9.07) K/mm3 RBC (4.63-6.08) M/mm3 Hgb (13.7-17.5) gm/dl Hct (40.1-51.0) % MCV (79.0-92.2) fl MCH (25.7-32.2) pg MCHC (32.2-35.5) g/dl RDW Std Deviation (35.1-43.9) fL Plt Count (163-337) K/mm3 MPV (9.4-12.3) fl Neut % (Auto) (34.0-67.9) % Lymph % (Auto) (21.8-53.1) % [place] % (Auto) (5.3-12.2) % Eos % (Auto) (0.8-7.0) Baso % (Auto) (0.1-1.2) % Neut # (Auto) (1.78-5.38) K/mm3 Lymph # (Auto) (1.32-3.57) K/mm3 [place] # (Auto) (0.30-0.82) K/mm3 Eos # (Auto) (0.04-0.54) K/mm3 Baso # (Auto) (0.01-0.08) K/mm3 Sodium (136-145) mEq/L Potassium (3.5-5.1) mEq/L Chloride (98-107) mEq/L Carbon Dioxide (21-32) mEq/L Anion Gap (5-15) BUN (7-18) mg/dL Creatinine (0.7-1.3) mg/dL Est Cr Clr Drug Dosing mL/min Estimated GFR (MDRD) (>60) mL/min BUN/Creatinine Ratio (14-18) Glucose (83-115) mg/dL POC Glucose 115 H 122 H 116 H (83-110) mg/dL Calcium (8.5-10.1) mg/dL Magnesium (1.8-2.4) mg/dl C-Reactive Protein (<1.0) mg/dL 01/01/21 01/01/21 01/01/21 Range/Units 06:06 06:06 06:26 WBC 4.47 (4.23-9.07) K/mm3 RBC 2.88 L (4.63-6.08) M/mm3 Hgb 9.6 L (13.7-17.5) gm/dl Hct 31.4 L (40.1-51.0) % MCV 109.0 H D (79.0-92.2) fl MCH 33.3 H (25.7-32.2) pg MCHC 30.6 L (32.2-35.5) g/dl RDW Std Deviation 56.9 H (35.1-43.9) fL Plt Count 215 (163-337) K/mm3 MPV 8.9 L (9.4-12.3) fl Neut % (Auto) 41.4 (34.0-67.9) % Lymph % (Auto) 51.7 (21.8-53.1) % [place] % (Auto) 4.5 L (5.3-12.2) % Eos % (Auto) 2.2 (0.8-7.0) Baso % (Auto) 0.0 L (0.1-1.2) % Neut # (Auto) 1.85 (1.78-5.38) K/mm3 Lymph # (Auto) 2.31 (1.32-3.57) K/mm3 [place] # (Auto) 0.20 L (0.30-0.82) K/mm3 Eos # (Auto) 0.10 (0.04-0.54) K/mm3 Baso # (Auto) 0.00 L (0.01-0.08) K/mm3 Sodium 140 (136-145) mEq/L Potassium 3.8 (3.5-5.1) mEq/L Chloride 102 (98-107) mEq/L Carbon Dioxide 28 (21-32) mEq/L Anion Gap 13.8 (5-15) BUN 27 H (7-18) mg/dL Creatinine 1.3 (0.7-1.3) mg/dL Est Cr Clr Drug Dosing 57.99 mL/min Estimated GFR (MDRD) 54 (>60) mL/min BUN/Creatinine Ratio 20.8 H (14-18) Glucose 104 (83-115) mg/dL POC Glucose 106 (83-110) mg/dL Calcium 8.4 L (8.5-10.1) mg/dL Magnesium 2.3 (1.8-2.4) mg/dl C-Reactive Protein 8.0 H* (<1.0) mg/dL [place] Results Last 24 Hours: Microbiology 12/29/20 13:33 Aerobic Blood Culture - Preliminary Blood - Venous - Lab Draw Serratia Marcescens Anaerobic Blood Culture - Preliminary Serratia Marcescens 12/29/20 13:18 Aerobic Blood Culture - Preliminary Blood - Venous Serratia Marcescens Anaerobic Blood Culture - Preliminary Serratia Marcescens 12/29/20 13:50 Gram Stain - Final Toe, Right - Right Fourth Anaerobic Culture - Preliminary Serratia Marcescens Med Orders - Current: Current Medications Acetaminophen (Tylenol) 650 mg RECTAL Q4H PRN PRN Reason: Pain (mild 1-3) Acetaminophen (Tylenol) 650 mg PO BID [facility] Last Admin: 12/31/20 21:49 Dose: 650 mg Documented by: Hydrocodone Bitart/Acetaminophen ([place] 325-5 Mg) 1 tab PO Q4H PRN PRN Reason: Pain (moderate 4-6) Al Hydroxide/Mg Hydroxide (Mag-Al Plus) 30 ml PO Q2H PRN PRN Reason: Heartburn Albuterol/Ipratropium (Duoneb 3.0-0.5 Mg/3 Ml) 3 ml NEB Q4H PRN PRN Reason: Shortness Of Breath/wheezing Last Admin: 12/29/20 16:49 Dose: 3 ml Documented by: Bumetanide (Bumex) 3 mg PO DAILY [facility] Last Admin: 12/31/20 09:46 Dose: 3 mg Documented by: Calcium Carbonate/Glycine (Tums) 1,000 mg PO QID PRN PRN Reason: Heartburn Cholecalciferol (Vitamin D3) 5,000 unit PO DAILY [facility] Last Admin: 12/31/20 09:46 Dose: 5,000 unit Documented by: Clopidogrel Bisulfate (Plavix) 75 mg PO DAILY [facility] Last Admin: 12/31/20 09:46 Dose: 75 mg Documented by: Cyanocobalamin (Vitamin B12) 1,000 mcg PO DAILY [facility] Last Admin: 12/31/20 09:47 Dose: 1,000 mcg Documented by: Diclofenac Sodium (Voltaren 1% Gel) 2 gm TOP BID [facility] Last Admin: 12/31/20 21:50 Dose: 1 applic Documented by: Docusate Sodium (Colace) 100 mg PO BID PRN PRN Reason: Constipation Heparin Sodium (Porcine) (Heparin Sodium) 5,000 units SUBCUT Q8H [facility] Last Admin: 01/01/21 05:32 Dose: 5,000 units Documented by: Hydromorphone HCl (Dilaudid) 0.5 mg IVPUSH Q2H PRN PRN Reason: Pain (severe 7-10) Promethazine HCl 12.5 mg/ (Sodium Chloride) 50.5 mls @ 100 mls/hr IV Q6H PRN PRN Reason: Nausea/Vomiting Ceftriaxone Sodium 1 gm/ (Sodium Chloride) 100 mls @ 200 mls/hr IV Q24H [facility] Last Admin: 12/31/20 15:20 Dose: 200 mls/hr Documented by: Insulin Human Lispro (Humalog) 0 unit SUBCUT TIDAC [facility]; Protocol Last Admin: 12/31/20 18:21 Dose: Not Given Documented by: Loperamide HCl (Imodium) 2 mg PO ASDIRECTED PRN PRN Reason: Diarrhea Last Admin: 12/30/20 20:54 Dose: 2 mg Documented by: Losartan Potassium (Cozaar) 25 mg PO DAILY [facility] Last Admin: 12/31/20 09:47 Dose: 25 mg Documented by: Metoprolol Succinate (Toprol Xl) 50 mg PO DAILY [facility] Last Admin: 12/31/20 09:47 Dose: 50 mg Documented by: Mineral Oil/White Petrolatum (Hydrocerin Crm) 0 gm TOP DAILY [facility] Last Admin: 12/31/20 09:56 Dose: 1 gram Documented by: Multivitamins (Thera) 1 each PO DAILY [facility] Last Admin: 12/31/20 09:47 Dose: 1 each Documented by: Nitroglycerin (Nitrostat) 0.4 mg SL ASDIRECTED PRN PRN Reason: Chest Pain Ondansetron HCl (Zofran) 4 mg IV Q6H PRN PRN Reason: Nausea/Vomiting Polyethylene Glycol (Miralax) 17 gm PO BEDTIME PRN PRN Reason: Constipation Senna/Docusate Sodium (Senna Plus) 1 tab PO BID PRN PRN Reason: Constipation Sodium Chloride (Saline Flush) 10 ml FLUSH ASDIRECTED PRN PRN Reason: Keep Vein Open Last Admin: 12/29/20 13:00 Dose: 10 ml Documented by: Zolpidem Tartrate (Ambien) 5 mg PO BEDTIME PRN PRN Reason: Sleep Discontinued Medications Cholecalciferol (Vitamin D3) 25 mcg PO DAILY [facility] Last Admin: 12/30/20 08:16 Dose: 25 mcg Documented by: Ceftriaxone Sodium 2 gm/ (Sodium Chloride) 100 mls @ 200 mls/hr IV ONETIME ONE Stop: 12/29/20 14:41 Last Admin: 12/29/20 14:20 Dose: 200 mls/hr Documented by: Sodium Chloride (Normal Saline) 1,000 mls @ 100 mls/hr IV ASDIRECTED [facility] Stop: 12/30/20 01:44 Last Admin: 12/29/20 17:04 Dose: 100 mls/hr Documented by: Vancomycin HCl 2 gm/ Sodium (Chloride) 500 mls @ 250 mls/hr IV Q12H [facility] Last Admin: 12/30/20 05:06 Dose: 250 mls/hr Documented by: Metoclopramide HCl (Reglan) 5 mg IVPUSH ONETIME ONE Stop: 12/29/20 13:18 Last Admin: 12/29/20 13:25 Dose: 5 mg Documented by: Potassium Chloride (Klor-Con M20) 20 meq PO DAILY [facility] Last Admin: 12/30/20 08:17 Dose: 20 meq Documented by: Potassium Chloride (Klor-Con M20) 40 meq PO BID [facility] Stop: 12/31/20 21:01 Last Admin: 12/31/20 21:49 Dose: 40 meq Documented by: Vancomycin HCl (Pharmacy To Dose - Vancomycin) 0 dose .XX ASDIRECTED [facility] - Exam Quality Assessment: DVT Prophylaxis. No: Supplemental Oxygen, Urine Catheter General: Alert, Oriented, Cooperative, No Acute Distress HEENT: Pupils Equal, Pupils Reactive, Mucous Membr. Moist/[place] Neck: Supple, Trachea Midline Lungs: Clear to Auscultation, Normal Respiratory Effort Cardiovascular: Regular Rate, Regular Rhythm GI/Abdominal Exam: Normal Bowel Sounds, Soft, Non-Tender, No Distention, No Abnormal Bruit (Male) Exam: Deferred Extremities: Normal Inspection, Normal Range of Motion, Non-Tender, No Pedal Edema, Normal Capillary Refill Skin: Warm, Dry, Intact Neurological: No New Focal Deficit Psy/Mental Status: Alert, Normal Affect, Normal Mood Sepsis Event Note - Evaluation Sepsis Screening Result: No Definite Risk - Focused Exam Vital Signs: Vital Signs Temp Pulse Resp BP Pulse Ox Pulse Ox 01/01/21 06:14 91 L 12/31/20 20:06 91 L 12/31/20 19:14 97.9 F 82 18 158/95 H 90 L - Problem List & Annotations (1) Metabolic encephalopathy SNOMED Code(s): 09027806 Code(s): G93.41 - METABOLIC ENCEPHALOPATHY Status: Resolved Priority: High Current Visit: Yes (2) Hyponatremia SNOMED Code(s): 38702043 Code(s): E87.1 - HYPO-OSMOLALITY AND HYPONATREMIA Status: Resolved Current Visit: Yes (3) Lactic acidosis SNOMED Code(s): 95700877 Code(s): E87.2 - ACIDOSIS Status: Resolved Current Visit: Yes (4) [facility] resident SNOMED Code(s): 028776705 Code(s): Z59.3 - PROBLEMS RELATED TO LIVING IN RESIDENTIAL INSTITUTION Status: Chronic Priority: Low Current Visit: No (5) Bedridden SNOMED Code(s): 010470263 Code(s): Z74.01 - BED CONFINEMENT STATUS Status: Chronic Priority: Low Current Visit: No (6) Cellulitis of right leg SNOMED Code(s): 555097978 Code(s): L03.115 - CELLULITIS OF RIGHT LOWER LIMB Status: Acute Priority: High Current Visit: Yes (7) Hypoxia SNOMED Code(s): 624048943 Code(s): R09.02 - HYPOXEMIA Status: Resolved Priority: High Current Visit: Yes (8) Laceration of fourth toe, right SNOMED Code(s): 50009154528430345 Code(s): S91.114A - LAC W/O FB OF RIGHT LESSER TOE(S) W/O DAMAGE TO NAIL, INIT Status: Chronic Priority: High Current Visit: Yes Qualifiers: Encounter type: sequela Qualified Code(s): S91.114S - Laceration without foreign body of right lesser toe(s) without damage to nail, sequela (9) Leukocytosis SNOMED Code(s): 061378021, 106677985 Code(s): D72.829 - ELEVATED WHITE BLOOD CELL COUNT, UNSPECIFIED Status: Resolved Priority: High Current Visit: Yes Qualifiers: Leukocytosis type: unspecified Qualified Code(s): D72.829 - Elevated white blood cell count, unspecified (10) Coronary artery disease SNOMED Code(s): 71137055 Code(s): I25.10 - ATHSCL HEART DISEASE OF [place] CORONARY ARTERY W/O ANG PCTRS Status: Chronic Priority: Medium Current Visit: No Qualifiers: Coronary Disease-Associated Artery/Lesion type: unspecified vessel or lesion type [place] vs. transplanted heart: unspecified whether [place] or transplanted heart Associated angina: angina presence unspecified Qualified Code(s): I25.10 - Atherosclerotic heart disease of [place] coronary artery without angina pectoris (11) Diabetes mellitus SNOMED Code(s): 97466752 Code(s): E11.9 - TYPE 2 DIABETES MELLITUS WITHOUT COMPLICATIONS Status: Chronic Priority: Medium Current Visit: No Qualifiers: Diabetes mellitus type: type 2 Diabetes mellitus terminal makeup operator insulin use: without terminal makeup operator use Diabetes mellitus complication status: with other specified complication Qualified Code(s): E11.69 - Type 2 diabetes mellitus with other specified complication (12) Morbid obesity SNOMED Code(s): 968539671 Code(s): E66.01 - MORBID (SEVERE) OBESITY DUE TO EXCESS CALORIES Status: Chronic Priority: Medium Current Visit: No (13) Vitamin D deficiency SNOMED Code(s): 13141148 Code(s): E55.9 - VITAMIN D DEFICIENCY, UNSPECIFIED Status: Chronic Priority: Low Current Visit: No (14) Fever SNOMED Code(s): 956591468 Code(s): R50.9 - FEVER, UNSPECIFIED Status: Resolved Priority: High Current Visit: Yes Qualifiers: Fever type: unspecified Qualified Code(s): R50.9 - Fever, unspecified (15) Bacteremia SNOMED Code(s): 9067605 Code(s): R78.81 - BACTEREMIA Status: Acute Priority: High Current Visit: Yes (16) Hypokalemia SNOMED Code(s): 10744887 Code(s): E87.6 - HYPOKALEMIA Status: Acute Priority: High Current Visit: Yes - Problem List Review Problem List Initiated/Reviewed/Updated: Yes - My Orders Last 24 Hours: My Active Orders 12/31/20 08:01 Blood Culture x2 Reflex Set [OM.PC] ASDIRECTED 12/31/20 08:34 CULTURE BLOOD [BC] Routine 12/31/20 08:43 CULTURE BLOOD [BC] Routine 12/31/20 11:13 Up to Chair [RC] BID - Plan Plan:: This is a 75 yo elderly white male with past medical hx/o Impaired vision, HTN, HLD, DM2, Hx/o [place], PVD, CKD Stage 2-3, Chronic SOB on Exertion, Hx/o GI Bleed, Urinary Incontinence, Recurrent UTI, OA, Gait Instability, Chronic Anemia, MM/Blood Disorder, and Morbid Obesity who was brought in from [place] in [place] for evaluation of fever associated with chills. Assessment: Acute: Bacteremia with 4/4 bottles positive for Serratia Marcescens Acute on chronic Lower Extremity Cellulitis/Right 4th Digit Wound, grew Staph aureus and Beta Strep Group C in the past - Serratia Marcescens now Macrocytic Hypochromic Anemia/Anemia of Chronic Disease, Hgb of 11.2-->8.9-->8.9-->9.6 grams Hypokalemia with potassium of 3.4-->3.8-->3.8 Hyperglycemia with DM2 Hypoalbuminemia with Albumin of 3.1 Elevated CRP of 9.3-->15.0-->14.3-->8.0 Debility - Baseline jon lift Morbidly Obese [facility] resident Vitamin D deficiency with vitamin D of 20.8 Resolved: Early Developing Sepsis 2/2 Lower Extremity Cellulitis/Right 4th Digit Wound, Covid-19, MRSA, UA, and Chest x-ray were all negative Fever with a Temp as high 100.0 F Leukocytosis with WBC of 17.59 Mild Hyponatremia with Na of 135 Lactic Acidosis of 2.5-->now 1.7 Toxic/Metabolic Encephalopathy likely from underlying infection Hypoxia requiring 1L NC Chronic: Impaired vision, HTN, HLD, DM2, Hx/o [place], PVD, CKD Stage 2-3, Chronic SOB on Exertion, Hx/o GI Bleed, Urinary Incontinence, Recurrent UTI, OA, Gait Instability, Chronic Anemia, MM/Blood Disorder, Chronic Leg Edema, and Morbid Obesity Plan: Admit to [facility]. Monitor repeat blood cultures Monitor Inflammatory markers. Received 2 grams of Rocephin in ED and started on Rocephin and vancomycin on floor. Discontinue vancomycin due to gram negative rods in blood and foot cultures. Switch to cefepime today due to intermediate resistance to Rocephin. Review home meds. ADA/AHA diet. Accu-check TIDAC with ISS. Supplement potassium with home dose. Dietary consult for weight management and low protein state. Routine AM labs. Fall Precautions. Hold parameters for narcotics and sleep medication. Wound consult. Code status is DNR/DNI. Prognosis is good. LOS >96 Hrs due to bacteremia and need for continued IV Abx, repeat blood cultures.
[2021-01-01] MEDS: Cholecalciferol (Vitamin D3) 5,000 UNIT Cap PO SCH (08:42)
[2021-01-01] MEDS: Clopidogrel 75 MG Tab PO SCH (08:43)
[2021-01-01] MEDS: Metoprolol Succinate 50 MG Tab.ER PO SCH (08:44)
[2021-01-01] MEDS: Acetaminophen 325 MG Tab PO SCH ×2 (08:45→20:33)
[2021-01-01] MEDS: Losartan 25 MG Tab PO SCH (08:45)
[2021-01-01] MEDS: Bumetanide 1 MG Tab PO SCH (08:46)
[2021-01-01] MEDS: Cyanocobalamin (Vitamin B12) 1,000 MCG Tab PO SCH (08:47)
[2021-01-01] MEDS: Multivitamins,Therapeutic Tab PO SCH (08:47)
[2021-01-01] MEDS: Mineral Oil/White Petrolatum Crm 113 GM Jar TOP SCH (08:48)
[2021-01-01] MEDS: Diclofenac Sodium 1% Gel 100 GM Tube TOP SCH ×2 (08:48→20:34)
[2021-01-01] MEDS: Potassium Chloride 20 MEQ Tab.ER PO SCH (11:05)
[2021-01-01] MEDS: Cefepime 2 GM in Premix Bag 1 BAG IV SCH ×2 (11:07→17:29)
[2021-01-02] MEDS: Cefepime 2 GM in Premix Bag 1 BAG IV SCH ×2 (01:48→10:59)
[2021-01-02] MEDS: Heparin Sodium 5,000 Units/ML Vial SUBCUT SCH (06:19)
[2021-01-02] MEDS: Potassium Chloride 20 MEQ Tab.ER PO SCH (08:37)
[2021-01-02] MEDS: Cholecalciferol (Vitamin D3) 5,000 UNIT Cap PO SCH (08:37)
[2021-01-02] MEDS: Multivitamins,Therapeutic Tab PO SCH (08:37)
[2021-01-02] MEDS: Clopidogrel 75 MG Tab PO SCH (08:37)
[2021-01-02] MEDS: Acetaminophen 325 MG Tab PO SCH (08:38)
[2021-01-02] MEDS: Bumetanide 1 MG Tab PO SCH (08:38)
[2021-01-02] MEDS: Metoprolol Succinate 50 MG Tab.ER PO SCH (08:38)
[2021-01-02] MEDS: Losartan 25 MG Tab PO SCH (08:38)
[2021-01-02] MEDS: Mineral Oil/White Petrolatum Crm 113 GM Jar TOP SCH (08:39)
[2021-01-02] MEDS: Cyanocobalamin (Vitamin B12) 1,000 MCG Tab PO SCH (08:39)
[2021-01-02] MEDS: Diclofenac Sodium 1% Gel 100 GM Tube TOP SCH (08:40)
--- NOTE | 2021-01-02 09:50 | PCM.DCSUM1 ---
Discharge Summary - Hospital Course HPI Initial Comments: This is a 75 yo elderly white male with past medical hx/o Impaired vision, HTN, HLD, DM2, Hx/o HI, PVD, CKD Stage 2-3, Chronic SOB on Exertion, Hx/o GI Bleed, Urinary Incontinence, Recurrent UTI, OA, Gait Instability, Anemia, MM/Blood Disorder, and Morbid Obesity who was brought in from [facility] in [place] for evaluation of fever associated with chills. His reported temp was as high as 100.0 F this morning. He did receive Tylenol last night for initial treatment. However he denies any other symptoms except he chronically has lower leg edema with cellulitis. He was recently seen ED and received some sutures to a minor laceration on the base of his right 4th digit on 11/17/2020. Upon arrival in ED, he was afebrile, hypoxic, tachypneic, and tachycardic but with elevated blood pressure. His initial work up shows a CBC remarkable for WBC of 17.59, Hgb of 11.2, Hct of 36.7, MCV of 109.6, and Neutrophils of 74%. His PT/INR is wnl. His chemistry is significant for Na of 135, BUN of 22, Cr of 1.6, LA of 2.5, CRP of 9.3, and Albumin of 3.1. His UA, MRSA and rapid Covid-19 tests are all negative. His chest x-ray report re3d as nothing acute is appreciated. Patient received initial treatment in ED prior to coming in to the floor for further treatment of early developing sepsis due to lower extremity cellulitis/right 4th digit wound. Diagnosis: Stroke: No - Discharge Data Discharge Date: 01/02/21 (Admit date: 12/29/20) Discharge Disposition: DC/Tfer to SNF 03 Condition: Good - Referral to Home Health Primary Care Physician: Yanick Plunkett MD - Discharge Diagnosis/Problem(s) (1) Metabolic encephalopathy SNOMED Code(s): 35790490 ICD Code: G93.41 - METABOLIC ENCEPHALOPATHY Status: Resolved Priority: High Current Visit: Yes (2) Hyponatremia SNOMED Code(s): 53897930 ICD Code: E87.1 - HYPO-OSMOLALITY AND HYPONATREMIA Status: Resolved Current Visit: Yes (3) Lactic acidosis SNOMED Code(s): 78893077 ICD Code: E87.2 - ACIDOSIS Status: Resolved Current Visit: Yes (4) group home resident SNOMED Code(s): 108837036 ICD Code: Z59.3 - PROBLEMS RELATED TO LIVING IN RESIDENTIAL INSTITUTION Status: Chronic Priority: Low Current Visit: No (5) Bedridden SNOMED Code(s): 240254707 ICD Code: Z74.01 - BED CONFINEMENT STATUS Status: Chronic Priority: Low Current Visit: No (6) Cellulitis of right leg SNOMED Code(s): 476701479 ICD Code: L03.115 - CELLULITIS OF RIGHT LOWER LIMB Status: Acute Priority: High Current Visit: Yes (7) Hypoxia SNOMED Code(s): 088582482 ICD Code: R09.02 - HYPOXEMIA Status: Resolved Priority: High Current Visit: Yes (8) Laceration of fourth toe, right SNOMED Code(s): 33907757351489324 ICD Code: S91.114A - LAC W/O FB OF RIGHT LESSER TOE(S) W/O DAMAGE TO NAIL, INIT Status: Chronic Priority: High Current Visit: Yes Qualifiers: Encounter type: sequela Qualified Code(s): S91.114S - Laceration without foreign body of right lesser toe(s) without damage to nail, sequela (9) Leukocytosis SNOMED Code(s): 266878433, 723682836 ICD Code: D72.829 - ELEVATED WHITE BLOOD CELL COUNT, UNSPECIFIED Status: Resolved Priority: High Current Visit: Yes Qualifiers: Leukocytosis type: unspecified Qualified Code(s): D72.829 - Elevated white blood cell count, unspecified (10) Coronary artery disease SNOMED Code(s): 87973606 ICD Code: I25.10 - ATHSCL HEART DISEASE OF [place] CORONARY ARTERY W/O ANG PCTRS Status: Chronic Priority: Medium Current Visit: No Qualifiers: Coronary Disease-Associated Artery/Lesion type: unspecified vessel or lesion type [place] vs. transplanted heart: unspecified whether [place] or transplanted heart Associated angina: angina presence unspecified Qualified Code(s): I25.10 - Atherosclerotic heart disease of [place] coronary artery without angina pectoris (11) Diabetes mellitus SNOMED Code(s): 72915524 ICD Code: E11.9 - TYPE 2 DIABETES MELLITUS WITHOUT COMPLICATIONS Status: Chronic Priority: Medium Current Visit: No Qualifiers: Diabetes mellitus type: type 2 Diabetes mellitus vermin exterminator insulin use: without usp use Diabetes mellitus complication status: with other specified complication Qualified Code(s): E11.69 - Type 2 diabetes mellitus with other specified complication (12) Morbid obesity SNOMED Code(s): 083822485 ICD Code: E66.01 - MORBID (SEVERE) OBESITY DUE TO EXCESS CALORIES Status: Chronic Priority: Medium Current Visit: No (13) Vitamin D deficiency SNOMED Code(s): 47872046 ICD Code: E55.9 - VITAMIN D DEFICIENCY, UNSPECIFIED Status: Chronic Priority: Low Current Visit: No (14) Fever SNOMED Code(s): 336116001 ICD Code: R50.9 - FEVER, UNSPECIFIED Status: Resolved Priority: High Current Visit: Yes Qualifiers: Fever type: unspecified Qualified Code(s): R50.9 - Fever, unspecified (15) Bacteremia SNOMED Code(s): 3518707 ICD Code: R78.81 - BACTEREMIA Status: Acute Priority: High Current Visit: Yes (16) Hypokalemia SNOMED Code(s): 10362529 ICD Code: E87.6 - HYPOKALEMIA Status: Chronic Priority: High Current Visit: Yes - Patient Summary/Data Consults: Consultations 12/29/20 15:36 Consult to Case Management/Electric Razor Mechanic [CONS] Routine Consult to Ice Cream Man [CONS] Routine 12/29/20 22:41 Consult to Physical Therapy [PT Evaluation and Treatment] [CONS] Routine Labs Pending at D/C: None Recommended Follow-up Testing/Procedures: Follow-up with primary care provider within 7-10 days of discharge, sooner if needed. -Recommend repeat CBC, CMP, and magnesium at that visit Hospital Course: This is a 75 yo elderly white male with past medical hx/o Impaired vision, HTN, HLD, DM2, Hx/o HI, PVD, CKD Stage 2-3, Chronic SOB on Exertion, Hx/o GI Bleed, Urinary Incontinence, Recurrent UTI, OA, Gait Instability, Chronic Anemia, MM/Blood Disorder, and Morbid Obesity who was brought in from [facility] in [place] for evaluation of fever associated with chills. He was ultimately admitted due to sepsis secondary to lower extremity cellulitis and a right fourth digit wound which had been sutured prior. Toe wound was cultured and blood cultures were obtained. 4 out of 4 blood cultures grew out Serratia Marcescens and toe wound also grew out Proteus. Patient was initially receiving IV Rocephin and then switched switched to cefepime once culture and sensitivity reports were presented. Potassium was noted to be low and this was supplemented. Patient is on home supplementation and this was continued. Lactic acid trended down from 2.5-1.7. Patient was initially somewhat lethargic and this did improve throughout his stay. He is reportedly at baseline [facility] at [facility], where he resides. He was up to chair here. He was initially requiring oxygen and he was given a incentive spirometer which he utilized. He was able to be weaned off prior to discharge. Blood sugars remained stable. Discussion ensued with pharmacy on best course of treatment as bacteria patient were growing had multiple resistant antibiotics. Decision was made to ultimately discharge patient on Bactrim DS twice daily for 6 more days with his first dose tonight - 01/02/20. Repeat blood cultures were negative. Vitamin D was checked all the patient is on 1000 units supplementation this remained low. He was therefore increased to 5000 units supplementation and prescription was sent for this. He did see our dietitian. Physical therapy was consulted for wound care and recommend patient just received nursing dressing changes. Of note patient has sutures in fourth right toe which will need to be removed in the near future. Patient returned to [facility] today. Recommend follow-up with PCP within 7 to 10 days of discharge, sooner if needed. Recommend repeat CBC, CMP, and magnesium at that visit. Patient advised to return the emergency room or contact primary care provider should symptoms return or worsen. - Patient Instructions Diet: Diabetic Diet Activity: As Tolerated Activity, Other: Up to chair Driving: Do Not Drive Showering/Bathing: May Shower Notify Provider of: Fever, Increased Pain, Nausea and/or Vomiting Other/Special Instructions: Follow-up with primary care provider within 7 to 10 days of discharge, sooner if needed. You are prescribed an antibiotic for your foot and blood infection. Repeat blood cultures have been negative thus far. He will be discharged on an antibiotic you take twice a day. Take your first dose tonight (01/02/21) and continue until you run out. Get up to the chair and stay as active as possible. Continue to utilize her incentive spirometer (clear/blue device you inhale through) for another 1 week. Continue to check your blood sugars as prior. Resume home medications as directed. Should symptoms return or worsen contact primary care provider or return the emergency room. - Discharge Plan *PRESCRIPTION DRUG MONITORING PROGRAM REVIEWED*: No *COPY OF PRESCRIPTION DRUG MONITORING REPORT IN PATIENT AMARILIS: No Prescriptions/Med Rec: Sulfamethoxazole/Trimethoprim [Bactrim Ds Tablet] 1 each PO BID #11 tablet Cholecalciferol (Vitamin D3) [Vitamin D3] 5,000 unit PO DAILY #20 cap Home Medications: Home Meds Aspirin 81 mg PO DAILY 11/26/18 [History] Potassium Chloride 20 meq PO DAILY 11/26/18 [History] Acetaminophen 650 mg PO BID 04/24/20 [History] Alum Hydrox/Mag Hydrox/Simeth [Maalox Advanced] 30 ml PO Q2HR PRN 04/24/20 [History] Bumetanide 3 mg PO DAILY 04/24/20 [History] Calcium Carbonate [Tums] 1,000 mg PO QID PRN 04/24/20 [History] Clopidogrel [Plavix] 75 mg PO DAILY 04/24/20 [History] Diclofenac Sodium [Voltaren 1% Gel] 2 gm TOP BID 04/24/20 [History] Loperamide [Imodium] 4 mg PO ASDIRECTED PRN 04/24/20 [History] Metoprolol Succinate 50 mg PO DAILY 04/24/20 [History] Mirtazapine 30 mg PO BEDTIME 04/24/20 [History] Nitroglycerin [Nitrostat] 0.4 mg SL ASDIRECTED PRN 04/24/20 [History] polyethylene glycoL 3350 [MiraLAX] 17 gm PO BEDTIME PRN 04/24/20 [History] Cyanocobalamin (Vitamin B-12) [Vitamin B-12] 1,000 mcg PO DAILY 07/15/20 [History] Emollient Combination No.114 [Eucerin Advanced Repair] 1 dose TOP DAILY 07/15/20 [History] Losartan [Cozaar] 25 mg PO DAILY 07/15/20 [History] Multivitamin 1 tab PO DAILY 07/16/20 [History] Cholecalciferol (Vitamin D3) [Vitamin D3] 5,000 unit PO DAILY #20 cap 01/02/21 [Rx] Sulfamethoxazole/Trimethoprim [Bactrim Ds Tablet] 1 each PO BID #11 tablet 01/02/21 [Rx] Oxygen Therapy Mode: Room Air Patient Handouts: Sepsis, Diagnosis, Adult, Cellulitis, Adult, Eyme-gn-Vatx Forms: ED Department Discharge Referrals: Yanick Plunkett MD [Primary Care Provider] - 01/14/21 12:45 pm (Hospital follow-up appointment.) - Discharge Summary/Plan Comment DC Time >30 min.: Yes (45 mins ) - General Info Date of Service: 01/02/21 Functional Status: Reports: Pain Controlled, Tolerating Diet, Urinating, Incentive Spirometry. Denies: Ambulating (Baseline ), New Symptoms - Review of Systems General: Reports: No Symptoms. Denies: Fever, Weakness, Fatigue, Malaise, Chills HEENT: Reports: No Symptoms. Denies: Headaches, Sore Throat Pulmonary: Reports: No Symptoms. Denies: Shortness of Breath, Cough, Sputum, Wheezing Cardiovascular: Reports: Edema (chornic ). Denies: Chest Pain, Palpitations, Dyspnea on Exertion Gastrointestinal: Reports: No Symptoms. Denies: Abdominal Pain, Constipation, Diarrhea, Nausea, Vomiting Genitourinary: Reports: No Symptoms. Denies: Pain Musculoskeletal: Reports: No Symptoms. Denies: Leg Pain Skin: Reports: No Symptoms. Denies: Cyanosis Neurological: Reports: Pre-Existing Deficit (Reported Edwina lift at SNF ), Difficulty Walking (chroinic ), Gait Disturbance (chronic ), Other (Baseline peripheral neuropathy with minimal sensation in lower extremities). Denies: Confusion Psychiatric: Reports: No Symptoms - Patient Data Vitals - Most Recent: Last Vital Signs Temp 97.5 F 01/02/21 08:04 Pulse 67 01/02/21 08:38 Resp 16 01/02/21 08:04 BP 143/80 H 01/02/21 08:38 Pulse Ox 92 L 01/02/21 08:29 Weight - Most Recent: 409 lb 9.6 oz I&O - Last 24 hours: Intake & Output 01/01/21 01/02/21 01/02/21 22:59 06:59 14:59 Intake Total 1300 550 Output Total 425 725 Balance 875 -175 Lab Results - Last 24 hrs: Laboratory Results - last 24 hr 01/01/21 01/01/21 01/02/21 Range/Units 11:51 17:16 06:05 WBC 4.91 (4.23-9.07) K/mm3 RBC 3.02 L (4.63-6.08) M/mm3 Hgb 10.1 L (13.7-17.5) gm/dl Hct 32.5 L (40.1-51.0) % MCV 107.6 H (79.0-92.2) fl MCH 33.4 H (25.7-32.2) pg MCHC 31.1 L (32.2-35.5) g/dl RDW Std Deviation 56.7 H (35.1-43.9) fL Plt Count 237 (163-337) K/mm3 MPV 9.1 L (9.4-12.3) fl Neut % (Auto) 45.3 (34.0-67.9) % Lymph % (Auto) 46.6 (21.8-53.1) % [place] % (Auto) 5.3 (5.3-12.2) % Eos % (Auto) 2.4 (0.8-7.0) Baso % (Auto) 0.0 L (0.1-1.2) % Neut # (Auto) 2.22 (1.78-5.38) K/mm3 Lymph # (Auto) 2.29 (1.32-3.57) K/mm3 [place] # (Auto) 0.26 L (0.30-0.82) K/mm3 Eos # (Auto) 0.12 (0.04-0.54) K/mm3 Baso # (Auto) 0.00 L (0.01-0.08) K/mm3 Manual Slide Review Abnormal smear Sodium (136-145) mEq/L Potassium (3.5-5.1) mEq/L Chloride (98-107) mEq/L Carbon Dioxide (21-32) mEq/L Anion Gap (5-15) BUN (7-18) mg/dL Creatinine (0.7-1.3) mg/dL Est Cr Clr Drug Dosing mL/min Estimated GFR (MDRD) (>60) mL/min BUN/Creatinine Ratio (14-18) Glucose (83-115) mg/dL POC Glucose 128 H 119 H (83-110) mg/dL Calcium (8.5-10.1) mg/dL Magnesium (1.8-2.4) mg/dl C-Reactive Protein (<1.0) mg/dL 01/02/21 01/02/21 Range/Units 06:05 06:18 WBC (4.23-9.07) K/mm3 RBC (4.63-6.08) M/mm3 Hgb (13.7-17.5) gm/dl Hct (40.1-51.0) % MCV (79.0-92.2) fl MCH (25.7-32.2) pg MCHC (32.2-35.5) g/dl RDW Std Deviation (35.1-43.9) fL Plt Count (163-337) K/mm3 MPV (9.4-12.3) fl Neut % (Auto) (34.0-67.9) % Lymph % (Auto) (21.8-53.1) % [place] % (Auto) (5.3-12.2) % Eos % (Auto) (0.8-7.0) Baso % (Auto) (0.1-1.2) % Neut # (Auto) (1.78-5.38) K/mm3 Lymph # (Auto) (1.32-3.57) K/mm3 [place] # (Auto) (0.30-0.82) K/mm3 Eos # (Auto) (0.04-0.54) K/mm3 Baso # (Auto) (0.01-0.08) K/mm3 Manual Slide Review Sodium 139 (136-145) mEq/L Potassium 3.6 (3.5-5.1) mEq/L Chloride 101 (98-107) mEq/L Carbon Dioxide 30 (21-32) mEq/L Anion Gap 11.6 (5-15) BUN 28 H (7-18) mg/dL Creatinine 1.3 (0.7-1.3) mg/dL Est Cr Clr Drug Dosing 57.99 mL/min Estimated GFR (MDRD) 54 (>60) mL/min BUN/Creatinine Ratio 21.5 H (14-18) Glucose 118 H (83-115) mg/dL POC Glucose 116 H (83-110) mg/dL Calcium 8.7 (8.5-10.1) mg/dL Magnesium 2.4 (1.8-2.4) mg/dl C-Reactive Protein 5.2 H* (<1.0) mg/dL LETI Results - Last 24 hrs: Microbiology 12/31/20 08:43 Aerobic Blood Culture - Preliminary Blood - Venous - Lab Draw NO GROWTH AFTER 2 DAYS Anaerobic Blood Culture - Preliminary NO GROWTH AFTER 2 DAYS 12/31/20 08:34 Aerobic Blood Culture - Preliminary Blood - Venous NO GROWTH AFTER 2 DAYS Anaerobic Blood Culture - Preliminary NO GROWTH AFTER 2 DAYS 12/29/20 13:50 Gram Stain - Final Toe, Right - Right Fourth Anaerobic Culture - Final Serratia Marcescens Proteus Mirabilis 12/29/20 13:33 Aerobic Blood Culture - Preliminary Blood - Venous - Lab Draw Serratia Marcescens Anaerobic Blood Culture - Preliminary Serratia Marcescens 12/29/20 13:18 Aerobic Blood Culture - Preliminary Blood - Venous Serratia Marcescens Anaerobic Blood Culture - Preliminary Serratia Marcescens Med Orders - Current: Current Medications Acetaminophen (Tylenol) 650 mg RECTAL Q4H PRN PRN Reason: Pain (mild 1-3) Acetaminophen (Tylenol) 650 mg PO BID [facility] Last Admin: 01/02/21 08:38 Dose: 650 mg Documented by: Hydrocodone Bitart/Acetaminophen ([place] 325-5 Mg) 1 tab PO Q4H PRN PRN Reason: Pain (moderate 4-6) Al Hydroxide/Mg Hydroxide (Mag-Al Plus) 30 ml PO Q2H PRN PRN Reason: Heartburn Albuterol/Ipratropium (Duoneb 3.0-0.5 Mg/3 Ml) 3 ml NEB Q4H PRN PRN Reason: Shortness Of Breath/wheezing Last Admin: 12/29/20 16:49 Dose: 3 ml Documented by: Bumetanide (Bumex) 3 mg PO DAILY [facility] Last Admin: 01/02/21 08:38 Dose: 3 mg Documented by: Calcium Carbonate/Glycine (Tums) 1,000 mg PO QID PRN PRN Reason: Heartburn Cholecalciferol (Vitamin D3) 5,000 unit PO DAILY [facility] Last Admin: 01/02/21 08:37 Dose: 5,000 unit Documented by: Clopidogrel Bisulfate (Plavix) 75 mg PO DAILY [facility] Last Admin: 01/02/21 08:37 Dose: 75 mg Documented by: Cyanocobalamin (Vitamin B12) 1,000 mcg PO DAILY [facility] Last Admin: 01/02/21 08:39 Dose: 1,000 mcg Documented by: Diclofenac Sodium (Voltaren 1% Gel) 2 gm TOP BID [facility] Last Admin: 01/02/21 08:40 Dose: 1 applic Documented by: Docusate Sodium (Colace) 100 mg PO BID PRN PRN Reason: Constipation Heparin Sodium (Porcine) (Heparin Sodium) 5,000 units SUBCUT Q8H [facility] Last Admin: 01/02/21 06:19 Dose: 5,000 units Documented by: Hydromorphone HCl (Dilaudid) 0.5 mg IVPUSH Q2H PRN PRN Reason: Pain (severe 7-10) Promethazine HCl 12.5 mg/ (Sodium Chloride) 50.5 mls @ 100 mls/hr IV Q6H PRN PRN Reason: Nausea/Vomiting Cefepime HCl 2 gm/ Premix 50 mls @ 100 mls/hr IV Q8H [facility] Last Admin: 01/02/21 01:48 Dose: 100 mls/hr Documented by: Insulin Human Lispro (Humalog) 0 unit SUBCUT TIDAC [facility]; Protocol Last Admin: 01/02/21 08:11 Dose: Not Given Documented by: Loperamide HCl (Imodium) 2 mg PO ASDIRECTED PRN PRN Reason: Diarrhea Last Admin: 12/30/20 20:54 Dose: 2 mg Documented by: Losartan Potassium (Cozaar) 25 mg PO DAILY [facility] Last Admin: 01/02/21 08:38 Dose: 25 mg Documented by: Metoprolol Succinate (Toprol Xl) 50 mg PO DAILY [facility] Last Admin: 01/02/21 08:38 Dose: 50 mg Documented by: Mineral Oil/White Petrolatum (Hydrocerin Crm) 0 gm TOP DAILY [facility] Last Admin: 01/02/21 08:39 Dose: 1 gram Documented by: Multivitamins (Thera) 1 each PO DAILY [facility] Last Admin: 01/02/21 08:37 Dose: 1 each Documented by: Nitroglycerin (Nitrostat) 0.4 mg SL ASDIRECTED PRN PRN Reason: Chest Pain Ondansetron HCl (Zofran) 4 mg IV Q6H PRN PRN Reason: Nausea/Vomiting Polyethylene Glycol (Miralax) 17 gm PO BEDTIME PRN PRN Reason: Constipation Potassium Chloride (Klor-Con M20) 20 meq PO DAILY [facility] Last Admin: 01/02/21 08:37 Dose: 20 meq Documented by: Senna/Docusate Sodium (Senna Plus) 1 tab PO BID PRN PRN Reason: Constipation Sodium Chloride (Saline Flush) 10 ml FLUSH ASDIRECTED PRN PRN Reason: Keep Vein Open Last Admin: 12/29/20 13:00 Dose: 10 ml Documented by: Zolpidem Tartrate (Ambien) 5 mg PO BEDTIME PRN PRN Reason: Sleep Discontinued Medications Cholecalciferol (Vitamin D3) 25 mcg PO DAILY [facility] Last Admin: 12/30/20 08:16 Dose: 25 mcg Documented by: Ceftriaxone Sodium 2 gm/ (Sodium Chloride) 100 mls @ 200 mls/hr IV ONETIME ONE Stop: 12/29/20 14:41 Last Admin: 12/29/20 14:20 Dose: 200 mls/hr Documented by: Sodium Chloride (Normal Saline) 1,000 mls @ 100 mls/hr IV ASDIRECTED [facility] Stop: 12/30/20 01:44 Last Admin: 12/29/20 17:04 Dose: 100 mls/hr Documented by: Vancomycin HCl 2 gm/ Sodium (Chloride) 500 mls @ 250 mls/hr IV Q12H [facility] Last Admin: 12/30/20 05:06 Dose: 250 mls/hr Documented by: Ceftriaxone Sodium 1 gm/ (Sodium Chloride) 100 mls @ 200 mls/hr IV Q24H [facility] Last Admin: 12/31/20 15:20 Dose: 200 mls/hr Documented by: Metoclopramide HCl (Reglan) 5 mg IVPUSH ONETIME ONE Stop: 12/29/20 13:18 Last Admin: 12/29/20 13:25 Dose: 5 mg Documented by: Potassium Chloride (Klor-Con M20) 20 meq PO DAILY [facility] Last Admin: 12/30/20 08:17 Dose: 20 meq Documented by: Potassium Chloride (Klor-Con M20) 40 meq PO BID [facility] Stop: 12/31/20 21:01 Last Admin: 12/31/20 21:49 Dose: 40 meq Documented by: Vancomycin HCl (Pharmacy To Dose - Vancomycin) 0 dose .XX ASDIRECTED [facility] - Exam Quality Assessment: Reports: DVT Prophylaxis. Denies: Supplemental Oxygen, Urine Catheter General: Reports: Alert, Oriented, Cooperative, No Acute Distress HEENT: Reports: Pupils Equal, Pupils Reactive, Mucous Membr. Moist/[place] Neck: Reports: Supple, Trachea Midline Lungs: Reports: Clear to Auscultation, Normal Respiratory Effort, Decreased Echo ath Sounds Cardiovascular: Reports: Regular Rate, Regular Rhythm GI/Abdominal Exam: Normal Bowel Sounds, Soft, Non-Tender, No Distention Rectal (Males) Exam: Deferred Back Exam: Reports: Normal Inspection, Decreased Range of Motion Extremities: Non-Tender, Pedal Edema (2-3+ baseline ), Limited Range of Motion, Other (Bilateral lower extremity discoloration consistent with PVD. Sutures noted in right fourth toe. Bandage on toes of right foot.) Skin: Reports: Warm, Dry, Intact Wound/Incisions: Reports: Healing Well Neurological: Reports: No New Focal Deficit Psy/Mental Status: Reports: Alert, Normal Affect, Normal Mood
== END 2021-01-02 12:05 | DRG 871 ==
LOC: JD.ED 12:09 → JD.MS 15:36
PROVIDERS: ADMIT Internal Medicine; ATTEND Internal Medicine
DX: A41.9 Sepsis, unspecified organism (principal); A41.01 Sepsis due to Methicillin susceptible Staphylococcus aureus; G93.41 Metabolic encephalopathy; I10 Essential (primary) hypertension; L03.115 Cellulitis of right lower limb; R32 Unspecified urinary incontinence; E87.1 Hypo-osmolality and hyponatremia; G47.00 Insomnia, unspecified; E11.9 Type 2 diabetes mellitus without complications; I25.10 Atherosclerotic heart disease of native coronary artery without angina pectoris; D64.9 Anemia, unspecified; Z79.2 Long term (current) use of antibiotics; Z79.02 Long term (current) use of antithrombotics/antiplatelets; E66.01 Morbid (severe) obesity due to excess calories; E55.9 Vitamin D deficiency, unspecified; Z20.822 Contact with and (suspected) exposure to COVID-19; Z66 Do not resuscitate; E87.6 Hypokalemia; H54.7 Unspecified visual loss; E11.22 Type 2 diabetes mellitus with diabetic chronic kidney disease; M19.90 Unspecified osteoarthritis, unspecified site; D63.1 Anemia in chronic kidney disease; N18.30 Chronic kidney disease, stage 3 unspecified; R26.9 Unspecified abnormalities of gait and mobility; R53.81 Other malaise; E11.51 Type 2 diabetes mellitus with diabetic peripheral angiopathy without gangrene; R09.02 Hypoxemia; Z87.440 Personal history of urinary (tract) infections; Z74.01 Bed confinement status; S91.11 Laceration without foreign body of toe without damage to nail; I25.2 Old myocardial infarction; Z98.49 Cataract extraction status, unspecified eye; Z79.82 Long term (current) use of aspirin; Z79.899 Other long term (current) drug therapy; Z85.79 Personal history of other malignant neoplasms of lymphoid, hematopoietic and related tissues
CPT/HCPCS: 36415; 71045; 71045-26; 80048; 80053; 80061; 81001; 82306; 82962; 83605; 83735; 84145; 84439; 84443; 85007; 85025; 85027; 85610; 86140; 87040; 87075; 87077; 87088; 87186; 87205; 87493; 87641; 93005; 93010; 94640; 94761; 96365; 96375; 99222; 99233; 99239; 99285; 99285-25; A9270-GY; J0692; J0696; J1644; J2765; J3370; J7030; J7040; J7620-GY; U0002

== ENCOUNTER 2021-06-02 11:15 | Inpatient (IN) | payer MEDICARE, OTHER ==
[2021-06-02] MEDS ORDERED: Acetaminophen 325 MG Tab PO ONE (11:27)
[2021-06-02] MEDS ORDERED: Dextrose 5%-0.9% NaCl 1,000 ML IV SCH (11:30)
--- NOTE | 2021-06-02 11:31 | EDM.PDOC ---
ED HPI GENERAL MEDICAL PROBLEM - General Chief Complaint: Chest Pain Stated Complaint: [facility] Time Seen by Provider: 06/02/21 11:20 Source of Information: Reports: Patient, EMS History Limitations: Reports: No Limitations - History of Present Illness INITIAL COMMENTS - FREE TEXT/NARRATIVE: 85-year-old gentleman who resides at [facility] in [facility] presents to the ED per ambulance service from that [facility]. He was weak this morning and he could not walk with the aid of his walker as per usual. He developed chills and some rigors this morning. Associated nausea after eating breakfast which he vomited up. Identified to have had a fever and took Tylenol around 0600 hrs. this morning. He does have open wound right second plantar surface of his toe and extensive chronic edema both lower extremities with venous stasis dermatitis and a slightly open wound lateral aspect of his right leg that has been draining some serous material. He states he has a mild cough nonproductive. Complaining of some central chest discomfort and shortness of breath on minimal exertion. History of congestive heart failure. He reports he did see Dr. Plunkett few days ago and had cultures done on his right second toe. Results are not yet known to him. This wound has been present for many months. Patient is morbidly obese but denies any history of diabetes. Patient has received his Covid vaccine back in November of this year. He does admit to frequent urination with nocturia x2 or 3. He does have a sense that he is not completely emptying his bladder and I note that he is on tamsulosin. He denies any dysuria or urgency . He states he was fine yesterday and could walk normally. He [place] due to air conditioning above his room. Onset: Today, Sudden Onset Date: 06/02/21 Onset Time: 07:45 (Developed chills and rigors this morning followed by vomiting of breakfast) Duration: Hour(s):, Constant Location: Reports: Generalized (Persistent low-grade fever generalized weakness inability to walk normally) Quality: Reports: Other (States he has some central chest pressure discomfort and shortness of breath.) Severity: Moderate Improves with: Reports: None Worsens with: Reports: Other (Trying to walk.) Context: Reports: Other (Sudden onset of acute fever chills with rigors this morning). Denies: Activity, Exercise, Lifting, Sick Contact, Trauma Associated Symptoms: Reports: Cough, Fever/Chills, Malaise, Nausea/Vomiting (This morning.), Rash ( Followed by vomiting of his breakfast. Neck rash both lower extremities from venous stasis dermatitis with a history of cellulitis in the past), Shortness of Breath, Weakness. Denies: Confusion, Chest Pain, cough w sputum, Headaches, Loss of Appetite, Seizure, Syncope Treatments OUTREACH MANAGER: Reports: Acetaminophen (Generalized acetaminophen about 6:00 this morning.) - Related Data Allergies Allergy/AdvReac Type Severity Reaction Status Date / Time No Known Allergies Allergy Verified 06/02/21 11:26 Home Meds: Home Meds Aspirin 81 mg PO DAILY 11/26/18 [History] Potassium Chloride 20 meq PO DAILY 11/26/18 [History] Acetaminophen 650 mg PO BID 04/24/20 [History] Alum Hydrox/Mag Hydrox/Simeth [Maalox Advanced] 30 ml PO Q2HR PRN 04/24/20 [History] Bumetanide 3 mg PO DAILY 04/24/20 [History] Calcium Carbonate [Tums] 1,000 mg PO QID PRN 04/24/20 [History] Clopidogrel [Plavix] 75 mg PO DAILY 04/24/20 [History] Diclofenac Sodium [Voltaren 1% Gel] 2 gm TOP BID 04/24/20 [History] Loperamide [Imodium] 4 mg PO ASDIRECTED PRN 04/24/20 [History] Metoprolol Succinate 50 mg PO DAILY 04/24/20 [History] Mirtazapine 30 mg PO BEDTIME 04/24/20 [History] Nitroglycerin [Nitrostat] 0.4 mg SL ASDIRECTED PRN 04/24/20 [History] polyethylene glycoL 3350 [MiraLAX] 17 gm PO BEDTIME PRN 04/24/20 [History] Cyanocobalamin (Vitamin B-12) [Vitamin B-12] 1,000 mcg PO DAILY 07/15/20 [History] Emollient Combination No.114 [Eucerin Advanced Repair] 1 dose TOP DAILY 07/15/20 [History] Losartan [Cozaar] 25 mg PO DAILY 07/15/20 [History] Multivitamin 1 tab PO DAILY 07/16/20 [History] Cholecalciferol (Vitamin D3) [Vitamin D3] 5,000 unit PO DAILY #20 cap 01/02/21 [Rx] Lactobacillus Acidophilus [Acidophilus] 1 cap PO BID 06/02/21 [History] Silver Sulfadiazine [Silvadene 1% Cream 50 GM] 1 applic TOP DAILY 06/02/21 [History] Past Medical History HEENT History: Reports: Cataract, Impaired Vision Other HEENT History: wears eyeglasses Cardiovascular History: Reports: CAD, Hypertension, VA, SOB on Exertion, Other (See Below) Other Cardiovascular History: peripheral venous insufficiency Respiratory History: Reports: SOB, Other (See Below) Other Respiratory History: acute respiratory failure Gastrointestinal History: Reports: Chronic Diarrhea, Fecal Incontinence, GI Bleed Other Gastrointestinal History: incontinence Genitourinary History: Reports: Urinary Incontinence, UTI, Recurrent Musculoskeletal History: Reports: Osteoarthritis, Other (See Below) Other Musculoskeletal History: bilat knee pain, weakness Neurological History: Reports: None Psychiatric History: Reports: Depression, Other (See Below) Other Psychiatric History: Insomnia Endocrine/Metabolic History: Reports: Diabetes, Type II, Hypokalemia, Obesity/BMI 30+ Hematologic History: Reports: Anemia, Other (See Below) Other Hematologic History: monoclonal gammopathy Immunologic History: Reports: None Oncologic (Cancer) History: Reports: Other (See Below) Other Oncologic History: multiple myeloma Dermatologic History: Reports: Cellulitis, Other (See Below) Other Dermatologic History: 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; candidiasis - Infectious Disease History Infectious Disease History: Reports: Chicken Pox, Influenza, Measles, Mumps - Past Surgical History HEENT Surgical History: Reports: Cataract Surgery GI Surgical History: Reports: Appendectomy Social & Family History - Family History Family Medical History: No Pertinent Family History - Caffeine Use Caffeine Use: Reports: None - Living Situation & Occupation Living situation: Reports: Extended Care Facility (Currently a resident at [facility] Occupation: Retired ED ROS GENERAL - Review of Systems Review Of Systems: See Below Constitutional: Reports: Fever, Chills, Malaise, Weakness, Fatigue, Decreased Appetite HEENT: Reports: Glasses Respiratory: Reports: Shortness of Breath, Cough. Denies: Wheezing, Pleuritic Chest Pain, Sputum, Hemoptysis (Nonproductive) Cardiovascular: Reports: Chest Pain (Chest heaviness.), Blood Pressure Problem, Dyspnea on Exertion, Edema ([place] severe edema both lower extremities with venous stasis dermatitis and history of recurrent cellulitis right leg), Orthopnea. Denies: Claudication, Lightheadedness, Palpitations Endocrine: Reports: Fatigue GI/Abdominal: Reports: Diarrhea (With frequent incontinence of stool.), Nausea, Vomiting (Minute of his breakfast this morning.) : Reports: Frequency, Other (States he seems to have to void every hour suggesting overflow and incomplete emptying of his bladder) Musculoskeletal: Reports: Neck Pain, Shoulder Pain, Back Pain, Joint Pain (Knees and hips) Skin: Reports: Bruising (Bruises easily as he is on Plavix.) Neurological: Reports: Difficulty Walking, Weakness, Gait Disturbance. Denies: Confusion, Dizziness, Headache, Numbness, Syncope, Tingling, Tremors, Trouble Speaking (This is a walker to aid his gait but was unable to walk this morning due to weakness.), Change in Speech Psychiatric: Reports: No Symptoms Hematologic/Lymphatic: Reports: No Symptoms Immunologic: Reports: No Symptoms ED EXAM, GENERAL - Physical Exam Exam: See Below Exam Limited By: No Limitations General Appearance: Alert, WD/WN, Mild Distress, Other (Temperature was 37.7 degrees. Heart rate 109 and sinus at the bedside respiratory 20 with O2 sats of 90% room air. On 2 L he was 98%. Blood pressure is 138/76.) Eye Exam: Bilateral Eye: Normal Inspection (No blepharal pallor or scleral icterus.), PERRL Throat/Mouth: Normal Inspection, Normal Lips, Normal Oropharynx, Other Head: Atraumatic (Tongue is moist), Normocephalic Neck: Normal Inspection, Supple, Limited Range of Motion. No: Carotid Bruit, Lymphadenopathy (L) (Hepatus on lateral rotation but has full range of motion), Lymphadenopathy (R) Respiratory/Chest: Lungs Clear, Normal Breath Sounds, No Accessory Muscle Use, Respiratory Distress (Hypoxic on room air at 90%), Decreased Breath Sounds (Tachypnea at rest. Breath sounds diminished to the posterior lung byrd by 25% due to his size.). No: Rales, Rhonchi, Wheezing Cardiovascular: No Gallop, No Murmur, No Rub, Tachycardia (Sinus tachycardia at the bedside), Other (Unable to appreciate jugular venous distention due to bowel neck). No: No Edema Peripheral Pulses: 2+: Carotid (L), Carotid (R), Posterior Tibial (L), Posterior Tibial (R), Dorsalis Pedis (L), Dorsalis Pedis (R) GI/Abdominal: Normal Bowel Sounds, Soft, Non-Tender, No Organomegaly, No Mass, Pelvis Stable, Other (Morbidly obese. Abdominal girth limits ability to palpate solid organs. He has an umbilical hernia which is easily reducible and does not cause him any discomfort.) Back Exam: Normal Inspection, Full Range of Motion, Other (Occult he sitting up in bed on his own volition he did require 2 person assist. Sliding placed lordotic curvature lumbar spine but no localized pain.) Extremities: Pedal Edema (4+ pitting edema both lower extremities with bilateral venous stasis dermatitis involving at least two thirds of the leg. There is increased warmth on the right leg without increased pain however. He reports neuropathy in both feet for some time. ), Increased Warmth (Right leg), Redness ( when compared to the left. Redness around the stasis dermatitis right leg), Other (He has an open wound with skin breakdown plantar surface of right second toe which does not appear to be infected. It has a PICC line left upper arm.) Neurological: Alert, Oriented, CN II-XII Intact, Normal Cognition. No: Normal Gait (Not tested) Psychiatric: Normal Affect, Normal Mood Skin Exam: Warm, Dry, Intact, Normal Color, Other (Significant bilateral stasis dermatitis both lower extremities. Intertrigo under abdominal pannus. Inguinal areas.) #1 Interpretation EKG Date: 06/02/21 Time: 11:24 Rhythm: Other Rate (Beats/Min): 108 [place]: LAD-Left [place] Deviation (-39 degrees) P-Wave: Present QRS: Other (There are Q waves in leads III and aVF consider old inferior wall myocardial infarction. There is abnormal R wave progression with late transition) ST-T: Other (Very irregular baseline in the limb leads making it difficult to interpret) QT: Prolonged (Mildly prolonged) Course - Vital Signs Last Recorded V/S: Last Vital Signs Temp 37.7 C 06/02/21 11:53 Pulse 113 H 06/02/21 11:45 Resp 27 H 06/02/21 11:45 BP 138/76 06/02/21 11:45 Pulse Ox 93 L 06/02/21 11:45 - Orders/Labs/Meds Orders: Active Orders 24 hr Category Date Time Status Admission Status [Patient Status] [ADT] Routine ADT 06/02/21 14:42 Active Bladder Scan [RC] ASDIRECTED Care 06/02/21 11:31 Active Blood Glucose Check, Bedside [RC] ONETIME Care 06/02/21 11:29 Active EKG Documentation Completion [RC] STAT Care 06/02/21 11:46 Active Oxygen Therapy [RC] ASDIRECTED Care 06/02/21 11:28 Active CULTURE, ANAEROBE & AEROBE [MREF] Stat Lab 06/02/21 11:52 Received Dextrose 5%-0.9% NaCl [Dextrose 5%-Normal Saline] 1,000 Med 06/02/21 11:30 Active ml IV ASDIRECTED Blood Culture x2 Reflex Set [OM.PC] Stat Oth 06/02/21 11:29 Ordered Medication Orders Dextrose/Sodium Chloride (Dextrose 5%-Normal Saline) 1,000 mls @ 250 mls/hr IV ASDIRECTED GLENN Last Admin: 06/02/21 11:56 Dose: 250 mls/hr Documented by: WILLIAM Labs: Laboratory Tests 06/02/21 06/02/21 06/02/21 Range/Units 11:28 11:50 11:52 WBC (4.23-9.07) K/mm3 RBC (4.63-6.08) M/mm3 Hgb (13.7-17.5) gm/dl Hct (40.1-51.0) % MCV (79.0-92.2) fl MCH (25.7-32.2) pg MCHC (32.2-35.5) g/dl RDW Std Deviation (35.1-43.9) fL Plt Count (163-337) K/mm3 MPV (9.4-12.3) fl Neutrophils % (Manual) (40-60) % Band Neutrophils % (0-10) % Lymphocytes % (Manual) (20-40) % Atypical Lymphs % % Monocytes % (Manual) (2-10) % Eosinophils % (Manual) (0.8-7.0) % Basophils % (Manual) (0.2-1.2) Platelet Estimate Macrocytosis Target Cells Tear Drop Cells RBC Morph Comment ESR (0-15) mm/hr PT (9.7-12.0) SECONDS INR APTT (21.7-31.4) SECONDS D-Dimer, Quantitative (0.19-0.50) mg/L Puncture Site Rt radial ABG pH 7.52 H (7.35-7.45) ABG pCO2 38.7 (35.0-45.0) mmHg ABG pO2 53.0 L (80.0-100.0) mmHg ABG HCO3 31.2 H (22.0-26.0) meq/L ABG O2 Saturation 88.9 L (96.0-97.0) % ABG Base Excess 7.9 H (-2-2.0) Donovan Test Positive A-a Gradient 49 mmHg Sodium (136-145) mEq/L Potassium (3.5-5.1) mEq/L Chloride (98-107) mEq/L Carbon Dioxide (21-32) mEq/L Anion Gap (5-15) BUN (7-18) mg/dL Creatinine (0.7-1.3) mg/dL Est Cr Clr Drug Dosing mL/min Estimated GFR (MDRD) (>60) mL/min BUN/Creatinine Ratio (14-18) Glucose (70-99) mg/dL POC Glucose 105 H (70-99) mg/dL Hemoglobin A1c ( - 5.6) % Lactic Acid (0.4-2.0) mmol/L Calcium (8.5-10.1) mg/dL Magnesium (1.8-2.4) mg/dL Total Bilirubin (0.2-1.0) mg/dL AST (15-37) U/L ALT (16-63) U/L Alkaline Phosphatase (46-116) U/L CK-MB (CK-2) (0-3.6) ng/ml Troponin I (0.00-0.056) ng/mL C-Reactive Protein (<1.0) mg/dL NT-Pro-B Natriuret Pep (0-125) pg/mL Total Protein (6.4-8.2) g/dl Albumin (3.4-5.0) g/dl Globulin gm/dL Albumin/Globulin Ratio (1-2) Urine Color (Yellow) Urine Appearance (Clear) Urine pH (5.0-8.0) Ur Specific [place] (1.005-1.030) Urine Protein (Negative) Urine Glucose (UA) (Negative) Urine Ketones (Negative) Urine Occult Blood (Negative) Urine Nitrite (Negative) Urine Bilirubin (Negative) Urine Urobilinogen (0.2-1.0) Ur Leukocyte Esterase (Negative) Urine RBC (0-5) /hpf Urine WBC (0-5) /hpf Ur Epithelial Cells (0-5) /hpf Urine Bacteria (FEW) /hpf Urine Mucus (FEW) /hpf SARS-CoV-2 RNA (ROCHELLE) Negative (NEGATIVE) 06/02/21 06/02/21 06/02/21 Range/Units 11:57 11:57 11:57 WBC 12.72 H (4.23-9.07) K/mm3 RBC 3.17 L (4.63-6.08) M/mm3 Hgb 10.4 L (13.7-17.5) gm/dl Hct 34.7 L (40.1-51.0) % MCV 109.5 H (79.0-92.2) fl MCH 32.8 H (25.7-32.2) pg MCHC 30.0 L (32.2-35.5) g/dl RDW Std Deviation 69.4 H (35.1-43.9) fL Plt Count 210 (163-337) K/mm3 MPV 8.9 L (9.4-12.3) fl Neutrophils % (Manual) 89 H (40-60) % Band Neutrophils % 5 (0-10) % Lymphocytes % (Manual) 5 L (20-40) % Atypical Lymphs % 0 % Monocytes % (Manual) 1 L (2-10) % Eosinophils % (Manual) 0 L (0.8-7.0) % Basophils % (Manual) 0 L (0.2-1.2) Platelet Estimate Adequate Macrocytosis 2+ moderate Target Cells 1+ slight Tear Drop Cells 1+ slight RBC Morph Comment Not Reportable ESR (0-15) mm/hr PT 12.2 H (9.7-12.0) SECONDS INR 1.14 APTT 22.1 (21.7-31.4) SECONDS D-Dimer, Quantitative (0.19-0.50) mg/L Puncture Site ABG pH (7.35-7.45) ABG pCO2 (35.0-45.0) mmHg ABG pO2 (80.0-100.0) mmHg ABG HCO3 (22.0-26.0) meq/L ABG O2 Saturation (96.0-97.0) % ABG Base Excess (-2-2.0) Donovan Test A-a Gradient mmHg Sodium (136-145) mEq/L Potassium (3.5-5.1) mEq/L Chloride (98-107) mEq/L Carbon Dioxide (21-32) mEq/L Anion Gap (5-15) BUN (7-18) mg/dL Creatinine (0.7-1.3) mg/dL Est Cr Clr Drug Dosing mL/min Estimated GFR (MDRD) (>60) mL/min BUN/Creatinine Ratio (14-18) Glucose (70-99) mg/dL POC Glucose (70-99) mg/dL Hemoglobin A1c ( - 5.6) % Lactic Acid (0.4-2.0) mmol/L Calcium (8.5-10.1) mg/dL Magnesium 2.1 (1.8-2.4) mg/dL Total Bilirubin (0.2-1.0) mg/dL AST (15-37) U/L ALT (16-63) U/L Alkaline Phosphatase (46-116) U/L CK-MB (CK-2) 1.5 (0-3.6) ng/ml Troponin I < 0.017 (0.00-0.056) ng/mL C-Reactive Protein 3.3 H* (<1.0) mg/dL NT-Pro-B Natriuret Pep (0-125) pg/mL Total Protein (6.4-8.2) g/dl Albumin (3.4-5.0) g/dl Globulin gm/dL Albumin/Globulin Ratio (1-2) Urine Color (Yellow) Urine Appearance (Clear) Urine pH (5.0-8.0) Ur Specific [place] (1.005-1.030) Urine Protein (Negative) Urine Glucose (UA) (Negative) Urine Ketones (Negative) Urine Occult Blood (Negative) Urine Nitrite (Negative) Urine Bilirubin (Negative) Urine Urobilinogen (0.2-1.0) Ur Leukocyte Esterase (Negative) Urine RBC (0-5) /hpf Urine WBC (0-5) /hpf Ur Epithelial Cells (0-5) /hpf Urine Bacteria (FEW) /hpf Urine Mucus (FEW) /hpf SARS-CoV-2 RNA (ROCHELLE) (NEGATIVE) 06/02/21 06/02/21 06/02/21 Range/Units 11:57 11:57 11:57 WBC (4.23-9.07) K/mm3 RBC (4.63-6.08) M/mm3 Hgb (13.7-17.5) gm/dl Hct (40.1-51.0) % MCV (79.0-92.2) fl MCH (25.7-32.2) pg MCHC (32.2-35.5) g/dl RDW Std Deviation (35.1-43.9) fL Plt Count (163-337) K/mm3 MPV (9.4-12.3) fl Neutrophils % (Manual) (40-60) % Band Neutrophils % (0-10) % Lymphocytes % (Manual) (20-40) % Atypical Lymphs % % Monocytes % (Manual) (2-10) % Eosinophils % (Manual) (0.8-7.0) % Basophils % (Manual) (0.2-1.2) Platelet Estimate Macrocytosis Target Cells Tear Drop Cells RBC Morph Comment ESR 99 H (0-15) mm/hr PT (9.7-12.0) SECONDS INR APTT (21.7-31.4) SECONDS D-Dimer, Quantitative 2.09 H (0.19-0.50) mg/L Puncture Site ABG pH (7.35-7.45) ABG pCO2 (35.0-45.0) mmHg ABG pO2 (80.0-100.0) mmHg ABG HCO3 (22.0-26.0) meq/L ABG O2 Saturation (96.0-97.0) % ABG Base Excess (-2-2.0) Donovan Test A-a Gradient mmHg Sodium (136-145) mEq/L Potassium (3.5-5.1) mEq/L Chloride (98-107) mEq/L Carbon Dioxide (21-32) mEq/L Anion Gap (5-15) BUN (7-18) mg/dL Creatinine (0.7-1.3) mg/dL Est Cr Clr Drug Dosing mL/min Estimated GFR (MDRD) (>60) mL/min BUN/Creatinine Ratio (14-18) Glucose (70-99) mg/dL POC Glucose (70-99) mg/dL Hemoglobin A1c ( - 5.6) % Lactic Acid (0.4-2.0) mmol/L Calcium (8.5-10.1) mg/dL Magnesium (1.8-2.4) mg/dL Total Bilirubin (0.2-1.0) mg/dL AST (15-37) U/L ALT (16-63) U/L Alkaline Phosphatase (46-116) U/L CK-MB (CK-2) (0-3.6) ng/ml Troponin I (0.00-0.056) ng/mL C-Reactive Protein (<1.0) mg/dL NT-Pro-B Natriuret Pep 370 H (0-125) pg/mL Total Protein (6.4-8.2) g/dl Albumin (3.4-5.0) g/dl Globulin gm/dL Albumin/Globulin Ratio (1-2) Urine Color (Yellow) Urine Appearance (Clear) Urine pH (5.0-8.0) Ur Specific [place] (1.005-1.030) Urine Protein (Negative) Urine Glucose (UA) (Negative) Urine Ketones (Negative) Urine Occult Blood (Negative) Urine Nitrite (Negative) Urine Bilirubin (Negative) Urine Urobilinogen (0.2-1.0) Ur Leukocyte Esterase (Negative) Urine RBC (0-5) /hpf Urine WBC (0-5) /hpf Ur Epithelial Cells (0-5) /hpf Urine Bacteria (FEW) /hpf Urine Mucus (FEW) /hpf SARS-CoV-2 RNA (ROCHELLE) (NEGATIVE) 06/02/21 06/02/21 06/02/21 Range/Units 11:57 11:57 12:56 WBC (4.23-9.07) K/mm3 RBC (4.63-6.08) M/mm3 Hgb (13.7-17.5) gm/dl Hct (40.1-51.0) % MCV (79.0-92.2) fl MCH (25.7-32.2) pg MCHC (32.2-35.5) g/dl RDW Std Deviation (35.1-43.9) fL Plt Count (163-337) K/mm3 MPV (9.4-12.3) fl Neutrophils % (Manual) (40-60) % Band Neutrophils % (0-10) % Lymphocytes % (Manual) (20-40) % Atypical Lymphs % % Monocytes % (Manual) (2-10) % Eosinophils % (Manual) (0.8-7.0) % Basophils % (Manual) (0.2-1.2) Platelet Estimate Macrocytosis Target Cells Tear Drop Cells RBC Morph Comment ESR (0-15) mm/hr PT (9.7-12.0) SECONDS INR APTT (21.7-31.4) SECONDS D-Dimer, Quantitative (0.19-0.50) mg/L Puncture Site ABG pH (7.35-7.45) ABG pCO2 (35.0-45.0) mmHg ABG pO2 (80.0-100.0) mmHg ABG HCO3 (22.0-26.0) meq/L ABG O2 Saturation (96.0-97.0) % ABG Base Excess (-2-2.0) Donovan Test A-a Gradient mmHg Sodium (136-145) mEq/L Potassium (3.5-5.1) mEq/L Chloride (98-107) mEq/L Carbon Dioxide (21-32) mEq/L Anion Gap (5-15) BUN (7-18) mg/dL Creatinine (0.7-1.3) mg/dL Est Cr Clr Drug Dosing mL/min Estimated GFR (MDRD) (>60) mL/min BUN/Creatinine Ratio (14-18) Glucose (70-99) mg/dL POC Glucose (70-99) mg/dL Hemoglobin A1c 6.6 H ( - 5.6) % Lactic Acid 1.6 (0.4-2.0) mmol/L Calcium (8.5-10.1) mg/dL Magnesium (1.8-2.4) mg/dL Total Bilirubin (0.2-1.0) mg/dL AST (15-37) U/L ALT (16-63) U/L Alkaline Phosphatase (46-116) U/L CK-MB (CK-2) (0-3.6) ng/ml Troponin I (0.00-0.056) ng/mL C-Reactive Protein (<1.0) mg/dL NT-Pro-B Natriuret Pep (0-125) pg/mL Total Protein (6.4-8.2) g/dl Albumin (3.4-5.0) g/dl Globulin gm/dL Albumin/Globulin Ratio (1-2) Urine Color Yellow (Yellow) Urine Appearance Clear (Clear) Urine pH 7.0 (5.0-8.0) Ur Specific [place] 1.020 (1.005-1.030) Urine Protein 2+ H (Negative) Urine Glucose (UA) Negative (Negative) Urine Ketones Negative (Negative) Urine Occult Blood Negative (Negative) Urine Nitrite Negative (Negative) Urine Bilirubin Negative (Negative) Urine Urobilinogen 0.2 (0.2-1.0) Ur Leukocyte Esterase Negative (Negative) Urine RBC 0-5 (0-5) /hpf Urine WBC 0-5 (0-5) /hpf Ur Epithelial Cells 0-5 (0-5) /hpf Urine Bacteria Rare (FEW) /hpf Urine Mucus Not seen (FEW) /hpf SARS-CoV-2 RNA (ROCHELLE) (NEGATIVE) 06/02/21 Range/Units 13:13 WBC (4.23-9.07) K/mm3 RBC (4.63-6.08) M/mm3 Hgb (13.7-17.5) gm/dl Hct (40.1-51.0) % MCV (79.0-92.2) fl MCH (25.7-32.2) pg MCHC (32.2-35.5) g/dl RDW Std Deviation (35.1-43.9) fL Plt Count (163-337) K/mm3 MPV (9.4-12.3) fl Neutrophils % (Manual) (40-60) % Band Neutrophils % (0-10) % Lymphocytes % (Manual) (20-40) % Atypical Lymphs % % Monocytes % (Manual) (2-10) % Eosinophils % (Manual) (0.8-7.0) % Basophils % (Manual) (0.2-1.2) Platelet Estimate Macrocytosis Target Cells Tear Drop Cells RBC Morph Comment ESR (0-15) mm/hr PT (9.7-12.0) SECONDS INR APTT (21.7-31.4) SECONDS D-Dimer, Quantitative (0.19-0.50) mg/L Puncture Site ABG pH (7.35-7.45) ABG pCO2 (35.0-45.0) mmHg ABG pO2 (80.0-100.0) mmHg ABG HCO3 (22.0-26.0) meq/L ABG O2 Saturation (96.0-97.0) % ABG Base Excess (-2-2.0) Donovan Test A-a Gradient mmHg Sodium 137 (136-145) mEq/L Potassium 4.1 (3.5-5.1) mEq/L Chloride 98 (98-107) mEq/L Carbon Dioxide 28 (21-32) mEq/L Anion Gap 15.1 H (5-15) BUN 33 H (7-18) mg/dL Creatinine 1.7 H (0.7-1.3) mg/dL Est Cr Clr Drug Dosing 46.80 mL/min Estimated GFR (MDRD) 40 (>60) mL/min BUN/Creatinine Ratio 19.4 H (14-18) Glucose 127 H (70-99) mg/dL POC Glucose (70-99) mg/dL Hemoglobin A1c ( - 5.6) % Lactic Acid (0.4-2.0) mmol/L Calcium 9.1 (8.5-10.1) mg/dL Magnesium (1.8-2.4) mg/dL Total Bilirubin 0.3 (0.2-1.0) mg/dL AST 15 (15-37) U/L ALT 16 (16-63) U/L Alkaline Phosphatase 112 (46-116) U/L CK-MB (CK-2) (0-3.6) ng/ml Troponin I (0.00-0.056) ng/mL C-Reactive Protein (<1.0) mg/dL NT-Pro-B Natriuret Pep (0-125) pg/mL Total Protein 10.3 H (6.4-8.2) g/dl Albumin 2.7 L (3.4-5.0) g/dl Globulin 7.6 gm/dL Albumin/Globulin Ratio 0.4 L (1-2) Urine Color (Yellow) Urine Appearance (Clear) Urine pH (5.0-8.0) Ur Specific [place] (1.005-1.030) Urine Protein (Negative) Urine Glucose (UA) (Negative) Urine Ketones (Negative) Urine Occult Blood (Negative) Urine Nitrite (Negative) Urine Bilirubin (Negative) Urine Urobilinogen (0.2-1.0) Ur Leukocyte Esterase (Negative) Urine RBC (0-5) /hpf Urine WBC (0-5) /hpf Ur Epithelial Cells (0-5) /hpf Urine Bacteria (FEW) /hpf Urine Mucus (FEW) /hpf SARS-CoV-2 RNA (ROCHELLE) (NEGATIVE) Meds: Medications Generic Name Dose Route Start Last Admin Trade Name Freq PRN Reason Stop Dose Admin Dextrose/Sodium Chloride 1,000 mls @ 250 mls/hr 06/02/21 11:30 06/02/21 11:56 Dextrose 5%-Normal Saline IV 250 mls/hr ASDIRECTED GLENN Administration Discontinued Medications Generic Name Dose Route Start Last Admin Trade Name Freq PRN Reason Stop Dose Admin Acetaminophen 975 mg 06/02/21 11:27 06/02/21 11:53 Acetaminophen 325 Mg Tab PO 06/02/21 11:28 975 mg ONETIME ONE Administration Ceftriaxone Sodium 2 gm/ 100 mls @ 200 mls/hr 06/02/21 12:38 06/02/21 13:39 Sodium Chloride IV 06/02/21 13:07 200 mls/hr ONETIME ONE Administration Metoclopramide HCl 10 mg 06/02/21 11:39 06/02/21 11:56 Metoclopramide 10 Mg/2 Ml Sdv IVPUSH 06/02/21 11:40 10 mg ONETIME ONE Administration - Radiology Interpretation Free Text/Narrative:: 75-year-old male presents to the ED from the [facility] . Presents due to onset of fever chills and rigors this morning and then associated nausea and vomiting with loss of his breakfast. Weakness today and unable to walk normally as he does with his walker. He has a potential source of infection from his right foot with an open wound to his right second toe plantar surface. Cellulitis possible right leg with increased warmth and redness along the edges of the deep pigmented venous stasis dermatitis in both legs. There is a wound right lateral mid leg that is oozing slight serous material. Cultures were obtained from these areas. He is febrile on exam. States he has a mild cough. He has had both of his Covid vaccines back in November of this year. He is hypoxic on room air at 90% and will be placed on oxygen at 2 L/min by nasal cannula after blood cultures x2 have been collected and ABGs. IV will be D5 normal saline at 250 mils per hour since his blood pressure is maintained at present. I suspect he has a component of congestive failure. Given Reglan 10 mg IV for nausea relief. Will repeat Tylenol 975 mg p.o. now for fever relief. Septic work-up to be completed. - Re-Assessments/Exams Free Text/Narrative Re-Assessment/Exam: 06/02/21 12:28 chest x-ray reveals moderate cardiomegaly. Has the appearance of diffuse vascular congestion and slightly tortuous thoracic aorta with no pneumonia or pneumothorax. Appears to have chronic rotator cuff tear within the right shoulder. No other acute osseous abnormalities identified he did not take a deep breath for the x-ray. 06/02/21 12:30 White count is elevated at 12.72 with differential pending. Hemoglobin slightly low at 10.4 with hematocrit of 34.7. MCV elevated at 109.5. Platelet count is 210,000. His ABGs revealed a pH of 7.52 with a PCO2 of 38.7. PO2 was 53.0 bicarb 31.2 and O2 saturation of 88.9% on room air. Bedside glucose 105 with a hemoglobin A1c of 6.6. 06/02/21 12:39 Suspecting the source of his infection to be cellulitis right lower leg or possibly right second toe I will start him on Rocephin 2 g IV. He had 200 mils of urine in his bladder on catheterization. Nurse reports difficulty obtaining a bladder scan prior to catheterization and got the most of 31 mils in the bladder. She was having difficulty holding up his pannus and if it is done again it should be done with 2 persons. 06/02/21 13:12 Differential on the white count reveals 89% neutrophils and 5% bands cells. The slide reveals 2+ macrocytosis 1+ target cells 1+ teardrop cells and sed rate is elevated at 99 indicating a chronic infective process. D- dimer is mildly elevated at 2.09 suspect due to underlying infective process. COVID-19 screen is negative. Limited chemistry is back revealing a lactic acid of 1.6 and a magnesium of 2.1. CK-MB fraction is 1.5 with a troponin I of less than 0.017 C-reactive protein is 3.3 BNP is 370. Case has been discussed with Dr. Noam Talavera on-call hospitalist and he will arrange for the patient to be admitted to the hospital. 06/02/21 13:53 view x-ray of the right foot appears to be normal with no evidence of osteomyelitis involving the second toe. 06/02/21 14:47 It has come to my attention after [facility] that the patient has in fact been receiving doses of ceftazadime gram twice daily starting May 14 and this was carried out until May 26 when it was discontinued. This was prescribed by Dr. Gage for lower extremity infection. It obviously did not help and there is concern there for a resistant organism such as MRSA. This is the reason that he has a PICC line in his left upper arm. 06/02/21 14:49 Chemistry is now available revealing a sodium of 137 and a potassium of 4.1. Chloride is 98 with a bicarb of 28. Anion gap is 15.1. BUN is 33 with a creatinine of 1.7 and a GFR of 40. Glucose 127. Urinalysis reveals 2+ proteinuria but no other signs of infection. COVID-19 screen is negative Departure - Departure Time of Disposition: 14:51 Disposition: Admitted As Inpatient 66 Reason for Transfer *Q: Other Condition: Fair Clinical Impression: Hypoxemia, Acute febrile illness, Nausea and vomiting, Cellulitis of right lower extremity, Morbid obesity with BMI of 45.0-49.9, adult, Dependent edema, Elevated sedimentation rate measurement, Neutrophilic leukocytosis Referrals: Yanick Plunkett MD [Primary Care Provider] - Forms: ED Department Discharge Sepsis Event Note (ED) - Focused Exam Vital Signs: Vital Signs Temp Temp Pulse Resp BP Pulse Ox Pulse Ox 06/02/21 11:53 37.7 C 06/02/21 11:45 113 H 27 H 138/76 93 L 06/02/21 11:34 90 L 06/02/21 11:21 37.7 C 109 H 20 90 L - My Orders Last 24 Hours: My Active Orders 06/02/21 11:28 Oxygen Therapy [RC] ASDIRECTED 06/02/21 11:29 Blood Glucose Check, Bedside [RC] ONETIME Blood Culture x2 Reflex Set [OM.PC] Stat 06/02/21 11:30 Dextrose 5%-0.9% NaCl [Dextrose 5%-Normal Saline] 1,000 ml IV ASDIRECTED 06/02/21 11:31 Bladder Scan [RC] ASDIRECTED 06/02/21 11:46 EKG Documentation Completion [RC] STAT 06/02/21 11:52 CULTURE, ANAEROBE & AEROBE [MREF] Stat - Assessment/Plan Last 24 Hours: My Active Orders 06/02/21 11:28 Oxygen Therapy [RC] ASDIRECTED 06/02/21 11:29 Blood Glucose Check, Bedside [RC] ONETIME Blood Culture x2 Reflex Set [OM.PC] Stat 06/02/21 11:30 Dextrose 5%-0.9% NaCl [Dextrose 5%-Normal Saline] 1,000 ml IV ASDIRECTED 06/02/21 11:31 Bladder Scan [RC] ASDIRECTED 06/02/21 11:46 EKG Documentation Completion [RC] STAT 06/02/21 11:52 CULTURE, ANAEROBE & AEROBE [MREF] Stat
[2021-06-02] MEDS ORDERED: Metoclopramide 10 MG/2 ML SDV IVPUSH ONE (11:39)
[2021-06-02 12:26] LABS: HEMOGLOBIN A1C 6.6 %
--- NOTE | 2021-06-02 12:29 | CR ---
Chest: Portable view of the chest is obtained. Comparison: Prior chest x-ray of 05/13/21. Prior picc line appears to have been removed from previous exam. Heart is slightly enlarged. Lungs are clear with no acute parenchymal change. Azygos lobe is noted. Findings suspicious for chronic rotator cuff tear within the right shoulder. No acute osseous abnormality is otherwise seen. Impression: 1. Shoulder findings as noted above. 2. Nothing acute is seen. Diagnostic code #2
[2021-06-02] MEDS ORDERED: cefTRIAXone 2 GM in Sodium Chloride 0.9% 100 ML IV ONE (12:38)
[2021-06-02] MEDS ORDERED: Acetaminophen/HYDROcodone 325-5 MG Tab PO PRN (14:43)
[2021-06-02] MEDS ORDERED: Ondansetron 4 MG/2 ML SDV IV PRN (14:43)
[2021-06-02] MEDS ORDERED: Sodium Chloride 0.9% 10 ML Syringe FLUSH PRN (14:43)
[2021-06-02] MEDS ORDERED: Ondansetron 4 MG Tab.DIS PO PRN (14:43)
--- NOTE | 2021-06-02 14:45 | CR ---
Right foot: 3 views of the right foot were obtained. Comparison: Prior right foot study of 12/18/20. Soft tissue swelling is noted. Small plantar spur is present. Bony structures are somewhat osteopenic. Soft tissue calcifications are seen within the lower extremity which appear chronic and dystrophic. Lucency is noted within the distal phalanx of the first toe which is barely seen on prior study but appears to be stable. Erosion is noted within the distal phalanx of the first toe which likely represents old gout. No definite acute bony erosions are seen. No acute fracture is appreciated. Impression: 1. Diffuse soft tissue swelling. 2. Plantar spur and other findings as noted above believed to be chronic. 3. No definite acute osseous abnormality is definitely appreciated. If patient remains symptomatic, follow-up study in 10-14 days could be obtained. Diagnostic code #2
--- NOTE | 2021-06-02 15:37 | PCM.HP.2 ---
<Keven Leon M - Last Filed: 06/02/21 16:11> H&P History of Present Illness - General Date of Service: 06/02/21 Admit Problem/Dx: Admission Diagnosis/Problem Admission Diagnosis/Problem Cellulitis Source of Information: Patient, Provider History Limitations: Reports: No Limitations - History of Present Illness Initial Comments - Free Text/Narative: 75-year-old male who presented to the ER from [facility] in [facility] via ambulance. The patient reports that this morning he woke and felt weak and then developed fever and chills. He states that the fever and chills became so excessive that he did become nauseated and vomited once. States that this started at about 9 AM this morning. He was however given Tylenol around 6:00 this morning due to the body aches. Prior to today he states he has felt fine however, the patient does have a history of cellulitis to the lateral portion of his right lower seals as well as an open wound under his right fourth toe on the plantar surface. The patient has been treated with IV antibiotics from May 14-May 26 with Fortaz every 12 hours IV. This was ordered by his electron beam photo mask technician, Dr. Bolden. Apparently, cultures have been taken of the wounds however he does not have the results back for this yet. The patient does have a PICC line in place to his left antecubital. The patient does have a chronic nonproductive cough. He denies any abdominal pain or diarrhea associate d with the nausea and vomiting this morning. He denies any urinary symptoms. As stated previous, the patient is a resident of a assisted, he states that he rarely ambulates with a walker and generally gets around on a motorized wheelchair. He is morbidly obese with a BMI of 49. He does have excessive chronic edema of both lower extremities with venous stasis dermatitis. The patient does have increased warmth and redness noted along the edge of the deep pigmented venous stasis dermatitis in both legs. There is a wound right lateral mid leg that is oozing slight serous material. Cultures were obtained in the emergency department. Patient was placed on 2 L of oxygen per nasal cannula, blood cultures and ABGs were collected. Full septic work-up was completed. The patient did have a low-grade temp in the ED of 99.9. Subsequently he did receive 975 mg of Tylenol. O2 saturations were 90% on room air however I suspect this is likely due to the patient's body habitus. He was also tachycardic at 113 bpm. White count was elevated at 12.72 with 9% neutrophils and 5% bands cells. Hemoglobin 10.4 with hematocrit of 34.7. Platelet count is 210,000. D-dimer was slightly elevated at 2.09 however this is likely due to the infective process. Covid screen was negative. Chemistry reveals a sodium of 137, potassium of 4.1, chloride 98, bicarb 28, anion gap is 15.1, BUN 33, creatinine 1.7, and GFR is 40. Glucose 127, A1c 6.6, lactic acid 1.6, magnesium 2.1. CK- MB 1.5 with a troponin of less than 0.017. CRP 3.3 and proBNP is 370. Urinalysis reveals 2+ proteinuria but no other signs of infection. Covid screen is negative. The patient did have his Covid vaccines back in November and December of this year. I suspect that the patient may have a resistant organisms such as MRSA. He was given 2 g of Rocephin while in the emergency department. I have ordered for pharmacy to dose vancomycin on this patient. Onset of Symptoms: Reports: Today - Related Data Allergies/Adverse Reactions: Allergies Allergy/AdvReac Type Severity Reaction Status Date / Time No Known Allergies Allergy Verified 06/02/21 11:26 Home Medications: Home Meds Aspirin 81 mg PO DAILY 11/26/18 [History] Potassium Chloride 20 meq PO DAILY 11/26/18 [History] Acetaminophen 650 mg PO BID 04/24/20 [History] Alum Hydrox/Mag Hydrox/Simeth [Maalox Advanced] 30 ml PO Q2HR PRN 04/24/20 [History] Bumetanide 3 mg PO DAILY 04/24/20 [History] Calcium Carbonate [Tums] 1,000 mg PO QID PRN 04/24/20 [History] Clopidogrel [Plavix] 75 mg PO DAILY 04/24/20 [History] Diclofenac Sodium [Voltaren 1% Gel] 2 gm TOP BID 04/24/20 [History] Loperamide [Imodium] 4 mg PO ASDIRECTED PRN 04/24/20 [History] Metoprolol Succinate 50 mg PO DAILY 04/24/20 [History] Mirtazapine 30 mg PO BEDTIME 04/24/20 [History] Nitroglycerin [Nitrostat] 0.4 mg SL ASDIRECTED PRN 04/24/20 [History] polyethylene glycoL 3350 [MiraLAX] 17 gm PO BEDTIME PRN 04/24/20 [History] Cyanocobalamin (Vitamin B-12) [Vitamin B-12] 1,000 mcg PO DAILY 07/15/20 [History] Emollient Combination No.114 [Eucerin Advanced Repair] 1 dose TOP DAILY 07/15/20 [History] Losartan [Cozaar] 25 mg PO DAILY 07/15/20 [History] Multivitamin 1 tab PO DAILY 07/16/20 [History] Cholecalciferol (Vitamin D3) [Vitamin D3] 5,000 unit PO DAILY #20 cap 01/02/21 [Rx] Lactobacillus Acidophilus [Acidophilus] 1 cap PO BID 06/02/21 [History] Silver Sulfadiazine [Silvadene 1% Cream 50 GM] 1 applic TOP DAILY 06/02/21 [History] Past Medical History HEENT History: Reports: Cataract, Impaired Vision Other HEENT History: wears eyeglasses Cardiovascular History: Reports: CAD, Hypertension, AR, SOB on Exertion, Other (See Below) Other Cardiovascular History: peripheral venous insufficiency Respiratory History: Reports: SOB, Other (See Below) Other Respiratory History: acute respiratory failure Gastrointestinal History: Reports: Chronic Diarrhea, Fecal Incontinence, GI Bleed Other Gastrointestinal History: incontinence Genitourinary History: Reports: Urinary Incontinence, UTI, Recurrent Musculoskeletal History: Reports: Osteoarthritis, Other (See Below) Other Musculoskeletal History: bilat knee pain, weakness Neurological History: Reports: None Psychiatric History: Reports: Depression, Other (See Below) Other Psychiatric History: Insomnia Endocrine/Metabolic History: Reports: Diabetes, Type II, Hypokalemia, Obesity/BMI 30+ Hematologic History: Reports: Anemia, Other (See Below) Other Hematologic History: monoclonal gammopathy Immunologic History: Reports: None Oncologic (Cancer) History: Reports: Other (See Below) Other Oncologic History: multiple myeloma Dermatologic History: Reports: Cellulitis, Other (See Below) Other Dermatologic History: 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; carisa diasis - Infectious Disease History Infectious Disease History: Reports: Chicken Pox, Influenza, Measles, Mumps - Past Surgical History HEENT Surgical History: Reports: Cataract Surgery GI Surgical History: Reports: Appendectomy Social & Family History - Family History Family Medical History: No Pertinent Family History - Tobacco Use Tobacco Use Status *Q: Never Tobacco User Second Hand Smoke Exposure: No - Caffeine Use Caffeine Use: Reports: Coffee - Recreational Drug Use Recreational Drug Use: No - Living Situation & Occupation Living situation: Reports: Extended Care Facility (Currently a resident at [facility] Occupation: Retired H&P Review of Systems - Review of Systems: Review Of Systems: See Below General: Reports: Fever, Chills, Malaise, Weakness HEENT: Reports: No Symptoms Pulmonary: Reports: Cough Cardiovascular: Reports: No Symptoms Gastrointestinal: Reports: Nausea, Vomiting (X1 this morning) Genitourinary: Reports: No Symptoms Musculoskeletal: Reports: Other (Generalized body aches that started this morning) Skin: Reports: Wound (Right lateral lower leg, open wound right plantar service of the fourth toe) Psychiatric: Reports: No Symptoms Neurological: Reports: No Symptoms Hematologic/Lymphatic: Reports: No Symptoms Immunologic: Reports: No Symptoms Exam - Exam Exam: See Below - Vital Signs Vital Signs: Last Vital Signs Temp 99.9 F 06/02/21 11:53 Pulse 113 H 06/02/21 11:45 Resp 27 H 06/02/21 11:45 BP 138/76 06/02/21 11:45 Pulse Ox 93 L 06/02/21 11:45 Weight: 182.798 kg - Exam Quality Assessment: Supplemental Oxygen (2 L per nasal cannula), Central Line/PICC (Declined to left AC), DVT Prophylaxis (Lovenox) General: Alert, Oriented, Cooperative HEENT: Hearing Intact, Mucosa Moist & [place], Pupils Equal Neck: Supple, Trachea Midline Lungs: Normal Respiratory Effort, Decreased Breath Sounds (Likely due to body habitus) Cardiovascular: Regular Rate, Regular Rhythm GI/Abdominal Exam: Normal Bowel Sounds, Non-Tender, Distended, Other (Base). No: Soft (Semifirm) (Male) Exam: Deferred Rectal (Males) Exam: Deferred Back Exam: Normal Inspection Extremities: Redness (Around the area of ulcer noted to the right lateral lower leg; around ulcer on plantar aspect of the right fourth toe) Peripheral Pulses: 1+: Dorsalis Pedis (L), Dorsalis Pedis (R) Skin: Warm, Dry, Wound (Ulcer noted to right lower lateral leg; open wound noted plantar surface of right fourth toe) Neuro Extensive - Mental Status: Alert, Oriented x3, Normal Mood/Affect, Normal Cognition, Memory Intact Psychiatric: Alert, Normal Affect, Normal Mood - Patient Data Lab Results Last 24 hrs: Laboratory Results - last 24 hr 06/02/21 06/02/21 06/02/21 Range/Units 11:28 11:50 11:52 WBC (4.23-9.07) K/mm3 RBC (4.63-6.08) M/mm3 Hgb (13.7-17.5) gm/dl Hct (40.1-51.0) % MCV (79.0-92.2) fl MCH (25.7-32.2) pg MCHC (32.2-35.5) g/dl RDW Std Deviation (35.1-43.9) fL Plt Count (163-337) K/mm3 MPV (9.4-12.3) fl Neutrophils % (Manual) (40-60) % Band Neutrophils % (0-10) % Lymphocytes % (Manual) (20-40) % Atypical Lymphs % % Monocytes % (Manual) (2-10) % Eosinophils % (Manual) (0.8-7.0) % Basophils % (Manual) (0.2-1.2) Platelet Estimate Macrocytosis Target Cells Tear Drop Cells RBC Morph Comment ESR (0-15) mm/hr PT (9.7-12.0) SECONDS INR APTT (21.7-31.4) SECONDS D-Dimer, Quantitative (0.19-0.50) mg/L Puncture Site Rt radial ABG pH 7.52 H (7.35-7.45) ABG pCO2 38.7 (35.0-45.0) mmHg ABG pO2 53.0 L (80.0-100.0) mmHg ABG HCO3 31.2 H (22.0-26.0) meq/L ABG O2 Saturation 88.9 L (96.0-97.0) % ABG Base Excess 7.9 H (-2-2.0) Donovan Test Positive A-a Gradient 49 mmHg Sodium (136-145) mEq/L Potassium (3.5-5.1) mEq/L Chloride (98-107) mEq/L Carbon Dioxide (21-32) mEq/L Anion Gap (5-15) BUN (7-18) mg/dL Creatinine (0.7-1.3) mg/dL Est Cr Clr Drug Dosing mL/min Estimated GFR (MDRD) (>60) mL/min BUN/Creatinine Ratio (14-18) Glucose (70-99) mg/dL POC Glucose 105 H (70-99) mg/dL Hemoglobin A1c ( - 5.6) % Lactic Acid (0.4-2.0) mmol/L Calcium (8.5-10.1) mg/dL Magnesium (1.8-2.4) mg/dL Total Bilirubin (0.2-1.0) mg/dL AST (15-37) U/L ALT (16-63) U/L Alkaline Phosphatase (46-116) U/L CK-MB (CK-2) (0-3.6) ng/ml Troponin I (0.00-0.056) ng/mL C-Reactive Protein (<1.0) mg/dL NT-Pro-B Natriuret Pep (0-125) pg/mL Total Protein (6.4-8.2) g/dl Albumin (3.4-5.0) g/dl Globulin gm/dL Albumin/Globulin Ratio (1-2) Urine Color (Yellow) Urine Appearance (Clear) Urine pH (5.0-8.0) Ur Specific [place] (1.005-1.030) Urine Protein (Negative) Urine Glucose (UA) (Negative) Urine Ketones (Negative) Urine Occult Blood (Negative) Urine Nitrite (Negative) Urine Bilirubin (Negative) Urine Urobilinogen (0.2-1.0) Ur Leukocyte Esterase (Negative) Urine RBC (0-5) /hpf Urine WBC (0-5) /hpf Ur Epithelial Cells (0-5) /hpf Urine Bacteria (FEW) /hpf Urine Mucus (FEW) /hpf SARS-CoV-2 RNA (ROCHELLE) Negative (NEGATIVE) 06/02/21 06/02/21 06/02/21 Range/Units 11:57 11:57 11:57 WBC 12.72 H (4.23-9.07) K/mm3 RBC 3.17 L (4.63-6.08) M/mm3 Hgb 10.4 L (13.7-17.5) gm/dl Hct 34.7 L (40.1-51.0) % MCV 109.5 H (79.0-92.2) fl MCH 32.8 H (25.7-32.2) pg MCHC 30.0 L (32.2-35.5) g/dl RDW Std Deviation 69.4 H (35.1-43.9) fL Plt Count 210 (163-337) K/mm3 MPV 8.9 L (9.4-12.3) fl Neutrophils % (Manual) 89 H (40-60) % Band Neutrophils % 5 (0-10) % Lymphocytes % (Manual) 5 L (20-40) % Atypical Lymphs % 0 % Monocytes % (Manual) 1 L (2-10) % Eosinophils % (Manual) 0 L (0.8-7.0) % Basophils % (Manual) 0 L (0.2-1.2) Platelet Estimate Adequate Macrocytosis 2+ moderate Target Cells 1+ slight Tear Drop Cells 1+ slight RBC Morph Comment Not Reportable ESR (0-15) mm/hr PT 12.2 H (9.7-12.0) SECONDS INR 1.14 APTT 22.1 (21.7-31.4) SECONDS D-Dimer, Quantitative (0.19-0.50) mg/L Puncture Site ABG pH (7.35-7.45) ABG pCO2 (35.0-45.0) mmHg ABG pO2 (80.0-100.0) mmHg ABG HCO3 (22.0-26.0) meq/L ABG O2 Saturation (96.0-97.0) % ABG Base Excess (-2-2.0) Donovan Test A-a Gradient mmHg Sodium (136-145) mEq/L Potassium (3.5-5.1) mEq/L Chloride (98-107) mEq/L Carbon Dioxide (21-32) mEq/L Anion Gap (5-15) BUN (7-18) mg/dL Creatinine (0.7-1.3) mg/dL Est Cr Clr Drug Dosing mL/min Estimated GFR (MDRD) (>60) mL/min BUN/Creatinine Ratio (14-18) Glucose (70-99) mg/dL POC Glucose (70-99) mg/dL Hemoglobin A1c ( - 5.6) % Lactic Acid (0.4-2.0) mmol/L Calcium (8.5-10.1) mg/dL Magnesium 2.1 (1.8-2.4) mg/dL Total Bilirubin (0.2-1.0) mg/dL AST (15-37) U/L ALT (16-63) U/L Alkaline Phosphatase (46-116) U/L CK-MB (CK-2) 1.5 (0-3.6) ng/ml Troponin I < 0.017 (0.00-0.056) ng/mL C-Reactive Protein 3.3 H* (<1.0) mg/dL NT-Pro-B Natriuret Pep (0-125) pg/mL Total Protein (6.4-8.2) g/dl Albumin (3.4-5.0) g/dl Globulin gm/dL Albumin/Globulin Ratio (1-2) Urine Color (Yellow) Urine Appearance (Clear) Urine pH (5.0-8.0) Ur Specific [place] (1.005-1.030) Urine Protein (Negative) Urine Glucose (UA) (Negative) Urine Ketones (Negative) Urine Occult Blood (Negative) Urine Nitrite (Negative) Urine Bilirubin (Negative) Urine Urobilinogen (0.2-1.0) Ur Leukocyte Esterase (Negative) Urine RBC (0-5) /hpf Urine WBC (0-5) /hpf Ur Epithelial Cells (0-5) /hpf Urine Bacteria (FEW) /hpf Urine Mucus (FEW) /hpf SARS-CoV-2 RNA (ROCHELLE) (NEGATIVE) 06/02/21 06/02/21 06/02/21 Range/Units 11:57 11:57 11:57 WBC (4.23-9.07) K/mm3 RBC (4.63-6.08) M/mm3 Hgb (13.7-17.5) gm/dl Hct (40.1-51.0) % MCV (79.0-92.2) fl MCH (25.7-32.2) pg MCHC (32.2-35.5) g/dl RDW Std Deviation (35.1-43.9) fL Plt Count (163-337) K/mm3 MPV (9.4-12.3) fl Neutrophils % (Manual) (40-60) % Band Neutrophils % (0-10) % Lymphocytes % (Manual) (20-40) % Atypical Lymphs % % Monocytes % (Manual) (2-10) % Eosinophils % (Manual) (0.8-7.0) % Basophils % (Manual) (0.2-1.2) Platelet Estimate Macrocytosis Target Cells Tear Drop Cells RBC Morph Comment ESR 99 H (0-15) mm/hr PT (9.7-12.0) SECONDS INR APTT (21.7-31.4) SECONDS D-Dimer, Quantitative 2.09 H (0.19-0.50) mg/L Puncture Site ABG pH (7.35-7.45) ABG pCO2 (35.0-45.0) mmHg ABG pO2 (80.0-100.0) mmHg ABG HCO3 (22.0-26.0) meq/L ABG O2 Saturation (96.0-97.0) % ABG Base Excess (-2-2.0) Donovan Test A-a Gradient mmHg Sodium (136-145) mEq/L Potassium (3.5-5.1) mEq/L Chloride (98-107) mEq/L Carbon Dioxide (21-32) mEq/L Anion Gap (5-15) BUN (7-18) mg/dL Creatinine (0.7-1.3) mg/dL Est Cr Clr Drug Dosing mL/min Estimated GFR (MDRD) (>60) mL/min BUN/Creatinine Ratio (14-18) Glucose (70-99) mg/dL POC Glucose (70-99) mg/dL Hemoglobin A1c ( - 5.6) % Lactic Acid (0.4-2.0) mmol/L Calcium (8.5-10.1) mg/dL Magnesium (1.8-2.4) mg/dL Total Bilirubin (0.2-1.0) mg/dL AST (15-37) U/L ALT (16-63) U/L Alkaline Phosphatase (46-116) U/L CK-MB (CK-2) (0-3.6) ng/ml Troponin I (0.00-0.056) ng/mL C-Reactive Protein (<1.0) mg/dL NT-Pro-B Natriuret Pep 370 H (0-125) pg/mL Total Protein (6.4-8.2) g/dl Albumin (3.4-5.0) g/dl Globulin gm/dL Albumin/Globulin Ratio (1-2) Urine Color (Yellow) Urine Appearance (Clear) Urine pH (5.0-8.0) Ur Specific [place] (1.005-1.030) Urine Protein (Negative) Urine Glucose (UA) (Negative) Urine Ketones (Negative) Urine Occult Blood (Negative) Urine Nitrite (Negative) Urine Bilirubin (Negative) Urine Urobilinogen (0.2-1.0) Ur Leukocyte Esterase (Negative) Urine RBC (0-5) /hpf Urine WBC (0-5) /hpf Ur Epithelial Cells (0-5) /hpf Urine Bacteria (FEW) /hpf Urine Mucus (FEW) /hpf SARS-CoV-2 RNA (ROCHELLE) (NEGATIVE) 06/02/21 06/02/21 06/02/21 Range/Units 11:57 11:57 12:56 WBC (4.23-9.07) K/mm3 RBC (4.63-6.08) M/mm3 Hgb (13.7-17.5) gm/dl Hct (40.1-51.0) % MCV (79.0-92.2) fl MCH (25.7-32.2) pg MCHC (32.2-35.5) g/dl RDW Std Deviation (35.1-43.9) fL Plt Count (163-337) K/mm3 MPV (9.4-12.3) fl Neutrophils % (Manual) (40-60) % Band Neutrophils % (0-10) % Lymphocytes % (Manual) (20-40) % Atypical Lymphs % % Monocytes % (Manual) (2-10) % Eosinophils % (Manual) (0.8-7.0) % Basophils % (Manual) (0.2-1.2) Platelet Estimate Macrocytosis Target Cells Tear Drop Cells RBC Morph Comment ESR (0-15) mm/hr PT (9.7-12.0) SECONDS INR APTT (21.7-31.4) SECONDS D-Dimer, Quantitative (0.19-0.50) mg/L Puncture Site ABG pH (7.35-7.45) ABG pCO2 (35.0-45.0) mmHg ABG pO2 (80.0-100.0) mmHg ABG HCO3 (22.0-26.0) meq/L ABG O2 Saturation (96.0-97.0) % ABG Base Excess (-2-2.0) Donovan Test A-a Gradient mmHg Sodium (136-145) mEq/L Potassium (3.5-5.1) mEq/L Chloride (98-107) mEq/L Carbon Dioxide (21-32) mEq/L Anion Gap (5-15) BUN (7-18) mg/dL Creatinine (0.7-1.3) mg/dL Est Cr Clr Drug Dosing mL/min Estimated GFR (MDRD) (>60) mL/min BUN/Creatinine Ratio (14-18) Glucose (70-99) mg/dL POC Glucose (70-99) mg/dL Hemoglobin A1c 6.6 H ( - 5.6) % Lactic Acid 1.6 (0.4-2.0) mmol/L Calcium (8.5-10.1) mg/dL Magnesium (1.8-2.4) mg/dL Total Bilirubin (0.2-1.0) mg/dL AST (15-37) U/L ALT (16-63) U/L Alkaline Phosphatase (46-116) U/L CK-MB (CK-2) (0-3.6) ng/ml Troponin I (0.00-0.056) ng/mL C-Reactive Protein (<1.0) mg/dL NT-Pro-B Natriuret Pep (0-125) pg/mL Total Protein (6.4-8.2) g/dl Albumin (3.4-5.0) g/dl Globulin gm/dL Albumin/Globulin Ratio (1-2) Urine Color Yellow (Yellow) Urine Appearance Clear (Clear) Urine pH 7.0 (5.0-8.0) Ur Specific [place] 1.020 (1.005-1.030) Urine Protein 2+ H (Negative) Urine Glucose (UA) Negative (Negative) Urine Ketones Negative (Negative) Urine Occult Blood Negative (Negative) Urine Nitrite Negative (Negative) Urine Bilirubin Negative (Negative) Urine Urobilinogen 0.2 (0.2-1.0) Ur Leukocyte Esterase Negative (Negative) Urine RBC 0-5 (0-5) /hpf Urine WBC 0-5 (0-5) /hpf Ur Epithelial Cells 0-5 (0-5) /hpf Urine Bacteria Rare (FEW) /hpf Urine Mucus Not seen (FEW) /hpf SARS-CoV-2 RNA (ROCHELLE) (NEGATIVE) 06/02/21 Range/Units 13:13 WBC (4.23-9.07) K/mm3 RBC (4.63-6.08) M/mm3 Hgb (13.7-17.5) gm/dl Hct (40.1-51.0) % MCV (79.0-92.2) fl MCH (25.7-32.2) pg MCHC (32.2-35.5) g/dl RDW Std Deviation (35.1-43.9) fL Plt Count (163-337) K/mm3 MPV (9.4-12.3) fl Neutrophils % (Manual) (40-60) % Band Neutrophils % (0-10) % Lymphocytes % (Manual) (20-40) % Atypical Lymphs % % Monocytes % (Manual) (2-10) % Eosinophils % (Manual) (0.8-7.0) % Basophils % (Manual) (0.2-1.2) Platelet Estimate Macrocytosis Target Cells Tear Drop Cells RBC Morph Comment ESR (0-15) mm/hr PT (9.7-12.0) SECONDS INR APTT (21.7-31.4) SECONDS D-Dimer, Quantitative (0.19-0.50) mg/L Puncture Site ABG pH (7.35-7.45) ABG pCO2 (35.0-45.0) mmHg ABG pO2 (80.0-100.0) mmHg ABG HCO3 (22.0-26.0) meq/L ABG O2 Saturation (96.0-97.0) % ABG Base Excess (-2-2.0) Donovan Test A-a Gradient mmHg Sodium 137 (136-145) mEq/L Potassium 4.1 (3.5-5.1) mEq/L Chloride 98 (98-107) mEq/L Carbon Dioxide 28 (21-32) mEq/L Anion Gap 15.1 H (5-15) BUN 33 H (7-18) mg/dL Creatinine 1.7 H (0.7-1.3) mg/dL Est Cr Clr Drug Dosing 46.80 mL/min Estimated GFR (MDRD) 40 (>60) mL/min BUN/Creatinine Ratio 19.4 H (14-18) Glucose 127 H (70-99) mg/dL POC Glucose (70-99) mg/dL Hemoglobin A1c ( - 5.6) % Lactic Acid (0.4-2.0) mmol/L Calcium 9.1 (8.5-10.1) mg/dL Magnesium (1.8-2.4) mg/dL Total Bilirubin 0.3 (0.2-1.0) mg/dL AST 15 (15-37) U/L ALT 16 (16-63) U/L Alkaline Phosphatase 112 (46-116) U/L CK-MB (CK-2) (0-3.6) ng/ml Troponin I (0.00-0.056) ng/mL C-Reactive Protein (<1.0) mg/dL NT-Pro-B Natriuret Pep (0-125) pg/mL Total Protein 10.3 H (6.4-8.2) g/dl Albumin 2.7 L (3.4-5.0) g/dl Globulin 7.6 gm/dL Albumin/Globulin Ratio 0.4 L (1-2) Urine Color (Yellow) Urine Appearance (Clear) Urine pH (5.0-8.0) Ur Specific [place] (1.005-1.030) Urine Protein (Negative) Urine Glucose (UA) (Negative) Urine Ketones (Negative) Urine Occult Blood (Negative) Urine Nitrite (Negative) Urine Bilirubin (Negative) Urine Urobilinogen (0.2-1.0) Ur Leukocyte Esterase (Negative) Urine RBC (0-5) /hpf Urine WBC (0-5) /hpf Ur Epithelial Cells (0-5) /hpf Urine Bacteria (FEW) /hpf Urine Mucus (FEW) /hpf SARS-CoV-2 RNA (ROCHELLE) (NEGATIVE) Result Diagrams: 06/02/21 11:57 06/02/21 13:13 Sepsis Event Note - Evaluation Sepsis Screening Result: Sepsis Risk - Focused Exam Vital Signs: Vital Signs Temp Temp Pulse Resp BP Pulse Ox Pulse Ox 06/02/21 11:53 99.9 F 06/02/21 11:45 113 H 27 H 138/76 93 L 07/20/21 11:34 90 L 06/02/21 11:21 99.9 F 109 H 20 90 L - Problem List (1) Acute febrile illness SNOMED Code(s): 183280602 ICD Code: R50.9 - FEVER, UNSPECIFIED Status: Acute Priority: High Current Visit: Yes (2) Cellulitis of right leg SNOMED Code(s): 935043963 ICD Code: L03.115 - CELLULITIS OF RIGHT LOWER LIMB Status: Acute Priority: High Current Visit: Yes (3) Dependent edema SNOMED Code(s): 148594470 ICD Code: R60.9 - EDEMA, UNSPECIFIED Status: Chronic Priority: Medium Current Visit: Yes (4) Elevated sedimentation rate measurement SNOMED Code(s): 098523362 ICD Code: R70.0 - ELEVATED ERYTHROCYTE SEDIMENTATION RATE Status: Acute Priority: High Current Visit: Yes (5) Morbid obesity with BMI of 45.0-49.9, adult SNOMED Code(s): 414995882, 23381711114276 ICD Code: E66.01 - MORBID (SEVERE) OBESITY DUE TO EXCESS CALORIES; Z68.42 - BODY MASS INDEX [BMI] 45.0-49.9, ADULT Status: Chronic Priority: Low Curr ent Visit: Yes (6) Nausea and vomiting SNOMED Code(s): 87668209 ICD Code: R11.2 - NAUSEA WITH VOMITING, UNSPECIFIED Status: Acute Priority: High Current Visit: Yes Qualifiers: Vomiting type: unspecified Vomiting Intractability: intractable Qualified Code(s): R11.2 - Nausea with vomiting, unspecified (7) Neutrophilic leukocytosis SNOMED Code(s): 001545916, 355623489 ICD Code: D72.9 - DISORDER OF WHITE BLOOD CELLS, UNSPECIFIED Status: Acute Priority: High Current Visit: Yes (8) Cellulitis SNOMED Code(s): 283305866 ICD Code: L03.90 - CELLULITIS, UNSPECIFIED Status: Acute Priority: High Current Visit: Yes Qualifiers: Site of cellulitis: extremity Site of cellulitis of extremity: lower extremity Laterality: right Qualified Code(s): L03.115 - Cellulitis of right lower limb (9) Renal insufficiency SNOMED Code(s): 520514342, [id number] ICD Code: N28.9 - DISORDER OF KIDNEY AND URETER, UNSPECIFIED Status: Acute Priority: High Current Visit: Yes Problem List Initiated/Reviewed/Updated: Yes Orders Last 24hrs: Active Orders 24 hr Category Date Time Status Admission Status [Patient Status] [ADT] Routine ADT 06/02/21 14:42 Active Admission Status [Patient Status] [ADT] Routine ADT 06/02/21 14:49 Active Bladder Scan [RC] ASDIRECTED Care 06/02/21 11:31 Active Blood Glucose Check, Bedside [RC] ONETIME Care 06/02/21 11:29 Active EKG Documentation Completion [RC] STAT Care 06/02/21 11:46 Active Height and Weight [RC] 06 Care 06/02/21 14:43 Active Intake and Output [RC] 04,16 Care 06/02/21 14:44 Active Oxygen Therapy [RC] ASDIRECTED Care 06/02/21 11:28 Active Oxygen Therapy [RC] PRN Care 06/02/21 14:44 Active Peripheral IV Care [RC] . DIRECTED Care 06/02/21 14:46 Active Up With Assistance [RC] ASDIRECTED Care 06/02/21 14:43 Active VTE/DVT Education [RC] PER UNIT ROUTINE Care 06/02/21 14:44 Active Vital Signs [RC] Q4HR Care 06/02/21 14:44 Active Consult to Case Management/[employer] Covering [CONS] Cons 06/02/21 14:43 Active Routine Consult to Digital Experience Manager [CONS] Routine Cons 06/02/21 14:43 Active OT Evaluation and Treatment [CONS] Routine Cons 06/02/21 14:43 Active PT Evaluation and Treatment [CONS] Routine Cons 06/02/21 14:43 Active Heart Healthy Diet [DIET] Diet 06/02/21 Dinner Active CBC WITH AUTO DIFF [HEME] DAILY Lab 06/03/21 05:11 Ordered CBC WITH AUTO DIFF [HEME] DAILY Lab 06/04/21 05:11 Ordered CBC WITH AUTO DIFF [HEME] DAILY Lab 06/05/21 05:11 Ordered CBC WITH AUTO DIFF [HEME] DAILY Lab 06/06/21 05:11 Ordered COMPREHENSIVE METABOLIC PN,CMP [CHEM] DAILY Lab 06/03/21 05:11 Ordered COMPREHENSIVE METABOLIC PN,CMP [CHEM] DAILY Lab 06/04/21 05:11 Ordered COMPREHENSIVE METABOLIC PN,CMP [CHEM] DAILY Lab 06/05/21 05:11 Ordered COMPREHENSIVE METABOLIC PN,CMP [CHEM] DAILY Lab 06/06/21 05:11 Ordered CULTURE, ANAEROBE & AEROBE [MREF] Stat Lab 06/02/21 11:52 Received MAGNESIUM [CHEM] DAILY Lab 06/03/21 05:11 Ordered MAGNESIUM [CHEM] DAILY Lab 06/04/21 05:11 Ordered MAGNESIUM [CHEM] DAILY Lab 06/05/21 05:11 Ordered MAGNESIUM [CHEM] DAILY Lab 06/06/21 05:11 Ordered METH-RESIST S.AUR,MRSA BY PCR [MOLEC] Stat Lab 06/02/21 14:43 Ordered Acetaminophen [TylenoL] Med 06/02/21 14:43 Active 650 mg PO Q4H PRN Acetaminophen/HYDROcodone [Willis 325-5 MG] Med 06/02/21 14:43 Active 1 tab PO Q4H PRN Dextrose 5%-0.9% NaCl [Dextrose 5%-Normal Saline] 1,000 Med 06/02/21 11:30 Active ml IV ASDIRECTED Enoxaparin [Lovenox] Med 06/03/21 09:00 Active 40 mg SUBCUT DAILY Ondansetron [Zofran ODT] Med 06/02/21 14:43 Active 4 mg PO Q4H PRN Ondansetron [Zofran] Med 06/02/21 14:43 Active 4 mg IV Q6H PRN Pharmacy to Dose - Vancomycin Med 06/02/21 15:00 Active 1 dose .XX ASDIRECTED PRN Sodium Chloride 0.9% [Saline Flush] Med 06/02/21 14:43 Active 10 ml FLUSH ASDIRECTED PRN Blood Culture x2 Reflex Set [OM.PC] Stat Oth 06/02/21 11:29 Ordered Peripheral IV Insertion Adult [OM.PC] Routine Oth 06/02/21 14:43 Ordered Medication Orders Acetaminophen (Acetaminophen 325 Mg Tab) 650 mg PO Q4H PRN PRN Reason: Pain (Mild 1-3)/fever Hydrocodone Bitart/Acetaminophen (Acetaminophen/Hydrocodone 325-5 Mg Tab) 1 tab PO Q4H PRN PRN Reason: Pain (moderate 4-6) Enoxaparin Sodium (Enoxaparin 40 Mg/0.4 Ml Syringe) 40 mg SUBCUT DAILY GLENN Dextrose/Sodium Chloride (Dextrose 5%-Normal Saline) 1,000 mls @ 250 mls/hr IV ASDIRECTED [facility] Last Admin: 06/02/21 11:56 Dose: 250 mls/hr Documented by: WILLIAM Ondansetron HCl (Ondansetron 4 Mg Tab.Dis) 4 mg PO Q4H PRN PRN Reason: nausea, able to take PO Ondansetron HCl (Ondansetron 4 Mg/2 Ml Sdv) 4 mg IV Q6H PRN PRN Reason: Nausea/Vomiting Sodium Chloride (Sodium Chloride 0.9% 10 Ml Syringe) 10 ml FLUSH ASDIRECTED PRN PRN Reason: Keep Vein Open Vancomycin HCl (Pharmacy To Dose - Vancomycin) 1 dose .XX ASDIRECTED PRN PRN Reason: RX TO DOSE VANCO Assessment/Plan Comment:: 75-year-old male who presents with acute onset of fever and chills with associated nausea and vomiting. Patient has been treated for cellulitis of the right lower extremity and an ulcer on the plantar surface of the right fourth toe with Fortaz from May 14 through the May 26, 2021. Patient does have a PICC line in place to the left AC. He has a assisted resident and ambulates very minimally primarily getting around with the use of a motorized wheelchair. He does carry a history of morbid obesity. Full septic work-up was completed in the ER including wound cultures and blood cultures. Patient was given 2 g Rocephin IV in the emergency department and I have started him on vancomycin with pharmacy dosing. 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 PT for evaluation of the patient's wounds. OT for ADLs. Vital signs will be ordered every 4 hours and the patient will be a daily weight. We will place him on Lovenox for DVT prophylaxis. Respiratory therapy to titrate O2 to keep sats greater than 92%. I will have the dietitian consult. Patient states he is not diabetic however his hemoglobin A1c was 6.6. I will order 4 times daily before meals and at bedtime Accu-Checks with low-dose sliding scale coverage for now. Patiently placed on a heart healthy diet. We will repeat lab studies in the a.m. Will watch for blood and wound culture results. - Mortality Measure Prognosis:: Good <Noam Talavera - Last Filed: 06/02/21 16:18> H&P History of Present Illness - General Admit Problem/Dx: Admission Diagnosis/Problem Admission Diagnosis/Problem Cellulitis Exam - Vital Signs Vital Signs: Last Vital Signs Temp 37.1 C 06/02/21 15:36 Pulse 99 06/02/21 15:36 Resp 20 06/02/21 15:36 BP 100/48 L 06/02/21 15:36 Pulse Ox 92 L 06/02/21 15:36 - Patient Data Lab Results Last 24 hrs: Laboratory Results - last 24 hr 06/02/21 06/02/21 06/02/21 Range/Units 11:28 11:50 11:52 WBC (4.23-9.07) K/mm3 RBC (4.63-6.08) M/mm3 Hgb (13.7-17.5) gm/dl Hct (40.1-51.0) % MCV (79.0-92.2) fl MCH (25.7-32.2) pg MCHC (32.2-35.5) g/dl RDW Std Deviation (35.1-43.9) fL Plt Count (163-337) K/mm3 MPV (9.4-12.3) fl Neutrophils % (Manual) (40-60) % Band Neutrophils % (0-10) % Lymphocytes % (Manual) (20-40) % Atypical Lymphs % % Monocytes % (Manual) (2-10) % Eosinophils % (Manual) (0.8-7.0) % Basophils % (Manual) (0.2-1.2) Platelet Estimate Macrocytosis Target Cells Tear Drop Cells RBC Morph Comment ESR (0-15) mm/hr PT (9.7-12.0) SECONDS INR APTT (21.7-31.4) SECONDS D-Dimer, Quantitative (0.19-0.50) mg/L Puncture Site Rt radial ABG pH 7.52 H (7.35-7.45) ABG pCO2 38.7 (35.0-45.0) mmHg ABG pO2 53.0 L (80.0-100.0) mmHg ABG HCO3 31.2 H (22.0-26.0) meq/L ABG O2 Saturation 88.9 L (96.0-97.0) % ABG Base Excess 7.9 H (-2-2.0) Donovan Test Positive A-a Gradient 49 mmHg Sodium (136-145) mEq/L Potassium (3.5-5.1) mEq/L Chloride (98-107) mEq/L Carbon Dioxide (21-32) mEq/L Anion Gap (5-15) BUN (7-18) mg/dL Creatinine (0.7-1.3) mg/dL Est Cr Clr Drug Dosing mL/min Estimated GFR (MDRD) (>60) mL/min BUN/Creatinine Ratio (14-18) Glucose (70-99) mg/dL POC Glucose 105 H (70-99) mg/dL Hemoglobin A1c ( - 5.6) % Lactic Acid (0.4-2.0) mmol/L Calcium (8.5-10.1) mg/dL Magnesium (1.8-2.4) mg/dL Total Bilirubin (0.2-1.0) mg/dL AST (15-37) U/L ALT (16-63) U/L Alkaline Phosphatase (46-116) U/L CK-MB (CK-2) (0-3.6) ng/ml Troponin I (0.00-0.056) ng/mL C-Reactive Protein (<1.0) mg/dL NT-Pro-B Natriuret Pep (0-125) pg/mL Total Protein (6.4-8.2) g/dl Albumin (3.4-5.0) g/dl Globulin gm/dL Albumin/Globulin Ratio (1-2) Urine Color (Yellow) Urine Appearance (Clear) Urine pH (5.0-8.0) Ur Specific [place] (1.005-1.030) Urine Protein (Negative) Urine Glucose (UA) (Negative) Urine Ketones (Negative) Urine Occult Blood (Negative) Urine Nitrite (Negative) Urine Bilirubin (Negative) Urine Urobilinogen (0.2-1.0) Ur Leukocyte Esterase (Negative) Urine RBC (0-5) /hpf Urine WBC (0-5) /hpf Ur Epithelial Cells (0-5) /hpf Urine Bacteria (FEW) /hpf Urine Mucus (FEW) /hpf SARS-CoV-2 RNA (ROCHELLE) Negative (NEGATIVE) 06/02/21 06/02/21 06/02/21 Range/Units 11:57 11:57 11:57 WBC 12.72 H (4.23-9.07) K/mm3 RBC 3.17 L (4.63-6.08) M/mm3 Hgb 10.4 L (13.7-17.5) gm/dl Hct 34.7 L (40.1-51.0) % MCV 109.5 H (79.0-92.2) fl MCH 32.8 H (25.7-32.2) pg MCHC 30.0 L (32.2-35.5) g/dl RDW Std Deviation 69.4 H (35.1-43.9) fL Plt Count 210 (163-337) K/mm3 MPV 8.9 L (9.4-12.3) fl Neutrophils % (Manual) 89 H (40-60) % Band Neutrophils % 5 (0-10) % Lymphocytes % (Manual) 5 L (20-40) % Atypical Lymphs % 0 % Monocytes % (Manual) 1 L (2-10) % Eosinophils % (Manual) 0 L (0.8-7.0) % Basophils % (Manual) 0 L (0.2-1.2) Platelet Estimate Adequate Macrocytosis 2+ moderate Target Cells 1+ slight Tear Drop Cells 1+ slight RBC Morph Comment Not Reportable ESR (0-15) mm/hr PT 12.2 H (9.7-12.0) SECONDS INR 1.14 APTT 22.1 (21.7-31.4) SECONDS D-Dimer, Quantitative (0.19-0.50) mg/L Puncture Site ABG pH (7.35-7.45) ABG pCO2 (35.0-45.0) mmHg ABG pO2 (80.0-100.0) mmHg ABG HCO3 (22.0-26.0) meq/L ABG O2 Saturation (96.0-97.0) % ABG Base Excess (-2-2.0) Donovan Test A-a Gradient mmHg Sodium (136-145) mEq/L Potassium (3.5-5.1) mEq/L Chloride (98-107) mEq/L Carbon Dioxide (21-32) mEq/L Anion Gap (5-15) BUN (7-18) mg/dL Creatinine (0.7-1.3) mg/dL Est Cr Clr Drug Dosing mL/min Estimated GFR (MDRD) (>60) mL/min BUN/Creatinine Ratio (14-18) Glucose (70-99) mg/dL POC Glucose (70-99) mg/dL Hemoglobin A1c ( - 5.6) % Lactic Acid (0.4-2.0) mmol/L Calcium (8.5-10.1) mg/dL Magnesium 2.1 (1.8-2.4) mg/dL Total Bilirubin (0.2-1.0) mg/dL AST (15-37) U/L ALT (16-63) U/L Alkaline Phosphatase (46-116) U/L CK-MB (CK-2) 1.5 (0-3.6) ng/ml Troponin I < 0.017 (0.00-0.056) ng/mL C-Reactive Protein 3.3 H* (<1.0) mg/dL NT-Pro-B Natriuret Pep (0-125) pg/mL Total Protein (6.4-8.2) g/dl Albumin (3.4-5.0) g/dl Globulin gm/dL Albumin/Globulin Ratio (1-2) Urine Color (Yellow) Urine Appearance (Clear) Urine pH (5.0-8.0) Ur Specific [place] (1.005-1.030) Urine Protein (Negative) Urine Glucose (UA) (Negative) Urine Ketones (Negative) Urine Occult Blood (Negative) Urine Nitrite (Negative) Urine Bilirubin (Negative) Urine Urobilinogen (0.2-1.0) Ur Leukocyte Esterase (Negative) Urine RBC (0-5) /hpf Urine WBC (0-5) /hpf Ur Epithelial Cells (0-5) /hpf Urine Bacteria (FEW) /hpf Urine Mucus (FEW) /hpf SARS-CoV-2 RNA (ROCHELLE) (NEGATIVE) 06/02/21 06/02/21 06/02/21 Range/Units 11:57 11:57 11:57 WBC (4.23-9.07) K/mm3 RBC (4.63-6.08) M/mm3 Hgb (13.7-17.5) gm/dl Hct (40.1-51.0) % MCV (79.0-92.2) fl MCH (25.7-32.2) pg MCHC (32.2-35.5) g/dl RDW Std Deviation (35.1-43.9) fL Plt Count (163-337) K/mm3 MPV (9.4-12.3) fl Neutrophils % (Manual) (40-60) % Band Neutrophils % (0-10) % Lymphocytes % (Manual) (20-40) % Atypical Lymphs % % Monocytes % (Manual) (2-10) % Eosinophils % (Manual) (0.8-7.0) % Basophils % (Manual) (0.2-1.2) Platelet Estimate Macrocytosis Target Cells Tear Drop Cells RBC Morph Comment ESR 99 H (0-15) mm/hr PT (9.7-12.0) SECONDS INR APTT (21.7-31.4) SECONDS D-Dimer, Quantitative 2.09 H (0.19-0.50) mg/L Puncture Site ABG pH (7.35-7.45) ABG pCO2 (35.0-45.0) mmHg ABG pO2 (80.0-100.0) mmHg ABG HCO3 (22.0-26.0) meq/L ABG O2 Saturation (96.0-97.0) % ABG Base Excess (-2-2.0) Donovan Test A-a Gradient mmHg Sodium (136-145) mEq/L Potassium (3.5-5.1) mEq/L Chloride (98-107) mEq/L Carbon Dioxide (21-32) mEq/L Anion Gap (5-15) BUN (7-18) mg/dL Creatinine (0.7-1.3) mg/dL Est Cr Clr Drug Dosing mL/min Estimated GFR (MDRD) (>60) mL/min BUN/Creatinine Ratio (14-18) Glucose (70-99) mg/dL POC Glucose (70-99) mg/dL Hemoglobin A1c ( - 5.6) % Lactic Acid (0.4-2.0) mmol/L Calcium (8.5-10.1) mg/dL Magnesium (1.8-2.4) mg/dL Total Bilirubin (0.2-1.0) mg/dL AST (15-37) U/L ALT (16-63) U/L Alkaline Phosphatase (46-116) U/L CK-MB (CK-2) (0-3.6) ng/ml Troponin I (0.00-0.056) ng/mL C-Reactive Protein (<1.0) mg/dL NT-Pro-B Natriuret Pep 370 H (0-125) pg/mL Total Protein (6.4-8.2) g/dl Albumin (3.4-5.0) g/dl Globulin gm/dL Albumin/Globulin Ratio (1-2) Urine Color (Yellow) Urine Appearance (Clear) Urine pH (5.0-8.0) Ur Specific [place] (1.005-1.030) Urine Protein (Negative) Urine Glucose (UA) (Negative) Urine Ketones (Negative) Urine Occult Blood (Negative) Urine Nitrite (Negative) Urine Bilirubin (Negative) Urine Urobilinogen (0.2-1.0) Ur Leukocyte Esterase (Negative) Urine RBC (0-5) /hpf Urine WBC (0-5) /hpf Ur Epithelial Cells (0-5) /hpf Urine Bacteria (FEW) /hpf Urine Mucus (FEW) /hpf SARS-CoV-2 RNA (ROCHELLE) (NEGATIVE) 06/02/21 06/02/21 06/02/21 Range/Units 11:57 11:57 12:56 WBC (4.23-9.07) K/mm3 RBC (4.63-6.08) M/mm3 Hgb (13.7-17.5) gm/dl Hct (40.1-51.0) % MCV (79.0-92.2) fl MCH (25.7-32.2) pg MCHC (32.2-35.5) g/dl RDW Std Deviation (35.1-43.9) fL Plt Count (163-337) K/mm3 MPV (9.4-12.3) fl Neutrophils % (Manual) (40-60) % Band Neutrophils % (0-10) % Lymphocytes % (Manual) (20-40) % Atypical Lymphs % % Monocytes % (Manual) (2-10) % Eosinophils % (Manual) (0.8-7.0) % Basophils % (Manual) (0.2-1.2) Platelet Estimate Macrocytosis Target Cells Tear Drop Cells RBC Morph Comment ESR (0-15) mm/hr PT (9.7-12.0) SECONDS INR APTT (21.7-31.4) SECONDS D-Dimer, Quantitative (0.19-0.50) mg/L Puncture Site ABG pH (7.35-7.45) ABG pCO2 (35.0-45.0) mmHg ABG pO2 (80.0-100.0) mmHg ABG HCO3 (22.0-26.0) meq/L ABG O2 Saturation (96.0-97.0) % ABG Base Excess (-2-2.0) Donovan Test A-a Gradient mmHg Sodium (136-145) mEq/L Potassium (3.5-5.1) mEq/L Chloride (98-107) mEq/L Carbon Dioxide (21-32) mEq/L Anion Gap (5-15) BUN (7-18) mg/dL Creatinine (0.7-1.3) mg/dL Est Cr Clr Drug Dosing mL/min Estimated GFR (MDRD) (>60) mL/min BUN/Creatinine Ratio (14-18) Glucose (70-99) mg/dL POC Glucose (70-99) mg/dL Hemoglobin A1c 6.6 H ( - 5.6) % Lactic Acid 1.6 (0.4-2.0) mmol/L Calcium (8.5-10.1) mg/dL Magnesium (1.8-2.4) mg/dL Total Bilirubin (0.2-1.0) mg/dL AST (15-37) U/L ALT (16-63) U/L Alkaline Phosphatase (46-116) U/L CK-MB (CK-2) (0-3.6) ng/ml Troponin I (0.00-0.056) ng/mL C-Reactive Protein (<1.0) mg/dL NT-Pro-B Natriuret Pep (0-125) pg/mL Total Protein (6.4-8.2) g/dl Albumin (3.4-5.0) g/dl Globulin gm/dL Albumin/Globulin Ratio (1-2) Urine Color Yellow (Yellow) Urine Appearance Clear (Clear) Urine pH 7.0 (5.0-8.0) Ur Specific [place] 1.020 (1.005-1.030) Urine Protein 2+ H (Negative) Urine Glucose (UA) Negative (Negative) Urine Ketones Negative (Negative) Urine Occult Blood Negative (Negative) Urine Nitrite Negative (Negative) Urine Bilirubin Negative (Negative) Urine Urobilinogen 0.2 (0.2-1.0) Ur Leukocyte Esterase Negative (Negative) Urine RBC 0-5 (0-5) /hpf Urine WBC 0-5 (0-5) /hpf Ur Epithelial Cells 0-5 (0-5) /hpf Urine Bacteria Rare (FEW) /hpf Urine Mucus Not seen (FEW) /hpf SARS-CoV-2 RNA (ROCHELLE) (NEGATIVE) 06/02/21 Range/Units 13:13 WBC (4.23-9.07) K/mm3 RBC (4.63-6.08) M/mm3 Hgb (13.7-17.5) gm/dl Hct (40.1-51.0) % MCV (79.0-92.2) fl MCH (25.7-32.2) pg MCHC (32.2-35.5) g/dl RDW Std Deviation (35.1-43.9) fL Plt Count (163-337) K/mm3 MPV (9.4-12.3) fl Neutrophils % (Manual) (40-60) % Band Neutrophils % (0-10) % Lymphocytes % (Manual) (20-40) % Atypical Lymphs % % Monocytes % (Manual) (2-10) % Eosinophils % (Manual) (0.8-7.0) % Basophils % (Manual) (0.2-1.2) Platelet Estimate Macrocytosis Target Cells Tear Drop Cells RBC Morph Comment ESR (0-15) mm/hr PT (9.7-12.0) SECONDS INR APTT (21.7-31.4) SECONDS D-Dimer, Quantitative (0.19-0.50) mg/L Puncture Site ABG pH (7.35-7.45) ABG pCO2 (35.0-45.0) mmHg ABG pO2 (80.0-100.0) mmHg ABG HCO3 (22.0-26.0) meq/L ABG O2 Saturation (96.0-97.0) % ABG Base Excess (-2-2.0) Donovan Test A-a Gradient mmHg Sodium 137 (136-145) mEq/L Potassium 4.1 (3.5-5.1) mEq/L Chloride 98 (98-107) mEq/L Carbon Dioxide 28 (21-32) mEq/L Anion Gap 15.1 H (5-15) BUN 33 H (7-18) mg/dL Creatinine 1.7 H (0.7-1.3) mg/dL Est Cr Clr Drug Dosing 46.80 mL/min Estimated GFR (MDRD) 40 (>60) mL/min BUN/Creatinine Ratio 19.4 H (14-18) Glucose 127 H (70-99) mg/dL POC Glucose (70-99) mg/dL Hemoglobin A1c ( - 5.6) % Lactic Acid (0.4-2.0) mmol/L Calcium 9.1 (8.5-10.1) mg/dL Magnesium (1.8-2.4) mg/dL Total Bilirubin 0.3 (0.2-1.0) mg/dL AST 15 (15-37) U/L ALT 16 (16-63) U/L Alkaline Phosphatase 112 (46-116) U/L CK-MB (CK-2) (0-3.6) ng/ml Troponin I (0.00-0.056) ng/mL C-Reactive Protein (<1.0) mg/dL NT-Pro-B Natriuret Pep (0-125) pg/mL Total Protein 10.3 H (6.4-8.2) g/dl Albumin 2.7 L (3.4-5.0) g/dl Globulin 7.6 gm/dL Albumin/Globulin Ratio 0.4 L (1-2) Urine Color (Yellow) Urine Appearance (Clear) Urine pH (5.0-8.0) Ur Specific [place] (1.005-1.030) Urine Protein (Negative) Urine Glucose (UA) (Negative) Urine Ketones (Negative) Urine Occult Blood (Negative) Urine Nitrite (Negative) Urine Bilirubin (Negative) Urine Urobilinogen (0.2-1.0) Ur Leukocyte Esterase (Negative) Urine RBC (0-5) /hpf Urine WBC (0-5) /hpf Ur Epithelial Cells (0-5) /hpf Urine Bacteria (FEW) /hpf Urine Mucus (FEW) /hpf SARS-CoV-2 RNA (ROCHELLE) (NEGATIVE) Result Diagrams: 06/02/21 11:57 06/02/21 13:13 Sepsis Event Note - Focused Exam Vital Signs: Vital Signs Temp Temp Pulse Pulse Resp BP BP 06/02/21 15:36 37.1 C 99 20 100/48 L 06/02/21 11:53 37.7 C 06/02/21 11:45 113 H 27 H 138/76 06/02/21 11:34 06/02/21 11:21 37.7 C 109 H 20 Pulse Ox Pulse Ox 06/02/21 15:36 92 L 06/02/21 11:53 06/02/21 11:45 93 L 06/02/21 11:34 90 L 06/02/21 11:21 90 L Orders Last 24hrs: Active Orders 24 hr Category Date Time Status Admission Status [Patient Status] [ADT] Routine ADT 06/02/21 14:42 Active Admission Status [Patient Status] [ADT] Routine ADT 06/02/21 14:49 Active Accu Check [Blood Glucose Check, Bedside] [RC] Care 06/02/21 15:57 Active QIDACANDBED Bladder Scan [RC] ASDIRECTED Care 06/02/21 11:31 Active Blood Glucose Check, Bedside [RC] ONETIME Care 06/02/21 11:29 Active EKG Documentation Completion [RC] STAT Care 06/02/21 11:46 Active Height and Weight [RC] 06 Care 06/02/21 14:43 Active Intake and Output [RC] 04,16 Care 06/02/21 14:44 Active Oxygen Therapy [RC] ASDIRECTED Care 06/02/21 11:28 Active Oxygen Therapy [RC] PRN Care 06/02/21 14:44 Active Peripheral IV Care [RC] . DIRECTED Care 06/02/21 14:46 Active Up With Assistance [RC] ASDIRECTED Care 06/02/21 14:43 Active VTE/DVT Education [RC] PER UNIT ROUTINE Care 06/02/21 14:44 Active Vital Signs [RC] Q4HR Care 06/02/21 14:44 Active Consult to Case Management/Molder Pipe Covering [CONS] Cons 06/02/21 14:43 Active Routine Consult to Digital Experience Manager [CONS] Routine Cons 06/02/21 14:43 Active OT Evaluation and Treatment [CONS] Routine Cons 06/02/21 14:43 Active PT Evaluation and Treatment [CONS] Routine Cons 06/02/21 14:43 Active Heart Healthy Diet [DIET] Diet 06/02/21 Dinner Active CBC WITH AUTO DIFF [HEME] DAILY Lab 06/03/21 05:11 Ordered CBC WITH AUTO DIFF [HEME] DAILY Lab 06/04/21 05:11 Ordered CBC WITH AUTO DIFF [HEME] DAILY Lab 06/05/21 05:11 Ordered CBC WITH AUTO DIFF [HEME] DAILY Lab 06/06/21 05:11 Ordered COMPREHENSIVE METABOLIC PN,CMP [CHEM] DAILY Lab 06/03/21 05:11 Ordered COMPREHENSIVE METABOLIC PN,CMP [CHEM] DAILY Lab 06/04/21 05:11 Ordered COMPREHENSIVE METABOLIC PN,CMP [CHEM] DAILY Lab 06/05/21 05:11 Ordered COMPREHENSIVE METABOLIC PN,CMP [CHEM] DAILY Lab 06/06/21 05:11 Ordered CULTURE, ANAEROBE & AEROBE [MREF] Stat Lab 06/02/21 11:52 Received MAGNESIUM [CHEM] DAILY Lab 06/03/21 05:11 Ordered MAGNESIUM [CHEM] DAILY Lab 06/04/21 05:11 Ordered MAGNESIUM [CHEM] DAILY Lab 06/05/21 05:11 Ordered MAGNESIUM [CHEM] DAILY Lab 06/06/21 05:11 Ordered METH-RESIST S.AUR,MRSA BY PCR [MOLEC] Stat Lab 06/02/21 15:34 Received Acetaminophen [TylenoL] Med 06/02/21 14:43 Active 650 mg PO Q4H PRN Acetaminophen/HYDROcodone [Willis 325-5 MG] Med 06/02/21 14:43 Active 1 tab PO Q4H PRN Enoxaparin [Lovenox] Med 06/03/21 09:00 Active 40 mg SUBCUT DAILY Insulin Lispro [HumaLOG] Med 06/02/21 17:00 Active See Protocol SUBCUT QIDACANDBED Ondansetron [Zofran ODT] Med 06/02/21 14:43 Active 4 mg PO Q4H PRN Ondansetron [Zofran] Med 06/02/21 14:43 Active 4 mg IV Q6H PRN Pharmacy to Dose - Vancomycin Med 06/02/21 15:00 Active 1 dose .XX ASDIRECTED PRN Sodium Chloride 0.9% [Normal Saline] 1,000 ml Med 06/02/21 16:00 Active IV ASDIRECTED Sodium Chloride 0.9% [Saline Flush] Med 06/02/21 14:43 Active 10 ml FLUSH ASDIRECTED PRN Vancomycin 2 gm Med 06/02/21 16:00 Active Sodium Chloride 0.9% [Normal Saline] 500 ml IV Q18H Blood Culture x2 Reflex Set [OM.PC] Stat Oth 06/02/21 11:29 Ordered Peripheral IV Insertion Adult [OM.PC] Routine Oth 06/02/21 14:43 Ordered Medication Orders Acetaminophen (Acetaminophen 325 Mg Tab) 650 mg PO Q4H PRN PRN Reason: Pain (Mild 1-3)/fever Hydrocodone Bitart/Acetaminophen (Acetaminophen/Hydrocodone 325-5 Mg Tab) 1 tab PO Q4H PRN PRN Reason: Pain (moderate 4-6) Enoxaparin Sodium (Enoxaparin 40 Mg/0.4 Ml Syringe) 40 mg SUBCUT DAILY GLENN Vancomycin HCl 2 gm/ Sodium (Chloride) 500 mls @ 250 mls/hr IV Q18H GLENN Sodium Chloride (Normal Saline) 1,000 mls @ 150 mls/hr IV ASDIRECTED GLENN Insulin Human Lispro (Insulin Lispro 100 Unit/Ml 10 Ml Vial) 0 unit SUBCUT QIDACANDBED GLENN; Protocol Ondansetron HCl (Ondansetron 4 Mg Tab.Dis) 4 mg PO Q4H PRN PRN Reason: nausea, able to take PO Ondansetron HCl (Ondansetron 4 Mg/2 Ml Sdv) 4 mg IV Q6H PRN PRN Reason: Nausea/Vomiting Sodium Chloride (Sodium Chloride 0.9% 10 Ml Syringe) 10 ml FLUSH ASDIRECTED PRN PRN Reason: Keep Vein Open Vancomycin HCl (Pharmacy To Dose - Vancomycin) 1 dose .XX ASDIRECTED PRN PRN Reason: RX TO DOSE VANCO Assessment/Plan Comment:: I have seen and examined the patient independently of Keven Leon CNP, and I have discussed the case with her. I have reviewed the plan of care for this patient as outlined by her. Please see orders.
[2021-06-02] MEDS: Vancomycin 2 GM in Sodium Chloride 0.9% 500 ML IV SCH (16:38)
[2021-06-02] MEDS: Sodium Chloride 0.9% 1,000 ML IV SCH (16:38)
[2021-06-02] MEDS: Insulin Lispro 100 UNIT/ML 10 ML Vial SUBCUT SCH ×2 (18:19→21:08)
[2021-06-02] MEDS: Nystatin Topical Powder 15 GM Bottle TOP SCH (20:20)
[2021-06-02] MEDS: Acetaminophen 325 MG Tab PO PRN (20:20)
[2021-06-03] MEDS: Sodium Chloride 0.9% 1,000 ML IV SCH ×2 (00:09→07:25)
[2021-06-03] MEDS: Insulin Lispro 100 UNIT/ML 10 ML Vial SUBCUT SCH ×4 (06:29→21:12)
[2021-06-03] MEDS ORDERED: Calcium Carbonate 500 MG Tab.Chew PO PRN (08:51)
[2021-06-03] MEDS ORDERED: Nitroglycerin 0.4 MG Tab.SL SL PRN (08:51)
[2021-06-03] MEDS ORDERED: Polyethylene Glycol 3350 Powder 17 GM Packet PO PRN (08:51)
[2021-06-03] MEDS ORDERED: Loperamide 2 MG Cap PO PRN (08:51)
[2021-06-03] MEDS ORDERED: [UNRECOGNIZED DRUG - REMARK] TOP SCH (09:00)
[2021-06-03] MEDS ORDERED: Aluminum Hydroxide/Magnesium Hydroxide/Simethicone Susp 30 ML Cup PO PRN (09:02)
[2021-06-03] MEDS: Nystatin Topical Powder 15 GM Bottle TOP SCH ×4 (09:53→21:13)
[2021-06-03] MEDS: Potassium Chloride 20 MEQ Tab.ER PO SCH (09:54)
[2021-06-03] MEDS: Cholecalciferol (Vitamin D3) 5,000 UNIT Cap PO SCH (09:54)
[2021-06-03] MEDS: Aspirin 81 MG Tab.Chew PO SCH (09:54)
[2021-06-03] MEDS: Acetaminophen 325 MG Tab PO PRN ×2 (09:54→17:18)
[2021-06-03] MEDS: Metoprolol Succinate 50 MG Tab.ER PO SCH (09:54)
[2021-06-03] MEDS: Enoxaparin 40 MG/0.4 ML Syringe SUBCUT SCH (09:55)
[2021-06-03] MEDS: Vancomycin 2 GM in Sodium Chloride 0.9% 500 ML IV SCH (09:55)
[2021-06-03] MEDS: Losartan 25 MG Tab PO SCH (09:55)
[2021-06-03] MEDS: Clopidogrel 75 MG Tab PO SCH (09:55)
[2021-06-03] MEDS: Acetaminophen 325 MG Tab PO SCH ×2 (09:56→21:12)
--- NOTE | 2021-06-03 09:56 | PCM.PN ---
- General Info Date of Service: 06/03/21 Subjective Update: Buster reports feeling much better today. He denies and fever and or chills over the past 24 hours. Denies cough, chest pain or shortness of breath. States emi t his appetite is good. Functional Status: Reports: Pain Controlled, Tolerating Diet, Urinating. Denies: Ambulating (pt uses a motorized wheelchair for mobility) - Review of Systems General: Reports: No Symptoms. Denies: Fever, Weakness, Fatigue, Malaise, Chills HEENT: Reports: No Symptoms Pulmonary: Reports: No Symptoms. Denies: Shortness of Breath, Pleuritic Chest Pain, Cough Cardiovascular: Reports: No Symptoms. Denies: Chest Pain Gastrointestinal: Reports: No Symptoms Genitourinary: Reports: No Symptoms Musculoskeletal: Reports: No Symptoms Skin: Reports: No Symptoms Neurological: Reports: No Symptoms Psychiatric: Reports: No Symptoms - Patient Data Vitals - Most Recent: Last Vital Signs Temp 99.0 F 06/03/21 04:25 Pulse 86 06/03/21 04:25 Resp 22 H 06/03/21 04:25 BP 130/65 06/03/21 04:25 Pulse Ox 91 L 06/03/21 08:38 Weight - Most Recent: 410 lb 4.8 oz I&O - Last 24 Hours: Intake & Output 06/02/21 06/03/21 06/03/21 22:59 06:59 14:59 Intake Total 120 2036 Balance 120 2036 Lab Results Last 24 Hours: Laboratory Results - last 24 hr 06/02/21 06/02/21 06/02/21 Range/Units 11:28 11:50 11:52 WBC (4.23-9.07) K/mm3 RBC (4.63-6.08) M/mm3 Hgb (13.7-17.5) gm/dl Hct (40.1-51.0) % MCV (79.0-92.2) fl MCH (25.7-32.2) pg MCHC (32.2-35.5) g/dl RDW Std Deviation (35.1-43.9) fL Plt Count (163-337) K/mm3 MPV (9.4-12.3) fl Neut % (Auto) (34.0-67.9) % Lymph % (Auto) (21.8-53.1) % [place] % (Auto) (5.3-12.2) % Eos % (Auto) (0.8-7.0) Baso % (Auto) (0.1-1.2) % Neut # (Auto) (1.78-5.38) K/mm3 Lymph # (Auto) (1.32-3.57) K/mm3 Schoolcraft # (Auto) (0.30-0.82) K/mm3 Eos # (Auto) (0.04-0.54) K/mm3 Baso # (Auto) (0.01-0.08) K/mm3 Neutrophils % (Manual) (40-60) % Band Neutrophils % (0-10) % Lymphocytes % (Manual) (20-40) % Atypical Lymphs % % Monocytes % (Manual) (2-10) % Eosinophils % (Manual) (0.8-7.0) % Basophils % (Manual) (0.2-1.2) Manual Slide Review Platelet Estimate Macrocytosis Target Cells Tear Drop Cells RBC Morph Comment ESR (0-15) mm/hr PT (9.7-12.0) SECONDS INR APTT (21.7-31.4) SECONDS D-Dimer, Quantitative (0.19-0.50) mg/L Puncture Site Rt radial ABG pH 7.52 H (7.35-7.45) ABG pCO2 38.7 (35.0-45.0) mmHg ABG pO2 53.0 L (80.0-100.0) mmHg ABG HCO3 31.2 H (22.0-26.0) meq/L ABG O2 Saturation 88.9 L (96.0-97.0) % ABG Base Excess 7.9 H (-2-2.0) Donovan Test Positive A-a Gradient 49 mmHg Sodium (136-145) mEq/L Potassium (3.5-5.1) mEq/L Chloride (98-107) mEq/L Carbon Dioxide (21-32) mEq/L Anion Gap (5-15) BUN (7-18) mg/dL Creatinine (0.7-1.3) mg/dL Est Cr Clr Drug Dosing mL/min Estimated GFR (MDRD) (>60) mL/min BUN/Creatinine Ratio (14-18) Glucose (70-99) mg/dL POC Glucose 105 H (70-99) mg/dL Hemoglobin A1c ( - 5.6) % Lactic Acid (0.4-2.0) mmol/L Calcium (8.5-10.1) mg/dL Magnesium (1.8-2.4) mg/dL Total Bilirubin (0.2-1.0) mg/dL AST (15-37) U/L ALT (16-63) U/L Alkaline Phosphatase (46-116) U/L CK-MB (CK-2) (0-3.6) ng/ml Troponin I (0.00-0.056) ng/mL C-Reactive Protein (<1.0) mg/dL NT-Pro-B Natriuret Pep (0-125) pg/mL Total Protein (6.4-8.2) g/dl Albumin (3.4-5.0) g/dl Globulin gm/dL Albumin/Globulin Ratio (1-2) Urine Color (Yellow) Urine Appearance (Clear) Urine pH (5.0-8.0) Ur Specific Mcdonald (1.005-1.030) Urine Protein (Negative) Urine Glucose (UA) (Negative) Urine Ketones (Negative) Urine Occult Blood (Negative) Urine Nitrite (Negative) Urine Bilirubin (Negative) Urine Urobilinogen (0.2-1.0) Ur Leukocyte Esterase (Negative) Urine RBC (0-5) /hpf Urine WBC (0-5) /hpf Ur Epithelial Cells (0-5) /hpf Urine Bacteria (FEW) /hpf Urine Mucus (FEW) /hpf SARS-CoV-2 RNA (ROCHELLE) Negative (NEGATIVE) MRSA (PCR) 06/02/21 06/02/21 06/02/21 Range/Units 11:57 11:57 11:57 WBC 12.72 H (4.23-9.07) K/mm3 RBC 3.17 L (4.63-6.08) M/mm3 Hgb 10.4 L (13.7-17.5) gm/dl Hct 34.7 L (40.1-51.0) % MCV 109.5 H (79.0-92.2) fl MCH 32.8 H (25.7-32.2) pg MCHC 30.0 L (32.2-35.5) g/dl RDW Std Deviation 69.4 H (35.1-43.9) fL Plt Count 210 (163-337) K/mm3 MPV 8.9 L (9.4-12.3) fl Neut % (Auto) (34.0-67.9) % Lymph % (Auto) (21.8-53.1) % [place] % (Auto) (5.3-12.2) % Eos % (Auto) (0.8-7.0) Baso % (Auto) (0.1-1.2) % Neut # (Auto) (1.78-5.38) K/mm3 Lymph # (Auto) (1.32-3.57) K/mm3 School[place] # (Auto) (0.30-0.82) K/mm3 Eos # (Auto) (0.04-0.54) K/mm3 Baso # (Auto) (0.01-0.08) K/mm3 Neutrophils % (Manual) 89 H (40-60) % Band Neutrophils % 5 (0-10) % Lymphocytes % (Manual) 5 L (20-40) % Atypical Lymphs % 0 % Monocytes % (Manual) 1 L (2-10) % Eosinophils % (Manual) 0 L (0.8-7.0) % Basophils % (Manual) 0 L (0.2-1.2) Manual Slide Review Platelet Estimate Adequate Macrocytosis 2+ moderate Target Cells 1+ slight Tear Drop Cells 1+ slight RBC Morph Comment Not Reportable ESR (0-15) mm/hr PT 12.2 H (9.7-12.0) SECONDS INR 1.14 APTT 22.1 (21.7-31.4) SECONDS D-Dimer, Quantitative (0.19-0.50) mg/L Puncture Site ABG pH (7.35-7.45) ABG pCO2 (35.0-45.0) mmHg ABG pO2 (80.0-100.0) mmHg ABG HCO3 (22.0-26.0) meq/L ABG O2 Saturation (96.0-97.0) % ABG Base Excess (-2-2.0) Donovan Test A-a Gradient mmHg Sodium (136-145) mEq/L Potassium (3.5-5.1) mEq/L Chloride (98-107) mEq/L Carbon Dioxide (21-32) mEq/L Anion Gap (5-15) BUN (7-18) mg/dL Creatinine (0.7-1.3) mg/dL Est Cr Clr Drug Dosing mL/min Estimated GFR (MDRD) (>60) mL/min BUN/Creatinine Ratio (14-18) Glucose (70-99) mg/dL POC Glucose (70-99) mg/dL Hemoglobin A1c ( - 5.6) % Lactic Acid (0.4-2.0) mmol/L Calcium (8.5-10.1) mg/dL Magnesium 2.1 (1.8-2.4) mg/dL Total Bilirubin (0.2-1.0) mg/dL AST (15-37) U/L ALT (16-63) U/L Alkaline Phosphatase (46-116) U/L CK-MB (CK-2) 1.5 (0-3.6) ng/ml Troponin I < 0.017 (0.00-0.056) ng/mL C-Reactive Protein 3.3 H* (<1.0) mg/dL NT-Pro-B Natriuret Pep (0-125) pg/mL Total Protein (6.4-8.2) g/dl Albumin (3.4-5.0) g/dl Globulin gm/dL Albumin/Globulin Ratio (1-2) Urine Color (Yellow) Urine Appearance (Clear) Urine pH (5.0-8.0) Ur Specific Mcdonald (1.005-1.030) Urine Protein (Negative) Urine Glucose (UA) (Negative) Urine Ketones (Negative) Urine Occult Blood (Negative) Urine Nitrite (Negative) Urine Bilirubin (Negative) Urine Urobilinogen (0.2-1.0) Ur Leukocyte Esterase (Negative) Urine RBC (0-5) /hpf Urine WBC (0-5) /hpf Ur Epithelial Cells (0-5) /hpf Urine Bacteria (FEW) /hpf Urine Mucus (FEW) /hpf SARS-CoV-2 RNA (ROCHELLE) (NEGATIVE) MRSA (PCR) 06/02/21 06/02/21 06/02/21 Range/Units 11:57 11:57 11:57 WBC (4.23-9.07) K/mm3 RBC (4.63-6.08) M/mm3 Hgb (13.7-17.5) gm/dl Hct (40.1-51.0) % MCV (79.0-92.2) fl MCH (25.7-32.2) pg MCHC (32.2-35.5) g/dl RDW Std Deviation (35.1-43.9) fL Plt Count (163-337) K/mm3 MPV (9.4-12.3) fl Neut % (Auto) (34.0-67.9) % Lymph % (Auto) (21.8-53.1) % [place] % (Auto) (5.3-12.2) % Eos % (Auto) (0.8-7.0) Baso % (Auto) (0.1-1.2) % Neut # (Auto) (1.78-5.38) K/mm3 Lymph # (Auto) (1.32-3.57) K/mm3 School[place] # (Auto) (0.30-0.82) K/mm3 Eos # (Auto) (0.04-0.54) K/mm3 Baso # (Auto) (0.01-0.08) K/mm3 Neutrophils % (Manual) (40-60) % Band Neutrophils % (0-10) % Lymphocytes % (Manual) (20-40) % Atypical Lymphs % % Monocytes % (Manual) (2-10) % Eosinophils % (Manual) (0.8-7.0) % Basophils % (Manual) (0.2-1.2) Manual Slide Review Platelet Estimate Macrocytosis Target Cells Tear Drop Cells RBC Morph Comment ESR 99 H (0-15) mm/hr PT (9.7-12.0) SECONDS INR APTT (21.7-31.4) SECONDS D-Dimer, Quantitative 2.09 H (0.19-0.50) mg/L Puncture Site ABG pH (7.35-7.45) ABG pCO2 (35.0-45.0) mmHg ABG pO2 (80.0-100.0) mmHg ABG HCO3 (22.0-26.0) meq/L ABG O2 Saturation (96.0-97.0) % ABG Base Excess (-2-2.0) Donovan Test A-a Gradient mmHg Sodium (136-145) mEq/L Potassium (3.5-5.1) mEq/L Chloride (98-107) mEq/L Carbon Dioxide (21-32) mEq/L Anion Gap (5-15) BUN (7-18) mg/dL Creatinine (0.7-1.3) mg/dL Est Cr Clr Drug Dosing mL/min Estimated GFR (MDRD) (>60) mL/min BUN/Creatinine Ratio (14-18) Glucose (70-99) mg/dL POC Glucose (70-99) mg/dL Hemoglobin A1c ( - 5.6) % Lactic Acid (0.4-2.0) mmol/L Calcium (8.5-10.1) mg/dL Magnesium (1.8-2.4) mg/dL Total Bilirubin (0.2-1.0) mg/dL AST (15-37) U/L ALT (16-63) U/L Alkaline Phosphatase (46-116) U/L CK-MB (CK-2) (0-3.6) ng/ml Troponin I (0.00-0.056) ng/mL C-Reactive Protein (<1.0) mg/dL NT-Pro-B Natriuret Pep 370 H (0-125) pg/mL Total Protein (6.4-8.2) g/dl Albumin (3.4-5.0) g/dl Globulin gm/dL Albumin/Globulin Ratio (1-2) Urine Color (Yellow) Urine Appearance (Clear) Urine pH (5.0-8.0) Ur Specific Mcdonald (1.005-1.030) Urine Protein (Negative) Urine Glucose (UA) (Negative) Urine Ketones (Negative) Urine Occult Blood (Negative) Urine Nitrite (Negative) Urine Bilirubin (Negative) Urine Urobilinogen (0.2-1.0) Ur Leukocyte Esterase (Negative) Urine RBC (0-5) /hpf Urine WBC (0-5) /hpf Ur Epithelial Cells (0-5) /hpf Urine Bacteria (FEW) /hpf Urine Mucus (FEW) /hpf SARS-CoV-2 RNA (ROCHELLE) (NEGATIVE) MRSA (PCR) 06/02/21 06/02/21 06/02/21 Range/Units 11:57 11:57 12:56 WBC (4.23-9.07) K/mm3 RBC (4.63-6.08) M/mm3 Hgb (13.7-17.5) gm/dl Hct (40.1-51.0) % MCV (79.0-92.2) fl MCH (25.7-32.2) pg MCHC (32.2-35.5) g/dl RDW Std Deviation (35.1-43.9) fL Plt Count (163-337) K/mm3 MPV (9.4-12.3) fl Neut % (Auto) (34.0-67.9) % Lymph % (Auto) (21.8-53.1) % [place] % (Auto) (5.3-12.2) % Eos % (Auto) (0.8-7.0) Baso % (Auto) (0.1-1.2) % Neut # (Auto) (1.78-5.38) K/mm3 Lymph # (Auto) (1.32-3.57) K/mm3 School[place] # (Auto) (0.30-0.82) K/mm3 Eos # (Auto) (0.04-0.54) K/mm3 Baso # (Auto) (0.01-0.08) K/mm3 Neutrophils % (Manual) (40-60) % Band Neutrophils % (0-10) % Lymphocytes % (Manual) (20-40) % Atypical Lymphs % % Monocytes % (Manual) (2-10) % Eosinophils % (Manual) (0.8-7.0) % Basophils % (Manual) (0.2-1.2) Manual Slide Review Platelet Estimate Macrocytosis Target Cells Tear Drop Cells RBC Morph Comment ESR (0-15) mm/hr PT (9.7-12.0) SECONDS INR APTT (21.7-31.4) SECONDS D-Dimer, Quantitative (0.19-0.50) mg/L Puncture Site ABG pH (7.35-7.45) ABG pCO2 (35.0-45.0) mmHg ABG pO2 (80.0-100.0) mmHg ABG HCO3 (22.0-26.0) meq/L ABG O2 Saturation (96.0-97.0) % ABG Base Excess (-2-2.0) Donovan Test A-a Gradient mmHg Sodium (136-145) mEq/L Potassium (3.5-5.1) mEq/L Chloride (98-107) mEq/L Carbon Dioxide (21-32) mEq/L Anion Gap (5-15) BUN (7-18) mg/dL Creatinine (0.7-1.3) mg/dL Est Cr Clr Drug Dosing mL/min Estimated GFR (MDRD) (>60) mL/min BUN/Creatinine Ratio (14-18) Glucose (70-99) mg/dL POC Glucose (70-99) mg/dL Hemoglobin A1c 6.6 H ( - 5.6) % Lactic Acid 1.6 (0.4-2.0) mmol/L Calcium (8.5-10.1) mg/dL Magnesium (1.8-2.4) mg/dL Total Bilirubin (0.2-1.0) mg/dL AST (15-37) U/L ALT (16-63) U/L Alkaline Phosphatase (46-116) U/L CK-MB (CK-2) (0-3.6) ng/ml Troponin I (0.00-0.056) ng/mL C-Reactive Protein (<1.0) mg/dL NT-Pro-B Natriuret Pep (0-125) pg/mL Total Protein (6.4-8.2) g/dl Albumin (3.4-5.0) g/dl Globulin gm/dL Albumin/Globulin Ratio (1-2) Urine Color Yellow (Yellow) Urine Appearance Clear (Clear) Urine pH 7.0 (5.0-8.0) Ur Specific Mcdonald 1.020 (1.005-1.030) Urine Protein 2+ H (Negative) Urine Glucose (UA) Negative (Negative) Urine Ketones Negative (Negative) Urine Occult Blood Negative (Negative) Urine Nitrite Negative (Negative) Urine Bilirubin Negative (Negative) Urine Urobilinogen 0.2 (0.2-1.0) Ur Leukocyte Esterase Negative (Negative) Urine RBC 0-5 (0-5) /hpf Urine WBC 0-5 (0-5) /hpf Ur Epithelial Cells 0-5 (0-5) /hpf Urine Bacteria Rare (FEW) /hpf Urine Mucus Not seen (FEW) /hpf SARS-CoV-2 RNA (ROCHELLE) (NEGATIVE) MRSA (PCR) 07/06/02/21 06/02/21 Range/Units 13:13 15:34 16:46 WBC (4.23-9.07) K/mm3 RBC (4.63-6.08) M/mm3 Hgb (13.7-17.5) gm/dl Hct (40.1-51.0) % MCV (79.0-92.2) fl MCH (25.7-32.2) pg MCHC (32.2-35.5) g/dl RDW Std Deviation (35.1-43.9) fL Plt Count (163-337) K/mm3 MPV (9.4-12.3) fl Neut % (Auto) (34.0-67.9) % Lymph % (Auto) (21.8-53.1) % [place] % (Auto) (5.3-12.2) % Eos % (Auto) (0.8-7.0) Baso % (Auto) (0.1-1.2) % Neut # (Auto) (1.78-5.38) K/mm3 Lymph # (Auto) (1.32-3.57) K/mm3 Schoolcraft # (Auto) (0.30-0.82) K/mm3 Eos # (Auto) (0.04-0.54) K/mm3 Baso # (Auto) (0.01-0.08) K/mm3 Neutrophils % (Manual) (40-60) % Band Neutrophils % (0-10) % Lymphocytes % (Manual) (20-40) % Atypical Lymphs % % Monocytes % (Manual) (2-10) % Eosinophils % (Manual) (0.8-7.0) % Basophils % (Manual) (0.2-1.2) Manual Slide Review Platelet Estimate Macrocytosis Target Cells Tear Drop Cells RBC Morph Comment ESR (0-15) mm/hr PT (9.7-12.0) SECONDS INR APTT (21.7-31.4) SECONDS D-Dimer, Quantitative (0.19-0.50) mg/L Puncture Site ABG pH (7.35-7.45) ABG pCO2 (35.0-45.0) mmHg ABG pO2 (80.0-100.0) mmHg ABG HCO3 (22.0-26.0) meq/L ABG O2 Saturation (96.0-97.0) % ABG Base Excess (-2-2.0) Donovan Test A-a Gradient mmHg Sodium 137 (136-145) mEq/L Potassium 4.1 (3.5-5.1) mEq/L Chloride 98 (98-107) mEq/L Carbon Dioxide 28 (21-32) mEq/L Anion Gap 15.1 H (5-15) BUN 33 H (7-18) mg/dL Creatinine 1.7 H (0.7-1.3) mg/dL Est Cr Clr Drug Dosing 46.80 mL/min Estimated GFR (MDRD) 40 (>60) mL/min BUN/Creatinine Ratio 19.4 H (14-18) Glucose 127 H (70-99) mg/dL POC Glucose 126 H (70-99) mg/dL Hemoglobin A1c ( - 5.6) % Lactic Acid (0.4-2.0) mmol/L Calcium 9.1 (8.5-10.1) mg/dL Magnesium (1.8-2.4) mg/dL Total Bilirubin 0.3 (0.2-1.0) mg/dL AST 15 (15-37) U/L ALT 16 (16-63) U/L Alkaline Phosphatase 112 (46-116) U/L CK-MB (CK-2) (0-3.6) ng/ml Troponin I (0.00-0.056) ng/mL C-Reactive Protein (<1.0) mg/dL NT-Pro-B Natriuret Pep (0-125) pg/mL Total Protein 10.3 H (6.4-8.2) g/dl Albumin 2.7 L (3.4-5.0) g/dl Globulin 7.6 gm/dL Albumin/Globulin Ratio 0.4 L (1-2) Urine Color (Yellow) Urine Appearance (Clear) Urine pH (5.0-8.0) Ur Specific Mcdonald (1.005-1.030) Urine Protein (Negative) Urine Glucose (UA) (Negative) Urine Ketones (Negative) Urine Occult Blood (Negative) Urine Nitrite (Negative) Urine Bilirubin (Negative) Urine Urobilinogen (0.2-1.0) Ur Leukocyte Esterase (Negative) Urine RBC (0-5) /hpf Urine WBC (0-5) /hpf Ur Epithelial Cells (0-5) /hpf Urine Bacteria (FEW) /hpf Urine Mucus (FEW) /hpf SARS-CoV-2 RNA (ROCHELLE) (NEGATIVE) MRSA (PCR) Negative 06/02/21 06/03/21 06/03/21 Range/Units 20:17 05:21 05:21 WBC 7.74 (4.23-9.07) K/mm3 RBC 2.68 L (4.63-6.08) M/mm3 Hgb 8.9 L D (13.7-17.5) gm/dl Hct 29.7 L (40.1-51.0) % MCV 110.8 H (79.0-92.2) fl MCH 33.2 H (25.7-32.2) pg MCHC 30.0 L (32.2-35.5) g/dl RDW Std Deviation 70.3 H (35.1-43.9) fL Plt Count 183 (163-337) K/mm3 MPV 9.4 (9.4-12.3) fl Neut % (Auto) 71.6 H (34.0-67.9) % Lymph % (Auto) 23.9 (21.8-53.1) % School[place] % (Auto) 3.7 L (5.3-12.2) % Eos % (Auto) 0.4 L (0.8-7.0) Baso % (Auto) 0.1 (0.1-1.2) % Neut # (Auto) 5.54 H (1.78-5.38) K/mm3 Lymph # (Auto) 1.85 (1.32-3.57) K/mm3 Schoolcraft # (Auto) 0.29 L (0.30-0.82) K/mm3 Eos # (Auto) 0.03 L (0.04-0.54) K/mm3 Baso # (Auto) 0.01 (0.01-0.08) K/mm3 Neutrophils % (Manual) (40-60) % Band Neutrophils % (0-10) % Lymphocytes % (Manual) (20-40) % Atypical Lymphs % % Monocytes % (Manual) (2-10) % Eosinophils % (Manual) (0.8-7.0) % Basophils % (Manual) (0.2-1.2) Manual Slide Review Abnormal smear Platelet Estimate Macrocytosis Target Cells Tear Drop Cells RBC Morph Comment ESR (0-15) mm/hr PT (9.7-12.0) SECONDS INR APTT (21.7-31.4) SECONDS D-Dimer, Quantitative (0.19-0.50) mg/L Puncture Site ABG pH (7.35-7.45) ABG pCO2 (35.0-45.0) mmHg ABG pO2 (80.0-100.0) mmHg ABG HCO3 (22.0-26.0) meq/L ABG O2 Saturation (96.0-97.0) % ABG Base Excess (-2-2.0) Donovan Test A-a Gradient mmHg Sodium 139 (136-145) mEq/L Potassium 3.6 (3.5-5.1) mEq/L Chloride 102 (98-107) mEq/L Carbon Dioxide 29 (21-32) mEq/L Anion Gap 11.6 (5-15) BUN 32 H (7-18) mg/dL Creatinine 1.5 H (0.7-1.3) mg/dL Est Cr Clr Drug Dosing 53.04 mL/min Estimated GFR (MDRD) 46 (>60) mL/min BUN/Creatinine Ratio 21.3 H (14-18) Glucose 121 H (70-99) mg/dL POC Glucose 142 H (70-99) mg/dL Hemoglobin A1c ( - 5.6) % Lactic Acid (0.4-2.0) mmol/L Calcium 8.1 L (8.5-10.1) mg/dL Magnesium 2.1 (1.8-2.4) mg/dL Total Bilirubin 0.2 (0.2-1.0) mg/dL AST 39 H (15-37) U/L ALT 12 L (16-63) U/L Alkaline Phosphatase 88 (46-116) U/L CK-MB (CK-2) (0-3.6) ng/ml Troponin I (0.00-0.056) ng/mL C-Reactive Protein (<1.0) mg/dL NT-Pro-B Natriuret Pep (0-125) pg/mL Total Protein 8.6 H (6.4-8.2) g/dl Albumin 2.1 L (3.4-5.0) g/dl Globulin 6.5 gm/dL Albumin/Globulin Ratio 0.3 L (1-2) Urine Color (Yellow) Urine Appearance (Clear) Urine pH (5.0-8.0) Ur Specific Mcdonald (1.005-1.030) Urine Protein (Negative) Urine Glucose (UA) (Negative) Urine Ketones (Negative) Urine Occult Blood (Negative) Urine Nitrite (Negative) Urine Bilirubin (Negative) Urine Urobilinogen (0.2-1.0) Ur Leukocyte Esterase (Negative) Urine RBC (0-5) /hpf Urine WBC (0-5) /hpf Ur Epithelial Cells (0-5) /hpf Urine Bacteria (FEW) /hpf Urine Mucus (FEW) /hpf SARS-CoV-2 RNA (ROCHELLE) (NEGATIVE) MRSA (PCR) 06/03/21 Range/Units 06:01 WBC (4.23-9.07) K/mm3 RBC (4.63-6.08) M/mm3 Hgb (13.7-17.5) gm/dl Hct (40.1-51.0) % MCV (79.0-92.2) fl MCH (25.7-32.2) pg MCHC (32.2-35.5) g/dl RDW Std Deviation (35.1-43.9) fL Plt Count (163-337) K/mm3 MPV (9.4-12.3) fl Neut % (Auto) (34.0-67.9) % Lymph % (Auto) (21.8-53.1) % [place] % (Auto) (5.3-12.2) % Eos % (Auto) (0.8-7.0) Baso % (Auto) (0.1-1.2) % Neut # (Auto) (1.78-5.38) K/mm3 Lymph # (Auto) (1.32-3.57) K/mm3 [place] # (Auto) (0.30-0.82) K/mm3 Eos # (Auto) (0.04-0.54) K/mm3 Baso # (Auto) (0.01-0.08) K/mm3 Neutrophils % (Manual) (40-60) % Band Neutrophils % (0-10) % Lymphocytes % (Manual) (20-40) % Atypical Lymphs % % Monocytes % (Manual) (2-10) % Eosinophils % (Manual) (0.8-7.0) % Basophils % (Manual) (0.2-1.2) Manual Slide Review Platelet Estimate Macrocytosis Target Cells Tear Drop Cells RBC Morph Comment ESR (0-15) mm/hr PT (9.7-12.0) SECONDS INR APTT (21.7-31.4) SECONDS D-Dimer, Quantitative (0.19-0.50) mg/L Puncture Site ABG pH (7.35-7.45) ABG pCO2 (35.0-45.0) mmHg ABG pO2 (80.0-100.0) mmHg ABG HCO3 (22.0-26.0) meq/L ABG O2 Saturation (96.0-97.0) % ABG Base Excess (-2-2.0) Donovan Test A-a Gradient mmHg Sodium (136-145) mEq/L Potassium (3.5-5.1) mEq/L Chloride (98-107) mEq/L Carbon Dioxide (21-32) mEq/L Anion Gap (5-15) BUN (7-18) mg/dL Creatinine (0.7-1.3) mg/dL Est Cr Clr Drug Dosing mL/min Estimated GFR (MDRD) (>60) mL/min BUN/Creatinine Ratio (14-18) Glucose (70-99) mg/dL POC Glucose 114 H (70-99) mg/dL Hemoglobin A1c ( - 5.6) % Lactic Acid (0.4-2.0) mmol/L Calcium (8.5-10.1) mg/dL Magnesium (1.8-2.4) mg/dL Total Bilirubin (0.2-1.0) mg/dL AST (15-37) U/L ALT (16-63) U/L Alkaline Phosphatase (46-116) U/L CK-MB (CK-2) (0-3.6) ng/ml Troponin I (0.00-0.056) ng/mL C-Reactive Protein (<1.0) mg/dL NT-Pro-B Natriuret Pep (0-125) pg/mL Total Protein (6.4-8.2) g/dl Albumin (3.4-5.0) g/dl Globulin gm/dL Albumin/Globulin Ratio (1-2) Urine Color (Yellow) Urine Appearance (Clear) Urine pH (5.0-8.0) Ur Specific Mcdonald (1.005-1.030) Urine Protein (Negative) Urine Glucose (UA) (Negative) Urine Ketones (Negative) Urine Occult Blood (Negative) Urine Nitrite (Negative) Urine Bilirubin (Negative) Urine Urobilinogen (0.2-1.0) Ur Leukocyte Esterase (Negative) Urine RBC (0-5) /hpf Urine WBC (0-5) /hpf Ur Epithelial Cells (0-5) /hpf Urine Bacteria (FEW) /hpf Urine Mucus (FEW) /hpf SARS-CoV-2 RNA (ROCHELLE) (NEGATIVE) MRSA (PCR) Devaughn Results Last 24 Hours: Microbiology 06/02/21 11:52 Gram Stain - Final Toe, Right - Right Second Med Orders - Current: Current Medications Acetaminophen (Acetaminophen 325 Mg Tab) 650 mg PO Q4H PRN PRN Reason: Pain (Mild 1-3)/fever Last Admin: 06/02/21 20:20 Dose: 650 mg Documented by: Acetaminophen (Acetaminophen 325 Mg Tab) 650 mg PO BID GLENN Hydrocodone Bitart/Acetaminophen (Acetaminophen/Hydrocodone 325-5 Mg Tab) 1 tab PO Q4H PRN PRN Reason: Pain (moderate 4-6) Al Hydroxide/Mg Hydroxide (Aluminum Hydroxide/Magnesium Hydroxide/Simethicone Susp 30 Ml Cup) 30 ml PO Q2H PRN PRN Reason: HEARTBURN Aspirin (Aspirin 81 Mg Tab.Chew) 81 mg PO DAILY [facility] Bumetanide (Bumetanide 1 Mg Tab) 3 mg PO DAILY [facility] Calcium Carbonate/Glycine (Calcium Carbonate 500 Mg Tab.Chew) 1,000 mg PO QID PRN PRN Reason: Heartburn Cholecalciferol (Cholecalciferol (Vitamin D3) 5,000 Unit Cap) 5,000 unit PO DAILY [facility] Clopidogrel Bisulfate (Clopidogrel 75 Mg Tab) 75 mg PO DAILY [facility] Cyanocobalamin (Cyanocobalamin (Vitamin B12) 1,000 Mcg Tab) 1,000 mcg PO DAILY [facility] Enoxaparin Sodium (Enoxaparin 40 Mg/0.4 Ml Syringe) 40 mg SUBCUT DAILY [facility] Vancomycin HCl 2 gm/ Sodium (Chloride) 500 mls @ 250 mls/hr IV Q18H GLENN Last Admin: 06/02/21 16:38 Dose: 250 mls/hr Documented by: Insulin Human Lispro (Insulin Lispro 100 Unit/Ml 10 Ml Vial) 0 unit SUBCUT QIDACANDBED [facility]; Protocol Last Admin: 06/03/21 06:29 Dose: Not Given Documented by: Loperamide HCl (Loperamide 2 Mg Cap) 4 mg PO ASDIRECTED PRN PRN Reason: Diarrhea Losartan Potassium (Losartan 25 Mg Tab) 25 mg PO DAILY [facility] Metoprolol Succinate (Metoprolol Succinate 50 Mg Tab.Er) 50 mg PO DAILY [facility] Mirtazapine (Mirtazapine 30 Mg Tab) 30 mg PO BEDTIME [facility] Nitroglycerin (Nitroglycerin 0.4 Mg Tab.Sl) 0.4 mg SL ASDIRECTED PRN PRN Reason: Chest Pain Nystatin (Nystatin Topical Powder 15 Gm Bottle) 0 gm TOP QID [facility] Last Admin: 06/02/21 20:20 Dose: 15 gm Documented by: Ondansetron HCl (Ondansetron 4 Mg Tab.Dis) 4 mg PO Q4H PRN PRN Reason: nausea, able to take PO Ondansetron HCl (Ondansetron 4 Mg/2 Ml Sdv) 4 mg IV Q6H PRN PRN Reason: Nausea/Vomiting Polyethylene Glycol (Polyethylene Glycol 3350 Powder 17 Gm Packet) 17 gm PO BEDTIME PRN PRN Reason: Constipation Potassium Chloride (Potassium Chloride 20 Meq Tab.Er) 20 meq PO DAILY [facility] Saccharomyces Boulardii (Saccharomyces Boulardii (Probiotic) 250 Mg Cap) 250 mg PO BID [facility] Sodium Chloride (Sodium Chloride 0.9% 10 Ml Syringe) 10 ml FLUSH ASDIRECTED PRN PRN Reason: Keep Vein Open Vancomycin HCl (Pharmacy To Dose - Vancomycin) 1 dose .XX ASDIRECTED PRN PRN Reason: RX TO DOSE VANCO Vit A/Vit C/Vit E/Selen/Cu/Zn/Lutei (Multivitamins With Minerals/Folic Aci d/Lutein/Zeaxanth Tab) 1 tab PO DAILY [facility] Discontinued Medications Acetaminophen (Acetaminophen 325 Mg Tab) 975 mg PO ONETIME ONE Stop: 06/02/21 11:28 Last Admin: 06/02/21 11:53 Dose: 975 mg Documented by: Dextrose/Sodium Chloride (Dextrose 5%-Normal Saline) 1,000 mls @ 250 mls/hr IV ASDIRECTED [facility] Last Admin: 06/02/21 11:56 Dose: 250 mls/hr Documented by: Ceftriaxone Sodium 2 gm/ (Sodium Chloride) 100 mls @ 200 mls/hr IV ONETIME ONE Stop: 06/02/21 13:07 Last Admin: 06/02/21 13:39 Dose: 200 mls/hr Documented by: Sodium Chloride (Normal Saline) 1,000 mls @ 150 mls/hr IV ASDIRECTED [facility] Last Admin: 06/03/21 07:25 Dose: 150 mls/hr Documented by: Metoclopramide HCl (Metoclopramide 10 Mg/2 Ml Sdv) 10 mg IVPUSH ONETIME ONE Stop: 06/02/21 11:40 Last Admin: 06/02/21 11:56 Dose: 10 mg Documented by: Non-Formulary Medication (Emollient Combination No.114 [Eucerin Advanced Repair]) 1 dose TOP DAILY GLENN - Exam Quality Assessment: Supplemental Oxygen (1 liter per nasal cannula), Central Line/PICC (left ac PICC), DVT Prophylaxis (lovenox) General: Alert, Oriented, Cooperative, No Acute Distress HEENT: Pupils Equal, Mucous Membr. Moist/[place] Neck: Supple, Trachea Midline Lungs: Normal Respiratory Effort, Decreased Breath Sounds (likely due to body habitus), Crackles (fine crackles noted to left posterior lobe) Cardiovascular: Regular Rate, Regular Rhythm, Murmurs (grade 2 systolic murmur) GI/Abdominal Exam: Normal Bowel Sounds, Soft, Non-Tender, No Distention (Male) Exam: Deferred Back Exam: Normal Inspection Extremities: Pedal Edema (3+pitting), Other (dressing in place to right foot as the patient has an open area to plantar surface of right 4th toe; dressing in place to ulcer on right lateral lower leg) Peripheral Pulses: 1+: Dorsalis Pedis (L), Dorsalis Pedis (R), 2+: Radial (L), Radial (R) Skin: Warm, Dry, Other (dressing in place to right foot as the patient has an open area to plantar surface of right 4th toe; dressing in place to ulcer on right lateral lower leg). No: Intact Wound/Incisions: Dressing Dry and Intact Neurological: No New Focal Deficit Psy/Mental Status: Alert, Normal Affect, Normal Mood - Patient Data Lab Results Last 24 hrs: Laboratory Results - last 24 hr 06/02/21 06/02/21 06/02/21 Range/Units 11:28 11:50 11:52 WBC (4.23-9.07) K/mm3 RBC (4.63-6.08) M/mm3 Hgb (13.7-17.5) gm/dl Hct (40.1-51.0) % MCV (79.0-92.2) fl MCH (25.7-32.2) pg MCHC (32.2-35.5) g/dl RDW Std Deviation (35.1-43.9) fL Plt Count (163-337) K/mm3 MPV (9.4-12.3) fl Neut % (Auto) (34.0-67.9) % Lymph % (Auto) (21.8-53.1) % [place] % (Auto) (5.3-12.2) % Eos % (Auto) (0.8-7.0) Baso % (Auto) (0.1-1.2) % Neut # (Auto) (1.78-5.38) K/mm3 Lymph # (Auto) (1.32-3.57) K/mm3 School[place] # (Auto) (0.30-0.82) K/mm3 Eos # (Auto) (0.04-0.54) K/mm3 Baso # (Auto) (0.01-0.08) K/mm3 Neutrophils % (Manual) (40-60) % Band Neutrophils % (0-10) % Lymphocytes % (Manual) (20-40) % Atypical Lymphs % % Monocytes % (Manual) (2-10) % Eosinophils % (Manual) (0.8-7.0) % Basophils % (Manual) (0.2-1.2) Manual Slide Review Platelet Estimate Macrocytosis Target Cells Tear Drop Cells RBC Morph Comment ESR (0-15) mm/hr PT (9.7-12.0) SECONDS INR APTT (21.7-31.4) SECONDS D-Dimer, Quantitative (0.19-0.50) mg/L Puncture Site Rt radial ABG pH 7.52 H (7.35-7.45) ABG pCO2 38.7 (35.0-45.0) mmHg ABG pO2 53.0 L (80.0-100.0) mmHg ABG HCO3 31.2 H (22.0-26.0) meq/L ABG O2 Saturation 88.9 L (96.0-97.0) % ABG Base Excess 7.9 H (-2-2.0) Donovan Test Positive A-a Gradient 49 mmHg Sodium (136-145) mEq/L Potassium (3.5-5.1) mEq/L Chloride (98-107) mEq/L Carbon Dioxide (21-32) mEq/L Anion Gap (5-15) BUN (7-18) mg/dL Creatinine (0.7-1.3) mg/dL Est Cr Clr Drug Dosing mL/min Estimated GFR (MDRD) (>60) mL/min BUN/Creatinine Ratio (14-18) Glucose (70-99) mg/dL POC Glucose 105 H (70-99) mg/dL Hemoglobin A1c ( - 5.6) % Lactic Acid (0.4-2.0) mmol/L Calcium (8.5-10.1) mg/dL Magnesium (1.8-2.4) mg/dL Total Bilirubin (0.2-1.0) mg/dL AST (15-37) U/L ALT (16-63) U/L Alkaline Phosphatase (46-116) U/L CK-MB (CK-2) (0-3.6) ng/ml Troponin I (0.00-0.056) ng/mL C-Reactive Protein (<1.0) mg/dL NT-Pro-B Natriuret Pep (0-125) pg/mL Total Protein (6.4-8.2) g/dl Albumin (3.4-5.0) g/dl Globulin gm/dL Albumin/Globulin Ratio (1-2) Urine Color (Yellow) Urine Appearance (Clear) Urine pH (5.0-8.0) Ur Specific Mcdonald (1.005-1.030) Urine Protein (Negative) Urine Glucose (UA) (Negative) Urine Ketones (Negative) Urine Occult Blood (Negative) Urine Nitrite (Negative) Urine Bilirubin (Negative) Urine Urobilinogen (0.2-1.0) Ur Leukocyte Esterase (Negative) Urine RBC (0-5) /hpf Urine WBC (0-5) /hpf Ur Epithelial Cells (0-5) /hpf Urine Bacteria (FEW) /hpf Urine Mucus (FEW) /hpf SARS-CoV-2 RNA (ROCHELLE) Negative (NEGATIVE) MRSA (PCR) 06/02/21 06/02/21 06/02/21 Range/Units 11:57 11:57 11:57 WBC 12.72 H (4.23-9.07) K/mm3 RBC 3.17 L (4.63-6.08) M/mm3 Hgb 10.4 L (13.7-17.5) gm/dl Hct 34.7 L (40.1-51.0) % MCV 109.5 H (79.0-92.2) fl MCH 32.8 H (25.7-32.2) pg MCHC 30.0 L (32.2-35.5) g/dl RDW Std Deviation 69.4 H (35.1-43.9) fL Plt Count 210 (163-337) K/mm3 MPV 8.9 L (9.4-12.3) fl Neut % (Auto) (34.0-67.9) % Lymph % (Auto) (21.8-53.1) % [place] % (Auto) (5.3-12.2) % Eos % (Auto) (0.8-7.0) Baso % (Auto) (0.1-1.2) % Neut # (Auto) (1.78-5.38) K/mm3 Lymph # (Auto) (1.32-3.57) K/mm3 [place] # (Auto) (0.30-0.82) K/mm3 Eos # (Auto) (0.04-0.54) K/mm3 Baso # (Auto) (0.01-0.08) K/mm3 Neutrophils % (Manual) 89 H (40-60) % Band Neutrophils % 5 (0-10) % Lymphocytes % (Manual) 5 L (20-40) % Atypical Lymphs % 0 % Monocytes % (Manual) 1 L (2-10) % Eosinophils % (Manual) 0 L (0.8-7.0) % Basophils % (Manual) 0 L (0.2-1.2) Manual Slide Review Platelet Estimate Adequate Macrocytosis 2+ moderate Target Cells 1+ slight Tear Drop Cells 1+ slight RBC Morph Comment Not Reportable ESR (0-15) mm/hr PT 12.2 H (9.7-12.0) SECONDS INR 1.14 APTT 22.1 (21.7-31.4) SECONDS D-Dimer, Quantitative (0.19-0.50) mg/L Puncture Site ABG pH (7.35-7.45) ABG pCO2 (35.0-45.0) mmHg ABG pO2 (80.0-100.0) mmHg ABG HCO3 (22.0-26.0) meq/L ABG O2 Saturation (96.0-97.0) % ABG Base Excess (-2-2.0) Donovan Test A-a Gradient mmHg Sodium (136-145) mEq/L Potassium (3.5-5.1) mEq/L Chloride (98-107) mEq/L Carbon Dioxide (21-32) mEq/L Anion Gap (5-15) BUN (7-18) mg/dL Creatinine (0.7-1.3) mg/dL Est Cr Clr Drug Dosing mL/min Estimated GFR (MDRD) (>60) mL/min BUN/Creatinine Ratio (14-18) Glucose (70-99) mg/dL POC Glucose (70-99) mg/dL Hemoglobin A1c ( - 5.6) % Lactic Acid (0.4-2.0) mmol/L Calcium (8.5-10.1) mg/dL Magnesium 2.1 (1.8-2.4) mg/dL Total Bilirubin (0.2-1.0) mg/dL AST (15-37) U/L ALT (16-63) U/L Alkaline Phosphatase (46-116) U/L CK-MB (CK-2) 1.5 (0-3.6) ng/ml Troponin I < 0.017 (0.00-0.056) ng/mL C-Reactive Protein 3.3 H* (<1.0) mg/dL NT-Pro-B Natriuret Pep (0-125) pg/mL Total Protein (6.4-8.2) g/dl Albumin (3.4-5.0) g/dl Globulin gm/dL Albumin/Globulin Ratio (1-2) Urine Color (Yellow) Urine Appearance (Clear) Urine pH (5.0-8.0) Ur Specific Mcdonald (1.005-1.030) Urine Protein (Negative) Urine Glucose (UA) (Negative) Urine Ketones (Negative) Urine Occult Blood (Negative) Urine Nitrite (Negative) Urine Bilirubin (Negative) Urine Urobilinogen (0.2-1.0) Ur Leukocyte Esterase (Negative) Urine RBC (0-5) /hpf Urine WBC (0-5) /hpf Ur Epithelial Cells (0-5) /hpf Urine Bacteria (FEW) /hpf Urine Mucus (FEW) /hpf SARS-CoV-2 RNA (ROCHELLE) (NEGATIVE) MRSA (PCR) 06/02/21 06/02/21 06/02/21 Range/Units 11:57 11:57 11:57 WBC (4.23-9.07) K/mm3 RBC (4.63-6.08) M/mm3 Hgb (13.7-17.5) gm/dl Hct (40.1-51.0) % MCV (79.0-92.2) fl MCH (25.7-32.2) pg MCHC (32.2-35.5) g/dl RDW Std Deviation (35.1-43.9) fL Plt Count (163-337) K/mm3 MPV (9.4-12.3) fl Neut % (Auto) (34.0-67.9) % Lymph % (Auto) (21.8-53.1) % [place] % (Auto) (5.3-12.2) % Eos % (Auto) (0.8-7.0) Baso % (Auto) (0.1-1.2) % Neut # (Auto) (1.78-5.38) K/mm3 Lymph # (Auto) (1.32-3.57) K/mm3 [place] # (Auto) (0.30-0.82) K/mm3 Eos # (Auto) (0.04-0.54) K/mm3 Baso # (Auto) (0.01-0.08) K/mm3 Neutrophils % (Manual) (40-60) % Band Neutrophils % (0-10) % Lymphocytes % (Manual) (20-40) % Atypical Lymphs % % Monocytes % (Manual) (2-10) % Eosinophils % (Manual) (0.8-7.0) % Basophils % (Manual) (0.2-1.2) Manual Slide Review Platelet Estimate Macrocytosis Target Cells Tear Drop Cells RBC Morph Comment ESR 99 H (0-15) mm/hr PT (9.7-12.0) SECONDS INR APTT (21.7-31.4) SECONDS D-Dimer, Quantitative 2.09 H (0.19-0.50) mg/L Puncture Site ABG pH (7.35-7.45) ABG pCO2 (35.0-45.0) mmHg ABG pO2 (80.0-100.0) mmHg ABG HCO3 (22.0-26.0) meq/L ABG O2 Saturation (96.0-97.0) % ABG Base Excess (-2-2.0) Donovan Test A-a Gradient mmHg Sodium (136-145) mEq/L Potassium (3.5-5.1) mEq/L Chloride (98-107) mEq/L Carbon Dioxide (21-32) mEq/L Anion Gap (5-15) BUN (7-18) mg/dL Creatinine (0.7-1.3) mg/dL Est Cr Clr Drug Dosing mL/min Estimated GFR (MDRD) (>60) mL/min BUN/Creatinine Ratio (14-18) Glucose (70-99) mg/dL POC Glucose (70-99) mg/dL Hemoglobin A1c ( - 5.6) % Lactic Acid (0.4-2.0) mmol/L Calcium (8.5-10.1) mg/dL Magnesium (1.8-2.4) mg/dL Total Bilirubin (0.2-1.0) mg/dL AST (15-37) U/L ALT (16-63) U/L Alkaline Phosphatase (46-116) U/L CK-MB (CK-2) (0-3.6) ng/ml Troponin I (0.00-0.056) ng/mL C-Reactive Protein (<1.0) mg/dL NT-Pro-B Natriuret Pep 370 H (0-125) pg/mL Total Protein (6.4-8.2) g/dl Albumin (3.4-5.0) g/dl Globulin gm/dL Albumin/Globulin Ratio (1-2) Urine Color (Yellow) Urine Appearance (Clear) Urine pH (5.0-8.0) Ur Specific Mcdonald (1.005-1.030) Urine Protein (Negative) Urine Glucose (UA) (Negative) Urine Ketones (Negative) Urine Occult Blood (Negative) Urine Nitrite (Negative) Urine Bilirubin (Negative) Urine Urobilinogen (0.2-1.0) Ur Leukocyte Esterase (Negative) Urine RBC (0-5) /hpf Urine WBC (0-5) /hpf Ur Epithelial Cells (0-5) /hpf Urine Bacteria (FEW) /hpf Urine Mucus (FEW) /hpf SARS-CoV-2 RNA (ROCHELLE) (NEGATIVE) MRSA (PCR) 06/02/21 06/02/21 06/02/21 Range/Units 11:57 11:57 12:56 WBC (4.23-9.07) K/mm3 RBC (4.63-6.08) M/mm3 Hgb (13.7-17.5) gm/dl Hct (40.1-51.0) % MCV (79.0-92.2) fl MCH (25.7-32.2) pg MCHC (32.2-35.5) g/dl RDW Std Deviation (35.1-43.9) fL Plt Count (163-337) K/mm3 MPV (9.4-12.3) fl Neut % (Auto) (34.0-67.9) % Lymph % (Auto) (21.8-53.1) % [place] % (Auto) (5.3-12.2) % Eos % (Auto) (0.8-7.0) Baso % (Auto) (0.1-1.2) % Neut # (Auto) (1.78-5.38) K/mm3 Lymph # (Auto) (1.32-3.57) K/mm3 [place] # (Auto) (0.30-0.82) K/mm3 Eos # (Auto) (0.04-0.54) K/mm3 Baso # (Auto) (0.01-0.08) K/mm3 Neutrophils % (Manual) (40-60) % Band Neutrophils % (0-10) % Lymphocytes % (Manual) (20-40) % Atypical Lymphs % % Monocytes % (Manual) (2-10) % Eosinophils % (Manual) (0.8-7.0) % Basophils % (Manual) (0.2-1.2) Manual Slide Review Platelet Estimate Macrocytosis Target Cells Tear Drop Cells RBC Morph Comment ESR (0-15) mm/hr PT (9.7-12.0) SECONDS INR APTT (21.7-31.4) SECONDS D-Dimer, Quantitative (0.19-0.50) mg/L Puncture Site ABG pH (7.35-7.45) ABG pCO2 (35.0-45.0) mmHg ABG pO2 (80.0-100.0) mmHg ABG HCO3 (22.0-26.0) meq/L ABG O2 Saturation (96.0-97.0) % ABG Base Excess (-2-2.0) Donovan Test A-a Gradient mmHg Sodium (136-145) mEq/L Potassium (3.5-5.1) mEq/L Chloride (98-107) mEq/L Carbon Dioxide (21-32) mEq/L Anion Gap (5-15) BUN (7-18) mg/dL Creatinine (0.7-1.3) mg/dL Est Cr Clr Drug Dosing mL/min Estimated GFR (MDRD) (>60) mL/min BUN/Creatinine Ratio (14-18) Glucose (70-99) mg/dL POC Glucose (70-99) mg/dL Hemoglobin A1c 6.6 H ( - 5.6) % Lactic Acid 1.6 (0.4-2.0) mmol/L Calcium (8.5-10.1) mg/dL Magnesium (1.8-2.4) mg/dL Total Bilirubin (0.2-1.0) mg/dL AST (15-37) U/L ALT (16-63) U/L Alkaline Phosphatase (46-116) U/L CK-MB (CK-2) (0-3.6) ng/ml Troponin I (0.00-0.056) ng/mL C-Reactive Protein (<1.0) mg/dL NT-Pro-B Natriuret Pep (0-125) pg/mL Total Protein (6.4-8.2) g/dl Albumin (3.4-5.0) g/dl Globulin gm/dL Albumin/Globulin Ratio (1-2) Urine Color Yellow (Yellow) Urine Appearance Clear (Clear) Urine pH 7.0 (5.0-8.0) Ur Specific Mcdonald 1.020 (1.005-1.030) Urine Protein 2+ H (Negative) Urine Glucose (UA) Negative (Negative) Urine Ketones Negative (Negative) Urine Occult Blood Negative (Negative) Urine Nitrite Negative (Negative) Urine Bilirubin Negative (Negative) Urine Urobilinogen 0.2 (0.2-1.0) Ur Leukocyte Esterase Negative (Negative) Urine RBC 0-5 (0-5) /hpf Urine WBC 0-5 (0-5) /hpf Ur Epithelial Cells 0-5 (0-5) /hpf Urine Bacteria Rare (FEW) /hpf Urine Mucus Not seen (FEW) /hpf SARS-CoV-2 RNA (ROCHELLE) (NEGATIVE) MRSA (PCR) 06/02/21 06/02/21 06/02/21 Range/Units 13:13 15:34 16:46 WBC (4.23-9.07) K/mm3 RBC (4.63-6.08) M/mm3 Hgb (13.7-17.5) gm/dl Hct (40.1-51.0) % MCV (79.0-92.2) fl MCH (25.7-32.2) pg MCHC (32.2-35.5) g/dl RDW Std Deviation (35.1-43.9) fL Plt Count (163-337) K/mm3 MPV (9.4-12.3) fl Neut % (Auto) (34.0-67.9) % Lymph % (Auto) (21.8-53.1) % [place] % (Auto) (5.3-12.2) % Eos % (Auto) (0.8-7.0) Baso % (Auto) (0.1-1.2) % Neut # (Auto) (1.78-5.38) K/mm3 Lymph # (Auto) (1.32-3.57) K/mm3 School[place] # (Auto) (0.30-0.82) K/mm3 Eos # (Auto) (0.04-0.54) K/mm3 Baso # (Auto) (0.01-0.08) K/mm3 Neutrophils % (Manual) (40-60) % Band Neutrophils % (0-10) % Lymphocytes % (Manual) (20-40) % Atypical Lymphs % % Monocytes % (Manual) (2-10) % Eosinophils % (Manual) (0.8-7.0) % Basophils % (Manual) (0.2-1.2) Manual Slide Review Platelet Estimate Macrocytosis Target Cells Tear Drop Cells RBC Morph Comment ESR (0-15) mm/hr PT (9.7-12.0) SECONDS INR APTT (21.7-31.4) SECONDS D-Dimer, Quantitative (0.19-0.50) mg/L Puncture Site ABG pH (7.35-7.45) ABG pCO2 (35.0-45.0) mmHg ABG pO2 (80.0-100.0) mmHg ABG HCO3 (22.0-26.0) meq/L ABG O2 Saturation (96.0-97.0) % ABG Base Excess (-2-2.0) Donovan Test A-a Gradient mmHg Sodium 137 (136-145) mEq/L Potassium 4.1 (3.5-5.1) mEq/L Chloride 98 (98-107) mEq/L Carbon Dioxide 28 (21-32) mEq/L Anion Gap 15.1 H (5-15) BUN 33 H (7-18) mg/dL Creatinine 1.7 H (0.7-1.3) mg/dL Est Cr Clr Drug Dosing 46.80 mL/min Estimated GFR (MDRD) 40 (>60) mL/min BUN/Creatinine Ratio 19.4 H (14-18) Glucose 127 H (70-99) mg/dL POC Glucose 126 H (70-99) mg/dL Hemoglobin A1c ( - 5.6) % Lactic Acid (0.4-2.0) mmol/L Calcium 9.1 (8.5-10.1) mg/dL Magnesium (1.8-2.4) mg/dL Total Bilirubin 0.3 (0.2-1.0) mg/dL AST 15 (15-37) U/L ALT 16 (16-63) U/L Alkaline Phosphatase 112 (46-116) U/L CK-MB (CK-2) (0-3.6) ng/ml Troponin I (0.00-0.056) ng/mL C-Reactive Protein (<1.0) mg/dL NT-Pro-B Natriuret Pep (0-125) pg/mL Total Protein 10.3 H (6.4-8.2) g/dl Albumin 2.7 L (3.4-5.0) g/dl Globulin 7.6 gm/dL Albumin/Globulin Ratio 0.4 L (1-2) Urine Color (Yellow) Urine Appearance (Clear) Urine pH (5.0-8.0) Ur Specific Mcdonald (1.005-1.030) Urine Protein (Negative) Urine Glucose (UA) (Negative) Urine Ketones (Negative) Urine Occult Blood (Negative) Urine Nitrite (Negative) Urine Bilirubin (Negative) Urine Urobilinogen (0.2-1.0) Ur Leukocyte Esterase (Negative) Urine RBC (0-5) /hpf Urine WBC (0-5) /hpf Ur Epithelial Cells (0-5) /hpf Urine Bacteria (FEW) /hpf Urine Mucus (FEW) /hpf SARS-CoV-2 RNA (ROCHELLE) (NEGATIVE) MRSA (PCR) Negative 06/02/21 06/03/21 06/03/21 Range/Units 20:17 05:21 05:21 WBC 7.74 (4.23-9.07) K/mm3 RBC 2.68 L (4.63-6.08) M/mm3 Hgb 8.9 L D (13.7-17.5) gm/dl Hct 29.7 L (40.1-51.0) % MCV 110.8 H (79.0-92.2) fl MCH 33.2 H (25.7-32.2) pg MCHC 30.0 L (32.2-35.5) g/dl RDW Std Deviation 70.3 H (35.1-43.9) fL Plt Count 183 (163-337) K/mm3 MPV 9.4 (9.4-12.3) fl Neut % (Auto) 71.6 H (34.0-67.9) % Lymph % (Auto) 23.9 (21.8-53.1) % [place] % (Auto) 3.7 L (5.3-12.2) % Eos % (Auto) 0.4 L (0.8-7.0) Baso % (Auto) 0.1 (0.1-1.2) % Neut # (Auto) 5.54 H (1.78-5.38) K/mm3 Lymph # (Auto) 1.85 (1.32-3.57) K/mm3 [place] # (Auto) 0.29 L (0.30-0.82) K/mm3 Eos # (Auto) 0.03 L (0.04-0.54) K/mm3 Baso # (Auto) 0.01 (0.01-0.08) K/mm3 Neutrophils % (Manual) (40-60) % Band Neutrophils % (0-10) % Lymphocytes % (Manual) (20-40) % Atypical Lymphs % % Monocytes % (Manual) (2-10) % Eosinophils % (Manual) (0.8-7.0) % Basophils % (Manual) (0.2-1.2) Manual Slide Review Abnormal smear Platelet Estimate Macrocytosis Target Cells Tear Drop Cells RBC Morph Comment ESR (0-15) mm/hr PT (9.7-12.0) SECONDS INR APTT (21.7-31.4) SECONDS D-Dimer, Quantitative (0.19-0.50) mg/L Puncture Site ABG pH (7.35-7.45) ABG pCO2 (35.0-45.0) mmHg ABG pO2 (80.0-100.0) mmHg ABG HCO3 (22.0-26.0) meq/L ABG O2 Saturation (96.0-97.0) % ABG Base Excess (-2-2.0) Donovan Test A-a Gradient mmHg Sodium 139 (136-145) mEq/L Potassium 3.6 (3.5-5.1) mEq/L Chloride 102 (98-107) mEq/L Carbon Dioxide 29 (21-32) mEq/L Anion Gap 11.6 (5-15) BUN 32 H (7-18) mg/dL Creatinine 1.5 H (0.7-1.3) mg/dL Est Cr Clr Drug Dosing 53.04 mL/min Estimated GFR (MDRD) 46 (>60) mL/min BUN/Creatinine Ratio 21.3 H (14-18) Glucose 121 H (70-99) mg/dL POC Glucose 142 H (70-99) mg/dL Hemoglobin A1c ( - 5.6) % Lactic Acid (0.4-2.0) mmol/L Calcium 8.1 L (8.5-10.1) mg/dL Magnesium 2.1 (1.8-2.4) mg/dL Total Bilirubin 0.2 (0.2-1.0) mg/dL AST 39 H (15-37) U/L ALT 12 L (16-63) U/L Alkaline Phosphatase 88 (46-116) U/L CK-MB (CK-2) (0-3.6) ng/ml Troponin I (0.00-0.056) ng/mL C-Reactive Protein (<1.0) mg/dL NT-Pro-B Natriuret Pep (0-125) pg/mL Total Protein 8.6 H (6.4-8.2) g/dl Albumin 2.1 L (3.4-5.0) g/dl Globulin 6.5 gm/dL Albumin/Globulin Ratio 0.3 L (1-2) Urine Color (Yellow) Urine Appearance (Clear) Urine pH (5.0-8.0) Ur Specific Mcdonald (1.005-1.030) Urine Protein (Negative) Urine Glucose (UA) (Negative) Urine Ketones (Negative) Urine Occult Blood (Negative) Urine Nitrite (Negative) Urine Bilirubin (Negative) Urine Urobilinogen (0.2-1.0) Ur Leukocyte Esterase (Negative) Urine RBC (0-5) /hpf Urine WBC (0-5) /hpf Ur Epithelial Cells (0-5) /hpf Urine Bacteria (FEW) /hpf Urine Mucus (FEW) /hpf SARS-CoV-2 RNA (ROCHELLE) (NEGATIVE) MRSA (PCR) 06/03/21 Range/Units 06:01 WBC (4.23-9.07) K/mm3 RBC (4.63-6.08) M/mm3 Hgb (13.7-17.5) gm/dl Hct (40.1-51.0) % MCV (79.0-92.2) fl MCH (25.7-32.2) pg MCHC (32.2-35.5) g/dl RDW Std Deviation (35.1-43.9) fL Plt Count (163-337) K/mm3 MPV (9.4-12.3) fl Neut % (Auto) (34.0-67.9) % Lymph % (Auto) (21.8-53.1) % [place] % (Auto) (5.3-12.2) % Eos % (Auto) (0.8-7.0) Baso % (Auto) (0.1-1.2) % Neut # (Auto) (1.78-5.38) K/mm3 Lymph # (Auto) (1.32-3.57) K/mm3 [place] # (Auto) (0.30-0.82) K/mm3 Eos # (Auto) (0.04-0.54) K/mm3 Baso # (Auto) (0.01-0.08) K/mm3 Neutrophils % (Manual) (40-60) % Band Neutrophils % (0-10) % Lymphocytes % (Manual) (20-40) % Atypical Lymphs % % Monocytes % (Manual) (2-10) % Eosinophils % (Manual) (0.8-7.0) % Basophils % (Manual) (0.2-1.2) Manual Slide Review Platelet Estimate Macrocytosis Target Cells Tear Drop Cells RBC Morph Comment ESR (0-15) mm/hr PT (9.7-12.0) SECONDS INR APTT (21.7-31.4) SECONDS D-Dimer, Quantitative (0.19-0.50) mg/L Puncture Site ABG pH (7.35-7.45) ABG pCO2 (35.0-45.0) mmHg ABG pO2 (80.0-100.0) mmHg ABG HCO3 (22.0-26.0) meq/L ABG O2 Saturation (96.0-97.0) % ABG Base Excess (-2-2.0) Donovan Test A-a Gradient mmHg Sodium (136-145) mEq/L Potassium (3.5-5.1) mEq/L Chloride (98-107) mEq/L Carbon Dioxide (21-32) mEq/L Anion Gap (5-15) BUN (7-18) mg/dL Creatinine (0.7-1.3) mg/dL Est Cr Clr Drug Dosing mL/min Estimated GFR (MDRD) (>60) mL/min BUN/Creatinine Ratio (14-18) Glucose (70-99) mg/dL POC Glucose 114 H (70-99) mg/dL Hemoglobin A1c ( - 5.6) % Lactic Acid (0.4-2.0) mmol/L Calcium (8.5-10.1) mg/dL Magnesium (1.8-2.4) mg/dL Total Bilirubin (0.2-1.0) mg/dL AST (15-37) U/L ALT (16-63) U/L Alkaline Phosphatase (46-116) U/L CK-MB (CK-2) (0-3.6) ng/ml Troponin I (0.00-0.056) ng/mL C-Reactive Protein (<1.0) mg/dL NT-Pro-B Natriuret Pep (0-125) pg/mL Total Protein (6.4-8.2) g/dl Albumin (3.4-5.0) g/dl Globulin gm/dL Albumin/Globulin Ratio (1-2) Urine Color (Yellow) Urine Appearance (Clear) Urine pH (5.0-8.0) Ur Specific Mcdonald (1.005-1.030) Urine Protein (Negative) Urine Glucose (UA) (Negative) Urine Ketones (Negative) Urine Occult Blood (Negative) Urine Nitrite (Negative) Urine Bilirubin (Negative) Urine Urobilinogen (0.2-1.0) Ur Leukocyte Esterase (Negative) Urine RBC (0-5) /hpf Urine WBC (0-5) /hpf Ur Epithelial Cells (0-5) /hpf Urine Bacteria (FEW) /hpf Urine Mucus (FEW) /hpf SARS-CoV-2 RNA (ROCHELLE) (NEGATIVE) MRSA (PCR) Result Diagrams: 06/03/21 05:21 06/03/21 05:21 [place] Results Last 24 hrs: Microbiology 06/02/21 11:52 Gram Stain - Final Toe, Right - Right Second Sepsis Event Note - Evaluation Sepsis Screening Result: Sepsis Risk - Focused Exam Vital Signs: Vital Signs Temp Pulse Resp BP Pulse Ox Pulse Ox Pulse Ox 06/03/21 08:38 91 L 06/03/21 06:07 93 L 06/03/21 04:25 99.0 F 86 22 H 130/65 92 L 06/03/21 00:06 98.4 F 84 20 100/65 91 L - Problem List & Annotations (1) Acute febrile illness SNOMED Code(s): 124704546 Code(s): R50.9 - FEVER, UNSPECIFIED Status: Acute Priority: High Current Visit: Yes (2) Cellulitis of right leg SNOMED Code(s): 538719258 Code(s): L03.115 - CELLULITIS OF RIGHT LOWER LIMB Status: Acute Priority: High Current Visit: Yes (3) Dependent edema SNOMED Code(s): 705794620 Code(s): R60.9 - EDEMA, UNSPECIFIED Status: Chronic Priority: Medium Current Visit: Yes (4) Elevated sedimentation rate measurement SNOMED Code(s): 384648307 Code(s): R70.0 - ELEVATED ERYTHROCYTE SEDIMENTATION RATE Status: Acute Priority: High Current Visit: Yes (5) Morbid obesity with BMI of 45.0-49.9, adult SNOMED Code(s): 082606030, 62187811786338 Code(s): E66.01 - MORBID (SEVERE) OBESITY DUE TO EXCESS CALORIES; Z68.42 - BODY MASS INDEX [BMI] 45.0-49.9, ADULT Status: Chronic Priority: Low Current Visit: Yes (6) Nausea and vomiting SNOMED Code(s): 10932745 Code(s): R11.2 - NAUSEA WITH VOMITING, UNSPECIFIED Status: Acute Priority: High Current Visit: Yes Qualifiers: Vomiting type: unspecified Vomiting Intractability: intractable Qualified Code(s): R11.2 - Nausea with vomiting, unspecified (7) Neutrophilic leukocytosis SNOMED Code(s): 848381502, 808729381 Code(s): D72.9 - DISORDER OF WHITE BLOOD CELLS, UNSPECIFIED Status: Acute Priority: High Current Visit: Yes (8) Cellulitis SNOMED Code(s): 277149229 Code(s): L03.90 - CELLULITIS, UNSPECIFIED Status: Acute Priority: High Current Visit: Yes Qualifiers: Site of cellulitis: extremity Site of cellulitis of extremity: lower extremity Laterality: right Qualified Code(s): L03.115 - Cellulitis of right lower limb (9) Renal insufficiency SNOMED Code(s): 568892642, 736721737 Code(s): N28.9 - DISORDER OF KIDNEY AND URETER, UNSPECIFIED Status: Acute Priority: High Current Visit: Yes - Problem List Review Problem List Initiated/Reviewed/Updated: Yes - My Orders Last 24 Hours: My Active Orders 06/02/21 14:42 Admission Status [Patient Status] [ADT] Routine 06/02/21 14:43 Height and Weight [RC] 06 Up With Assistance [RC] ASDIRECTED Consult to Case Management/Ground Water Pump Installer [CONS] Routine Consult to Manager Oracle Database [CONS] Routine OT Evaluation and Treatment [CONS] Routine PT Evaluation and Treatment [CONS] Routine Acetaminophen [TylenoL] 650 mg PO Q4H PRN Acetaminophen/HYDROcodone [[place] 325-5 MG] 1 tab PO Q4H PRN Ondansetron [Zofran ODT] 4 mg PO Q4H PRN Ondansetron [Zofran] 4 mg IV Q6H PRN Sodium Chloride 0.9% [Saline Flush] 10 ml FLUSH ASDIRECTED PRN Peripheral IV Insertion Adult [OM.PC] Routine 06/02/21 14:44 VTE/DVT Education [RC] PER UNIT ROUTINE Vital Signs [RC] Q4HR 06/02/21 15:00 Pharmacy to Dose - Vancomycin 1 dose .XX ASDIRECTED PRN 06/02/21 15:57 Accu Check [Blood Glucose Check, Bedside] [RC] QIDACANDBED 06/02/21 16:00 Vancomycin 2 gm Sodium Chloride 0.9% [Normal Saline] 500 ml IV Q18H 06/02/21 Dinner Heart Healthy Diet [DIET] Insulin Lispro [HumaLOG] See Protocol SUBCUT QIDACANDBED 06/03/21 08:51 Calcium Carbonate [Tums] 1,000 mg PO QID PRN Loperamide [Imodium] 4 mg PO ASDIRECTED PRN Nitroglycerin [Nitrostat] 0.4 mg SL ASDIRECTED PRN polyethylene glycoL 3350 [MiraLAX] 17 gm PO BEDTIME PRN 06/03/21 09:00 Acetaminophen [TylenoL] 650 mg PO BID Aspirin 81 mg PO DAILY Cholecalciferol (Vitamin D3) [Vitamin D3] 5,000 unit PO DAILY Clopidogrel [Plavix] 75 mg PO DAILY Enoxaparin [Lovenox] 40 mg SUBCUT DAILY Losartan [Cozaar] 25 mg PO DAILY Metoprolol Succinate [Toprol XL] 50 mg PO DAILY Potassium Chloride [Klor-Con M20] 20 meq PO DAILY 06/03/21 09:02 Alum Hydrox/Mag Hydrox/Simeth [Mag-Al Plus] 30 ml PO Q2H PRN 06/03/21 21:00 Mirtazapine [Remeron] 30 mg PO BEDTIME Saccharomyces Boulardii [Florastor] 250 mg PO BID 06/04/21 05:11 CBC WITH AUTO DIFF [HEME] DAILY COMPREHENSIVE METABOLIC PN,CMP [CHEM] DAILY MAGNESIUM [CHEM] DAILY 06/04/21 09:00 Bumetanide [Bumex] 3 mg PO DAILY Cyanocobalamin (Vitamin B12) [Vitamin B12] 1,000 mcg PO DAILY 06/04/21 09:15 Multivitamins/Min/FA/Lut/Zeax [ICaps MV] 1 tab PO DAILY 06/05/21 05:11 CBC WITH AUTO DIFF [HEME] DAILY COMPREHENSIVE METABOLIC PN,CMP [CHEM] DAILY MAGNESIUM [CHEM] DAILY 06/06/21 05:11 CBC WITH AUTO DIFF [HEME] DAILY COMPREHENSIVE METABOLIC PN,CMP [CHEM] DAILY MAGNESIUM [CHEM] DAILY - Assessment Assessment:: Pt reports feeling much better than yesterday. Nursing staff had requested to discontinue IV fluids as they reported that he had crackles in his lungs. Upon my assessment fine crackles were noted in the left base. Home medications will be started today to include bumex. Blood cultures were not drawn in the ED, however they were collected last evening. Question whether the infection is due to ulcers to the right lower extremity vs PICC line in left AC. WBC 7.47 which is down from 12.72, neutrophil percentage 71.6 which is down from 89, Hgb 8.9 which is down from 10.4. Question if drop in HGB is dilutional. Will continue to trend and monitor this. PT to continue with wound care to right lateral lower leg and plantar aspect of right 4th toe. - Plan Plan:: Acute febrile illness SNOMED Code(s): 209061930 ICD Code: R50.9 - FEVER, UNSPECIFIED Status: Acute Priority: High Current Visit: Yes Cellulitis of right leg, Cellulitis, Neutrophilic leukocytosis, Elevated sedimentation rate measurement -Vancomycin-pharmacy to dose -daily CBC -Q48h CRP -Blood cultures are pending Dependent edema -resume Bumex -saline lock IV Morbid obesity with BMI of 45.0-49.9, adult -front desk specialist consult -ADA diet -QID accucheck with low dose SSI Renal insufficiency -continue daily CMP to monitor BUN, CRE, and GFR -pharmacy to dose Vancomycin The patient is a DNR/DNI Primary care provider is Dr. Dimitrios Zapata for DVT prophylaxis social services technician/case management for dc planning PT for wound care OT for ADL's
[2021-06-03] MEDS: Saccharomyces Boulardii (Probiotic) 250 MG Cap PO SCH (21:12)
[2021-06-03] MEDS: Mirtazapine 30 MG Tab PO SCH (21:12)
[2021-06-04] MEDS: Vancomycin 2 GM in Sodium Chloride 0.9% 500 ML IV SCH ×2 (04:47→23:08)
[2021-06-04] MEDS: Insulin Lispro 100 UNIT/ML 10 ML Vial SUBCUT SCH ×4 (06:53→21:59)
[2021-06-04] MEDS ORDERED: Potassium Chloride 20 MEQ Tab.ER PO ONE (07:31)
--- NOTE | 2021-06-04 09:24 | PCM.PN ---
<CarolynKeven M - Last Filed: 06/04/21 11:34> - General Info Date of Service: 06/04/21 Admission Dx/Problem (Free Text): Admission Diagnosis/Problem Admission Diagnosis/Problem Cellulitis Subjective Update: Buster was visited on rounds this morning and was still sleeping at the time. When he woke I asked him how he felt and he states he has been feeling weak. Patient has been afebrile while in the hospital. However, the patient has not been out of bed since being admitted. Continues to require 2 L of oxygen per nasal cannula to keep saturations greater than 92%. Dressing to right foot is clean dry and intact. Dressing to right lower lateral seals is also clean dry and intact. I will place orders to increase his activity today and have physical therapy consult for strengthening. Waiting blood culture and PICC line culture report. Patient could potentially be discharged back to the long-term tomorrow. Functional Status: Reports: Pain Controlled, Tolerating Diet, Urinating (Incontinent at times). Denies: Ambulating (Shunt is nonambulatory; uses a motorized wheelchair) - Review of Systems General: Reports: Weakness, Appetite. Denies: Fever, Chills HEENT: Reports: No Symptoms Pulmonary: Reports: No Symptoms Cardiovascular: Reports: No Symptoms Gastrointestinal: Reports: No Symptoms Genitourinary: Reports: No Symptoms Musculoskeletal: Reports: No Symptoms Skin: Reports: Other (Open area to the plantar aspect of right fourth toe; ulcer to right lower lateral seals) Neurological: Reports: No Symptoms Psychiatric: Reports: No Symptoms - Patient Data Vitals - Most Recent: Last Vital Signs Temp 98.1 F 06/04/21 07:21 Pulse 70 06/04/21 07:21 Resp 18 06/04/21 07:21 BP 139/61 06/04/21 07:21 Pulse Ox 97 06/04/21 07:21 Weight - Most Recent: 185.292 kg I&O - Last 24 Hours: Intake & Output 06/03/21 06/04/21 06/04/21 22:59 06:59 14:59 Intake Total 1060 800 Output Total 325 Balance 735 800 Lab Results Last 24 Hours: Laboratory Results - last 24 hr 06/03/21 06/03/21 06/03/21 Range/Units 11:09 16:58 21:05 WBC (4.23-9.07) K/mm3 RBC (4.63-6.08) M/mm3 Hgb (13.7-17.5) gm/dl Hct (40.1-51.0) % MCV (79.0-92.2) fl MCH (25.7-32.2) pg MCHC (32.2-35.5) g/dl RDW Std Deviation (35.1-43.9) fL Plt Count (163-337) K/mm3 MPV (9.4-12.3) fl Neut % (Auto) (34.0-67.9) % Lymph % (Auto) (21.8-53.1) % [place] % (Auto) (5.3-12.2) % Eos % (Auto) (0.8-7.0) Baso % (Auto) (0.1-1.2) % Neut # (Auto) (1.78-5.38) K/mm3 Lymph # (Auto) (1.32-3.57) K/mm3 [place] # (Auto) (0.30-0.82) K/mm3 Eos # (Auto) (0.04-0.54) K/mm3 Baso # (Auto) (0.01-0.08) K/mm3 Manual Slide Review Sodium (136-145) mEq/L Potassium (3.5-5.1) mEq/L Chloride (98-107) mEq/L Carbon Dioxide (21-32) mEq/L Anion Gap (5-15) BUN (7-18) mg/dL Creatinine (0.7-1.3) mg/dL Est Cr Clr Drug Dosing mL/min Estimated GFR (MDRD) (>60) mL/min BUN/Creatinine Ratio (14-18) Glucose (70-99) mg/dL POC Glucose 113 H 106 H 116 H (70-99) mg/dL Calcium (8.5-10.1) mg/dL Magnesium (1.8-2.4) mg/dL Total Bilirubin (0.2-1.0) mg/dL AST (15-37) U/L ALT (16-63) U/L Alkaline Phosphatase (46-116) U/L C-Reactive Protein (<1.0) mg/dL Total Protein (6.4-8.2) g/dl Albumin (3.4-5.0) g/dl Globulin gm/dL Albumin/Globulin Ratio (1-2) 06/04/21 06/04/21 06/04/21 Range/Units 05:45 05:45 06:44 WBC 4.48 (4.23-9.07) K/mm3 RBC 2.79 L (4.63-6.08) M/mm3 Hgb 9.3 L (13.7-17.5) gm/dl Hct 31.2 L (40.1-51.0) % MCV 111.8 H (79.0-92.2) fl MCH 33.3 H (25.7-32.2) pg MCHC 29.8 L (32.2-35.5) g/dl RDW Std Deviation 71.0 H (35.1-43.9) fL Plt Count 177 (163-337) K/mm3 MPV 9.1 L (9.4-12.3) fl Neut % (Auto) 52.1 (34.0-67.9) % Lymph % (Auto) 40.2 (21.8-53.1) % [place] % (Auto) 4.2 L (5.3-12.2) % Eos % (Auto) 3.1 (0.8-7.0) Baso % (Auto) 0.0 L (0.1-1.2) % Neut # (Auto) 2.33 (1.78-5.38) K/mm3 Lymph # (Auto) 1.80 (1.32-3.57) K/mm3 [place] # (Auto) 0.19 L (0.30-0.82) K/mm3 Eos # (Auto) 0.14 (0.04-0.54) K/mm3 Baso # (Auto) 0.00 L (0.01-0.08) K/mm3 Manual Slide Review Abnormal smear Sodium 139 (136-145) mEq/L Potassium 3.6 (3.5-5.1) mEq/L Chloride 104 (98-107) mEq/L Carbon Dioxide 29 (21-32) mEq/L Anion Gap 9.6 (5-15) BUN 32 H (7-18) mg/dL Creatinine 1.3 (0.7-1.3) mg/dL Est Cr Clr Drug Dosing 61.21 mL/min Estimated GFR (MDRD) 54 (>60) mL/min BUN/Creatinine Ratio 24.6 H (14-18) Glucose 114 H (70-99) mg/dL POC Glucose 115 H (70-99) mg/dL Calcium 8.2 L (8.5-10.1) mg/dL Magnesium 2.3 (1.8-2.4) mg/dL Total Bilirubin 0.2 (0.2-1.0) mg/dL AST 31 (15-37) U/L ALT 15 L (16-63) U/L Alkaline Phosphatase 85 (46-116) U/L C-Reactive Protein 8.4 H* (<1.0) mg/dL Total Protein 9.1 H (6.4-8.2) g/dl Albumin 2.1 L (3.4-5.0) g/dl Globulin 7.0 gm/dL Albumin/Globulin Ratio 0.3 L (1-2) Devaughn Results Last 24 Hours: Microbiology 06/03/21 14:05 Gram Stain - Final Other - Picc Line 06/02/21 11:52 Aerobic Culture - Preliminary Toe, Right - Right Second Gram Positive Cocci Diphtheroids Gram Stain - Final Med Orders - Current: Current Medications Acetaminophen (Acetaminophen 325 Mg Tab) 650 mg PO Q4H PRN PRN Reason: Pain (Mild 1-3)/fever Last Admin: 06/03/21 17:18 Dose: 650 mg Documented by: Acetaminophen (Acetaminophen 325 Mg Tab) 650 mg PO BID [facility] Last Admin: 06/03/21 21:12 Dose: 650 mg Documented by: Hydrocodone Bitart/Acetaminophen (Acetaminophen/Hydrocodone 325-5 Mg Tab) 1 tab PO Q4H PRN PRN Reason: Pain (moderate 4-6) Al Hydroxide/Mg Hydroxide (Aluminum Hydroxide/Magnesium Hydroxide/Simethicone Susp 30 Ml Cup) 30 ml PO Q2H PRN PRN Reason: HEARTBURN Aspirin (Aspirin 81 Mg Tab.Chew) 81 mg PO DAILY [facility] Last Admin: 06/03/21 09:54 Dose: 81 mg Documented by: Bumetanide (Bumetanide 1 Mg Tab) 3 mg PO DAILY [facility] Calcium Carbonate/Glycine (Calcium Carbonate 500 Mg Tab.Chew) 1,000 mg PO QID PRN PRN Reason: Heartburn Cholecalciferol (Cholecalciferol (Vitamin D3) 5,000 Unit Cap) 5,000 unit PO DAILY [facility] Last Admin: 06/03/21 09:54 Dose: 5,000 unit Documented by: Clopidogrel Bisulfate (Clopidogrel 75 Mg Tab) 75 mg PO DAILY [facility] Last Admin: 06/03/21 09:55 Dose: 75 mg Documented by: Cyanocobalamin (Cyanocobalamin (Vitamin B12) 1,000 Mcg Tab) 1,000 mcg PO DAILY [facility] Enoxaparin Sodium (Enoxaparin 40 Mg/0.4 Ml Syringe) 40 mg SUBCUT DAILY [facility] Last Admin: 06/03/21 09:55 Dose: 40 mg Documented by: Vancomycin HCl 2 gm/ Sodium (Chloride) 500 mls @ 250 mls/hr IV Q18H [facility] Last Admin: 06/04/21 04:47 Dose: 250 mls/hr Documented by: Insulin Human Lispro (Insulin Lispro 100 Unit/Ml 10 Ml Vial) 0 unit SUBCUT QIDACANDBED [facility]; Protocol Last Admin: 06/04/21 06:53 Dose: Not Given Documented by: Loperamide HCl (Loperamide 2 Mg Cap) 4 mg PO ASDIRECTED PRN PRN Reason: Diarrhea Losartan Potassium (Losartan 25 Mg Tab) 25 mg PO DAILY [facility] Last Admin: 06/03/21 09:55 Dose: 25 mg Documented by: Metoprolol Succinate (Metoprolol Succinate 50 Mg Tab.Er) 50 mg PO DAILY [facility] Last Admin: 06/03/21 09:54 Dose: 50 mg Documented by: Mirtazapine (Mirtazapine 30 Mg Tab) 30 mg PO BEDTIME [facility] Last Admin: 06/03/21 21:12 Dose: 30 mg Documented by: Nitroglycerin (Nitroglycerin 0.4 Mg Tab.Sl) 0.4 mg SL ASDIRECTED PRN PRN Reason: Chest Pain Nystatin (Nystatin Topical Powder 15 Gm Bottle) 0 gm TOP QID [facility] Last Admin: 06/03/21 21:13 Dose: 1 applic Documented by: Ondansetron HCl (Ondansetron 4 Mg Tab.Dis) 4 mg PO Q4H PRN PRN Reason: nausea, able to take PO Ondansetron HCl (Ondansetron 4 Mg/2 Ml Sdv) 4 mg IV Q6H PRN PRN Reason: Nausea/Vomiting Polyethylene Glycol (Polyethylene Glycol 3350 Powder 17 Gm Packet) 17 gm PO BEDTIME PRN PRN Reason: Constipation Potassium Chloride (Potassium Chloride 20 Meq Tab.Er) 20 meq PO DAILY [facility] Last Admin: 06/03/21 09:54 Dose: 20 meq Documented by: Saccharomyces Boulardii (Saccharomyces Boulardii (Probiotic) 250 Mg Cap) 250 mg PO BID [facility] Last Admin: 06/03/21 21:12 Dose: 250 mg Documented by: Sodium Chloride (Sodium Chloride 0.9% 10 Ml Syringe) 10 ml FLUSH ASDIRECTED PRN PRN Reason: Keep Vein Open Vancomycin HCl (Pharmacy To Dose - Vancomycin) 1 dose .XX ASDIRECTED PRN PRN Reason: RX TO DOSE VANCO Vit A/Vit C/Vit E/Selen/Cu/Zn/Lutei (Multivitamins With Minerals/Folic Acid/Lutein/Zeaxanth Tab) 1 tab PO DAILY [facility] Discontinued Medications Acetaminophen (Acetaminophen 325 Mg Tab) 975 mg PO ONETIME ONE Stop: 06/02/21 11:28 Last Admin: 06/02/21 11:53 Dose: 975 mg Documented by: Dextrose/Sodium Chloride (Dextrose 5%-Normal Saline) 1,000 mls @ 250 mls/hr IV ASDIRECTED [facility] Last Admin: 06/02/21 11:56 Dose: 250 mls/hr Documented by: Ceftriaxone Sodium 2 gm/ (Sodium Chloride) 100 mls @ 200 mls/hr IV ONETIME ONE Stop: 06/02/21 13:07 Last Admin: 06/02/21 13:39 Dose: 200 mls/hr Documented by: Sodium Chloride (Normal Saline) 1,000 mls @ 150 mls/hr IV ASDIRECTED [facility] Last Admin: 06/03/21 07:25 Dose: 150 mls/hr Documented by: Metoclopramide HCl (Metoclopramide 10 Mg/2 Ml Sdv) 10 mg IVPUSH ONETIME ONE Stop: 06/02/21 11:40 Last Admin: 06/02/21 11:56 Dose: 10 mg Documented by: Non-Formulary Medication (Emollient Combination No.114 [Eucerin Advanced Repair]) 1 dose TOP DAILY [facility] Last Admin: 06/03/21 10:22 Dose: Not Given Documented by: Potassium Chloride (Potassium Chloride 20 Meq Tab.Er) 40 meq PO ONETIME ONE Stop: 06/04/21 07:32 - Exam Quality Assessment: Supplemental Oxygen (2 L per nasal cannula), DVT Prophylaxis (Lovenox) General: Alert, Oriented, Cooperative, No Acute Distress HEENT: Pupils Equal, Mucous Membr. Moist/[employer] Neck: Supple, Trachea Midline Lungs: Normal Respiratory Effort, Decreased Breath Sounds (Likely due to body habitus) Cardiovascular: Regular Rate, Regular Rhythm, No Murmurs GI/Abdominal Exam: Normal Bowel Sounds, Soft, Non-Tender, No Distention (Male) Exam: Deferred Back Exam: Normal Inspection Extremities: Normal Range of Motion, Non-Tender, Normal Capillary Refill. No: Normal Inspection (Open area to plantar aspect of right fourth toe; ulcer to right lateral lower seals), No Pedal Edema (3+ pedal edema) Peripheral Pulses: 1+: Dorsalis Pedis (L), Dorsalis Pedis (R), 2+: Radial (L), R adial (R) Skin: Warm, Dry. No: Intact (Open area to plantar aspect of right fourth toe; ulcer to right lateral lower seals) Wound/Incisions: Dressing Dry and Intact, No Drainage Neurological: No New Focal Deficit Psy/Mental Status: Alert, Normal Affect, Normal Mood - Patient Data Lab Results Last 24 hrs: Laboratory Results - last 24 hr 06/03/21 06/03/21 06/03/21 Range/Units 11:09 16:58 21:05 WBC (4.23-9.07) K/mm3 RBC (4.63-6.08) M/mm3 Hgb (13.7-17.5) gm/dl Hct (40.1-51.0) % MCV (79.0-92.2) fl MCH (25.7-32.2) pg MCHC (32.2-35.5) g/dl RDW Std Deviation (35.1-43.9) fL Plt Count (163-337) K/mm3 MPV (9.4-12.3) fl Neut % (Auto) (34.0-67.9) % Lymph % (Auto) (21.8-53.1) % [place] % (Auto) (5.3-12.2) % Eos % (Auto) (0.8-7.0) Baso % (Auto) (0.1-1.2) % Neut # (Auto) (1.78-5.38) K/mm3 Lymph # (Auto) (1.32-3.57) K/mm3 [place] # (Auto) (0.30-0.82) K/mm3 Eos # (Auto) (0.04-0.54) K/mm3 Baso # (Auto) (0.01-0.08) K/mm3 Manual Slide Review Sodium (136-145) mEq/L Potassium (3.5-5.1) mEq/L Chloride (98-107) mEq/L Carbon Dioxide (21-32) mEq/L Anion Gap (5-15) BUN (7-18) mg/dL Creatinine (0.7-1.3) mg/dL Est Cr Clr Drug Dosing mL/min Estimated GFR (MDRD) (>60) mL/min BUN/Creatinine Ratio (14-18) Glucose (70-99) mg/dL POC Glucose 113 H 106 H 116 H (70-99) mg/dL Calcium (8.5-10.1) mg/dL Magnesium (1.8-2.4) mg/dL Total Bilirubin (0.2-1.0) mg/dL AST (15-37) U/L ALT (16-63) U/L Alkaline Phosphatase (46-116) U/L C-Reactive Protein (<1.0) mg/dL Total Protein (6.4-8.2) g/dl Albumin (3.4-5.0) g/dl Globulin gm/dL Albumin/Globulin Ratio (1-2) 06/04/21 06/04/21 06/04/21 Range/Units 05:45 05:45 06:44 WBC 4.48 (4.23-9.07) K/mm3 RBC 2.79 L (4.63-6.08) M/mm3 Hgb 9.3 L (13.7-17.5) gm/dl Hct 31.2 L (40.1-51.0) % MCV 111.8 H (79.0-92.2) fl MCH 33.3 H (25.7-32.2) pg MCHC 29.8 L (32.2-35.5) g/dl RDW Std Deviation 71.0 H (35.1-43.9) fL Plt Count 177 (163-337) K/mm3 MPV 9.1 L (9.4-12.3) fl Neut % (Auto) 52.1 (34.0-67.9) % Lymph % (Auto) 40.2 (21.8-53.1) % [place] % (Auto) 4.2 L (5.3-12.2) % Eos % (Auto) 3.1 (0.8-7.0) Baso % (Auto) 0.0 L (0.1-1.2) % Neut # (Auto) 2.33 (1.78-5.38) K/mm3 Lymph # (Auto) 1.80 (1.32-3.57) K/mm3 [place] # (Auto) 0.19 L (0.30-0.82) K/mm3 Eos # (Auto) 0.14 (0.04-0.54) K/mm3 Baso # (Auto) 0.00 L (0.01-0.08) K/mm3 Manual Slide Review Abnormal smear Sodium 139 (136-145) mEq/L Potassium 3.6 (3.5-5.1) mEq/L Chloride 104 (98-107) mEq/L Carbon Dioxide 29 (21-32) mEq/L Anion Gap 9.6 (5-15) BUN 32 H (7-18) mg/dL Creatinine 1.3 (0.7-1.3) mg/dL Est Cr Clr Drug Dosing 61.21 mL/min Estimated GFR (MDRD) 54 (>60) mL/min BUN/Creatinine Ratio 24.6 H (14-18) Glucose 114 H (70-99) mg/dL POC Glucose 115 H (70-99) mg/dL Calcium 8.2 L (8.5-10.1) mg/dL Magnesium 2.3 (1.8-2.4) mg/dL Total Bilirubin 0.2 (0.2-1.0) mg/dL AST 31 (15-37) U/L ALT 15 L (16-63) U/L Alkaline Phosphatase 85 (46-116) U/L C-Reactive Protein 8.4 H* (<1.0) mg/dL Total Protein 9.1 H (6.4-8.2) g/dl Albumin 2.1 L (3.4-5.0) g/dl Globulin 7.0 gm/dL Albumin/Globulin Ratio 0.3 L (1-2) Result Diagrams: 06/04/21 05:45 06/04/21 05:45 Devaughn Results Last 24 hrs: Microbiology 06/03/21 14:05 Gram Stain - Final Other - Picc Line 06/02/21 11:52 Aerobic Culture - Preliminary Toe, Right - Right Second Gram Positive Cocci Diphtheroids Gram Stain - Final Sepsis Event Note - Evaluation Sepsis Screening Result: No Definite Risk - Focused Exam Vital Signs: Vital Signs Temp Pulse Resp BP Pulse Ox 06/04/21 07:21 98.1 F 70 18 139/61 97 06/04/21 04:51 97.7 F 64 18 95 - Problem List & Annotations (1) Acute febrile illness SNOMED Code(s): 469476880 Code(s): R50.9 - FEVER, UNSPECIFIED Status: Acute Priority: High Current Visit: Yes (2) Cellulitis of right leg SNOMED Code(s): 102031592 Code(s): L03.115 - CELLULITIS OF RIGHT LOWER LIMB Status: Acute Priority: High Current Visit: Yes (3) Dependent edema SNOMED Code(s): 434861801 Code(s): R60.9 - EDEMA, UNSPECIFIED Status: Chronic Priority: Medium Current Visit: Yes (4) Elevated sedimentation rate measurement SNOMED Code(s): 797683634 Code(s): R70.0 - ELEVATED ERYTHROCYTE SEDIMENTATION RATE Status: Acute Priority: High Current Visit: Yes (5) Morbid obesity with BMI of 45.0-49.9, adult SNOMED Code(s): 356483890, 22360695957964 Code(s): E66.01 - MORBID (SEVERE) OBESITY DUE TO EXCESS CALORIES; Z68.42 - BODY MASS INDEX [BMI] 45.0-49.9, ADULT Status: Chronic Priority: Low Current Visit: Yes (6) Nausea and vomiting SNOMED Code(s): 22157791 Code(s): R11.2 - NAUSEA WITH VOMITING, UNSPECIFIED Status: Acute Priority : High Current Visit: Yes Qualifiers: Vomiting type: unspecified Vomiting Intractability: intractable Qualified Code(s): R11.2 - Nausea with vomiting, unspecified (7) Neutrophilic leukocytosis SNOMED Code(s): 715382259, 020929777 Code(s): D72.9 - DISORDER OF WHITE BLOOD CELLS, UNSPECIFIED Status: Acute Priority: High Current Visit: Yes (8) Cellulitis SNOMED Code(s): 096694262 Code(s): L03.90 - CELLULITIS, UNSPECIFIED Status: Acute Priority: High Current Visit: Yes Qualifiers: Site of cellulitis: extremity Site of cellulitis of extremity: lower extremity Laterality: right Qualified Code(s): L03.115 - Cellulitis of right lower limb (9) Renal insufficiency SNOMED Code(s): 010627157, 461207811 Code(s): N28.9 - DISORDER OF KIDNEY AND URETER, UNSPECIFIED Status: Acute Priority: High Current Visit: Yes - Problem List Review Problem List Initiated/Reviewed/Updated: Yes - My Orders Last 24 Hours: My Active Orders 06/03/21 08:51 Calcium Carbonate [Tums] 1,000 mg PO QID PRN Loperamide [Imodium] 4 mg PO ASDIRECTED PRN Nitroglycerin [Nitrostat] 0.4 mg SL ASDIRECTED PRN polyethylene glycoL 3350 [MiraLAX] 17 gm PO BEDTIME PRN 06/03/21 09:00 Acetaminophen [TylenoL] 650 mg PO BID Aspirin 81 mg PO DAILY Cholecalciferol (Vitamin D3) [Vitamin D3] 5,000 unit PO DAILY Clopidogrel [Plavix] 75 mg PO DAILY Enoxaparin [Lovenox] 40 mg SUBCUT DAILY Losartan [Cozaar] 25 mg PO DAILY Metoprolol Succinate [Toprol XL] 50 mg PO DAILY Potassium Chloride [Klor-Con M20] 20 meq PO DAILY 06/03/21 09:02 Alum Hydrox/Mag Hydrox/Simeth [Mag-Al Plus] 30 ml PO Q2H PRN 06/03/21 14:05 CULTURE, ANAEROBE & AEROBE [MREF] Stat 06/03/21 14:18 PICC Discontinue [Central Line PICC Discontinue] [OM.PC] Routine 06/03/21 21:00 Mirtazapine [Remeron] 30 mg PO BEDTIME Saccharomyces Boulardii [Florastor] 250 mg PO BID 06/04/21 08:51 Up to Chair [RC] ASDIRECTED 06/04/21 08:52 PT Evaluation and Treatment [CONS] Routine 06/04/21 09:00 Bumetanide [Bumex] 3 mg PO DAILY Cyanocobalamin (Vitamin B12) [Vitamin B12] 1,000 mcg PO DAILY 06/04/21 09:15 Multivitamins/Min/FA/Lut/Zeax [ICaps MV] 1 tab PO DAILY 06/05/21 05:11 CBC WITH AUTO DIFF [HEME] DAILY COMPREHENSIVE METABOLIC PN,CMP [CHEM] DAILY MAGNESIUM [CHEM] DAILY 06/06/21 05:11 CBC WITH AUTO DIFF [HEME] DAILY COMPREHENSIVE METABOLIC PN,CMP [CHEM] DAILY CRP [C-REACTIVE PROTEIN] [CHEM] Q48H MAGNESIUM [CHEM] DAILY - Assessment Assessment:: Pt reports feeling much better than yesterday. Nursing staff had requested to discontinue IV fluids as they reported that he had crackles in his lungs. Upon my assessment fine crackles were noted in the left base. Home medications will be started today to include bumex. Blood cultures were not drawn in the ED, however they were collected last evening. Question whether the infection is due to ulcers to the right lower extremity vs PICC line in left AC. WBC 7.47 which is down from 12.72, neutrophil percentage 71.6 which is down from 89, Hgb 8.9 which is down from 10.4. Question if drop in HGB is dilutional. Will continue to trend and monitor this. PT to continue with wound care to right lateral lower leg and plantar aspect of right 4th toe. 06/04/21 Patient reports feeling weaker today. He is not able to elaborate on this. He denies any complaints of pain or discomfort, cough or shortness of breath. He has been afebrile the past 24 hours. PICC line was discontinued yesterday and the tip was sent for culture. He continues to receive IV vancomycin with pharmacy dosing. Culture of plantar aspect of right fourth toe preliminary report shows Enterococcus species, diphtheroids, gram-positive cocci. Blood c ultures are pending. White blood cell count today 4.48 which is down from 7.74, neutrophil percentage 52.1 which is down from 71.6, hemoglobin 9.3 which is up from 8.9, hematocrit 31.2 which is up from 29.7, potassium 3.6, BUN 32, creatinine 1.3, C-reactive protein 8.4 which is up from 3.32 days ago. He remains on oxygen at 2 L per nasal cannula with O2 saturations 93 to 95%. Currently tolerating diabetic diet. Accu-Cheks have been in the normal range and he has not required any sliding scale insulin for coverage. Continues to receive Lovenox for DVT prophylaxis. - Plan Plan:: Acute febrile illness SNOMED Code(s): 928511640 ICD Code: R50.9 - FEVER, UNSPECIFIED Status: Acute Priority: High Current Visit: Yes Cellulitis of right leg, Cellulitis, Neutrophilic leukocytosis, Elevated sedimentation rate measurement -Vancomycin-pharmacy to dose -daily CBC -Q48h CRP -Blood cultures are pending; PICC line tip culture pending Dependent edema -continue Bumex -saline lock IV Morbid obesity with BMI of 45.0-49.9, adult -beer merchant consult -ADA diet -QID accucheck with low dose SSI Renal insufficiency -continue daily CMP to monitor BUN, CRE, and GFR -pharmacy to dose Vancomycin The patient is a DNR/DNI Primary care provider is Dr. Dimitrios Zapata for DVT prophylaxis director emergency services/case management for dc planning PT consult today for strengthening OT for ADL's Increase activity to OOB during the day and for all meals Plan for potential discharge back to long-term tomorrow pending cultures. <Noam Talavera - Last Filed: 06/04/21 12:31> - Patient Data Vitals - Most Recent: Last Vital Signs Temp 36.3 C 06/04/21 11:50 Pulse 75 06/04/21 11:50 Resp 18 06/04/21 11:50 BP 156/85 H 06/04/21 11:50 Pulse Ox 95 06/04/21 11:50 I&O - Last 24 Hours: Intake & Output 06/03/21 06/04/21 06/04/21 22:59 06:59 14:59 Intake Total 1060 800 Output Total 325 Balance 735 800 Lab Results Last 24 Hours: Laboratory Results - last 24 hr 06/03/21 06/03/21 06/04/21 Range/Units 16:58 21:05 05:45 WBC 4.48 (4.23-9.07) K/mm3 RBC 2.79 L (4.63-6.08) M/mm3 Hgb 9.3 L (13.7-17.5) gm/dl Hct 31.2 L (40.1-51.0) % MCV 111.8 H (79.0-92.2) fl MCH 33.3 H (25.7-32.2) pg MCHC 29.8 L (32.2-35.5) g/dl RDW Std Deviation 71.0 H (35.1-43.9) fL Plt Count 177 (163-337) K/mm3 MPV 9.1 L (9.4-12.3) fl Neut % (Auto) 52.1 (34.0-67.9) % Lymph % (Auto) 40.2 (21.8-53.1) % [place] % (Auto) 4.2 L (5.3-12.2) % Eos % (Auto) 3.1 (0.8-7.0) Baso % (Auto) 0.0 L (0.1-1.2) % Neut # (Auto) 2.33 (1.78-5.38) K/mm3 Lymph # (Auto) 1.80 (1.32-3.57) K/mm3 [place] # (Auto) 0.19 L (0.30-0.82) K/mm3 Eos # (Auto) 0.14 (0.04-0.54) K/mm3 Baso # (Auto) 0.00 L (0.01-0.08) K/mm3 Manual Slide Review Abnormal smear Sodium (136-145) mEq/L Potassium (3.5-5.1) mEq/L Chloride (98-107) mEq/L Carbon Dioxide (21-32) mEq/L Anion Gap (5-15) BUN (7-18) mg/dL Creatinine (0.7-1.3) mg/dL Est Cr Clr Drug Dosing mL/min Estimated GFR (MDRD) (>60) mL/min BUN/Creatinine Ratio (14-18) Glucose (70-99) mg/dL POC Glucose 106 H 116 H (70-99) mg/dL Calcium (8.5-10.1) mg/dL Magnesium (1.8-2.4) mg/dL Total Bilirubin (0.2-1.0) mg/dL AST (15-37) U/L ALT (16-63) U/L Alkaline Phosphatase (46-116) U/L C-Reactive Protein (<1.0) mg/dL Total Protein (6.4-8.2) g/dl Albumin (3.4-5.0) g/dl Globulin gm/dL Albumin/Globulin Ratio (1-2) 06/04/21 06/04/21 06/04/21 Range/Units 05:45 06:44 11:47 WBC (4.23-9.07) K/mm3 RBC (4.63-6.08) M/mm3 Hgb (13.7-17.5) gm/dl Hct (40.1-51.0) % MCV (79.0-92.2) fl MCH (25.7-32.2) pg MCHC (32.2-35.5) g/dl RDW Std Deviation (35.1-43.9) fL Plt Count (163-337) K/mm3 MPV (9.4-12.3) fl Neut % (Auto) (34.0-67.9) % Lymph % (Auto) (21.8-53.1) % [place] % (Auto) (5.3-12.2) % Eos % (Auto) (0.8-7.0) Baso % (Auto) (0.1-1.2) % Neut # (Auto) (1.78-5.38) K/mm3 Lymph # (Auto) (1.32-3.57) K/mm3 [place] # (Auto) (0.30-0.82) K/mm3 Eos # (Auto) (0.04-0.54) K/mm3 Baso # (Auto) (0.01-0.08) K/mm3 Manual Slide Review Sodium 139 (136-145) mEq/L Potassium 3.6 (3.5-5.1) mEq/L Chloride 104 (98-107) mEq/L Carbon Dioxide 29 (21-32) mEq/L Anion Gap 9.6 (5-15) BUN 32 H (7-18) mg/dL Creatinine 1.3 (0.7-1.3) mg/dL Est Cr Clr Drug Dosing 61.21 mL/min Estimated GFR (MDRD) 54 (>60) mL/min BUN/Creatinine Ratio 24.6 H (14-18) Glucose 114 H (70-99) mg/dL POC Glucose 115 H 127 H (70-99) mg/dL Calcium 8.2 L (8.5-10.1) mg/dL Magnesium 2.3 (1.8-2.4) mg/dL Total Bilirubin 0.2 (0.2-1.0) mg/dL AST 31 (15-37) U/L ALT 15 L (16-63) U/L Alkaline Phosphatase 85 (46-116) U/L C-Reactive Protein 8.4 H* (<1.0) mg/dL Total Protein 9.1 H (6.4-8.2) g/dl Albumin 2.1 L (3.4-5.0) g/dl Globulin 7.0 gm/dL Albumin/Globulin Ratio 0.3 L (1-2) [place] Results Last 24 Hours: Microbiology 06/02/21 11:52 Aerobic Culture - Preliminary Toe, Right - Right Second Enterococcus Species Diphtheroids Gram Positive Cocci Gram Stain - Final Anaerobic Culture - Preliminary 06/03/21 14:05 Gram Stain - Final Other - Picc Line Med Orders - Current: Current Medications Acetaminophen (Acetaminophen 325 Mg Tab) 650 mg PO Q4H PRN PRN Reason: Pain (Mild 1-3)/fever Last Admin: 06/03/21 17:18 Dose: 650 mg Documented by: Acetaminophen (Acetaminophen 325 Mg Tab) 650 mg PO BID [facility] Last Admin: 06/04/21 09:30 Dose: 650 mg Documented by: Hydrocodone Bitart/Acetaminophen (Acetaminophen/Hydrocodone 325-5 Mg Tab) 1 tab PO Q4H PRN PRN Reason: Pain (moderate 4-6) Al Hydroxide/Mg Hydroxide (Aluminum Hydroxide/Magnesium Hydroxide/Simethicone Susp 30 Ml Cup) 30 ml PO Q2H PRN PRN Reason: HEARTBURN Aspirin (Aspirin 81 Mg Tab.Chew) 81 mg PO DAILY [facility] Last Admin: 06/04/21 09:30 Dose: 81 mg Documented by: Bumetanide (Bumetanide 1 Mg Tab) 3 mg PO DAILY [facility] Last Admin: 06/04/21 09:29 Dose: 3 mg Documented by: Calcium Carbonate/Glycine (Calcium Carbonate 500 Mg Tab.Chew) 1,000 mg PO QID PRN PRN Reason: Heartburn Cholecalciferol (Cholecalciferol (Vitamin D3) 5,000 Unit Cap) 5,000 unit PO DAILY [facility] Last Admin: 06/04/21 09:28 Dose: 5,000 unit Documented by: Clopidogrel Bisulfate (Clopidogrel 75 Mg Tab) 75 mg PO DAILY [facility] Last Admin: 06/04/21 09:28 Dose: 75 mg Documented by: Cyanocobalamin (Cyanocobalamin (Vitamin B12) 1,000 Mcg Tab) 1,000 mcg PO DAILY [facility] Last Admin: 06/04/21 09:28 Dose: 1,000 mcg Documented by: Enoxaparin Sodium (Enoxaparin 40 Mg/0.4 Ml Syringe) 40 mg SUBCUT DAILY [facility] Last Admin: 06/04/21 09:28 Dose: 40 mg Documented by: Vancomycin HCl 2 gm/ Sodium (Chloride) 500 mls @ 250 mls/hr IV Q18H [facility] Last Admin: 06/04/21 04:47 Dose: 250 mls/hr Documented by: Insulin Human Lispro (Insulin Lispro 100 Unit/Ml 10 Ml Vial) 0 unit SUBCUT QIDACANDBED [facility]; Protocol Last Admin: 06/04/21 12:00 Dose: Not Given Documented by: Loperamide HCl (Loperamide 2 Mg Cap) 4 mg PO ASDIRECTED PRN PRN Reason: Diarrhea Losartan Potassium (Losartan 25 Mg Tab) 25 mg PO DAILY [facility] Last Admin: 06/04/21 09:30 Dose: 25 mg Documented by: Metoprolol Succinate (Metoprolol Succinate 50 Mg Tab.Er) 50 mg PO DAILY [facility] Last Admin: 06/04/21 09:29 Dose: 50 mg Documented by: Mirtazapine (Mirtazapine 30 Mg Tab) 30 mg PO BEDTIME [facility] Last Admin: 06/03/21 21:12 Dose: 30 mg Documented by: Nitroglycerin (Nitroglycerin 0.4 Mg Tab.Sl) 0.4 mg SL ASDIRECTED PRN PRN Reason: Chest Pain Nystatin (Nystatin Topical Powder 15 Gm Bottle) 0 gm TOP QID [facility] Last Admin: 06/04/21 09:39 Dose: 1 applic Documented by: Ondansetron HCl (Ondansetron 4 Mg Tab.Dis) 4 mg PO Q4H PRN PRN Reason: nausea, able to take PO Ondansetron HCl (Ondansetron 4 Mg/2 Ml Sdv) 4 mg IV Q6H PRN PRN Reason: Nausea/Vomiting Polyethylene Glycol (Polyethylene Glycol 3350 Powder 17 Gm Packet) 17 gm PO BEDTIME PRN PRN Reason: Constipation Potassium Chloride (Potassium Chloride 20 Meq Tab.Er) 20 meq PO DAILY [facility] Last Admin: 06/04/21 09:29 Dose: 20 meq Documented by: Saccharomyces Boulardii (Saccharomyces Boulardii (Probiotic) 250 Mg Cap) 250 mg PO BID [facility] Last Admin: 06/04/21 09:28 Dose: 250 mg Documented by: Sodium Chloride (Sodium Chloride 0.9% 10 Ml Syringe) 10 ml FLUSH ASDIRECTED PRN PRN Reason: Keep Vein Open Vancomycin HCl (Pharmacy To Dose - Vancomycin) 1 dose .XX ASDIRECTED PRN PRN Reason: RX TO DOSE VANCO Vit A/Vit C/Vit E/Selen/Cu/Zn/Lutei (Multivitamins With Minerals/Folic Acid/L utein/Zeaxanth Tab) 1 tab PO DAILY [facility] Last Admin: 06/04/21 09:28 Dose: 1 tab Documented by: Discontinued Medications Acetaminophen (Acetaminophen 325 Mg Tab) 975 mg PO ONETIME ONE Stop: 06/02/21 11:28 Last Admin: 06/02/21 11:53 Dose: 975 mg Documented by: Dextrose/Sodium Chloride (Dextrose 5%-Normal Saline) 1,000 mls @ 250 mls/hr IV ASDIRECTED [facility] Last Admin: 06/02/21 11:56 Dose: 250 mls/hr Documented by: Ceftriaxone Sodium 2 gm/ (Sodium Chloride) 100 mls @ 200 mls/hr IV ONETIME ONE Stop: 06/02/21 13:07 Last Admin: 06/02/21 13:39 Dose: 200 mls/hr Documented by: Sodium Chloride (Normal Saline) 1,000 mls @ 150 mls/hr IV ASDIRECTED [facility] Last Admin: 06/03/21 07:25 Dose: 150 mls/hr Documented by: Metoclopramide HCl (Metoclopramide 10 Mg/2 Ml Sdv) 10 mg IVPUSH ONETIME ONE Stop: 06/02/21 11:40 Last Admin: 06/02/21 11:56 Dose: 10 mg Documented by: Non-Formulary Medication (Emollient Combination No.114 [Eucerin Advanced Repair]) 1 dose TOP DAILY [facility] Last Admin: 06/03/21 10:22 Dose: Not Given Documented by: Potassium Chloride (Potassium Chloride 20 Meq Tab.Er) 40 meq PO ONETIME ONE Stop: 06/04/21 07:32 Last Admin: 06/04/21 09:29 Dose: 40 meq Documented by: - Patient Data Lab Results Last 24 hrs: Laboratory Results - last 24 hr 06/03/21 06/03/21 06/04/21 Range/Units 16:58 21:05 05:45 WBC 4.48 (4.23-9.07) K/mm3 RBC 2.79 L (4.63-6.08) M/mm3 Hgb 9.3 L (13.7-17.5) gm/dl Hct 31.2 L (40.1-51.0) % MCV 111.8 H (79.0-92.2) fl MCH 33.3 H (25.7-32.2) pg MCHC 29.8 L (32.2-35.5) g/dl RDW Std Deviation 71.0 H (35.1-43.9) fL Plt Count 177 (163-337) K/mm3 MPV 9.1 L (9.4-12.3) fl Neut % (Auto) 52.1 (34.0-67.9) % Lymph % (Auto) 40.2 (21.8-53.1) % [place] % (Auto) 4.2 L (5.3-12.2) % Eos % (Auto) 3.1 (0.8-7.0) Baso % (Auto) 0.0 L (0.1-1.2) % Neut # (Auto) 2.33 (1.78-5.38) K/mm3 Lymph # (Auto) 1.80 (1.32-3.57) K/mm3 [place] # (Auto) 0.19 L (0.30-0.82) K/mm3 Eos # (Auto) 0.14 (0.04-0.54) K/mm3 Baso # (Auto) 0.00 L (0.01-0.08) K/mm3 Manual Slide Review Abnormal smear Sodium (136-145) mEq/L Potassium (3.5-5.1) mEq/L Chloride (98-107) mEq/L Carbon Dioxide (21-32) mEq/L Anion Gap (5-15) BUN (7-18) mg/dL Creatinine (0.7-1.3) mg/dL Est Cr Clr Drug Dosing mL/min Estimated GFR (MDRD) (>60) mL/min BUN/Creatinine Ratio (14-18) Glucose (70-99) mg/dL POC Glucose 106 H 116 H (70-99) mg/dL Calcium (8.5-10.1) mg/dL Magnesium (1.8-2.4) mg/dL Total Bilirubin (0.2-1.0) mg/dL AST (15-37) U/L ALT (16-63) U/L Alkaline Phosphatase (46-116) U/L C-Reactive Protein (<1.0) mg/dL Total Protein (6.4-8.2) g/dl Albumin (3.4-5.0) g/dl Globulin gm/dL Albumin/Globulin Ratio (1-2) 06/04/21 06/04/21 06/04/21 Range/Units 05:45 06:44 11:47 WBC (4.23-9.07) K/mm3 RBC (4.63-6.08) M/mm3 Hgb (13.7-17.5) gm/dl Hct (40.1-51.0) % MCV (79.0-92.2) fl MCH (25.7-32.2) pg MCHC (32.2-35.5) g/dl RDW Std Deviation (35.1-43.9) fL Plt Count (163-337) K/mm3 MPV (9.4-12.3) fl Neut % (Auto) (34.0-67.9) % Lymph % (Auto) (21.8-53.1) % [place] % (Auto) (5.3-12.2) % Eos % (Auto) (0.8-7.0) Baso % (Auto) (0.1-1.2) % Neut # (Auto) (1.78-5.38) K/mm3 Lymph # (Auto) (1.32-3.57) K/mm3 [place] # (Auto) (0.30-0.82) K/mm3 Eos # (Auto) (0.04-0.54) K/mm3 Baso # (Auto) (0.01-0.08) K/mm3 Manual Slide Review Sodium 139 (136-145) mEq/L Potassium 3.6 (3.5-5.1) mEq/L Chloride 104 (98-107) mEq/L Carbon Dioxide 29 (21-32) mEq/L Anion Gap 9.6 (5-15) BUN 32 H (7-18) mg/dL Creatinine 1.3 (0.7-1.3) mg/dL Est Cr Clr Drug Dosing 61.21 mL/min Estimated GFR (MDRD) 54 (>60) mL/min BUN/Creatinine Ratio 24.6 H (14-18) Glucose 114 H (70-99) mg/dL POC Glucose 115 H 127 H (70-99) mg/dL Calcium 8.2 L (8.5-10.1) mg/dL Magnesium 2.3 (1.8-2.4) mg/dL Total Bilirubin 0.2 (0.2-1.0) mg/dL AST 31 (15-37) U/L ALT 15 L (16-63) U/L Alkaline Phosphatase 85 (46-116) U/L C-Reactive Protein 8.4 H* (<1.0) mg/dL Total Protein 9.1 H (6.4-8.2) g/dl Albumin 2.1 L (3.4-5.0) g/dl Globulin 7.0 gm/dL Albumin/Globulin Ratio 0.3 L (1-2) Result Diagrams: 06/04/21 05:45 06/04/21 05:45 [place] Results Last 24 hrs: Microbiology 06/02/21 11:52 Aerobic Culture - Preliminary Toe, Right - Right Second Enterococcus Species Diphtheroids Gram Positive Cocci Gram Stain - Final Anaerobic Culture - Preliminary 06/03/21 14:05 Gram Stain - Final Other - Picc Line Sepsis Event Note - Focused Exam Vital Signs: Vital Signs Temp Pulse Resp BP Pulse Ox Pulse Ox 06/04/21 11:50 36.3 C 75 18 156/85 H 95 06/04/21 11:13 90 L 06/04/21 09:30 139/61 06/04/21 09:29 70 139/61 06/04/21 07:21 36.7 C 70 18 139/61 97 06/04/21 04:51 36.5 C 64 18 95 - My Orders Last 24 Hours: My Active Orders 06/04/21 21:00 VANCOMYCIN TROUGH [CHEM] Timed - Assessment Assessment:: I have seen and examined the patient independently of Keven Leon CNP, and I have discussed the case with her. I have reviewed the plan of care for this patient as outlined by her. Please see orders.
[2021-06-04] MEDS: Multivitamins with Minerals/Folic Acid/Lutein/Zeaxanth Tab PO SCH (09:28)
[2021-06-04] MEDS: Clopidogrel 75 MG Tab PO SCH (09:28)
[2021-06-04] MEDS: Saccharomyces Boulardii (Probiotic) 250 MG Cap PO SCH ×2 (09:28→21:57)
[2021-06-04] MEDS: Enoxaparin 40 MG/0.4 ML Syringe SUBCUT SCH (09:28)
[2021-06-04] MEDS: Cyanocobalamin (Vitamin B12) 1,000 MCG Tab PO SCH (09:28)
[2021-06-04] MEDS: Cholecalciferol (Vitamin D3) 5,000 UNIT Cap PO SCH (09:28)
[2021-06-04] MEDS: Bumetanide 1 MG Tab PO SCH (09:29)
[2021-06-04] MEDS: Potassium Chloride 20 MEQ Tab.ER PO SCH (09:29)
[2021-06-04] MEDS: Metoprolol Succinate 50 MG Tab.ER PO SCH (09:29)
[2021-06-04] MEDS: Aspirin 81 MG Tab.Chew PO SCH (09:30)
[2021-06-04] MEDS: Losartan 25 MG Tab PO SCH (09:30)
[2021-06-04] MEDS: Acetaminophen 325 MG Tab PO SCH ×2 (09:30→21:58)
[2021-06-04] MEDS: Nystatin Topical Powder 15 GM Bottle TOP SCH ×4 (09:39→21:58)
[2021-06-04] MEDS: Mirtazapine 30 MG Tab PO SCH (21:58)
[2021-06-05] MEDS: Insulin Lispro 100 UNIT/ML 10 ML Vial SUBCUT SCH ×2 (08:10→12:57)
[2021-06-05] MEDS: Clopidogrel 75 MG Tab PO SCH (08:26)
[2021-06-05] MEDS: Potassium Chloride 20 MEQ Tab.ER PO SCH (08:26)
[2021-06-05] MEDS: Metoprolol Succinate 50 MG Tab.ER PO SCH (08:26)
[2021-06-05] MEDS: Saccharomyces Boulardii (Probiotic) 250 MG Cap PO SCH (08:27)
[2021-06-05] MEDS: Bumetanide 1 MG Tab PO SCH (08:29)
[2021-06-05] MEDS: Acetaminophen 325 MG Tab PO SCH (08:29)
[2021-06-05] MEDS: Multivitamins with Minerals/Folic Acid/Lutein/Zeaxanth Tab PO SCH (08:29)
[2021-06-05] MEDS: Cyanocobalamin (Vitamin B12) 1,000 MCG Tab PO SCH (08:30)
[2021-06-05] MEDS: Aspirin 81 MG Tab.Chew PO SCH (08:30)
[2021-06-05] MEDS: Cholecalciferol (Vitamin D3) 5,000 UNIT Cap PO SCH (08:30)
[2021-06-05] MEDS: Losartan 25 MG Tab PO SCH (08:31)
[2021-06-05] MEDS: Enoxaparin 40 MG/0.4 ML Syringe SUBCUT SCH (08:31)
[2021-06-05] MEDS: Nystatin Topical Powder 15 GM Bottle TOP SCH ×2 (08:32→13:49)
--- NOTE | 2021-06-05 09:53 | PCM.DCSUM1 ---
<CarolynErinKeven M - Last Filed: 06/05/21 09:58> Discharge Summary - Hospital Course Free Text/Narrative:: 75-year-old male who presented to the ER from [facility] in [facility] via ambulance. The patient reports that this morning he woke and felt weak and then developed fever and chills. He states that the fever and chills became so excessive that he did become nauseated and vomited once. States that this started at about 9 AM this morning. He was however giv en Tylenol around 6:00 this morning due to the body aches. Prior to today he states he has felt fine however, the patient does have a history of cellulitis to the lateral portion of his right lower seals as well as an open wound under his right fourth toe on the plantar surface. The patient has been treated with IV antibiotics from May 14-May 26 with Fortaz every 12 hours IV. This was ordered by his customer service and sales consultant, Dr. Bolden. Apparently, cultures have been taken of the wounds however he does not have the results back for this yet. The patient does have a PICC line in place to his left antecubital. The patient does have a chronic nonproductive cough. He denies any abdominal pain or diarrhea associated with the nausea and vomiting this morning. He denies any urinary symptoms. As stated previous, the patient is a resident of a custodial, he states that he rarely ambulates with a walker and generally gets around on a motorized wheelchair. He is morbidly obese with a BMI of 49. He does have excessive chronic edema of both lower extremities with venous stasis dermatitis. The patient does have increased warmth and redness noted along the edge of the deep pigmented venous stasis dermatitis in both legs. There is a wound right lateral mid leg that is oozing slight serous material. Cultures were obtained in the emergency department. Patient was placed on 2 L of oxygen per nasal cannula, blood cultures and ABGs were collected. Full septic work-up was completed. The patient did have a low-grade temp in the ED of 99.9. Subsequently he did receive 975 mg of Tylenol. O2 saturations were 90% on room air however I suspect this is likely due to the patient's body habitus. He was also tachycardic at 113 bpm. White count was elevated at 12.72 with 9% neutrophils and 5% bands cells. Hemoglobin 10.4 with hematocrit of 34.7. Platelet count is 210,000. D-dimer was slightly elevated at 2.09 however this is likely due to the infective process. Covid screen was negative. Chemistry reveals a sodium of 137, potassium of 4.1, chloride 98, bicarb 28, anion gap is 15.1, BUN 33, creatinine 1.7, and GFR is 40. Glucose 127, A1c 6.6, lactic acid 1.6, magnesium 2.1. CK- MB 1.5 with a troponin of less than 0.017. CRP 3.3 and proBNP is 370. Urinalysis reveals 2+ proteinuria but no other signs of infection. Covid screen is negative. The patient did have his Covid vaccines back in November and December of this year. I suspect that the patient may have a resistant organisms such as MRSA. He was given 2 g of Rocephin while in the emergency department. I have ordered for pharmacy to dose vancomycin on this patient. Diagnosis: Stroke: No - Discharge Data Discharge Date: 06/05/21 Discharge Disposition: DC/Tfer to [facility] Condition: Good - Referral to Home Health Primary Care Physician: Yanick Plunkett MD - Discharge Diagnosis/Problem(s) (1) Acute febrile illness SNOMED Code(s): 791996138 ICD Code: R50.9 - FEVER, UNSPECIFIED Status: Acute Priority: High (2) Cellulitis of right leg SNOMED Code(s): 417288119 ICD Code: L03.115 - CELLULITIS OF RIGHT LOWER LIMB Status: Resolved Priority: High (3) Dependent edema SNOMED Code(s): 126505724 ICD Code: R60.9 - EDEMA, UNSPECIFIED Status: Chronic Priority: Medium (4) Elevated sedimentation rate measurement SNOMED Code(s): 127113011 ICD Code: R70.0 - ELEVATED ERYTHROCYTE SEDIMENTATION RATE Status: Acute Priority: High (5) Morbid obesity with BMI of 45.0-49.9, adult SNOMED Code(s): 626094959, 46974513970049 ICD Code: E66.01 - MORBID (SEVERE) OBESITY DUE TO EXCESS CALORIES; Z68.42 - BODY MASS INDEX [BMI] 45.0-49.9, ADULT Status: Chronic Priority: Low (6) Nausea and vomiting SNOMED Code(s): 04821175 ICD Code: R11.2 - NAUSEA WITH VOMITING, UNSPECIFIED Status: Acute Priority: High Qualifiers: Vomiting type: unspecified Vomiting Intractability: intractable Qualified Code(s): R11.2 - Nausea with vomiting, unspecified (7) Neutrophilic leukocytosis SNOMED Code(s): 561298070, 480540337 ICD Code: D72.9 - DISORDER OF WHITE BLOOD CELLS, UNSPECIFIED Status: Acute Priority: High (8) Cellulitis SNOMED Code(s): 334783513 ICD Code: L03.90 - CELLULITIS, UNSPECIFIED Status: Resolved Priority: High Qualifiers: Site of cellulitis: extremity Site of cellulitis of extremity: lower extremity Laterality: right Qualified Code(s): L03.115 - Cellulitis of right lower limb (9) Renal insufficiency SNOMED Code(s): 281746431, 231005560 ICD Code: N28.9 - DISORDER OF KIDNEY AND URETER, UNSPECIFIED Status: Acute Priority: High - Patient Summary/Data Consults: Consultations 06/02/21 14:43 Consult to Case Management/Director Of Student Services [CONS] Routine Consult to Real Estate Account Executive [CONS] Routine OT Evaluation and Treatment [CONS] Routine PT Evaluation and Treatment [CONS] Routine 06/04/21 08:52 PT Evaluation and Treatment [CONS] Routine Hospital Course: 06/02/21 75-year-old male who presents with acute onset of fever and chills with associated nausea and vomiting. Patient has been treated for cellulitis of the right lower extremity and an ulcer on the plantar surface of the right fourth toe with Fortaz from May 14 through the May 26, 2021. Patient does have a PICC line in place to the left AC. He has a custodial resident and ambulates very minimally primarily getting around with the use of a motorized wheelchair. He does carry a history of morbid obesity. Full septic work-up was completed in the ER including wound cultures and blood cultures. Patient was given 2 g Rocephin IV in the emergency department and I have started him on vancomycin with pharmacy dosing. financial services professional and case management for discharge planni ng. PT for evaluation of the patient's wounds. OT for ADLs. Vital signs will be ordered every 4 hours and the patient will be a daily weight. We will place him on Lovenox for DVT prophylaxis. Respiratory therapy to titrate O2 to keep sats greater than 92%. I will have the dietitian consult. Patient states he is not diabetic however his hemoglobin A1c was 6.6. I will order 4 times daily before meals and at bedtime Accu-Checks with low-dose sliding scale coverage for now. Patiently placed on a heart healthy diet. We will repeat lab studies in the a.m. Will watch for blood and wound culture results. 06/03/21 Pt reports feeling much better than yesterday. Nursing staff had requested to discontinue IV fluids as they reported that he had crackles in his lungs. Upon my assessment fine crackles were noted in the left base. Home medications will be started today to include bumex. Blood cultures were not drawn in the ED, however they were collected last evening. Question whether the infection is due to ulcers to the right lower extremity vs PICC line in left AC. WBC 7.47 which is down from 12.72, neutrophil percentage 71.6 which is down from 89, Hgb 8.9 which is down from 10.4. Question if drop in HGB is dilutional. Will continue to trend and monitor this. PT to continue with wound care to right lateral lower leg and plantar aspect of right 4th toe. 06/04/21 Patient reports feeling weaker today. He is not able to elaborate on this. He denies any complaints of pain or discomfort, cough or shortness of breath. He has been afebrile the past 24 hours. PICC line was discontinued yesterday and the tip was sent for culture. He continues to receive IV vancomycin with pharmacy dosing. Culture of plantar aspect of right fourth toe preliminary report shows Enterococcus species, diphtheroids, gram-positive cocci. Blood cultures are pending. White blood cell count today 4.48 which is down from 7.74, neutrophil percentage 52.1 which is down from 71.6, hemoglobin 9.3 which is up from 8.9, hematocrit 31.2 which is up from 29.7, potassium 3.6, BUN 32, creatinine 1.3, C-reactive protein 8.4 which is up from 3.32 days ago. He remains on oxygen at 2 L per nasal cannula with O2 saturations 93 to 95%. Currently tolerating diabetic diet. Accu-Cheks have been in the normal range and he has not required any sliding scale insulin for coverage. Continues to receive Lovenox for DVT prophylaxis. 06/05/21 The patient reports feeling good today. He is sitting up in the chair. Nursing staff reports that they found him with his oxygen not in his nose this morning and his O2 saturations were 95% on room air. Nasal cannula will be discontinued. Suspect that patient occasionally does have O2 saturations less than 90% due to position and body habitus.Hematology reveals a WBC of 4.94, hemoglobin 9.3, hematocrit 31.6, MCV 110.1, platelet 188 Chemistry reveals a sodium of 139, potassium 3.5, chloride 105, carbon dioxide 28, anion gap 9.5, BUN 31, creatinine 1.4, GFR 50, glucose 114, magnesium 2.2, total bilirubin 0.3, AST 24, ALT 18, alk phos 88, total protein 8.8, albumin 2.1 culture of PICC line is showing no growth at this time, preliminary blood cultures show no growth, culture of wound on plantar aspect of right fifth toe shows moderate growth of Enterococcus species, moderate growth of gram-positive bacilli, light growth of gram-positive cocci, and very light growth of gram- negative rods. I discussed this case with Dr. Talavera, the hospitalist and he feels that an tibiotics can be discontinued. The patient will be discharged back to the custodial. He will need to follow- up with his primary care provider in about a week. Recommend that he continue on a consistent carbohydrate diet. - Patient Instructions Diet: Limited Carb Activity: As Tolerated Other/Special Instructions: Discharge to [facility]. Continue all previous medications. Nystatin powder topically 4 times daily to skin folds. Follow-up with Dr. Plunkett in 1 week. Dressing changes to right foot and right lower lateral seals daily - Discharge Plan Prescriptions/Med Rec: Nystatin [Nystop] 1 applic TOP QID #1 bottle Home Medications: Home Meds Aspirin 81 mg PO DAILY 11/26/18 [History] Potassium Chloride 20 meq PO DAILY 11/26/18 [History] Acetaminophen 650 mg PO BID 04/24/20 [History] Alum Hydrox/Mag Hydrox/Simeth [Maalox Advanced] 30 ml PO Q2HR PRN 04/24/20 [History] Bumetanide 3 mg PO DAILY 04/24/20 [History] Calcium Carbonate [Tums] 1,000 mg PO QID PRN 04/24/20 [History] Clopidogrel [Plavix] 75 mg PO DAILY 04/24/20 [History] Diclofenac Sodium [Voltaren 1% Gel] 2 gm TOP BID 04/24/20 [History] Loperamide [Imodium] 4 mg PO ASDIRECTED PRN 04/24/20 [History] Metoprolol Succinate 50 mg PO DAILY 04/24/20 [History] Mirtazapine 30 mg PO BEDTIME 04/24/20 [History] Nitroglycerin [Nitrostat] 0.4 mg SL ASDIRECTED PRN 04/24/20 [History] polyethylene glycoL 3350 [MiraLAX] 17 gm PO BEDTIME PRN 04/24/20 [History] Cyanocobalamin (Vitamin B-12) [Vitamin B-12] 1,000 mcg PO DAILY 07/15/20 [History] Emollient Combination No.114 [Eucerin Advanced Repair] 1 dose TOP DAILY 07/15/20 [History] Losartan [Cozaar] 25 mg PO DAILY 07/15/20 [History] Multivitamin 1 tab PO DAILY 07/16/20 [History] Lactobacillus Acidophilus [Acidophilus] 1 cap PO BID 06/02/21 [History] Silver Sulfadiazine [Silvadene 1% Cream 50 GM] 1 applic TOP DAILY 06/02/21 [History] Acetaminophen [Tylenol] 650 mg PO Q4H PRN tablet 06/05/21 [Rx] Cholecalciferol (Vitamin D3) [Vitamin D3] 5,000 unit PO DAILY cap 06/05/21 [Rx] Nystatin [Nystop] 1 applic TOP QID #1 bottle 06/05/21 [Rx] Oxygen Therapy Mode: Room Air Patient Handouts: Cellulitis, Adult, [id number], Sepsis, Self Care, Adult Referrals: Yanick Plunkett MD [Primary Care Provider] - 06/11/21 1:00 pm (Check-in at 12:45pm) - Discharge Summary/Plan Comment DC Time >30 min.: No - General Info Date of Service: 06/05/21 Admission Dx/Problem (Free Text: Admission Diagnosis/Problem Admission Diagnosis/Problem Cellulitis Subjective Update: Buster reports feeling well today. He has no complaints of pain, fever or chills. He is sitting up in the chair on room air. Nursing staff reports that his O2 saturations were 95%. Functional Status: Reports: Pain Controlled, Tolerating Diet, Urinating (Incontinent of urine at times). Denies: Ambulating (Patient does not ambulate, he uses a motorized wheelchair) - Review of Systems General: Reports: No Symptoms HEENT: Reports: No Symptoms Pulmonary: Reports: No Symptoms Cardiovascular: Reports: No Symptoms Gastrointestinal: Reports: No Symptoms Genitourinary: Reports: No Symptoms, Incontinence (Chronic) Musculoskeletal: Reports: No Symptoms Skin: Reports: No Symptoms Neurological: Reports: No Symptoms Psychiatric: Reports: No Symptoms - Patient Data Vitals - Most Recent: Last Vital Signs Temp 97.0 F 06/05/21 08:20 Pulse 71 06/05/21 08:26 Resp 20 06/05/21 08:20 BP 157/79 H 06/05/21 08:31 Pulse Ox 95 06/05/21 08:21 Weight - Most Recent: 184.794 kg I&O - Last 24 hours: Intake & Output 06/04/21 06/05/21 06/05/21 22:59 06:59 14:59 Intake Total 1540 600 Output Total 950 Balance 590 600 Lab Results - Last 24 hrs: Laboratory Results - last 24 hr 06/04/21 06/04/21 06/04/21 Range/Units 11:47 16:05 21:47 WBC (4.23-9.07) K/mm3 RBC (4.63-6.08) M/mm3 Hgb (13.7-17.5) gm/dl Hct (40.1-51.0) % MCV (79.0-92.2) fl MCH (25.7-32.2) pg MCHC (32.2-35.5) g/dl RDW Std Deviation (35.1-43.9) fL Plt Count (163-337) K/mm3 MPV (9.4-12.3) fl Neut % (Auto) (34.0-67.9) % Lymph % (Auto) (21.8-53.1) % [place] % (Auto) (5.3-12.2) % Eos % (Auto) (0.8-7.0) Baso % (Auto) (0.1-1.2) % Neut # (Auto) (1.78-5.38) K/mm3 Lymph # (Auto) (1.32-3.57) K/mm3 [place] # (Auto) (0.30-0.82) K/mm3 Eos # (Auto) (0.04-0.54) K/mm3 Baso # (Auto) (0.01-0.08) K/mm3 Manual Slide Review Sodium (136-145) mEq/L Potassium (3.5-5.1) mEq/L Chloride (98-107) mEq/L Carbon Dioxide (21-32) mEq/L Anion Gap (5-15) BUN (7-18) mg/dL Creatinine (0.7-1.3) mg/dL Est Cr Clr Drug Dosing mL/min Estimated GFR (MDRD) (>60) mL/min BUN/Creatinine Ratio (14-18) Glucose (70-99) mg/dL POC Glucose 127 H 106 H (70-99) mg/dL Calcium (8.5-10.1) mg/dL Magnesium (1.8-2.4) mg/dL Total Bilirubin (0.2-1.0) mg/dL AST (15-37) U/L ALT (16-63) U/L Alkaline Phosphatase (46-116) U/L Total Protein (6.4-8.2) g/dl Albumin (3.4-5.0) g/dl Globulin gm/dL Albumin/Globulin Ratio (1-2) Vancomycin Trough 17.6 (10.0-20.0) 06/04/21 06/05/21 06/05/21 Range/Units 21:57 06:17 06:17 WBC 4.94 (4.23-9.07) K/mm3 RBC 2.87 L (4.63-6.08) M/mm3 Hgb 9.3 L (13.7-17.5) gm/dl Hct 31.6 L (40.1-51.0) % MCV 110.1 H (79.0-92.2) fl MCH 32.4 H (25.7-32.2) pg MCHC 29.4 L (32.2-35.5) g/dl RDW Std Deviation 66.2 H (35.1-43.9) fL Plt Count 188 (163-337) K/mm3 MPV 9.5 (9.4-12.3) fl Neut % (Auto) 50.6 (34.0-67.9) % Lymph % (Auto) 40.9 (21.8-53.1) % [place] % (Auto) 5.3 (5.3-12.2) % Eos % (Auto) 2.8 (0.8-7.0) Baso % (Auto) 0.2 (0.1-1.2) % Neut # (Auto) 2.50 (1.78-5.38) K/mm3 Lymph # (Auto) 2.02 (1.32-3.57) K/mm3 [place] # (Auto) 0.26 L (0.30-0.82) K/mm3 Eos # (Auto) 0.14 (0.04-0.54) K/mm3 Baso # (Auto) 0.01 (0.01-0.08) K/mm3 Manual Slide Review Abnormal smear Sodium 139 (136-145) mEq/L Potassium 3.5 (3.5-5.1) mEq/L Chloride 105 (98-107) mEq/L Carbon Dioxide 28 (21-32) mEq/L Anion Gap 9.5 (5-15) BUN 31 H (7-18) mg/dL Creatinine 1.4 H (0.7-1.3) mg/dL Est Cr Clr Drug Dosing 56.83 mL/min Estimated GFR (MDRD) 50 (>60) mL/min BUN/Creatinine Ratio 22.1 H (14-18) Glucose 114 H (70-99) mg/dL POC Glucose 114 H (70-99) mg/dL Calcium 8.3 L (8.5-10.1) mg/dL Magnesium 2.2 (1.8-2.4) mg/dL Total Bilirubin 0.3 (0.2-1.0) mg/dL AST 24 (15-37) U/L ALT 18 (16-63) U/L Alkaline Phosphatase 88 (46-116) U/L Total Protein 8.8 H (6.4-8.2) g/dl Albumin 2.1 L (3.4-5.0) g/dl Globulin 6.7 gm/dL Albumin/Globulin Ratio 0.3 L (1-2) Vancomycin Trough (10.0-20.0) 06/05/21 Range/Units 06:59 WBC (4.23-9.07) K/mm3 RBC (4.63-6.08) M/mm3 Hgb (13.7-17.5) gm/dl Hct (40.1-51.0) % MCV (79.0-92.2) fl MCH (25.7-32.2) pg MCHC (32.2-35.5) g/dl RDW Std Deviation (35.1-43.9) fL Plt Count (163-337) K/mm3 MPV (9.4-12.3) fl Neut % (Auto) (34.0-67.9) % Lymph % (Auto) (21.8-53.1) % [place] % (Auto) (5.3-12.2) % Eos % (Auto) (0.8-7.0) Baso % (Auto) (0.1-1.2) % Neut # (Auto) (1.78-5.38) K/mm3 Lymph # (Auto) (1.32-3.57) K/mm3 [place] # (Auto) (0.30-0.82) K/mm3 Eos # (Auto) (0.04-0.54) K/mm3 Baso # (Auto) (0.01-0.08) K/mm3 Manual Slide Review Sodium (136-145) mEq/L Potassium (3.5-5.1) mEq/L Chloride (98-107) mEq/L Carbon Dioxide (21-32) mEq/L Anion Gap (5-15) BUN (7-18) mg/dL Creatinine (0.7-1.3) mg/dL Est Cr Clr Drug Dosing mL/min Estimated GFR (MDRD) (>60) mL/min BUN/Creatinine Ratio (14-18) Glucose (70-99) mg/dL POC Glucose 107 H (70-99) mg/dL Calcium (8.5-10.1) mg/dL Magnesium (1.8-2.4) mg/dL Total Bilirubin (0.2-1.0) mg/dL AST (15-37) U/L ALT (16-63) U/L Alkaline Phosphatase (46-116) U/L Total Protein (6.4-8.2) g/dl Albumin (3.4-5.0) g/dl Globulin gm/dL Albumin/Globulin Ratio (1-2) Vancomycin Trough (10.0-20.0) LETI Results - Last 24 hrs: Microbiology 06/03/21 14:05 Aerobic Culture - Preliminary Other - Picc Line Gram Stain - Final Anaerobic Culture - Preliminary 06/02/21 11:52 Aerobic Culture - Preliminary Toe, Right - Right Second Enterococcus Species Diphtheroids Gram Positive Cocci Gram Negative Rods Gram Stain - Final Anaerobic Culture - Preliminary 06/02/21 11:51 Blood Culture - Preliminary Blood 06/02/21 17:42 Blood Culture - Preliminary Blood Med Orders - Current: Current Medications Acetaminophen (Acetaminophen 325 Mg Tab) 650 mg PO Q4H PRN PRN Reason: Pain (Mild 1-3)/fever Last Admin: 06/03/21 17:18 Dose: 650 mg Documented by: Acetaminophen (Acetaminophen 325 Mg Tab) 650 mg PO BID [facility] Last Admin: 06/05/21 08:29 Dose: 650 mg Documented by: Hydrocodone Bitart/Acetaminophen (Acetaminophen/Hydrocodone 325-5 Mg Tab) 1 tab PO Q4H PRN PRN Reason: Pain (moderate 4-6) Al Hydroxide/Mg Hydroxide (Aluminum Hydroxide/Magnesium Hydroxide/Simethicone Susp 30 Ml Cup) 30 ml PO Q2H PRN PRN Reason: HEARTBURN Aspirin (Aspirin 81 Mg Tab.Chew) 81 mg PO DAILY [facility] Last Admin: 06/05/21 08:30 Dose: 81 mg Documented by: Bumetanide (Bumetanide 1 Mg Tab) 3 mg PO DAILY [facility] Last Admin: 06/05/21 08:29 Dose: 3 mg Documented by: Calcium Carbonate/Glycine (Calcium Carbonate 500 Mg Tab.Chew) 1,000 mg PO QID PRN PRN Reason: Heartburn Cholecalciferol (Cholecalciferol (Vitamin D3) 5,000 Unit Cap) 5,000 unit PO DAILY [facility] Last Admin: 06/05/21 08:30 Dose: 5,000 unit Documented by: Clopidogrel Bisulfate (Clopidogrel 75 Mg Tab) 75 mg PO DAILY [facility] Last Admin: 06/05/21 08:26 Dose: 75 mg Documented by: Cyanocobalamin (Cyanocobalamin (Vitamin B12) 1,000 Mcg Tab) 1,000 mcg PO DAILY [facility] Last Admin: 06/05/21 08:30 Dose: 1,000 mcg Documented by: Enoxaparin Sodium (Enoxaparin 40 Mg/0.4 Ml Syringe) 40 mg SUBCUT DAILY [facility] Last Admin: 06/05/21 08:31 Dose: 40 mg Documented by: Vancomycin HCl 2 gm/ Sodium (Chloride) 500 mls @ 250 mls/hr IV Q18H [facility] Last Admin: 06/04/21 23:08 Dose: 250 mls/hr Documented by: Insulin Human Lispro (Insulin Lispro 100 Unit/Ml 10 Ml Vial) 0 unit SUBCUT QIDACANDBED [facility]; Protocol Last Admin: 06/05/21 08:10 Dose: Not Given Documented by: Loperamide HCl (Loperamide 2 Mg Cap) 4 mg PO ASDIRECTED PRN PRN Reason: Diarrhea Losartan Potassium (Losartan 25 Mg Tab) 25 mg PO DAILY [facility] Last Admin: 06/05/21 08:31 Dose: 25 mg Documented by: Metoprolol Succinate (Metoprolol Succinate 50 Mg Tab.Er) 50 mg PO DAILY [facility] Last Admin: 06/05/21 08:26 Dose: 50 mg Documented by: Mirtazapine (Mirtazapine 30 Mg Tab) 30 mg PO BEDTIME [facility] Last Admin: 06/04/21 21:58 Dose: 30 mg Documented by: Nitroglycerin (Nitroglycerin 0.4 Mg Tab.Sl) 0.4 mg SL ASDIRECTED PRN PRN Reason: Chest Pain Nystatin (Nystatin Topical Powder 15 Gm Bottle) 0 gm TOP QID [facility] Last Admin: 06/05/21 08:32 Dose: 1 applic Documented by: Ondansetron HCl (Ondansetron 4 Mg Tab.Dis) 4 mg PO Q4H PRN PRN Reason: nausea, able to take PO Ondansetron HCl (Ondansetron 4 Mg/2 Ml Sdv) 4 mg IV Q6H PRN PRN Reason: Nausea/Vomiting Polyethylene Glycol (Polyethylene Glycol 3350 Powder 17 Gm Packet) 17 gm PO BEDTIME PRN PRN Reason: Constipation Potassium Chloride (Potassium Chloride 20 Meq Tab.Er) 20 meq PO DAILY [facility] Last Admin: 06/05/21 08:26 Dose: 20 meq Documented by: Saccharomyces Boulardii (Saccharomyces Boulardii (Probiotic) 250 Mg Cap) 250 mg PO BID [facility] Last Admin: 06/05/21 08:27 Dose: 250 mg Documented by: Sodium Chloride (Sodium Chloride 0.9% 10 Ml Syringe) 10 ml FLUSH ASDIRECTED PRN PRN Reason: Keep Vein Open Vancomycin HCl (Pharmacy To Dose - Vancomycin) 1 dose .XX ASDIRECTED PRN PRN Reason: RX TO DOSE VANCO Vit A/Vit C/Vit E/Selen/Cu/Zn/Lutei (Multivitamins With Minerals/Folic Acid/Lutein/Zeaxanth Tab) 1 tab PO DAILY [facility] Last Admin: 06/05/21 08:29 Dose: 1 tab Documented by: Discontinued Medications Acetaminophen (Acetaminophen 325 Mg Tab) 975 mg PO ONETIME ONE Stop: 06/02/21 11:28 Last Admin: 06/02/21 11:53 Dose: 975 mg Documented by: Dextrose/Sodium Chloride (Dextrose 5%-Normal Saline) 1,000 mls @ 250 mls/hr IV ASDIRECTED [facility] Last Admin: 06/02/21 11:56 Dose: 250 mls/hr Documented by: Ceftriaxone Sodium 2 gm/ (Sodium Chloride) 100 mls @ 200 mls/hr IV ONETIME ONE Stop: 06/02/21 13:07 Last Admin: 06/02/21 13:39 Dose: 200 mls/hr Documented by: Sodium Chloride (Normal Saline) 1,000 mls @ 150 mls/hr IV ASDIRECTED [facility] Last Admin: 06/03/21 07:25 Dose: 150 mls/hr Documented by: Metoclopramide HCl (Metoclopramide 10 Mg/2 Ml Sdv) 10 mg IVPUSH ONETIME ONE Stop: 06/02/21 11:40 Last Admin: 06/02/21 11:56 Dose: 10 mg Documented by: Non-Formulary Medication (Emollient Combination No.114 [Eucerin Advanced Repair]) 1 dose TOP DAILY [facility] Last Admin: 06/03/21 10:22 Dose: Not Given Documented by: Potassium Chloride (Potassium Chloride 20 Meq Tab.Er) 40 meq PO ONETIME ONE Stop: 06/04/21 07:32 Last Admin: 06/04/21 09:29 Dose: 40 meq Documented by: - Exam Quality Assessment: Reports: DVT Prophylaxis (Patient was on Lovenox). Denies: Supplemental Oxygen (O2 saturations are 95% on room air) General: Reports: Alert, Oriented, Cooperative, No Acute Distress HEENT: Reports: Pupils Equal, Mucous Membr. Moist/[place] Neck: Reports: Supple, Trachea Midline Lungs: Reports: Normal Respiratory Effort, Decreased Breath Sounds (Likely due to body habitus) Cardiovascular: Reports: Regular Rate, Regular Rhythm, Murmurs (Grade 1 systolic murmur) GI/Abdominal Exam: Normal Bowel Sounds, Soft, Non-Tender, No Distention (Male) Exam: Deferred Rectal (Males) Exam: Deferred Back Exam: Reports: Normal Inspection Extremities: Normal Range of Motion, Non-Tender, Normal Capillary Refill, Pedal Edema (4+ pedal edema). No: Normal Inspection (Wound noted to plantar aspect of right fourth toe; dressing is clean dry and intact) Skin: Reports: Warm, Dry. Denies: Intact Wound/Incisions: Reports: Dressing Dry and Intact, No Drainage Neurological: Reports: No New Focal Deficit Psy/Mental Status: Reports: Alert, Normal Affect, Normal Mood <Sadaf,Noam Vázquez - Last Filed: 06/05/21 15:33> Discharge Summary - Referral to Home Health Primary Care Physician: Yanick Plunkett MD - Patient Summary/Data Consults: Consultations 06/02/21 14:43 Consult to Case Management/Director Of Student Services [CONS] Routine Consult to [employer] Estate Account [employer] [CONS] Routine OT Evaluation and Treatment [CONS] Routine PT Evaluation and Treatment [CONS] Routine 06/04/21 08:52 PT Evaluation and Treatment [CONS] Routine Hospital Course: I have seen and examined the patient independently of Keven Leon CNP, and I have discussed the case with her. I have reviewed the plan of care for this patient as outlined by her. Please see orders. - Patient Data Vitals - Most Recent: Last Vital Signs Temp 36.4 C 06/05/21 11:21 Pulse 70 06/05/21 11:21 Resp 20 06/05/21 11:21 BP 157/76 H 06/05/21 12:57 Pulse Ox 95 06/05/21 11:21 I&O - Last 24 hours: Intake & Output 06/05/21 06/05/21 06/05/21 06:59 14:59 22:59 Intake Total 600 400 Output Total 980 Balance 600 -580 Lab Results - Last 24 hrs: Laboratory Results - last 24 hr 06/04/21 06/04/21 06/04/21 Range/Units 16:05 21:47 21:57 WBC (4.23-9.07) K/mm3 RBC (4.63-6.08) M/mm3 Hgb (13.7-17.5) gm/dl Hct (40.1-51.0) % MCV (79.0-92.2) fl MCH (25.7-32.2) pg MCHC (32.2-35.5) g/dl RDW Std Deviation (35.1-43.9) fL Plt Count (163-337) K/mm3 MPV (9.4-12.3) fl Neut % (Auto) (34.0-67.9) % Lymph % (Auto) (21.8-53.1) % [place] % (Auto) (5.3-12.2) % Eos % (Auto) (0.8-7.0) Baso % (Auto) (0.1-1.2) % Neut # (Auto) (1.78-5.38) K/mm3 Lymph # (Auto) (1.32-3.57) K/mm3 [place] # (Auto) (0.30-0.82) K/mm3 Eos # (Auto) (0.04-0.54) K/mm3 Baso # (Auto) (0.01-0.08) K/mm3 Manual Slide Review Sodium (136-145) mEq/L Potassium (3.5-5.1) mEq/L Chloride (98-107) mEq/L Carbon Dioxide (21-32) mEq/L Anion Gap (5-15) BUN (7-18) mg/dL Creatinine (0.7-1.3) mg/dL Est Cr Clr Drug Dosing mL/min Estimated GFR (MDRD) (>60) mL/min BUN/Creatinine Ratio (14-18) Glucose (70-99) mg/dL POC Glucose 106 H 114 H (70-99) mg/dL Calcium (8.5-10.1) mg/dL Magnesium (1.8-2.4) mg/dL Total Bilirubin (0.2-1.0) mg/dL AST (15-37) U/L ALT (16-63) U/L Alkaline Phosphatase (46-116) U/L Total Protein (6.4-8.2) g/dl Albumin (3.4-5.0) g/dl Globulin gm/dL Albumin/Globulin Ratio (1-2) Vancomycin Trough 17.6 (10.0-20.0) SARS-CoV-2 RNA (ROCHELLE) (NEGATIVE) 06/05/21 06/05/21 06/05/21 Range/Units 06:17 06:17 06:59 WBC 4.94 (4.23-9.07) K/mm3 RBC 2.87 L (4.63-6.08) M/mm3 Hgb 9.3 L (13.7-17.5) gm/dl Hct 31.6 L (40.1-51.0) % MCV 110.1 H (79.0-92.2) fl MCH 32.4 H (25.7-32.2) pg MCHC 29.4 L (32.2-35.5) g/dl RDW Std Deviation 66.2 H (35.1-43.9) fL Plt Count 188 (163-337) K/mm3 MPV 9.5 (9.4-12.3) fl Neut % (Auto) 50.6 (34.0-67.9) % Lymph % (Auto) 40.9 (21.8-53.1) % [place] % (Auto) 5.3 (5.3-12.2) % Eos % (Auto) 2.8 (0.8-7.0) Baso % (Auto) 0.2 (0.1-1.2) % Neut # (Auto) 2.50 (1.78-5.38) K/mm3 Lymph # (Auto) 2.02 (1.32-3.57) K/mm3 [place] # (Auto) 0.26 L (0.30-0.82) K/mm3 Eos # (Auto) 0.14 (0.04-0.54) K/mm3 Baso # (Auto) 0.01 (0.01-0.08) K/mm3 Manual Slide Review Abnormal smear Sodium 139 (136-145) mEq/L Potassium 3.5 (3.5-5.1) mEq/L Chloride 105 (98-107) mEq/L Carbon Dioxide 28 (21-32) mEq/L Anion Gap 9.5 (5-15) BUN 31 H (7-18) mg/dL Creatinine 1.4 H (0.7-1.3) mg/dL Est Cr Clr Drug Dosing 56.83 mL/min Estimated GFR (MDRD) 50 (>60) mL/min BUN/Creatinine Ratio 22.1 H (14-18) Glucose 114 H (70-99) mg/dL POC Glucose 107 H (70-99) mg/dL Calcium 8.3 L (8.5-10.1) mg/dL Magnesium 2.2 (1.8-2.4) mg/dL Total Bilirubin 0.3 (0.2-1.0) mg/dL AST 24 (15-37) U/L ALT 18 (16-63) U/L Alkaline Phosphatase 88 (46-116) U/L Total Protein 8.8 H (6.4-8.2) g/dl Albumin 2.1 L (3.4-5.0) g/dl Globulin 6.7 gm/dL Albumin/Globulin Ratio 0.3 L (1-2) Vancomycin Trough (10.0-20.0) SARS-CoV-2 RNA (ROCHELLE) (NEGATIVE) 06/05/21 06/05/21 Range/Units 11:15 11:16 WBC (4.23-9.07) K/mm3 RBC (4.63-6.08) M/mm3 Hgb (13.7-17.5) gm/dl Hct (40.1-51.0) % MCV (79.0-92.2) fl MCH (25.7-32.2) pg MCHC (32.2-35.5) g/dl RDW Std Deviation (35.1-43.9) fL Plt Count (163-337) K/mm3 MPV (9.4-12.3) fl Neut % (Auto) (34.0-67.9) % Lymph % (Auto) (21.8-53.1) % [place] % (Auto) (5.3-12.2) % Eos % (Auto) (0.8-7.0) Baso % (Auto) (0.1-1.2) % Neut # (Auto) (1.78-5.38) K/mm3 Lymph # (Auto) (1.32-3.57) K/mm3 [place] # (Auto) (0.30-0.82) K/mm3 Eos # (Auto) (0.04-0.54) K/mm3 Baso # (Auto) (0.01-0.08) K/mm3 Manual Slide Review Sodium (136-145) mEq/L Potassium (3.5-5.1) mEq/L Chloride (98-107) mEq/L Carbon Dioxide (21-32) mEq/L Anion Gap (5-15) BUN (7-18) mg/dL Creatinine (0.7-1.3) mg/dL Est Cr Clr Drug Dosing mL/min Estimated GFR (MDRD) (>60) mL/min BUN/Creatinine Ratio (14-18) Glucose (70-99) mg/dL POC Glucose 124 H (70-99) mg/dL Calcium (8.5-10.1) mg/dL Magnesium (1.8-2.4) mg/dL Total Bilirubin (0.2-1.0) mg/dL AST (15-37) U/L ALT (16-63) U/L Alkaline Phosphatase (46-116) U/L Total Protein (6.4-8.2) g/dl Albumin (3.4-5.0) g/dl Globulin gm/dL Albumin/Globulin Ratio (1-2) Vancomycin Trough (10.0-20.0) SARS-CoV-2 RNA (ROCHELLE) Negative (NEGATIVE) LETI Results - Last 24 hrs: Microbiology 06/02/21 11:52 Aerobic Culture - Preliminary Toe, Right - Right Second Enterococcus Species Diphtheroids Staphylococcus Coagulase Neg Gram Negative Rods Gram Stain - Final Anaerobic Culture - Preliminary 06/03/21 14:05 Aerobic Culture - Preliminary Other - Picc Line Gram Stain - Final Anaerobic Culture - Preliminary 06/02/21 11:51 Blood Culture - Preliminary Blood 06/02/21 17:42 Blood Culture - Preliminary Blood Med Orders - Current: Current Medications Discontinued Medications Acetaminophen (Acetaminophen 325 Mg Tab) 975 mg PO ONETIME ONE Stop: 06/02/21 11:28 Last Admin: 06/02/21 11:53 Dose: 975 mg Documented by: Acetaminophen (Acetaminophen 325 Mg Tab) 650 mg PO Q4H PRN PRN Reason: Pain (Mild 1-3)/fever Last Admin: 06/03/21 17:18 Dose: 650 mg Documented by: Acetaminophen (Acetaminophen 325 Mg Tab) 650 mg PO BID GLENN Last Admin: 06/05/21 08:29 Dose: 650 mg Documented by: Hydrocodone Bitart/Acetaminophen (Acetaminophen/Hydrocodone 325-5 Mg Tab) 1 tab PO Q4H PRN PRN Reason: Pain (moderate 4-6) Al Hydroxide/Mg Hydroxide (Aluminum Hydroxide/Magnesium Hydroxide/Simethicone Susp 30 Ml Cup) 30 ml PO Q2H PRN PRN Reason: HEARTBURN Aspirin (Aspirin 81 Mg Tab.Chew) 81 mg PO DAILY [facility] Last Admin: 06/05/21 08:30 Dose: 81 mg Documented by: Bumetanide (Bumetanide 1 Mg Tab) 3 mg PO DAILY [facility] Last Admin: 06/05/21 08:29 Dose: 3 mg Documented by: Calcium Carbonate/Glycine (Calcium Carbonate 500 Mg Tab.Chew) 1,000 mg PO QID PRN PRN Reason: Heartburn Cholecalciferol (Cholecalciferol (Vitamin D3) 5,000 Unit Cap) 5,000 unit PO DAILY [facility] Last Admin: 06/05/21 08:30 Dose: 5,000 unit Documented by: Clopidogrel Bisulfate (Clopidogrel 75 Mg Tab) 75 mg PO DAILY [facility] Last Admin: 06/05/21 08:26 Dose: 75 mg Documented by: Cyanocobalamin (Cyanocobalamin (Vitamin B12) 1,000 Mcg Tab) 1,000 mcg PO DAILY [facility] Last Admin: 06/05/21 08:30 Dose: 1,000 mcg Documented by: Enoxaparin Sodium (Enoxaparin 40 Mg/0.4 Ml Syringe) 40 mg SUBCUT DAILY [facility] Last Admin: 06/05/21 08:31 Dose: 40 mg Documented by: Dextrose/Sodium Chloride (Dextrose 5%-Normal Saline) 1,000 mls @ 250 mls/hr IV ASDIRECTED [facility] Last Admin: 06/02/21 11:56 Dose: 250 mls/hr Documented by: Ceftriaxone Sodium 2 gm/ (Sodium Chloride) 100 mls @ 200 mls/hr IV ONETIME ONE Stop: 06/02/21 13:07 Last Admin: 06/02/21 13:39 Dose: 200 mls/hr Documented by: Vancomycin HCl 2 gm/ Sodium (Chloride) 500 mls @ 250 mls/hr IV Q18H [facility] Last Admin: 06/04/21 23:08 Dose: 250 mls/hr Documented by: Sodium Chloride (Normal Saline) 1,000 mls @ 150 mls/hr IV ASDIRECTED [facility] Last Admin: 06/03/21 07:25 Dose: 150 mls/hr Documented by: Insulin Human Lispro (Insulin Lispro 100 Unit/Ml 10 Ml Vial) 0 unit SUBCUT QIDACANDBED [facility]; Protocol Last Admin: 06/05/21 12:57 Dose: Not Given Documented by: Loperamide HCl (Loperamide 2 Mg Cap) 4 mg PO ASDIRECTED PRN PRN Reason: Diarrhea Losartan Potassium (Losartan 25 Mg Tab) 25 mg PO DAILY [facility] Last Admin: 06/05/21 08:31 Dose: 25 mg Documented by: Metoclopramide HCl (Metoclopramide 10 Mg/2 Ml Sdv) 10 mg IVPUSH ONETIME ONE Stop: 06/02/21 11:40 Last Admin: 06/02/21 11:56 Dose: 10 mg Documented by: Metoprolol Succinate (Metoprolol Succinate 50 Mg Tab.Er) 50 mg PO DAILY [facility] Last Admin: 06/05/21 08:26 Dose: 50 mg Documented by: Mirtazapine (Mirtazapine 30 Mg Tab) 30 mg PO BEDTIME [facility] Last Admin: 06/04/21 21:58 Dose: 30 mg Documented by: Nitroglycerin (Nitroglycerin 0.4 Mg Tab.Sl) 0.4 mg SL ASDIRECTED PRN PRN Reason: Chest Pain Non-Formulary Medication (Emollient Combination No.114 [Eucerin Advanced Repair]) 1 dose TOP DAILY [facility] Last Admin: 06/03/21 10:22 Dose: Not Given Documented by: Nystatin (Nystatin Topical Powder 15 Gm Bottle) 0 gm TOP QID [facility] Last Admin: 06/05/21 13:49 Dose: 1 applic Documented by: Ondansetron HCl (Ondansetron 4 Mg Tab.Dis) 4 mg PO Q4H PRN PRN Reason: nausea, able to take PO Ondansetron HCl (Ondansetron 4 Mg/2 Ml Sdv) 4 mg IV Q6H PRN PRN Reason: Nausea/Vomiting Polyethylene Glycol (Polyethylene Glycol 3350 Powder 17 Gm Packet) 17 gm PO BEDTIME PRN PRN Reason: Constipation Potassium Chloride (Potassium Chloride 20 Meq Tab.Er) 20 meq PO DAILY [facility] Last Admin: 07/23/21 08:26 Dose: 20 meq Documented by: Potassium Chloride (Potassium Chloride 20 Meq Tab.Er) 40 meq PO ONETIME ONE Stop: 06/04/21 07:32 Last Admin: 06/04/21 09:29 Dose: 40 meq Documented by: Saccharomyces Boulardii (Saccharomyces Boulardii (Probiotic) 250 Mg Cap) 250 mg PO BID [facility] Last Admin: 06/05/21 08:27 Dose: 250 mg Documented by: Sodium Chloride (Sodium Chloride 0.9% 10 Ml Syringe) 10 ml FLUSH ASDIRECTED PRN PRN Reason: Keep Vein Open Vancomycin HCl (Pharmacy To Dose - Vancomycin) 1 dose .XX ASDIRECTED PRN PRN Reason: RX TO DOSE VANCO Vit A/Vit C/Vit E/Selen/Cu/Zn/Lutei (Multivitamins With Minerals/Folic Acid/Lutein/Zeaxanth Tab) 1 tab PO DAILY [facility] Last Admin: 06/05/21 08:29 Dose: 1 tab Documented by:
== END 2021-06-05 14:50 | DRG 603 ==
LOC: JD.ED 11:15 → JD.MS 14:42
PROVIDERS: ADMIT Internal Medicine; ATTEND Internal Medicine
DX: L03.115 Cellulitis of right lower limb (principal); R09.02 Hypoxemia; R11.2 Nausea with vomiting, unspecified; Z68.42 Body mass index [BMI] 45.0-49.9, adult; J96.10 Chronic respiratory failure, unspecified whether with hypoxia or hypercapnia; R70.0 Elevated erythrocyte sedimentation rate; D72.828 Other elevated white blood cell count; R50.9 Fever, unspecified; Z66 Do not resuscitate; E66.01 Morbid (severe) obesity due to excess calories; L97.519 Non-pressure chronic ulcer of other part of right foot with unspecified severity; H54.7 Unspecified visual loss; I73.9 Peripheral vascular disease, unspecified; R15.9 Full incontinence of feces; I25.10 Atherosclerotic heart disease of native coronary artery without angina pectoris; I11.0 Hypertensive heart disease with heart failure; E53.1 Pyridoxine deficiency; I50.9 Heart failure, unspecified; K52.9 Noninfective gastroenteritis and colitis, unspecified; R32 Unspecified urinary incontinence; Z20.822 Contact with and (suspected) exposure to COVID-19; R06.02 Shortness of breath; D47.2 Monoclonal gammopathy; C90.00 Multiple myeloma not having achieved remission; M19.90 Unspecified osteoarthritis, unspecified site; F32.9 Major depressive disorder, single episode, unspecified; E11.9 Type 2 diabetes mellitus without complications; E87.6 Hypokalemia; Z98.49 Cataract extraction status, unspecified eye; D64.9 Anemia, unspecified; I25.2 Old myocardial infarction; Z79.82 Long term (current) use of aspirin; Z87.440 Personal history of urinary (tract) infections; Z79.899 Other long term (current) drug therapy; Z90.49 Acquired absence of other specified parts of digestive tract; Z79.02 Long term (current) use of antithrombotics/antiplatelets
CPT/HCPCS: 36415; 36600; 71045; 73630; 80053; 81001; 82553; 82803; 82947; 83036; 83605; 83735; 83880; 84484; 85007; 85027; 85379; 85610; 85652; 85730; 86140; 87040 ×2; 87070; 87075; 87077; 87186; 87205; 93005; 94762; 96365; 96375; 99285; A9270; J0696; J2765; J7042; U0002; 80202; 85025; 87641; 93010; 94761; 97110-GP; 97162-GP; 97530-GP; 99222; 99233; 99238; J1650; J3370; J7030; J7040

== ENCOUNTER 2021-06-17 11:29 | Emergency (ER) | payer MEDICARE, OTHER ==
[2021-06-17] MEDS ORDERED: Sodium Chloride 0.9% 1,000 ML IV ONE (12:23)
[2021-06-17] MEDS ORDERED: Sodium Chloride 0.9% 10 ML Syringe FLUSH PRN (12:23)
[2021-06-17] MEDS ORDERED: Sodium Chloride 0.9% 1,000 ML IV SCH (14:15)
[2021-06-17] MEDS ORDERED: metroNIDAZOLE/Normal Saline 500 MG in Premix Bag 1 BAG IV ONE (14:32)
[2021-06-17] MEDS ORDERED: Linezolid 600 MG in Premix Bag 1 BAG IV ONE (14:32)
--- NOTE | 2021-06-17 14:33 | CR ---
Chest: Portable view of the chest was obtained. Comparison: Prior chest x-ray of 06/02/21. Heart is mildly enlarged. Upper mediastinum is within normal limits. Small azygos lobe is noted. Lungs are clear with no acute parenchymal change. Bony structure shows nothing acute. Impression: 1. Findings as noted above. 2. Nothing acute is appreciated on portable chest x-ray. Diagnostic code #2
--- NOTE | 2021-06-17 14:59 | CT ---
CT right foot Technique: Multiple axial sections through the right foot were obtained. Reconstructed coronal and sagittal images were obtained. No intravenous contrast was utilized. Comparison: Prior right foot radiographic study of 06/02/21. Findings: Cortical disruption is noted within the proximal phalanx of the first toe with soft tissue density within the bone compatible with osteomyelitis. There is also an erosion within the distal first metatarsal within the cortex which shows mild soft tissue density within and around this area compatible with additional osteomyelitis. No other areas of focal bony erosions are seen. Degenerative change is noted within the midfoot. Bony structures are diffusely osteopenic. Diffuse soft tissue swelling is noted around the ankle and within the foot compatible with diffuse soft tissue edema and cellulitis. Impression: 1. Findings which are felt compatible with osteomyelitis located within the proximal phalanx and within the distal aspect of the metatarsal within the first toe. 2. Osteopenia and degenerative change. 3. Diffuse soft tissue swelling as noted above. Diagnostic code #3
[2021-06-17] MEDS ORDERED: Acetaminophen 325 MG Tab PO ONE (15:25)
--- NOTE | 2021-06-17 15:43 | EDM.PDOC ---
ED HPI GENERAL MEDICAL PROBLEM - General Chief Complaint: Gastrointestinal Problem Stated Complaint: [facility] Time Seen by Provider: 06/17/21 12:07 Source of Information: Reports: Patient History Limitations: Reports: No Limitations - History of Present Illness INITIAL COMMENTS - FREE TEXT/NARRATIVE: 75-year-old male presents to the emergency department via [place] [facility] from [facility]. Patient's chief complaint is chills and not feeling well. Of note patient was treated for cellulitis and infection of his right lower extremity on 2020. He was an inpatient at this hospital. Patient has been dealing with an open ulcer to his right lateral lower leg as well as an open area on the plantar aspect of his right fourth toe since May 132020. He has seen a cst and had a PICC line placed for which she received outpatient IV antibiotics. Patient denies any fever, nausea, vomiting or diarrhea. He denies any urinary symptoms. He denies any headache, cough or shortness of breath or any type of respiratory symptoms. He does carry a history of CHF and hypertension and edema of his bilateral lower extremities. He is nonambulatory and states he gets around the [facility]dc in a motorized wheelchair. He states since discharge from the hospital on his most recent admit he has felt well up until today. - Related Data Allergies Allergy/AdvReac Type Severity Reaction Status Date / Time No Known Allergies Allergy Verified 06/17/21 11:39 Home Meds: Home Meds Aspirin 81 mg PO DAILY 11/26/18 [History] Potassium Chloride 20 meq PO DAILY 11/26/18 [History] Acetaminophen 650 mg PO BID 04/24/20 [History] Alum Hydrox/Mag Hydrox/Simeth [Maalox Advanced] 30 ml PO Q2HR PRN 04/24/20 [History] Bumetanide 3 mg PO DAILY 04/24/20 [History] Calcium Carbonate [Tums] 1,000 mg PO QID PRN 04/24/20 [History] Clopidogrel [Plavix] 75 mg PO DAILY 04/24/20 [History] Diclofenac Sodium [Voltaren 1% Gel] 2 gm TOP BID 04/24/20 [History] Loperamide [Imodium] 4 mg PO ASDIRECTED PRN 04/24/20 [History] Metoprolol Succinate 50 mg PO DAILY 04/24/20 [History] Nitroglycerin [Nitrostat] 0.4 mg SL ASDIRECTED PRN 04/24/20 [History] polyethylene glycoL 3350 [MiraLAX] 17 gm PO BEDTIME PRN 04/24/20 [History] Cyanocobalamin (Vitamin B-12) [Vitamin B-12] 1,000 mcg PO DAILY 07/15/20 [History] Emollient Combination No.114 [Eucerin Advanced Repair] 1 dose TOP DAILY 07/15/20 [History] Losartan [Cozaar] 25 mg PO DAILY 07/15/20 [History] Multivitamin 1 tab PO DAILY 07/16/20 [History] Lactobacillus Acidophilus [Acidophilus] 1 cap PO BID 06/02/21 [History] Acetaminophen [Tylenol] 650 mg PO Q4H PRN tablet 06/05/21 [Rx] Cholecalciferol (Vitamin D3) [Vitamin D3] 5,000 unit PO DAILY cap 06/05/21 [Rx] Mirtazapine 30 mg PO BEDTIME 06/17/21 [History] Nystatin [Nystop] 1 applic TOP BID 06/17/21 [History] Past Medical History HEENT History: Reports: Impaired Vision Other HEENT History: wears eyeglasses Cardiovascular History: Reports: CAD, Hypertension, HI, SOB on Exertion, Other (See Below) Other Cardiovascular History: peripheral venous insufficiency Respiratory History: Reports: Other (See Below) Other Respiratory History: acute respiratory failure, hypoxia Gastrointestinal History: Reports: Chronic Constipation, GI Bleed Other Gastrointestinal History: incontinence Genitourinary History: Reports: Urinary Incontinence Musculoskeletal History: Reports: Osteoarthritis Other Musculoskeletal History: bilat knee pain, weakness Neurological History: Reports: None Psychiatric History: Reports: Depression, Other (See Below) Other Psychiatric History: Insomnia Endocrine/Metabolic History: Reports: Diabetes, Type II, Hypokalemia, Obesity/BMI 30+, Other (See Below) Other Endocrine/Metabolic History: disorder of phosphorus metabolism Hematologic History: Reports: Anemia, Other (See Below) Other Hematologic History: megaloblastic anemia, monoclonal gammopathy, Immunologic History: Reports: None Oncologic (Cancer) History: Reports: Other (See Below) Other Oncologic History: multiple myeloma Dermatologic History: Reports: Cellulitis, Other (See Below) Other Dermatologic History: 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; candidiasis - Infectious Disease History Infectious Disease History: Reports: Chicken Pox, Influenza, Measles, Mumps - Past Surgical History HEENT Surgical History: Reports: Cataract Surgery Cardiovascular Surgical History: Reports: None Respiratory Surgical History: Reports: None GI Surgical History: Reports: Appendectomy Male Surgical History: Reports: None Endocrine Surgical History: Reports: None Musculoskeletal Surgical History: Reports: None Oncologic Surgical History: Reports: None Dermatological Surgical History: Reports: None Social & Family History - Family History Family Medical History: No Pertinent Family History - Tobacco Use Tobacco Use Status *Q: Never Tobacco User Second Hand Smoke Exposure: No - Caffeine Use Caffeine Use: Reports: Coffee - Recreational Drug Use Recreational Drug Use: No - Living Situation & Occupation Living situation: Reports: Extended Care Facility (Currently a resident at [facility] in [place].) Occupation: Retired ED ROS GENERAL - Review of Systems Review Of Systems: Comprehensive ROS is negative, except as noted in HPI. ED EXAM, GENERAL - Physical Exam Exam: See Below Exam Limited By: No Limitations General Appearance: Alert, WD/WN, No Apparent Distress Ears: Normal External Exam, Hearing Grossly Normal Nose: Normal Inspection Throat/Mouth: Normal Inspection, Normal Lips, Normal Voice, No Airway Compromise Head: Atraumatic Neck: Normal Inspection, Supple Respiratory/Chest: No Respiratory Distress, Lungs Clear, Normal Breath Sounds, No Accessory Muscle Use, Chest Non-Tender Cardiovascular: Normal Peripheral Pulses, Regular Rate, Rhythm, No Murmur. No: No Edema (4+ edema noted to bilateral lower extremities) Peripheral Pulses: 0: Dorsalis Pedis (L), Dorsalis Pedis (R), 2+: Radial (L), Radial (R) GI/Abdominal: Normal Bowel Sounds, Soft, Non-Tender, No Distention (Male) Exam: Deferred Rectal (Males) Exam: Deferred Back Exam: Normal Inspection, Full Range of Motion Extremities: Pedal Edema (4+ to bilateral lower extremities), Increased Warmth (Right lower extremity from the knee on down to toes distally), Other (Right lower extremity from knee distally to toes with erythema circumferentially and is hot to touch. There is an open ulcer noted to the plantar aspect under the fourth toe on the right foot with purulent drainage). No: Non-Tender (Right lower extremity is tender from knee on down) Neurological: Alert, Oriented, Normal Cognition. No: Normal Gait (Patient is nonambulatory) Psychiatric: Flat Affect Skin Exam: Increased Warmth (Right lower extremity), Wound/Incision (Nickel sized ulcer noted to right lateral lower leg; ulcer noted on plantar aspect of right fourth toe with purulent drainage;) Lymphatic: No Adenopathy Course - Vital Signs Text/Narrative:: As stated above, patient has a significant history treatment of an open ulcer to the plantar surface of the right fourth toe and an ulcer to the lateral surface of his right lower leg. Patient presents today with a chief complaint of chills and generally not feeling well. Upon assessment, the patient's right lower extremity from the knee on down is red and hot to touch. There is a bandage in place over his right lateral lower leg. He does have a ulcer approximately the size of a nickel to that area but appears to be healing well. He does have an ulcer noted to the plantar surface of the right fourth toe which does have purulent drainage coming from it. As previously stated entire right lower leg and foot are red and hot to touch. Patient does have 4+ edema noted to his bilateral lower extremities and it appears that this is chronic. I have ordered a full septic work-up on this patient which includes blood cultures and wound cultures. We will also obtain a CT scan of the right foot to rule out osteomyelitis. I suspect patient is septic so I will order a liter of normal saline bolus. Last Recorded V/S: Last Vital Signs Temp 98 F 06/17/21 15:42 Pulse 93 06/17/21 13:07 Resp 18 06/17/21 13:07 BP 160/86 H 06/17/21 13:07 Pulse Ox 94 L 06/17/21 13:07 - Orders/Labs/Meds Orders: Active Orders 24 hr Category Date Time Status Blood Pressure Mgt: Sepsis [RC] Q15MX2 Care 06/17/21 12:24 Active BLOOD CULTURE [MREF] Stat Lab 06/17/21 12:45 Received BLOOD CULTURE [MREF] Stat Lab 06/17/21 13:00 Received CULTURE, ANAEROBE & AEROBE [MREF] Stat Lab 06/17/21 12:57 Received LACTIC ACID [CHEM] Routine Lab 06/17/21 15:40 Received MRSA CULTURE [MREF] Stat Lab 06/17/21 14:09 Received UA W/LETI RFLX IF INDICATED [URIN] Stat Lab 06/17/21 12:23 Ordered Sodium Chloride 0.9% [Normal Saline] 1,000 ml Med 06/17/21 14:15 Active IV ASDIRECTED Sodium Chloride 0.9% [Saline Flush] Med 06/17/21 12:23 Active 10 ml FLUSH ASDIRECTED PRN Blood Culture x2 Reflex Set [OM.PC] Stat Oth 06/17/21 12:23 Ordered Saline Lock Insert [OM.PC] Stat Oth 06/17/21 12:23 Ordered Medication Orders Sodium Chloride (Normal Saline) 1,000 mls @ 126 mls/hr IV ASDIRECTED GLENN Last Admin: 06/17/21 14:29 Dose: 126 mls/hr Documented by: RENÉ Sodium Chloride (Sodium Chloride 0.9% 10 Ml Syringe) 10 ml FLUSH ASDIRECTED PRN PRN Reason: Keep Vein Open Last Admin: 06/17/21 13:06 Dose: 10 ml Documented by: RENÉ Labs: Laboratory Tests 06/17/21 06/17/21 06/17/21 Range/Units 12:45 12:45 12:45 WBC 15.34 H (4.23-9.07) K/mm3 RBC 3.24 L (4.63-6.08) M/mm3 Hgb 11.0 L D (13.7-17.5) gm/dl Hct 35.1 L (40.1-51.0) % MCV 108.3 H (79.0-92.2) fl MCH 34.0 H (25.7-32.2) pg MCHC 31.3 L (32.2-35.5) g/dl RDW Std Deviation 71.1 H (35.1-43.9) fL Plt Count 255 (163-337) K/mm3 MPV 9.5 (9.4-12.3) fl Neutrophils % (Manual) 79 H (40-60) % Band Neutrophils % 0 (0-10) % Lymphocytes % (Manual) 18 L (20-40) % Atypical Lymphs % 0 % Monocytes % (Manual) 3 (2-10) % Eosinophils % (Manual) 0 L (0.8-7.0) % Basophils % (Manual) 0 L (0.2-1.2) Platelet Estimate Adequate Anisocytosis 2+ moderate Macrocytosis 3+ marked RBC Morph Comment Abnormal PT 12.5 H (9.7-12.0) SECONDS INR 1.17 Sodium 133 L (136-145) mEq/L Potassium 4.9 (3.5-5.1) mEq/L Chloride 96 L (98-107) mEq/L Carbon Dioxide 30 (21-32) mEq/L Anion Gap 11.9 (5-15) BUN 33 H (7-18) mg/dL Creatinine 1.8 H (0.7-1.3) mg/dL Est Cr Clr Drug Dosing 44.20 mL/min Estimated GFR (MDRD) 37 (>60) mL/min BUN/Creatinine Ratio 18.3 H (14-18) Glucose 126 H (70-99) mg/dL Lactic Acid (0.4-2.0) mmol/L Calcium 9.6 (8.5-10.1) mg/dL Total Bilirubin 0.6 (0.2-1.0) mg/dL AST 24 (15-37) U/L ALT 12 L (16-63) U/L Alkaline Phosphatase 129 H (46-116) U/L C-Reactive Protein 8.5 H* (<1.0) mg/dL Total Protein 11.0 H (6.4-8.2) g/dl Albumin 2.8 L (3.4-5.0) g/dl Globulin 8.2 gm/dL Albumin/Globulin Ratio 0.3 L (1-2) 06/17/21 Range/Units 12:45 WBC (4.23-9.07) K/mm3 RBC (4.63-6.08) M/mm3 Hgb (13.7-17.5) gm/dl Hct (40.1-51.0) % MCV (79.0-92.2) fl MCH (25.7-32.2) pg MCHC (32.2-35.5) g/dl RDW Std Deviation (35.1-43.9) fL Plt Count (163-337) K/mm3 MPV (9.4-12.3) fl Neutrophils % (Manual) (40-60) % Band Neutrophils % (0-10) % Lymphocytes % (Manual) (20-40) % Atypical Lymphs % % Monocytes % (Manual) (2-10) % Eosinophils % (Manual) (0.8-7.0) % Basophils % (Manual) (0.2-1.2) Platelet Estimate Anisocytosis Macrocytosis RBC Morph Comment PT (9.7-12.0) SECONDS INR Sodium (136-145) mEq/L Potassium (3.5-5.1) mEq/L Chloride (98-107) mEq/L Carbon Dioxide (21-32) mEq/L Anion Gap (5-15) BUN (7-18) mg/dL Creatinine (0.7-1.3) mg/dL Est Cr Clr Drug Dosing mL/min Estimated GFR (MDRD) (>60) mL/min BUN/Creatinine Ratio (14-18) Glucose (70-99) mg/dL Lactic Acid 2.2 H* (0.4-2.0) mmol/L Calcium (8.5-10.1) mg/dL Total Bilirubin (0.2-1.0) mg/dL AST (15-37) U/L ALT (16-63) U/L Alkaline Phosphatase (46-116) U/L C-Reactive Protein (<1.0) mg/dL Total Protein (6.4-8.2) g/dl Albumin (3.4-5.0) g/dl Globulin gm/dL Albumin/Globulin Ratio (1-2) Meds: Medications Generic Name Dose Route Start Last Admin Trade Name Freq PRN Reason Stop Dose Admin Sodium Chloride 1,000 mls @ 126 mls/hr 06/17/21 14:15 06/17/21 14:29 Normal Saline IV 126 mls/hr ASDIRECTED GLNEN Administration Sodium Chloride 10 ml 06/17/21 12:23 06/17/21 13:06 Sodium Chloride 0.9% 10 Ml Syringe FLUSH 10 ml ASDIRECTED PRN Administration Keep Vein Open Discontinued Medications Generic Name Dose Route Start Last Admin Trade Name Freq PRN Reason Stop Dose Admin Acetaminophen 975 mg 06/17/21 15:25 06/17/21 15:42 Acetaminophen 325 Mg Tab PO 06/17/21 15:26 975 mg NOW ONE Administration Sodium Chloride 1,000 mls @ 999 mls/hr 06/17/21 12:23 06/17/21 13:04 Normal Saline IV 06/17/21 13:23 999 mls/hr BOLUS ONE Administration Protocol Linezolid 600 mg/ Premix 300 mls @ 300 mls/hr 06/17/21 14:32 IV 06/17/21 15:31 ONETIME ONE Metronidazole 500 mg/ Premix 100 mls @ 100 mls/hr 06/17/21 14:32 06/17/21 15:24 IV 06/17/21 15:31 100 mls/hr ONETIME ONE Administration - Re-Assessments/Exams Free Text/Narrative Re-Assessment/Exam: 06/17/21 15:40 Hematology reveals a WBC of 15.34, hemoglobin 11.0, hematocrit 35.1, platelet count 255, neutrophil percentage of 79 with 0% bands Coagulation reveals a pro time of 12.5, INR 1.17 Chemistry reveals a sodium of 133, potassium 4.9, chloride 96, carbon dioxide 30, anion gap 11.9, BUN 33, creatinine 1.8, GFR 37, glucose 126, lactic acid 2.2, C-reactive protein 8.5 Left blood cultures and wound cultures are pending CT scan of the right foot radiologist impression: Cortical disruption is noted within the proximal phalanx of the first toe with soft tissue density within the bone compatible with osteomyelitis. There is also an erosion within the first distal metatarsal within the cortex which shows mild soft tissue density within and around this area compatible with additional osteomyelitis. No other areas of focal bony erosions are seen. Degenerative changes noted within the midfoot. Bony structures are diffusely osteopenic. Diffuse soft tissue swelling is noted around the ankle and within the foot compatible with diffuse soft tissue edema and cellulitis. I discussed the case with Dr. Sanchez and he recommends starting the patient on linezolid and Flagyl. The patient will then need to be transferred for services in [place]. The patient requests transferred to [facility] however they are on diversion at this time. I have phoned [facility] in [place] and spoke with the hospitalist, , and he has accepted this patient in transfer. The patient will be transferred via ambulance. I have also ordered for the patient to receive normal saline at 126 mL/h to continue with current septic treatment. I have also ordered for the patient received 975 of Tylenol as he is still chilled. Radiologist impression portable view of the chest: Heart is mildly enlarged. Upper mediastinum is within normal limits. Small azygous lobe is noted. Lungs are clear with no acute parenchymal change. Bony structure shows nothing acute. Departure - Departure Time of Disposition: 16:13 Disposition: DC/Tfer to Acute Hospital 02 Condition: Good Clinical Impression: Osteomyelitis Qualifiers: Osteomyelitis type: unspecified type Osteomyelitis location: foot Laterality: right Qualified Code(s): M86.9 - Osteomyelitis, unspecified - Discharge Information Referrals: Yanick Plunkett MD [Primary Care Provider] - Forms: ED Department Discharge Sepsis Event Note (ED) - Evaluation Sepsis Screening Result: No Definite Risk - Focused Exam Vital Signs: Vital Signs Temp Temp Pulse Resp BP Pulse Ox 06/17/21 15:42 98 F 06/17/21 13:07 98.0 F 93 18 160/86 H 94 L 06/17/21 11:35 97.6 F 94 18 123/62 92 L - My Orders Last 24 Hours: My Active Orders 06/17/21 12:23 UA W/LETI RFLX IF INDICATED [URIN] Stat Sodium Chloride 0.9% [Saline Flush] 10 ml FLUSH ASDIRECTED PRN Blood Culture x2 Reflex Set [OM.PC] Stat Saline Lock Insert [OM.PC] Stat 06/17/21 12:24 Blood Pressure Mgt: Sepsis [RC] Q15MX2 06/17/21 12:45 BLOOD CULTURE [MREF] Stat 06/17/21 12:57 CULTURE, ANAEROBE & AEROBE [MREF] Stat 06/17/21 13:00 BLOOD CULTURE [MREF] Stat 06/17/21 14:09 MRSA CULTURE [MREF] Stat 06/17/21 14:15 Sodium Chloride 0.9% [Normal Saline] 1,000 ml IV ASDIRECTED 06/17/21 15:40 LACTIC ACID [CHEM] Routine - Assessment/Plan Last 24 Hours: My Active Orders 06/17/21 12:23 UA W/LETI RFLX IF INDICATED [URIN] Stat Sodium Chloride 0.9% [Saline Flush] 10 ml FLUSH ASDIRECTED PRN Blood Culture x2 Reflex Set [OM.PC] Stat Saline Lock Insert [OM.PC] Stat 06/17/21 12:24 Blood Pressure Mgt: Sepsis [RC] Q15MX2 06/17/21 12:45 BLOOD CULTURE [MREF] Stat 06/17/21 12:57 CULTURE, ANAEROBE & AEROBE [MREF] Stat 06/17/21 13:00 BLOOD CULTURE [MREF] Stat 06/17/21 14:09 MRSA CULTURE [MREF] Stat 06/17/21 14:15 Sodium Chloride 0.9% [Normal Saline] 1,000 ml IV ASDIRECTED 06/17/21 15:40 LACTIC ACID [CHEM] Routine
== END 2021-06-17 17:30 ==
LOC: JD.ED 11:29
DX: M86.9 Osteomyelitis, unspecified (principal); I25.10 Atherosclerotic heart disease of native coronary artery without angina pectoris; I10 Essential (primary) hypertension; I25.2 Old myocardial infarction; E11.9 Type 2 diabetes mellitus without complications; E66.9 Obesity, unspecified; Z68.42 Body mass index [BMI] 45.0-49.9, adult; Z79.82 Long term (current) use of aspirin; Z79.899 Other long term (current) drug therapy; Z79.02 Long term (current) use of antithrombotics/antiplatelets
CPT/HCPCS: 36415; 71045; 73700; 80053; 83605; 85007; 85027; 85610; 86140; 87040; 87070; 87075; 87077; 87150; 87186; 87205; 96365; 96375; 99285; A9270; J2020; J3490; J7030; 87081; 99284

== ENCOUNTER 2021-12-21 03:55 | Inpatient (IN) | payer MEDICARE, OTHER ==
[2021-12-21] MEDS ORDERED: Sodium Chloride 0.9% 10 ML Syringe FLUSH PRN (04:02)
[2021-12-21] MEDS ORDERED: Sodium Chloride 0.9% 1,000 ML IV SCH ×3 (04:15→13:00)
[2021-12-21] MEDS ORDERED: Cefepime 2 GM in Sodium Chloride 0.9% 50 ML IV ONE (05:40)
[2021-12-21] MEDS ORDERED: Lactated Ringers 1,000 ML IV ONE (05:44)
[2021-12-21] MEDS ORDERED: Vancomycin 2 GM in Sodium Chloride 0.9% 500 ML IV ONE ×2 (06:00→08:00)
[2021-12-21] MEDS ORDERED: Acetaminophen 325 MG Tab PO ONE (06:37)
[2021-12-21] MEDS ORDERED: Ondansetron 4 MG/2 ML SDV IV PRN (08:28)
[2021-12-21] MEDS ORDERED: Docusate Sodium 100 MG Cap PO PRN (08:28)
[2021-12-21] MEDS ORDERED: Acetaminophen 325 MG Tab PO PRN (08:28)
[2021-12-21] MEDS ORDERED: Enoxaparin 100 MG/1 ML Syringe SUBCUT SCH (09:00)
[2021-12-21] MEDS ORDERED: Sodium Chloride 0.9% 1,000 ML IV ONE (09:05)
[2021-12-21] MEDS: HYDROmorphone 0.5 MG/0.5 ML Syringe IVPUSH PRN (09:31)
[2021-12-21] MEDS: oxyCODONE 5 MG Tab PO PRN (09:34)
[2021-12-21] MEDS: Norepinephrine 4 MG in Dextrose 5% in Water 246 ML IV SCH ×4 (10:20→15:30)
[2021-12-21] MEDS: Enoxaparin 100 MG/1 ML Syringe SUBCUT SCH (10:52)
[2021-12-21] MEDS: Cefepime 2 GM in Sodium Chloride 0.9% 50 ML IV SCH ×2 (10:53→21:30)
[2021-12-21] MEDS: Sodium Chloride 0.9% 1,000 ML IV SCH ×2 (10:54→19:24)
[2021-12-21 11:28] LABS: HEMOGLOBIN A1C 6.1 %
[2021-12-21] MEDS: Insulin Lispro 100 Unit/ML 3 ML KwikPen SUBCUT SCH ×3 (12:23→21:31)
[2021-12-21] MEDS ORDERED: Lidocaine 1% 10 ML MDV ONE (14:10)
[2021-12-21] MEDS: Hydrocortisone Sodium Succinate 100 MG/2 ML SDV IVPUSH SCH (15:37)
[2021-12-21] MEDS: Norepinephrine 16 MG in Dextrose 5% in Water 234 ML IV SCH ×2 (20:31)
[2021-12-22] MEDS: Hydrocortisone Sodium Succinate 100 MG/2 ML SDV IVPUSH SCH ×4 (00:11→22:04)
[2021-12-22] MEDS: Sodium Chloride 0.9% 1,000 ML IV SCH (01:50)
[2021-12-22] MEDS ORDERED: Vancomycin 1.75 GM in Sodium Chloride 0.9% 500 ML IV SCH ×2 (08:00→23:00)
[2021-12-22] MEDS: Insulin Lispro 100 Unit/ML 3 ML KwikPen SUBCUT SCH ×4 (08:05→22:04)
[2021-12-22] MEDS: Enoxaparin 100 MG/1 ML Syringe SUBCUT SCH (08:40)
[2021-12-22] MEDS: Cefepime 2 GM in Sodium Chloride 0.9% 50 ML IV SCH ×2 (08:44→21:59)
[2021-12-22] MEDS ORDERED: Furosemide 40 MG/4 ML VIAL IVPUSH ONE (10:23)
[2021-12-22] MEDS: oxyCODONE 5 MG Tab PO PRN (10:58)
[2021-12-22] MEDS: Norepinephrine 16 MG in Dextrose 5% in Water 234 ML IV SCH ×2 (12:17)
[2021-12-22] MEDS: Albumin 25% 12.5 GM in Premix Bag 1 BAG IV SCH ×2 (12:48→13:51)
[2021-12-22] MEDS: HYDROmorphone 0.5 MG/0.5 ML Syringe IVPUSH PRN (14:45)
[2021-12-22] MEDS ORDERED: Sodium Chloride 0.9% 500 ML IV ONE (17:21)
[2021-12-22] MEDS ORDERED: D5 1/2 NS w/ 20 mEq/L KCl 1,000 ML IV SCH (17:45)
[2021-12-22] MEDS ORDERED: Pantoprazole 40 MG Vial IVPUSH SCH (18:00)
[2021-12-22] MEDS ORDERED: Sodium Chloride 0.9% 250 ML IV SCH (18:00)
[2021-12-22] MEDS ORDERED: Furosemide 20 MG/2 ML VIAL IVPUSH ONE (19:00)
[2021-12-22] MEDS ORDERED: Sodium Chloride 0.9% 1,000 ML IV ONE (21:47)
[2021-12-22] MEDS ORDERED: Piperacillin/Tazobactam 4.5 GM in Sodium Chloride 0.9% 100 ML IV ONE (22:00)
[2021-12-23] MEDS ORDERED: Phytonadione 5 MG in Sodium Chloride 0.9% 50 ML IV ONE (02:13)
[2021-12-23] MEDS ORDERED: Sodium Chloride 0.9% 1,000 ML IV ONE (03:19)
[2021-12-23] MEDS: Norepinephrine 16 MG in Dextrose 5% in Water 234 ML IV SCH ×2 (03:23)
[2021-12-23] MEDS ORDERED: Calcium Gluconate 10% 1 GM/10 ML SDV IV ONE (03:52)
[2021-12-23] MEDS ORDERED: Lidocaine 2% Viscous Solution 15 ML UD PO PRN (04:24)
[2021-12-23] MEDS ORDERED: Ondansetron 4 MG Tab.DIS PO PRN (04:24)
[2021-12-23] MEDS ORDERED: Atropine 1% Ophth Soln 5 ML BOTTLE SL PRN (04:24)
[2021-12-23] MEDS ORDERED: Diazepam 5 MG Tab PO PRN (04:24)
[2021-12-23] MEDS ORDERED: Lactoperoxi/Gluc Oxid/Pot Thio 42 GM Tube MUCMEM PRN (04:24)
[2021-12-23] MEDS ORDERED: Lanolin/Mineral Oil/Petrolatum Ophth Oint 3.5 GM Tube EYEBOTH PRN (04:24)
[2021-12-23] MEDS ORDERED: Acetaminophen/Codeine 300-30 MG Tab PO PRN (04:24)
[2021-12-23] MEDS ORDERED: Morphine 4 MG/ML Syringe IV PRN (04:24)
[2021-12-23] MEDS ORDERED: LORazepam 2 MG/ML SDV IV PRN (04:24)
[2021-12-23] MEDS ORDERED: Vancomycin 1.75 GM in Sodium Chloride 0.9% 500 ML IV SCH (08:00)
[2021-12-23] MEDS ORDERED: Piperacillin/Tazobactam 4.5 GM in Sodium Chloride 0.9% 100 ML IV SCH (10:00)
== END 2021-12-23 08:00 | disposition expired | DRG 871 ==
LOC: JD.ED 03:55 → JD.MS 07:25 → JD.ICU 10:06
PROVIDERS: ADMIT Emergency Medicine; ATTEND Family Medicine
PROC: 3E033XZ Introduction of Vasopressor into Peripheral Vein, Percutaneous Approach (ICD-10-PCS; 2021-12-21)
PROC: 02HV33Z Insertion of Infusion Device into Superior Vena Cava, Percutaneous Approach (ICD-10-PCS; 2021-12-21)
PROC: 30233N1 Transfusion of Nonautologous Red Blood Cells into Peripheral Vein, Percutaneous Approach (ICD-10-PCS; principal; 2021-12-23)
PROC: 30233P1 Transfusion of Nonautologous Frozen Red Cells into Peripheral Vein, Percutaneous Approach (ICD-10-PCS; 2021-12-23)
DX: A40.1 Sepsis due to streptococcus, group B (principal); R65.21 Severe sepsis with septic shock; G93.41 Metabolic encephalopathy; N17.9 Acute kidney failure, unspecified; I12.9 Hypertensive chronic kidney disease with stage 1 through stage 4 chronic kidney disease, or unspecified chronic kidney disease; E87.2 Acidosis; L03.115 Cellulitis of right lower limb; I49.3 Ventricular premature depolarization; I13.0 Hypertensive heart and chronic kidney disease with heart failure and stage 1 through stage 4 chronic kidney disease, or unspecified chronic kidney disease; C90.00 Multiple myeloma not having achieved remission; J98.11 Atelectasis; Z68.42 Body mass index [BMI] 45.0-49.9, adult; E78.6 Lipoprotein deficiency; E11.51 Type 2 diabetes mellitus with diabetic peripheral angiopathy without gangrene; K59.09 Other constipation; G47.00 Insomnia, unspecified; E66.01 Morbid (severe) obesity due to excess calories; I25.10 Atherosclerotic heart disease of native coronary artery without angina pectoris; R57.8 Other shock; Z51.5 Encounter for palliative care; Z20.822 Contact with and (suspected) exposure to COVID-19; Z66 Do not resuscitate; I50.9 Heart failure, unspecified; I87.2 Venous insufficiency (chronic) (peripheral); L97.519 Non-pressure chronic ulcer of other part of right foot with unspecified severity; H54.7 Unspecified visual loss; E11.22 Type 2 diabetes mellitus with diabetic chronic kidney disease; N18.9 Chronic kidney disease, unspecified; R32 Unspecified urinary incontinence; M19.90 Unspecified osteoarthritis, unspecified site; F32.A Depression, unspecified; E87.6 Hypokalemia; Z99.3 Dependence on wheelchair; Z98.49 Cataract extraction status, unspecified eye; Z86.19 Personal history of other infectious and parasitic diseases; Z90.49 Acquired absence of other specified parts of digestive tract; Z79.82 Long term (current) use of aspirin; Z79.899 Other long term (current) drug therapy; Z79.02 Long term (current) use of antithrombotics/antiplatelets; I25.2 Old myocardial infarction
CPT/HCPCS: 36415; 71045; 80053; 81001; 83605; 83690; 83880; 85007; 85027; 85610; 86140; 87040 ×2; 87154; 93005; 96365; 99285; A9270; J0692; J7030; J7120; U0002; 36430; 51702; 73700-26-RT; 73700-RT; 74176; 74176-26; 82947; 83036; 83735; 85018; 85025; 86850; 86900; 86901; 86922; 87070; 87075; 87077; 87186; 87205; 87641; 93010; 96366; 96367; 96375; 97162-GP; 99223; 99233; 99239; C9113; J1170; J1650; J1720; J1940; J2270; J2543; J3370; J3430; J3480; J3490; J7040; J7060; P9016; P9017; P9047